=== PATIENT | female | born 1945 ===

== ENCOUNTER → 2019-12-30 15:04 | Outpatient (BNVA) | payer MEDICARE, SELFPAY | PROVIDERS: PCP Internal Medicine; Visit Provider Internal Medicine Pulmonary Disease | DX: J45.40 Moderate persistent asthma, uncomplicated (principal); R06.00 Dyspnea, unspecified; Z79.899 Other long term (current) drug therapy | CPT/HCPCS: 99214 ==

== ENCOUNTER 2020-03-31 15:28 | Outpatient (REF) | payer MEDICARE, SELFPAY ==
--- NOTE | 2020-03-31 15:32 | MM_ITS ---
EXAMINATION: MM SCREENING DIGITAL BREAST TOMOSYNTHESIS, BILATERAL CLINICAL INFORMATION: Screening. Asymptomatic. The lifetime risk of breast cancer based on the Tyrer-Cuzick Model is 2%. COMPARISON: Mammography: 08/06/2018, 08/02/2017, 02/06/2017, 07/22/2016, 06/28/2016 TECHNIQUE: Digital breast tomosynthesis is performed in both the craniocaudal and mediolateral oblique views along with computer-aided detection (CAD). Synthesized 2D images are generated from the tomosynthesis. FINDINGS: The breasts are heterogeneously dense, which may obscure small masses (ACR BI-RADS breast composition Category c). There is fine fibronodular parenchymal pattern similar to prior studies. The left breast shows no interval mass or developing density. Neither breast shows abnormal calcifications. The axilla and skin contours are unremarkable. There is subtle increased nodular asymmetry in the mid right breast 11:00 to 12:00 position. This may be related to summation artifact or incompletely compressed glandular tissue. Patient will be recalled for additional imaging. MM/MM tomosynthesis screening BI IMPRESSION: 1. Right: Question of nodular asymmetry mid right breast 11:00 to 12:00 position, possibly summation artifact or incompletely compressed glandular tissue. 2. Left: No significant changes from prior studies. ASSESSMENT: BI-RADS 0: Incomplete - Need Additional Imaging Evaluation RECOMMENDATION: 1. Additional views of the right breast (3-D spot CC, 3-D spot MLO, standard ML). 2. Targeted ultrasound if warranted after review of the additional views. 3. Radiology department staff will contact the patient for additional imaging. This patient's information was entered into a reminder system with a target due date for their next mammogram.
== END 2020-03-31 15:29 | disposition home or self-care (01) ==
LOC: HO.MAMMO 15:28
PROVIDERS: PCP Family Medicine; Visit Provider Family Medicine
DX: Z12.31 Encounter for screening mammogram for malignant neoplasm of breast (principal)
CPT/HCPCS: 77063; 77067

== ENCOUNTER → 2020-04-14 15:19 | Outpatient (BNVA) | payer MEDICARE, SELFPAY | PROVIDERS: PCP Internal Medicine; Visit Provider Internal Medicine Pulmonary Disease | DX: J45.40 Moderate persistent asthma, uncomplicated (principal); R06.00 Dyspnea, unspecified | CPT/HCPCS: 99212 ==

== ENCOUNTER 2020-06-16 14:54 | Outpatient (REF) | payer MEDICARE, SELFPAY ==
--- NOTE | ~2020-06-16 | MM_ITS ---
EXAMINATION: MM DIAGNOSTIC DIGITAL BREAST TOMOSYNTHESIS, RIGHT CLINICAL INFORMATION: Recall from screening for asymmetry mid right breast 11:00 to 12:00 position, possibly summation artifact or incompletely compressed glandular tissue. COMPARISON: Mammography: 03/31/2020, 08/06/2018, 08/02/2017 TECHNIQUE: Digital breast tomosynthesis is performed. 2D images are generated from the tomosynthesis. The following views are obtained: 3-D spot CC, 3-D spot MLO, 3-D ML FINDINGS: The breasts are heterogeneously dense, which may obscure small masses (ACR BI-RADS breast composition Category c). Additional views show no persistent asymmetric density. There is no developing density or interval mass or architectural abnormality. Parenchymal pattern appears similar to prior studies. Results are discussed with the patient at time of visit, using an cafeteria worker. MM/MM tomosynthesis added views R IMPRESSION: Parenchymal pattern similar to prior studies. ASSESSMENT: BI-RADS 2: Benign RECOMMENDATION: Routine annual mammography screening. This patient's information was entered into a reminder system with a target due date for their next mammogram.
== END 2020-06-16 14:55 | disposition home or self-care (01) ==
LOC: HO.MAMMO 14:54
PROVIDERS: PCP Internal Medicine; Visit Provider Internal Medicine
DX: N64.89 Other specified disorders of breast (principal)
CPT/HCPCS: 77061; 77065

== ENCOUNTER → 2020-08-11 15:17 | Outpatient (BNVA) | payer MEDICARE, SELFPAY | PROVIDERS: PCP Internal Medicine; Visit Provider Internal Medicine Pulmonary Disease | DX: J45.50 Severe persistent asthma, uncomplicated (principal); R06.00 Dyspnea, unspecified; Z91.09 Other allergy status, other than to drugs and biological substances | CPT/HCPCS: 99212 ==

== ENCOUNTER 2020-10-05 14:03 | Outpatient (REF) | payer MEDICARE, SELFPAY | END 2020-10-05 14:04 | disposition home or self-care (01) | LOC: HO.LAB 14:03 | PROVIDERS: PCP Internal Medicine; Visit Provider Internal Medicine Pulmonary Disease | DX: Z91.09 Other allergy status, other than to drugs and biological substances (principal) | CPT/HCPCS: 36415; 82785 ==

== ENCOUNTER 2020-11-10 10:51 | Outpatient (REF) | payer MEDICARE, SELFPAY | END 2020-11-10 10:52 | disposition home or self-care (01) | LOC: HO.LAB 10:51 | PROVIDERS: PCP Internal Medicine; Visit Provider Internal Medicine | DX: Z20.822 Contact with and (suspected) exposure to COVID-19 (principal) | CPT/HCPCS: C9803; U0003; U0005 ==

== ENCOUNTER → 2020-12-01 15:25 | Outpatient (BNVA) | payer MEDICARE, SELFPAY | PROVIDERS: PCP Internal Medicine; Visit Provider Internal Medicine Pulmonary Disease | DX: J45.50 Severe persistent asthma, uncomplicated (principal); Z91.09 Other allergy status, other than to drugs and biological substances | CPT/HCPCS: 99212 ==

== ENCOUNTER 2021-01-20 14:08 | Outpatient (REF) | payer MEDICARE, SELFPAY ==
[2021-01-20 15:36] LABS: Syphilis Screen Nonreactive (Nonreactive)
[2021-01-20 15:42] LABS: Vitamin B12 713 pg/mL (200-900)
[2021-01-21 08:26] LABS: Lyme Abs Screen <0.90 index
== END 2021-01-20 14:09 | disposition home or self-care (01) ==
LOC: HO.LAB 14:08
PROVIDERS: PCP Internal Medicine; Visit Provider Psychiatry & Neurology Neurology
DX: G30.9 Alzheimer's disease, unspecified (principal)
CPT/HCPCS: 36415; 82607; 85652; 86617; 86618; 86780

== ENCOUNTER → 2021-02-02 15:37 | Outpatient (BNVA) | payer MEDICARE, SELFPAY | PROVIDERS: PCP Internal Medicine; Referring Provider Internal Medicine; Visit Provider Nurse Practitioner | DX: D12.6 Benign neoplasm of colon, unspecified (principal); R63.4 Abnormal weight loss | CPT/HCPCS: Q3014 ==

== ENCOUNTER → 2021-02-23 14:56 | Outpatient (BNVA) | payer MEDICARE, SELFPAY | PROVIDERS: PCP Internal Medicine; Visit Provider Internal Medicine Pulmonary Disease | DX: J45.50 Severe persistent asthma, uncomplicated (principal); Z91.09 Other allergy status, other than to drugs and biological substances | CPT/HCPCS: 99212 ==

== ENCOUNTER 2021-02-27 01:07 | Emergency (ER) | payer MEDICARE, SELFPAY ==
[2021-02-27 01:20] VITALS: BP 174/83; PULSE 57; RESP 18; TEMP 36.4; O2SAT 97; BMI 27.9
--- NOTE | 2021-02-27 01:45 | ED_ITS ---
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 Mode of arrival: ambulatory Limitations: no limitations History of Present Illness complaint: HTN 170/100s Onset (ago): day(s) (1) Severity: moderate Relieving factors: none Exacerbating factors: none Associated symptoms: other (has nausea) Treatments prior to arrival: other (took her BP medications though she doesn't know the name) Related Data Home Medications Medication Instructions Recorded Confirmed acetaminophen 500 mg tablet 0 mg PO 12/30/19 albuterol sulfate 2.5 mg INHALATION TID PRN 12/30/19 albuterol sulfate 90 mcg/actuation 0 mcg INHALATION 12/30/19 aerosol inhaler amlodipine 10 mg tablet 10 mg PO QAM 12/30/19 atenolol 50 mg tablet 75 mg PO QAM 12/30/19 bisacodyl 5 mg tablet,delayed 10 mg PO BID 12/30/19 release buspirone 5 mg tablet 5 mg PO BID 12/30/19 calcium carbonate 600 mg (1,500 0 tab PO 12/30/19 mg)-vitamin D3 400 unit tablet cefuroxime axetil 500 mg tablet 500 mg PO Q12H 12/30/19 fluticasone 500 mcg-salmeterol 50 ea INHALATION 12/30/19 mcg/dose blistr powdr for inhalation fluticasone propionate 50 1 spray INTRANASAL DAILY 12/30/19 mcg/actuation nasal spray,suspension furosemide 20 mg tablet 20 mg PO DAILY 12/30/19 hydrochlorothiazide 50 mg tablet 50 mg PO QAM 12/30/19 hydrocortisone 1 % topical cream applic TOPICAL 12/30/19 ketotifen fumarate 0.025 % (0.035 1 drp OPHTHALMIC (EYE) BID 12/30/19 %) eye drops loratadine 10 mg tablet 10 mg PO DAILY 12/30/19 losartan 100 mg tablet 100 mg PO DAILY 12/30/19 miconazole nitrate 2 % topical applic TOPICAL BID PRN 12/30/19 cream multivitamin-ferrous 1 tab PO QAM 12/30/19 fumarate-folic acid 18 mg-400 mcg tablet omeprazole 20 mg capsule,delayed 20 mg PO QAM 12/30/19 release ondansetron 4 mg disintegrating 0 mg PO 12/30/19 tablet peg 3350-electrolytes 236 ml PO DIRECTED 12/30/19 gram-22.74 gram-6.74 gram-5.86 gram solution polyvinyl alcohol 1.4 % eye drops 2 drp OPHTHALMIC (EYE) ml 12/30/19 prochlorperazine maleate 5 mg 0 mg PO 12/30/19 tablet sertraline 25 mg tablet 25 mg PO DAILY 12/30/19 simvastatin 40 mg tablet 40 mg PO BEDTIME 12/30/19 trazodone 100 mg tablet 100 mg PO BEDTIME 12/30/19 Previous Rx's Medication Instructions Recorded dupilumab 300 mg/2 mL subcutaneous See Rx Instructions SUBCUT Q2W 28 12/04/20 pen injector (Dupixent) Days #4 ml furosemide 20 mg tablet 20 mg PO QAM 30 Days #30 tab 12/07/20 [id number] 100 gram-sod sulf 7.5 240 ml PO PER PKG DIR #1 ea 02/02/21 [id number] oral pwdr pack (MoviPrep) Allergies Allergy/AdvReac Type Severity Reaction Status Date / Time acetaminophen [Percocet] Allergy Unknown nausea Verified 02/23/21 15:00 ibuprofen AdvReac Intermediate NAUSEA Verified 02/23/21 15:00 oxycodone [From PERCOCET] AdvReac Intermediate NAUSEA Verified 02/23/21 15:00 Review of Systems Review of Systems: Constitutional : No Weight loss, No Fever, No Chills, No Fatigue, No Malaise ENT/Mouth : No sore throat, No Rhinorrhea Eyes: No Eye Pain, No Swelling, No Redness Cardiovascular : No Chest Pain, No SOB, No Dyspnea on Exertion, No Orthopnea, No Edema, No Palpitations Respiratory : No Cough, No Sputum, No Wheezing Gastrointestinal : pos Nausea, No Vomiting, No Diarrhea, No Constipation, No abdominal Pain, No Hematochezia, No Melena Genitourinary : No Dysuria, No Urinary Frequency, No Hematuria, Musculoskeletal : No joint pain, No Myalgias, No Joint Swelling Skin : No Skin Lesions, No rash Neuro : No Weakness, No Numbness, No Dizziness, No Headache Psych : No Anxiety/Panic, No Depression All other systems reviewed and are negative [facility] Past Medical History Attestation statement: The following information was validated with the patient. Medical History GERD (gastroesophageal reflux disease) High cholesterol HTN (hypertension), benign Moderate persistent asthma Surgical History H/O lithotripsy History of section History of tubal ligation Hx of cholecystectomy Social History Social History (Updated 02/27/21 @ 02:14 by Rosuara Bejarano DO) Patient Tobacco Use Status: Never used Tobacco Advance Directives: No Advance Directives Information Provided: Yes Physical Exam Vital Signs: Vital Signs: Last Vital Signs Temp 97.5 F 02/27/21 01:20 Pulse 61 02/27/21 03:20 Resp 20 02/27/21 03:20 BP 169/84 H 02/27/21 03:20 Pulse Ox 98 02/27/21 03:20 BMI result Body Mass Index 27.9 Appearance: Alert. Oriented X3. No acute distress. Eyes: Pupils equal, round and reactive to light. ENT: Pharynx normal. Neck: Normal inspection. Neck supple. CVS: Normal heart rate and rhythm. Pulses normal. Respiratory: No respiratory distress. Breath sounds normal. Abdomen: Soft and nontender. Skin: Skin warm and dry. Normal skin color. Normal skin turgor. Extremities: No lower extremity edema. No calf ttp Neuro: Oriented X 3. No motor deficit. No sensory deficit. Course Course Course Narrative: patient reports chronic nausea - zofran ordered BP coming down - one day of HTN will hold off adding medications labs negative anticipate DC home patient very anxious working herself up will try ativan here low dose to see if it helps Medical Decision Making MDM Narrative Medical decision making narrative: 75 yo female with hx of HTN, HLD here with c/o elevated BPs all day without sig associated symptoms (states she has chronic nausea) at this time she reports compliance with her medications though doesn't know the name, no increased salt/caffeine, no changes in medications, no CP/headaches, no other complaints will obtain EKG basic labs and monitor BP she is on 75mg atenolol daily and lasix 20mg daily may need to add on additional agent if it remains high. Lab Data Result diagrams: 02/27/21 02:34 02/27/21 02:34 Labs: Lab Results 02/27/21 02/27/21 02/27/21 Range/Units 02:34 02:34 02:34 WBC 7.1 (4.8-10.8) X10*3/uL RBC 4.15 L (4.20-5.50) X10*6/uL Hgb 13.3 (12.0-16.0) g/dl Hct 39.5 (37.0-47.0) % MCV 95.2 (80.0-98.0) fL MCH 32.0 (27.0-33.0) pg MCHC 33.7 (31.0-35.0) g/dl RDW 13.2 (11.0-16.0) % Plt Count 225 (160-400) X10*3/uL MPV 10.1 (9.4-12.3) fL Immature Gran % (Auto) 0.3 (0.0-0.4) % Neut % (Auto) 58.5 (45-73) % Lymph % (Auto) 28.2 (20-40) % [place] % (Auto) 10.2 (2-11) % Eos % (Auto) 2.4 (0-4) % Baso % (Auto) 0.4 (0-2) % Lymph # (Auto) 2.0 (1.2-4.9) X10*3/uL [place] # (Auto) 0.7 (0.1-1.2) X10*3/uL Eos # (Auto) 0.2 (0.0-0.4) X10*3/uL Baso # (Auto) 0.0 (0.0-0.2) X10*3/uL Abs Immat Gran (auto) 0.02 (0.00-0.03) X10*3/uL Absolute Neuts (auto) 4.1 (2.0-8.3) x10*3/uL Absolute Nucleated RBC 0.000 (0.0-0.012) X10*3/uL Nucleated RBC % (auto) 0.0 (0.0-0.2) /100WBC Sodium 144 (135-145) mmol/L Potassium 3.3 (3.3-5.1) mmol/L Chloride 105 (96-108) mmol/L Carbon Dioxide 27 (22-29) mmol/L Anion Gap 15 (12-20) BUN 13 (9-16) mg/dL Creatinine 1.07 (0.5-1.4) mg/dL Estim Creat Clear Calc 39.2 Estimated GFR 50 Random Glucose 100 (60-115) mg/dL Calcium 9.7 (8.4-10.2) mg/dL Troponin I High Sens 4.7 (<3.5-17.0) ng/L COVID-19 (YULY) (Negative) COVID-19 Clin Com 02/27/21 Range/Units 02:34 WBC (4.8-10.8) X10*3/uL RBC (4.20-5.50) X10*6/uL Hgb (12.0-16.0) g/dl Hct (37.0-47.0) % MCV (80.0-98.0) fL MCH (27.0-33.0) pg MCHC (31.0-35.0) g/dl RDW (11.0-16.0) % Plt Count (160-400) X10*3/uL MPV (9.4-12.3) fL Immature Gran % (Auto) (0.0-0.4) % Neut % (Auto) (45-73) % Lymph % (Auto) (20-40) % [place] % (Auto) (2-11) % Eos % (Auto) (0-4) % Baso % (Auto) (0-2) % Lymph # (Auto) (1.2-4.9) X10*3/uL [place] # (Auto) (0.1-1.2) X10*3/uL Eos # (Auto) (0.0-0.4) X10*3/uL Baso # (Auto) (0.0-0.2) X10*3/uL Abs Immat Gran (auto) (0.00-0.03) X10*3/uL Absolute Neuts (auto) (2.0-8.3) x10*3/uL Absolute Nucleated RBC (0.0-0.012) X10*3/uL Nucleated RBC % (auto) (0.0-0.2) /100WBC Sodium (135-145) mmol/L Potassium (3.3-5.1) mmol/L Chloride (96-108) mmol/L Carbon Dioxide (22-29) mmol/L Anion Gap (12-20) BUN (9-16) mg/dL Creatinine (0.5-1.4) mg/dL Estim Creat Clear Calc Estimated GFR Random Glucose (60-115) mg/dL Calcium (8.4-10.2) mg/dL Troponin I High Sens (<3.5-17.0) ng/L COVID-19 (YULY) Negative (Negative) COVID-19 Clin Com See Note ECG Data Attestation: I personally reviewed and interpreted this ECG as follows: Interpretation: Rate: 56 Rhythm: sinus bradycardia Lamar: left Normal P waves. Normal CLAU. Normal QRS complex. ST T wave : normal no MICHAEL qTC: normal prior studies: no acute ischemia The study has been interpreted contemporaneously by me. . Discharge Plan Discharge Clinical Impression: HTN (hypertension) Qualifiers: Hypertension type: unspecified Qualified Code(s): I10 - Essential (primary) hypertension Patient Disposition: Home, Self-Care Instructions: Hypertension (ED) Additional Instructions: return to ED for any worsening symptoms or concerns Prescriptions: No Action Dupixent Pen 300 mg/2 mL pen injector See Rx Instructions subcut Q2W 28 Days Qty: 4 RF: 12 furosemide 20 mg tablet 20 mg PO QAM 30 Days Qty: 30 RF: 6 albuterol sulfate 90 mcg/actuation HFA aerosol inhaler 0 mcg inhalation RF: 0 albuterol sulfate 2.5 mg /3 mL (0.083 %) solution for nebulization 2.5 mg inhalation TID PRNRF: 0 ondansetron 4 mg tablet,disintegrating 0 mg PO RF: 0 atenolol 50 mg tablet 75 mg PO QAM RF: 0 furosemide 20 mg tablet 20 mg PO DAILY RF: 0 simvastatin 40 mg tablet 40 mg PO BEDTIME RF: 0 fluticasone propion-salmeterol 500-50 mcg/dose blister with device inhalation RF: 0 cefuroxime axetil 500 mg tablet 500 mg PO Q12H RF: 0 prochlorperazine maleate 5 mg tablet 0 mg PO RF: 0 Cerovite Advanced Formula 18-400 mg-mcg tablet 1 tab PO QAM RF: 0 peg 3350-electrolytes 236-22.74-6.74 -5.86 gram recon soln PO DIRECTED RF: 0 calcium carbonate-vitamin D3 600 mg(1,500mg) -400 unit tablet 0 tab PO RF: 0 fluticasone propionate 50 mcg/actuation spray,suspension 1 spray intranasal DAILY RF: 0 losartan 100 mg tablet 100 mg PO DAILY RF: 0 bisacodyl 5 mg tablet,delayed release (DR/EC) 10 mg PO BID RF: 0 omeprazole 20 mg capsule,delayed release(DR/EC) 20 mg PO QAM RF: 0 sertraline 25 mg tablet 25 mg PO DAILY RF: 0 hydrochlorothiazide 50 mg tablet 50 mg PO QAM RF: 0 buspirone 5 mg tablet 5 mg PO BID RF: 0 trazodone 100 mg tablet 100 mg PO BEDTIME RF: 0 acetaminophen 500 mg tablet 0 mg PO RF: 0 ketotifen fumarate 0.025 % (0.035 %) drops 1 drp ophthalmic (eye) BID RF: 0 amlodipine 10 mg tablet 10 mg PO QAM RF: 0 loratadine 10 mg tablet 10 mg PO DAILY RF: 0 miconazole nitrate 2 % cream topical BID PRN (Reason: anxiety) RF: 0 hydrocortisone 1 % cream topical RF: 0 polyvinyl alcohol 1.4 % drops 2 drp ophthalmic (eye) RF: 0 [id number]-C [MoviPrep] 100-7.5-2.691 gram powder in packet 240 ml PO PER PKG DIR Qty: 1 RF: 0 Referrals: Physician,Unknown J [Primary Care Provider] - 3 days Print Language: Ukrainian
--- NOTE | 2021-02-27 01:46 | ECG_ITS ---
Test Reason : HYPERTENSION Blood Pressure : / mmHG Vent. Rate : 056 BPM Atrial Rate : 056 BPM P-R Int : 178 ms QRS Dur : 080 ms QT Int : 442 ms P-R-T Axes : 062 -21 030 degrees QTc Int : 426 ms Sinus bradycardia Otherwise normal ECG When compared to the previous EKG of 08 dec 2019, improved ST-T changes Referred By: Rosaura Bejarano Electronically Signed By:TOÑO TRACEY
[2021-02-27 02:44] LABS: MANUAL DIFF FLAG NO
[2021-02-27 02:46] LABS: Basophils Percent Auto 0.4 % (0-2); Eosinophils Absolute Auto 0.2 X10*3/uL (0.0-0.4); Eosinophils Percent Auto 2.4 % (0-4); Hematocrit 39.5 % (37.0-47.0); Hemoglobin 13.3 g/dl (12.0-16.0); Imm Gran Abs Auto 0.02 X10*3/uL (0.00-0.03); Imm Gran Pct Auto 0.3 % (0.0-0.4); Lymphocytes Percent Auto 28.2 % (20-40); Mean Corpuscular HGB Conc 33.7 g/dl (31.0-35.0); Mean Corpuscular Volume 95.2 fL (80.0-98.0); Mean Platelet Volume 10.1 fL (9.4-12.3); Monocytes Absolute Auto 0.7 X10*3/uL (0.1-1.2); Monocytes Percent Auto 10.2 % (2-11); Neutrophils Absolute Auto 4.1 x10*3/uL (2.0-8.3); Neutrophils Percent Auto 58.5 % (45-73); Platelet Count 225 X10*3/uL (160-400); Red Blood Count 4.15 X10*6/uL (4.20-5.50); Red Cell Distribution Width 13.2 % (11.0-16.0); White Blood Count 7.1 X10*3/uL (4.8-10.8)
[2021-02-27 03:00] LABS: COVID-19 Test Negative (Negative)
[2021-02-27 03:01] LABS: Anion Gap 15 (12-20); Blood Urea Nitrogen 13 mg/dL (9-16); Calcium 9.7 mg/dL (8.4-10.2); Carbon Dioxide 27 mmol/L (22-29); Chloride 105 mmol/L (96-108); Creatinine Clr Calc Pharmacy 39.2; Estimated Glomerular Filt Rate 50; Glucose Random 100 mg/dL (60-115); Potassium 3.3 mmol/L (3.3-5.1); Sodium 144 mmol/L (135-145)
[2021-02-27 03:05] LABS: Troponin-I High Sensitivity 4.7 ng/L (<3.5-17.0)
[2021-02-27] MEDS: ondansetron HCL 4 MG/2 ML VIAL IVPUSH (03:19)
[2021-02-27 03:20] VITALS: BP 169/84; PULSE 61; RESP 20; O2SAT 98
[2021-02-27] MEDS: LORazepam 0.5 MG TABLET PO (03:46)
== END 2021-02-27 05:29 | disposition home or self-care (01) ==
PROVIDERS: Emergency Provider Emergency Medicine
DX: I10 Essential (primary) hypertension (principal); Z20.822 Contact with and (suspected) exposure to COVID-19; R11.0 Nausea
CPT/HCPCS: 36415; 80048; 84484; 85025; 87635; 93005; 96374; 99284; J2405

== ENCOUNTER → 2021-03-09 14:56 | Outpatient (BNVA) | payer MEDICARE, SELFPAY | PROVIDERS: PCP Internal Medicine; Visit Provider Internal Medicine Pulmonary Disease | DX: J45.50 Severe persistent asthma, uncomplicated (principal) | CPT/HCPCS: 99211 ==

== ENCOUNTER → 2021-04-05 14:43 | Outpatient (BNVA) | payer MEDICARE, SELFPAY | PROVIDERS: PCP Internal Medicine; Visit Provider Internal Medicine Pulmonary Disease | DX: J45.50 Severe persistent asthma, uncomplicated (principal); Z91.09 Other allergy status, other than to drugs and biological substances | CPT/HCPCS: 99212 ==

== ENCOUNTER 2021-06-28 15:41 | Outpatient (REF) | payer OTHER, SELFPAY ==
--- NOTE | ~2021-06-28 | MM_ITS ---
EXAMINATION: MM SCREENING DIGITAL BREAST TOMOSYNTHESIS, BILATERAL CLINICAL INFORMATION: Screening. Asymptomatic. The lifetime risk of breast cancer based on the Tyrer-Cuzick Model is 2%. COMPARISON: Mammography: 06/16/2020, 03/31/2020, 08/06/2018, 08/02/2017 TECHNIQUE: Digital breast tomosynthesis is performed in both the craniocaudal and mediolateral oblique views along with computer-aided detection (CAD). Synthesized 2D images are generated from the tomosynthesis. FINDINGS: The breasts are heterogeneously dense, which may obscure small masses (ACR BI-RADS breast composition Category c). There is fine fibronodular parenchymal pattern similar to prior studies. There is no interval mass or architectural abnormality. No developing density. There are dermal calcifications versus deodorant artifact overlying both axilla. There are bilateral vascular calcifications and some scattered relatively coarse calcifications left breast. Right breast has new tightly grouped punctate calcifications posterior central breast on right CC view 7.7 cm from the nipple. The calcifications are likely inferior to the the posterior nipple line on MLO view and possibly vascular in etiology. Patient will be recalled for additional imaging. MM/MM tomosynthesis screening BI IMPRESSION: Right: -New tightly grouped calcifications posterior central 6:00 position close to posterior nipple line 7.7 cm from nipple, possibly vascular. Left: -No mammographic evidence of malignancy. ASSESSMENT: BI-RADS 0: Incomplete - Need Additional Imaging Evaluation RECOMMENDATION: 1. Additional views of the right breast (magnification CC, magnification ML). 2. Radiology department staff will contact the patient for additional imaging. This patient's information was entered into a reminder system with a target due date for their next mammogram.
== END 2021-06-28 15:42 | disposition home or self-care (01) ==
LOC: HO.MAMMO 15:41
PROVIDERS: PCP Internal Medicine; Visit Provider Internal Medicine
DX: Z12.31 Encounter for screening mammogram for malignant neoplasm of breast (principal)
CPT/HCPCS: 77063; 77067

== ENCOUNTER 2021-07-29 07:47 | Day surgery (SDC) | payer OTHER, SELFPAY ==
[2021-07-23 11:40] VITALS: BMI 27.8
--- NOTE | 2021-07-28 12:24 | HO.ANESPROP2 ---
Documented by User: Trinidad Aguirre NP 07/28/21 12:27 HPI - Anesthesia Eval Consult details Narrative: 76yo F for Upper Endoscopy and Colonoscopy [facility] Active Problems Active Problems: All Active Problems (Updated 02/28/21 @ 00:01 by Background Omid) Dyspnea on exertion (Acute) Severe persistent allergic asthma (Acute) Environmental allergies (Acute) Dementia (Acute) Serrated adenoma of colon (Acute) Nephrolithiasis (Acute) Abnormal weight loss (Acute) Past Medical History Medical History (Updated 02/28/21 @ 00:01 by Background Dashmuel) GERD (gastroesophageal reflux disease) High cholesterol HTN (hypertension), benign Moderate persistent asthma Surgical History Surgical History (Updated 07/23/21 @ 11:32 by Desiree Gonzalez RN) H/O colonoscopy H/O lithotripsy History of section History of esophagogastroduodenoscopy (EGD) History of tubal ligation Hx of cholecystectomy Social History Social History (Updated 02/27/21 @ 02:14 by Rosaura Bejarano DO) Patient Tobacco Use Status: Never used Tobacco Meds Allergies Allergy/AdvReac Type Severity Reaction Status Date / Time ibuprofen AdvReac Intermediate NAUSEA Verified 04/05/21 14:45 oxycodone [From PERCOCET] AdvReac Intermediate NAUSEA Verified 04/05/21 14:45 Home Medications Medication Instructions Recorded Confirmed Last Taken Type acetaminophen 500 mg tablet 0 mg PO 12/30/19 03/09/21 Unknown History albuterol sulfate 2.5 mg INHALATION TID PRN 12/30/19 03/09/21 Unknown History albuterol sulfate 90 mcg/actuation 0 mcg INHALATION 12/30/19 03/09/21 07/29/21 History aerosol inhaler amlodipine 10 mg tablet 10 mg PO QAM 12/30/19 03/09/21 Unknown History atenolol 50 mg tablet 75 mg PO QAM 12/30/19 03/09/21 Unknown History bisacodyl 5 mg tablet,delayed 10 mg PO BID 12/30/19 03/09/21 Unknown History release buspirone 5 mg tablet 5 mg PO BID 12/30/19 03/09/21 Unknown History calcium carbonate 600 mg-vitamin 0 tab PO 12/30/19 03/09/21 Unknown History D3 10 mcg (400 unit) tablet cefuroxime axetil 500 mg tablet 500 mg PO Q12H 12/30/19 03/09/21 Unknown History fluticasone 500 mcg-salmeterol 50 ea INHALATION 12/30/19 03/09/21 Unknown History mcg/dose blistr powdr for inhalation fluticasone propionate 50 1 spray INTRANASAL DAILY 12/30/19 03/09/21 Unknown History mcg/actuation nasal spray,suspension furosemide 20 mg tablet 20 mg PO DAILY 12/30/19 03/09/21 Unknown History hydrochlorothiazide 50 mg tablet 50 mg PO QAM 12/30/19 03/09/21 Unknown History hydrocortisone 1 % topical cream applic TOPICAL 12/30/19 03/09/21 Unknown History ketotifen fumarate 0.025 % (0.035 1 drp OPHTHALMIC (EYE) BID 12/30/19 03/09/21 Unknown History %) eye drops loratadine 10 mg tablet 10 mg PO DAILY 12/30/19 03/09/21 Unknown History losartan 100 mg tablet 100 mg PO DAILY 12/30/19 03/09/21 Unknown History miconazole nitrate 2 % topical applic TOPICAL BID PRN 12/30/19 03/09/21 Unknown History cream multivitamin-ferrous 1 tab PO QAM 12/30/19 03/09/21 Unknown History fumarate-folic acid 18 mg-400 mcg tablet omeprazole 20 mg capsule,delayed 20 mg PO QAM 12/30/19 03/09/21 Unknown History release ondansetron 4 mg disintegrating 0 mg PO 12/30/19 03/09/21 Unknown History tablet peg 3350-electrolytes 236 ml PO DIRECTED 12/30/19 03/09/21 Unknown History gram-22.74 gram-6.74 gram-5.86 gram solution polyvinyl alcohol 1.4 % eye drops 2 drp OPHTHALMIC (EYE) ml 12/30/19 03/09/21 Unknown History prochlorperazine maleate 5 mg 0 mg PO 12/30/19 03/09/21 Unknown History tablet sertraline 25 mg tablet 25 mg PO DAILY 12/30/19 03/09/21 Unknown History simvastatin 40 mg tablet 40 mg PO BEDTIME 12/30/19 03/09/21 Unknown History trazodone 100 mg tablet 100 mg PO BEDTIME 12/30/19 03/09/21 Unknown History Exam Exam Date and Time: July 28, 2021 1224 Height,Weight and Vital Signs: Height 5 ft 1 in Weight 67 kg Pertinent Lab Results Pertinent Lab Results: Laboratory Tests 02/27/21 02/27/21 02:34 02:34 WBC 7.1 Hgb 13.3 Hct 39.5 Plt Count 225 Sodium 144 Potassium 3.3 Chloride 105 Carbon Dioxide 27 BUN 13 Creatinine 1.07 Narrative Narrative: EKG 02/2021 Vent. Rate : 056 BPM ? ? Atrial Rate : 056 BPM ?? P-R Int : 178 ms? QRS Dur : 080 ms ? ? QT Int : 442 ms ? ? ? P-R-T Axes : 062 -21 030 degrees ?? QTc Int : 426 ms ? Sinus bradycardia Otherwise normal ECG When compared to the previous EKG of 08 dec 2019,? improved ST-T changes Assessment and Plan Assessment Anesthesia Assessment: Chart Reviewed Documented by User: Ismael Fields MD 07/29/21 13:45 [facility] Past Medical History Medical History (Updated 02/28/21 @ 00:01 by Jamilah Anne) GERD (gastroesophageal reflux disease) High cholesterol HTN (hypertension), benign Moderate persistent asthma Family History Family history of problems with anesthesia: No Surgical History Surgical History (Updated 07/23/21 @ 11:32 by Desiree Gonzalez RN) H/O colonoscopy H/O lithotripsy History of section History of esophagogastroduodenoscopy (EGD) History of tubal ligation Hx of cholecystectomy History of Problems with Anesthesia: No Social History Social History (Updated 02/27/21 @ 02:14 by Rosaura Bejarano DO) Patient Tobacco Use Status: Never used Tobacco Meds Allergies Allergy/AdvReac Type Severity Reaction Status Date / Time ibuprofen AdvReac Intermediate NAUSEA Verified 04/05/21 14:45 oxycodone [From PERCOCET] AdvReac Intermediate NAUSEA Verified 04/05/21 14:45 Home Medications Medication Instructions Recorded Confirmed Last Taken Type acetaminophen 500 mg tablet 0 mg PO 12/30/19 03/09/21 Unknown History albuterol sulfate 2.5 mg INHALATION TID PRN 12/30/19 03/09/21 Unknown History albuterol sulfate 90 mcg/actuation 0 mcg INHALATION 12/30/19 03/09/21 07/29/21 History aerosol inhaler amlodipine 10 mg tablet 10 mg PO QAM 12/30/19 03/09/21 Unknown History atenolol 50 mg tablet 75 mg PO QAM 12/30/19 03/09/21 Unknown History bisacodyl 5 mg tablet,delayed 10 mg PO BID 12/30/19 03/09/21 Unknown History release buspirone 5 mg tablet 5 mg PO BID 12/30/19 03/09/21 Unknown History calcium carbonate 600 mg-vitamin 0 tab PO 12/30/19 03/09/21 Unknown History D3 10 mcg (400 unit) tablet cefuroxime axetil 500 mg tablet 500 mg PO Q12H 12/30/19 03/09/21 Unknown History fluticasone 500 mcg-salmeterol 50 ea INHALATION 12/30/19 03/09/21 Unknown History mcg/dose blistr powdr for inhalation fluticasone propionate 50 1 spray INTRANASAL DAILY 12/30/19 03/09/21 Unknown History mcg/actuation nasal spray,suspension furosemide 20 mg tablet 20 mg PO DAILY 12/30/19 03/09/21 Unknown History hydrochlorothiazide 50 mg tablet 50 mg PO QAM 12/30/19 03/09/21 Unknown History hydrocortisone 1 % topical cream applic TOPICAL 12/30/19 03/09/21 Unknown History ketotifen fumarate 0.025 % (0.035 1 drp OPHTHALMIC (EYE) BID 12/30/19 03/09/21 Unknown History %) eye drops loratadine 10 mg tablet 10 mg PO DAILY 12/30/19 03/09/21 Unknown History losartan 100 mg tablet 100 mg PO DAILY 12/30/19 03/09/21 Unknown History miconazole nitrate 2 % topical applic TOPICAL BID PRN 12/30/19 03/09/21 Unknown History cream multivitamin-ferrous 1 tab PO QAM 12/30/19 03/09/21 Unknown History fumarate-folic acid 18 mg-400 mcg tablet omeprazole 20 mg capsule,delayed 20 mg PO QAM 12/30/19 03/09/21 Unknown History release ondansetron 4 mg disintegrating 0 mg PO 12/30/19 03/09/21 Unknown History tablet peg 3350-electrolytes 236 ml PO DIRECTED 12/30/19 03/09/21 Unknown History gram-22.74 gram-6.74 gram-5.86 gram solution polyvinyl alcohol 1.4 % eye drops 2 drp OPHTHALMIC (EYE) ml 12/30/19 03/09/21 Unknown History prochlorperazine maleate 5 mg 0 mg PO 12/30/19 03/09/21 Unknown History tablet sertraline 25 mg tablet 25 mg PO DAILY 12/30/19 03/09/21 Unknown History simvastatin 40 mg tablet 40 mg PO BEDTIME 12/30/19 03/09/21 Unknown History trazodone 100 mg tablet 100 mg PO BEDTIME 12/30/19 03/09/21 Unknown History Exam Airway Mallampati Class: III TM Dist: >3cm Neck ROM: Full Loose/Missing/Broken Teeth: Yes (Lower screws ) Heart: S1, S2 Lungs: b/l breath sounds Assessment and Plan Assessment Anesthesia Assessment: Anesthesia Plan Discussed Final Anesthetic Review Family History of Problems with Anesthesia: No History of Problems with Anesthesia: No NPO: Yes ASA Class: III Final Preanesthetic Review: Meds/Allgs Chart Reviewed, Consent Obtained/Reviewed and Anes Risks/Benef Reviewed Patient Risk: Intermediate Procedure Risk: Intermediate Anesthetic Plan Anesthetic Plan: MAC: Disposition: Standard PACU
[2021-07-29 08:11] VITALS: BMI 25.0
[2021-07-29 08:33] VITALS: BP 162/66; PULSE 57; RESP 16; TEMP 36.7; O2SAT 97
[2021-07-29] MEDS: Lactated Ringers 1,000 ML 100 ML IVCONT (08:41)
--- NOTE | 2021-07-29 08:58 | MHC.SHP ---
Pre-Procedural Eval Section A Date of Service: 07/29/21 Section B Chief Complaint: wt loss,benign neoplasm of colon Relevant Family History (Specify if Yes): No Relevant Social History: None Present Medications: see Short Stay Collaborative assessment Medical History: Significant History (GERD (gastroesophageal reflux disease) High cholesterol HTN (hypertension), benign Moderate persistent asthma) History of Previous Operations: Relevant previous surgery/procedure and date(s) (H/O colonoscopy H/O lithotripsy History of section History of esophagogastroduodenoscopy (EGD) History of tubal ligation Hx of cholecystectomy) Allergies: Allergies Allergy/AdvReac Type Severity Reaction Status Date / Time ibuprofen AdvReac Intermediate NAUSEA Verified 04/05/21 14:45 oxycodone [From PERCOCET] AdvReac Intermediate NAUSEA Verified 04/05/21 14:45 Review of Systems Sugical H&P ROS: Negative: Constitution, Cardiovascular, Respiratory, Neurological, Psychiatric, Hem-Onc, Allergic/Immunologic, Gastrointestinal, Genitourinary, Musculoskeletal, Integumentary, Endocrine and Eyes/Ears/Nose/Throat Exam Surgical H&P Exam: Normal: HEENT, Normal: Heart, Normal: Lungs, Normal: Extremities, Normal: Abdomen, Normal: Skin and Normal: Neurological Plan Diagnosis/Plan: Unchanged I have reviewed the history and physical and performed a pertinent physical examination on my patient. No changes have occurred unless specified.
--- NOTE | 2021-07-29 09:38 | P.BOP_ITS ---
Brief Operative Note Date of Service: 07/29/21 Pre-op diagnosis: weight loss, hx of colon polyp Post-op diagnosis: same Procedure: see op note Surgeon: Miriam Archibald MD Anesthesia: MAC Was an Administrative Library Assistant used for this Procedure?: No Estimated blood loss (mL): 0 Condition: stable Disposition: PACU
--- NOTE | 2021-07-29 09:38 | P.OP_ITS ---
Operative Note Operative Note Date of Service: 07/29/21 Narrative: Operative Information Procedure Description: EGD, Colonoscopy Indication: weight loss, hx of colon polyp Anesthesia: MAC FLEXIBLE TRANSORAL UPPER GASTROINTESTINAL ENDOSCOPY AND COLONOSCOPY PROCEDURE NOTE UPPER ENDOSCOPY Consent: Indications for the procedure and potential complications of bleeding, perforation, reaction to medications and missed diagnosis were discussed with the patient and informed consent was obtained. Instrument: Olympus GIF H 190 J mid size upper endoscope Monitoring: Vital signs and clinical assessment, continuous EKG monitoring, Pulse oximetry, Carbon Dioxide monitoring and blood pressure monitoring were done throughout the procedure. Procedure: The patient was placed in the left lateral decubitis position and pre-procedure medications were administered and a bite block was placed. The endoscope was inserted into the mouth and advanced under direct vision to the third part of duodenum. A careful inspection was made as the upper endoscope was withdrawn including a retroflexed examination of the proximal stomach; Findings and interventions are described below. Findings: Larynx:normal Esophagus: GE junction at 35 cm, diaphragm hiatus at 37 cm, consistent with 2 cm sliding hiatal hernia. There was some islands of salmon pink tissue at GEJ, bx taken to r/o short segment barretts. Random esophagus bx also taken. Stomach: Patchy areas of intense erythema. Biopsies were obtained. Grade 2 flap valve on retroflexed examination of the cardia. There were also many fundic glan d polyps. Good gastric movement and peristalsis. Duodenum: Normal bulb and descending duodenum, bx taken Intervention: Biopsies as noted above COLONOSCOPY Instrument: Olympus variable stiffness pediatric scope 190L Colonoscopy Monitoring: Vital signs and clinical assessment, continuous EKG monitoring, Pulse oximetry, Carbon Dioxide monitoring and blood pressure monitoring were done throughout the procedure. Colon withdrawal time was 11 minutes. Procedure: The patient was placed in the left lateral decubitis position and pre-procedure medications were administered. After a digital rectal examination of the ano-rectum, the video colonoscope was inserted into the rectum and advanced through the colon to the cecum/TI. The colonoscope was slowly withdrawn in a retrograde panoramic fashion and the colon mucosa was carefully examined including a retroflexed view of the rectum. Findings and interventions are described below. Procedure Difficulty:moderate due to severe diverticulosis, pressure applied Findings: Terminal Ileum-normal, bx taken Severe traylor diverticulosis, more so on the left side, random colon bx taken Cecum:normal Ascending Colon: diverticulosis noted Transverse Colon - 10 mm sessile polyp removed with cold snare Descending Colon: patchy erythema, severe diverticulosis Sigmoid Colon: patchy erythema, severe diverticulosis, with luminal narrowing and mucosal hypertrophy Rectum: Retroflexion with small internal hemorrhoids, grade I Anorectum - normal Colon preparation: [place] Bowel Preparation Scale Right colon; 2 Transverse colon: 2 Left colon; 2 (0 = Unprepared colon segment with mucosa not seen due to solid stool that cannot be cleared. 1 = Portion of mucosa of the colon segment seen, but other areas of the colon segment not well seen due to staining, residual stool and/or opaque liquid. 2 = Minor amount of residual staining, small fragments of stool and/or opaque liquid, but mucosa of colon segment seen well. 3 = Entire mucosa of colon segment seen well with no residual staining, small fragments of stool or opaque liquid) Impression and Post Procedure Diagnosis: Endoscopy Findings: hiatal hernia possible barretts gastritis fundic gland polyps Good gastric movement and peristalsis. Colonoscopy Findings: polyp internal hemorrhoids diverticular disease mild colitis, possibly diverticular related (SCAD) Plan: Await Pathology results Repeat Colonoscopy in 5 years if health allows or earlier if clinically indicated High fiber diet leaflet avoid straining at stool, epsom salts and sitz bath, anusol supps or cream if h pylori pos then treat Above findings were reviewed with the patient and relevant handouts were provided if indicated.
[2021-07-29 09:42] VITALS: BP 87/35; PULSE 57; RESP 16; TEMP 36.5; O2SAT 97
[2021-07-29 09:57] VITALS: BP 119/56; PULSE 53; RESP 16; TEMP 36.4; O2SAT 98
[2021-07-29 10:12] VITALS: BP 150/68; PULSE 55; RESP 16; TEMP 36.8; O2SAT 96
[2021-07-29 10:27] VITALS: BP 154/72; PULSE 55; RESP 16; TEMP 36.7; O2SAT 96
[2021-07-29 10:42] VITALS: BP 148/70; PULSE 58; RESP 16; TEMP 36.6; O2SAT 96
== END 2021-07-29 11:46 | disposition home or self-care (01) ==
PROVIDERS: PCP Internal Medicine; Visit Provider Internal Medicine Gastroenterology
PROC: (CPT 45385; principal; 2021-07-29 12:30)
DX: R63.4 Abnormal weight loss (principal); Z86.010 Personal history of colon polyps; R19.7 Diarrhea, unspecified; K63.5 Polyp of colon; K57.30 Diverticulosis of large intestine without perforation or abscess without bleeding; K52.89 Other specified noninfective gastroenteritis and colitis; K64.0 First degree hemorrhoids; K31.7 Polyp of stomach and duodenum; K29.50 Unspecified chronic gastritis without bleeding; K21.9 Gastro-esophageal reflux disease without esophagitis; K44.9 Diaphragmatic hernia without obstruction or gangrene; F03.90 Unspecified dementia, unspecified severity, without behavioral disturbance, psychotic disturbance, mood disturbance, and anxiety; I10 Essential (primary) hypertension; E78.5 Hyperlipidemia, unspecified; J45.30 Mild persistent asthma, uncomplicated; Z79.899 Other long term (current) drug therapy; Z88.8 Allergy status to other drugs, medicaments and biological substances; Z90.49 Acquired absence of other specified parts of digestive tract; Z87.442 Personal history of urinary calculi; Z87.891 Personal history of nicotine dependence
CPT/HCPCS: 45385; 45380; 43239; 88305; 88342; J3010

== ENCOUNTER → 2021-08-03 14:55 | Outpatient (BNVA) | payer OTHER, SELFPAY | PROVIDERS: PCP Internal Medicine; Visit Provider Internal Medicine Pulmonary Disease | DX: J45.50 Severe persistent asthma, uncomplicated (principal); Z91.09 Other allergy status, other than to drugs and biological substances | CPT/HCPCS: 99212 ==

== ENCOUNTER 2021-08-09 14:43 | Outpatient (REF) | payer OTHER, SELFPAY ==
--- NOTE | ~2021-08-09 | MM_ITS ---
EXAMINATION: MM DIAGNOSTIC DIGITAL MAMMOGRAPHY, RIGHT CLINICAL INFORMATION: Recall from screening for new grouped calcifications posterior central right breast. COMPARISON: Mammography: 06/28/2021, 06/16/2020, 03/31/2020 TECHNIQUE: Digital mammography is performed in the following views: Magnification CC x2, magnification ML x4. FINDINGS: The breasts are heterogeneously dense, which may obscure small masses (ACR BI-RADS breast composition Category c). The additional views confirm grouped calcifications 8-12 in number posterior inferior breast representing new finding from prior studies. Calcifications slightly vary in shape. Stereotactic sampling is recommended. Results are discussed with the patient and her son at time of visit, with assistance of an grant writer. MM/MM added views RT IMPRESSION: -New grouped heterogeneous calcifications posterior inferior right breast. ASSESSMENT: BI-RADS 4: Suspicious RECOMMENDATION: Stereotactic biopsy right breast calcifications. This patient's information was entered into a reminder system with a target due date for their next mammogram.
== END 2021-08-09 14:44 | disposition home or self-care (01) ==
LOC: HO.MAMMO 14:43
PROVIDERS: Visit Provider Internal Medicine
DX: R92.1 Mammographic calcification found on diagnostic imaging of breast (principal)
CPT/HCPCS: 77065

== ENCOUNTER → 2021-08-10 14:50 | Outpatient (BNVA) | payer OTHER, SELFPAY | PROVIDERS: PCP Internal Medicine; Referring Provider Internal Medicine; Visit Provider Nurse Practitioner | DX: K22.70 Barrett's esophagus without dysplasia (principal) | CPT/HCPCS: 99212 ==

== ENCOUNTER 2021-08-13 08:49 | Outpatient (REF) | payer OTHER, SELFPAY ==
--- NOTE | ~2021-08-13 | MM_ITS ---
EXAMINATION: STEREOTACTIC TOMOSYNTHESIS-GUIDED VACUUM-ASSISTED BREAST BIOPSY, RIGHT SPECIMEN RADIOGRAPH, RIGHT POST PROCEDURE DIGITAL MAMMOGRAM, RIGHT CLINICAL INFORMATION: New grouped heterogeneous calcifications posterior inferior right breast. COMPARISON: Mammography 08/09/2021, 06/28/2021, 06/16/2020. TECHNIQUE/PROCEDURE: Informed consent was obtained from the patient after discussion of the benefits, risks, and alternatives to biopsy today. Patient appeared to understand. Gave opportunity for questions. Patient signed consent form. Hospital provided interpreter translator assisted for the consent. BIOPSY TABLE: [employer] Aff[employer] Prone Biopsy System. LESION: Grouped heterogeneous calcifications posterior inferior right breast. LOCAL ANESTHESIA: 10 mL carbonated 1% lidocaine; 10 mL 1% lidocaine with epinephrine. DERMATOTOMY: Single skin charles dermatotomy performed. NEEDLE: [employer] 9-gauge vacuum assisted core biopsy device. APPROACH: Caudal Cranial. TARGETING: Combination of digital breast tomosynthesis and stereotactic digital mammography used for targeting. CORES: 6. CLIP: [employer] T-shaped marker. SPECIMEN RADIOGRAPH: Specimen radiograph is taken in separate room using digital mammography. The index calcifications are in the excised cores. There are at least 20 calcifications in the cores. POST PROCEDURE UNILATERAL DIGITAL MAMMOGRAM: The post biopsy mammogram is performed in separate room using separate digital mammography equipment from the biopsy procedure. CC and ML views are obtained. The breasts are heterogeneously dense, which may obscure small masses (breast composition category: c). The clip marker is in position. The calcifications are markedly decreased at the biopsy site, no longer clearly demonstrated. No gross hematoma. The patient tolerated the procedure well. No immediate complications. Home instructions reviewed with the patient and her son. Final pathology results are pending. MM/MM stereotactic biopsy RT IMPRESSION: 1. Digital tomosynthesis-guided core biopsy right breast with clip placement. 2. Specimen radiograph taken and post procedure mammogram. There is satisfactory positioning of the biopsy clip. 3. Final pathology results pending. An addendum report will be issued.
[2021-08-13] MEDS: Lidocaine HCl 1 % 20 ML VIAL 9 ML SUBCUT (12:10)
[2021-08-13] MEDS: Sodium Bicarbonate 8.4% 50 MEQ/50 ML VIAL SUBCUT (12:15)
== END 2021-08-13 08:50 | disposition home or self-care (01) ==
LOC: HO.MAMMO 08:49
PROVIDERS: PCP Internal Medicine; Visit Provider Surgery
DX: R92.8 Other abnormal and inconclusive findings on diagnostic imaging of breast (principal)
CPT/HCPCS: 19081; 88305; 88360; 99202; A4648

== ENCOUNTER → 2021-08-17 14:38 | Outpatient (BNVA) | payer OTHER, SELFPAY | PROVIDERS: PCP Internal Medicine; Referring Provider Internal Medicine; Visit Provider Surgery | DX: D05.11 Intraductal carcinoma in situ of right breast (principal) | CPT/HCPCS: 99212 ==

== ENCOUNTER 2021-08-30 07:51 | Day surgery (SDC) | payer OTHER, SELFPAY ==
[2021-08-25 16:05] VITALS: BMI 24.9
--- NOTE | 2021-08-27 09:06 | P.CONAN_ITS ---
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 (Acute) Ductal carcinoma in situ of right breast (Acute) Past Medical History Medical History Chronic post-concussion headache COPD (chronic obstructive pulmonary disease) Environmental allergies GERD (gastroesophageal reflux disease) Hiatal hernia High cholesterol HTN (hypertension), benign Hx of gastritis Memory impairment Moderate persistent asthma Mood disorder Osteoarthritis of both hips Post concussion syndrome Family History Family History Mother Colon cancer Family history of problems with anesthesia: No Surgical History Surgical History H/O colonoscopy H/O lithotripsy History of section History of esophagogastroduodenoscopy (EGD) History of tubal ligation Hx of cholecystectomy History of Problems with Anesthesia: No Social History Social History Are you a primary healthcare network consultant to a significant other at home: No Do you presently have visiting nurse or other home services: No (Son takes care of her) Patient Tobacco Use Status: Never used Tobacco Use of substances other than those prescribed or required for medical reasons: No Have you been hit, kicked, punched, or otherwise hurt by someone within the past year? If so, by whom?: No Are you DNR?: No Advance Directives: No Advance Directives Information Provided: Yes (Info mailed) Advance Directives on File: No Recently lost weight without trying: No Eating poorly because of decreased appetite: No Nutrition Risks: No Nutritional Risk Patient : No : No Meds Allergies Allergy/AdvReac Type Severity Reaction Status Date / Time ibuprofen AdvReac Intermediate NAUSEA Verified 08/25/21 11:59 oxycodone [From PERCET] AdvReac Intermediate NAUSEA Verified 08/25/21 11:59 Home Medications Medication Instructions Recorded Confirmed Last Taken Type acetaminophen 500 mg tablet 500 mg PO 12/30/19 08/17/21 Unknown History albuterol sulfate 2.5 mg INHALATION TID PRN 12/30/19 08/25/21 Unknown History albuterol sulfate 90 mcg/actuation 90 mcg INHALATION Q4-6H PRN 12/30/19 08/25/21 07/29/21 History aerosol inhaler amlodipine 10 mg tablet 10 mg PO QAM 12/30/19 08/25/21 08/30/21 History atenolol 50 mg tablet 75 mg PO QAM 12/30/19 08/25/21 08/30/21 History bisacodyl 5 mg tablet,delayed 10 mg PO BID 12/30/19 08/25/21 08/30/21 History release buspirone 5 mg tablet 5 mg PO BID 12/30/19 08/25/21 08/30/21 History calcium carbonate 600 mg-vitamin 0 tab PO 12/30/19 08/17/21 Unknown History D3 10 mcg (400 unit) tablet cefuroxime axetil 500 mg tablet 500 mg PO Q12H 12/30/19 08/25/21 Unknown History fluticasone 500 mcg-salmeterol 50 1 ea INHALATION 12/30/19 08/17/21 Unknown History mcg/dose blistr powdr for inhalation fluticasone propionate 50 1 spray INTRANASAL DAILY 12/30/19 08/25/21 Unknown History mcg/actuation nasal spray,suspension hydrochlorothiazide 50 mg tablet 50 mg PO QAM 12/30/19 08/25/21 08/30/21 History hydrocortisone 1 % topical cream applic TOPICAL 12/30/19 08/17/21 Unknown History ketotifen fumarate 0.025 % (0.035 1 drp OPHTHALMIC (EYE) BID 12/30/19 08/25/21 Unknown History %) eye drops loratadine 10 mg tablet 10 mg PO DAILY 12/30/19 08/25/21 08/30/21 History losartan 100 mg tablet 100 mg PO DAILY 12/30/19 08/25/21 08/30/21 History miconazole nitrate 2 % topical applic TOPICAL BID PRN 12/30/19 08/17/21 Unknown History cream multivitamin-ferrous 1 tab PO QAM 12/30/19 08/25/21 Unknown History fumarate-folic acid 18 mg-400 mcg tablet ondansetron 4 mg disintegrating 0 mg PO 12/30/19 08/17/21 Unknown History tablet polyvinyl alcohol 1.4 % eye drops 2 drp OPHTHALMIC (EYE) ml 12/30/19 08/17/21 Unknown History prochlorperazine maleate 5 mg 5 mg PO DAILY PRN 12/30/19 08/25/21 Unknown History tablet sertraline 25 mg tablet 25 mg PO DAILY 12/30/19 08/25/21 08/30/21 History simvastatin 40 mg tablet 40 mg PO BEDTIME 12/30/19 08/25/21 Unknown History trazodone 100 mg tablet 100 mg PO BEDTIME 12/30/19 08/25/21 Unknown History topiramate 25 mg tablet 25 mg PO BID 08/13/21 08/25/21 08/30/21 History docusate sodium 100 mg capsule 1 cap PO BID 08/25/21 08/25/21 Unknown History Exam Exam Date and Time: August 27, 2021 0907 Height,Weight and Vital Signs: Height 5 ft 1 in Weight 59.874 kg Pertinent Lab Results Pertinent Lab Results: Laboratory Tests ? 02/27/21 02/27/21 ? 02:34 02:34 WBC ? ?7.1 Hgb ? ?13.3 Hct ? ?39.5 Plt Count ? ?225 Sodium ?144 ? Potassium ?3.3 ? C Chloride ?105 ? Carbon Dioxide ?27 ? BUN ?13 ? Creatinine ?1.07 ? Narrative Narrative: EKG 02/2021 Vent. Rate : 056 BPM ? ? Atrial Rate : 056 BPM ?? P-R Int : 178 ms? QRS Dur : 080 ms ? ? QT Int : 442 ms ? ? ? P-R-T Axes : 062 -21 030 degrees ?? QTc Int : 426 ms ? Sinus bradycardia Otherwise normal ECG When compared to the previous EKG of 08 dec 2019,? improved ST-T changes Assessment and Plan Assessment Anesthesia Assessment: Chart Reviewed Final Anesthetic Review Family History of Problems with Anesthesia: No History of Problems with Anesthesia: No Documented by User: Yvonne Harmon MD 08/30/21 12:11 [facility] Past Medical History Medical History Chronic post-concussion headache COPD (chronic obstructive pulmonary disease) Environmental allergies GERD (gastroesophageal reflux disease) Hiatal hernia High cholesterol HTN (hypertension), benign Hx of gastritis Memory impairment Moderate persistent asthma Mood disorder Osteoarthritis of both hips Post concussion syndrome Family History Family History Mother Colon cancer Surgical History Surgical History H/O colonoscopy H/O lithotripsy History of section History of esophagogastroduodenoscopy (EGD) History of tubal ligation Hx of cholecystectomy Social History Social History Are you a primary healthcare network consultant to a significant other at home: No Do you presently have visiting nurse or other home services: No (Son takes care of her) Patient Tobacco Use Status: Never used Tobacco Use of substances other than those prescribed or required for medical reasons: No Have you been hit, kicked, punched, or otherwise hurt by someone within the past year? If so, by whom?: No Are you DNR?: No Advance Directives: No Advance Directives Information Provided: Yes (Info mailed) Advance Directives on File: No Recently lost weight without trying: No Eating poorly because of decreased appetite: No Nutrition Risks: No Nutritional Risk Patient : No : No Meds Allergies Allergy/AdvReac Type Severity Reaction Status Date / Time ibuprofen AdvReac Intermediate NAUSEA Verified 08/25/21 11:59 oxycodone [From PERCOCET] AdvReac Intermediate NAUSEA Verified 08/25/21 11:59 Home Medications Medication Instructions Recorded Confirmed Last Taken Type acetaminophen 500 mg tablet 500 mg PO 12/30/19 08/17/21 Unknown History albuterol sulfate 2.5 mg INHALATION TID PRN 12/30/19 08/25/21 Unknown History albuterol sulfate 90 mcg/actuation 90 mcg INHALATION Q4-6H PRN 12/30/19 08/25/21 07/29/21 History aerosol inhaler amlodipine 10 mg tablet 10 mg PO QAM 12/30/19 08/25/21 08/30/21 History atenolol 50 mg tablet 75 mg PO QAM 12/30/19 08/25/21 08/30/21 History bisacodyl 5 mg tablet,delayed 10 mg PO BID 12/30/19 08/25/21 08/30/21 History release buspirone 5 mg tablet 5 mg PO BID 12/30/19 08/25/21 08/30/21 History calcium carbonate 600 mg-vitamin 0 tab PO 12/30/19 08/17/21 Unknown History D3 10 mcg (400 unit) tablet cefuroxime axetil 500 mg tablet 500 mg PO Q12H 12/30/19 08/25/21 Unknown History fluticasone 500 mcg-salmeterol 50 1 ea INHALATION 12/30/19 08/17/21 Unknown History mcg/dose blistr powdr for inhalation fluticasone propionate 50 1 spray INTRANASAL DAILY 12/30/19 08/25/21 Unknown History mcg/actuation nasal spray,suspension hydrochlorothiazide 50 mg tablet 50 mg PO QAM 12/30/19 08/25/21 08/30/21 History hydrocortisone 1 % topical cream applic TOPICAL 12/30/19 08/17/21 Unknown History ketotifen fumarate 0.025 % (0.035 1 drp OPHTHALMIC (EYE) BID 12/30/19 08/25/21 Unknown History %) eye drops loratadine 10 mg tablet 10 mg PO DAILY 12/30/19 08/25/21 08/30/21 History losartan 100 mg tablet 100 mg PO DAILY 12/30/19 08/25/21 08/30/21 History miconazole nitrate 2 % topical applic TOPICAL BID PRN 12/30/19 08/17/21 Unknown History cream multivitamin-ferrous 1 tab PO QAM 12/30/19 08/25/21 Unknown History fumarate-folic acid 18 mg-400 mcg tablet ondansetron 4 mg disintegrating 0 mg PO 12/30/19 08/17/21 Unknown History tablet polyvinyl alcohol 1.4 % eye drops 2 drp OPHTHALMIC (EYE) ml 12/30/19 08/17/21 Unknown History prochlorperazine maleate 5 mg 5 mg PO DAILY PRN 12/30/19 08/25/21 Unknown History tablet sertraline 25 mg tablet 25 mg PO DAILY 12/30/19 08/25/21 08/30/21 History simvastatin 40 mg tablet 40 mg PO BEDTIME 12/30/19 08/25/21 Unknown History trazodone 100 mg tablet 100 mg PO BEDTIME 12/30/19 08/25/21 Unknown History topiramate 25 mg tablet 25 mg PO BID 08/13/21 08/25/21 08/30/21 History docusate sodium 100 mg capsule 1 cap PO BID 08/25/21 08/25/21 Unknown History Exam Airway Mallampati Class: II (Edentulous) TM Dist: >3cm Neck ROM: Full Loose/Missing/Broken Teeth: Yes, Upper and Lower Heart: RRR Lungs: CTA Assessment and Plan Assessment Anesthesia Assessment: Anesthesia Plan Discussed Final Anesthetic Review NPO: Yes ASA Class: III Final Preanesthetic Review: Meds/Allgs Chart Reviewed, Consent Obtained/Reviewed and Anes Risks/Benef Reviewed Patient Risk: Intermediate Procedure Risk: Low Anesthetic Plan Anesthetic Plan: GA Disposition: Standard PACU
[2021-08-30] VITALS (7 sets, daily range): BP systolic 138–157; BP diastolic 65–82; PULSE 53–64; RESP 16–18; TEMP 36.3–36.8; O2SAT 97–99
--- NOTE | ~2021-08-30 | MM_ITS ---
EXAMINATION: MM MAMMOGRAM GUIDED NEEDLE LOCALIZATION BREAST, RIGHT MM NEEDLE LOCALIZATION SPECIMEN FROM THE RIGHT BREAST CLINICAL INFORMATION: Intraductal carcinoma in situ right breast COMPARISON: August 13, 2021 and studies dating back to August 02, 2017 TECHNIQUE NEEDLE LOC: Proper informed consent is obtained from the patient after discussion of the procedure, potential risks and complications, and alternatives including declining the procedure today. Patient was given an opportunity for questions. The patient appeared to understand. The patient consented to the procedure and signed the consent form. GUIDANCE: Digital mammography. APPROACH: Lateral. TARGET: Clip with calcifications. ANESTHESIA: lidocaine 1%: 6 mL. LOCALIZATION MARKER: Top hat. The skin is prepped and local anesthesia administered. The needle is positioned and position assessed with mammography. The wire is hooked into position. [place] needle protector placed. The patient tolerated the procedure well and had no immediate complication. TECHNIQUE SPECIMEN RADIOGRAPH: Imaging of the excised specimen is performed using digital mammography in 1 view. FINDINGS SPECIMEN RADIOGRAPH: The specimen shows the needle and hookwire are delivered intact. The biopsy clip marker and index calcifications are identified in the specimen. Results were called to Dr. Александр Burciaga in the operating room at the time of imaging. MM/MM needle loc RT IMPRESSION: 1. Status post right breast needle localization with wire hooked into position. 2. Post operative specimen radiograph obtained.
[2021-08-30] MEDS: Lidocaine HCl 1 % 20 ML VIAL 10 ML SUBCUT (11:43)
[2021-08-30] MEDS: Sodium Bicarbonate 8.4% 50 MEQ/50 ML VIAL SUBCUT (11:44)
--- NOTE | 2021-08-30 12:42 | MHC.SHP ---
Pre-Procedural Eval Section A Date of Service: 08/30/21 The patient is an INPATIENT: No Changes since office visit: Yes Patient answered all questions; No Cold of Flu in the past 2 weeks, No New Medical Problems and No Changes in Medication The History & Physical has been completed within 30 days and I have reviewed it.: Yes Section B Chief Complaint: abnormal and inconclusive diagnostic rt br Allergies: Allergies Allergy/AdvReac Type Severity Reaction Status Date / Time ibuprofen AdvReac Intermediate NAUSEA Verified 08/25/21 11:59 oxycodone [From PERCOCET] AdvReac Intermediate NAUSEA Verified 08/25/21 11:59 Plan Diagnosis/Plan: Unchanged I have reviewed the history and physical and performed a pertinent physical examination on my patient. No changes have occurred unless specified.
--- NOTE | 2021-08-30 12:43 | P.OP_ITS ---
Operative Note Operative Note Date of Service: 08/30/21 Narrative: Preoperative diagnosis:DCIS right breast Postoperative diagnosis: same Procedure: Right breast lumpectomy with needle localization Surgeon: Александр Burcaiga MD Pharmacy Services Representative: Corrina Cabrera PA-C Anesthesia:General LMA Indications for procedure: 76 year old female patient presenting with a ascreening mammogram which revealed a cluster of calcifications in the right breast felt to be suspicious for maligancy. A stereotactic guided core biopsy was obtained and revealed DCIS. She presents today for a right breastr lumpectomy with needle localization. Operative findings:Marking clip and needle within specimen specimen x-ray. Gross pathology revealed biopsy cavity within the specimen. Margins appeared close to the anterior lateral margin. Specimen: Right breast lumpectomy, anterior lateral margin Estimated blood loss:2o mls Complications: none Procedure details: patient was brought to the OR placed in a supine position. After administering general anesthesia patient has a right breast was prepped with ChloraPrep and draped in a sterile fashion. A surgical time-out was called the consent confirmed. Patient received preoperative antibiotics and Venodyne were in place. Local anesthesia consisting of 0.25 % Sensorcaine was infiltrated around the areola and localizing needle in the 6 o'clock location. A curvilinear incision was made with a #15 blade and the incision carried down to the subcutaeous tissue. Superior and inferior skin flaps were created. Dissection was then continued to the tip of the needle located below the nipple. Dissection was the continued around the posterior margin with the cautery, followed by medial and lateral margins and finally inferior margin. The needle was cut with the with the wire wrapping machine operator which included a small piece of the inferior skin below the needle entrance site. The specimen was removed and sent to x-ray for a specimen x-ray and to pathology for gross margins. Pathology revealed the biopsy cavity within the specimen but the margins were close to the anterior/lateral margin. As a result, additional tissue was obtained from the anterior lateral margin and sent as a separate specimen. The wounds were irrigated with saline solution and hemostasis assured with electrocautery. Deep and superficial breast tissue was then reapproximated with 3-0 Polysorb sutures. Dermis was also approximated with 3-0 Polysorb. Skin was closed with a running 4-0 Polysorb suture. Steristrips, 2x2 gauze and tegaderm were then applied. The patient tolerated the procedure well. Instrument, sharp and needle counts were reported as correct. The patient was transferred to the PACU in stable condition.
[2021-08-30] MEDS: Acetaminophen 325 MG TABLET 650 MG PO (15:15)
== END 2021-08-30 16:58 | disposition home or self-care (01) ==
PROVIDERS: PCP Internal Medicine; Visit Provider Surgery
PROC: (CPT 19301; principal; 2021-08-30 11:00)
DX: D05.11 Intraductal carcinoma in situ of right breast (principal); Z17.0 Estrogen receptor positive status [ER+]; I10 Essential (primary) hypertension; K21.9 Gastro-esophageal reflux disease without esophagitis; E78.00 Pure hypercholesterolemia, unspecified; J45.40 Moderate persistent asthma, uncomplicated; Z79.51 Long term (current) use of inhaled steroids; Z79.899 Other long term (current) drug therapy; Z88.8 Allergy status to other drugs, medicaments and biological substances; Z98.51 Tubal ligation status; Z90.49 Acquired absence of other specified parts of digestive tract; Z80.0 Family history of malignant neoplasm of digestive organs; Z87.442 Personal history of urinary calculi
CPT/HCPCS: 19301; 19281; 88307; 88329; 88341; 88342; A4648; J0690; J2405; J3010

== ENCOUNTER 2021-09-24 10:07 | Outpatient (REF) | payer OTHER, SELFPAY ==
--- NOTE | ~2021-09-24 | MM_ITS ---
EXAMINATION: BONE DENSITOMETRY CLINICAL INDICATION: Osteopenia. COMPARISON: Previous BD dated 07/10/2015 and baseline BD dated 04/28/2009. TECHNIQUE: Using a ZeroDesktop DXA System (software version: 13.1) manufactured by [employer], dual-energy x-ray absorptiometry was performed of the lumbar spine and left hip. The images are of good technical quality. Summary results are attached. FINDINGS: AP SPINE L1-L4: Current: BMD 1.152 g/cm2, Z-score 1.7, T-score -0.2, normal, 5.8% decrease from previous, 0.3% decrease from baseline (<5% change is not significant). Prior: BMD 1.223 g/cm2. Baseline: BMD 1.155 g/cm2. LEFT FEMUR, NECK: Current: BMD 0.945 g/cm2, Z-score 1.5, T-score -0.7, normal. Prior: BMD 0.947 g/cm2. Baseline: BMD 0.983 g/cm2. LEFT FEMUR, TOTAL: Current: BMD 1.013 g/cm2, Z-score 2.0, T-score 0.0, normal, 0.8% increase from previous, 0.7% decrease from baseline (<5% change is not significant). Prior: BMD 1.005 g/cm2. Baseline: BMD 1.020 g/cm2. IDENTIFIED RISK FACTORS: Dementia, height loss, history of fracture (adult), thiazide, menopause. HISTORY OF FRACTURE: Lower leg. MEDICATIONS: Calcium supplements or multivitamin, vitamin D. MM/XR DEXA axial skeleton IMPRESSION: 1. DIAGNOSIS: Normal bone density based on the lowest T-score value of -0.7 in the femoral neck applying World Health Organization criteria. 2. 10-YEAR FRACTURE RISK PREDICTION, FRAX: According to the guidelines, FRAX calculation should only be performed on patients in the osteopenia bone density category. Therefore, FRAX was not performed on this patient. 3. Treatment Recommendations: NOF guidelines recommend consideration for treatment in postmenopausal women and men age 50 and older presenting with the following: -A hip or vertebral (clinical or morphometric) fracture. -T-score less than or equal to -2.5 at the femoral neck or spine after appropriate evaluation to exclude secondary causes. -Low bone mass at the hip or spine and a 10-year fracture probability by FRAX of greater than or equal to 3% for hip fracture or greater than or equal to 20% for major osteoporotic fracture based on the [place] adapted WHO algorithm. 4. Other Recommendations: All treatment decisions require clinical judgment and consideration of individual patient factors, including patient preferences, comorbidities, previous drug use, risk factors not captured in the FRAX model (e.g. frailty, falls, vitamin D deficiency, increased bone turnover, interval significant decline in bone density) and possible under or overestimation of fracture risk by FRAX. FUTURE SCAN RECOMMENDATION: People with diagnosed cases of osteoporosis or at high risk for fracture should have regular bone mineral density tests. For patients eligible for Medicare, routine testing is allowed once every 2 years. The testing frequency can be increased to one year for patients who have rapidly progressing disease, those who are receiving or discontinuing medical therapy to restore bone mass, or have additional risk factors.
== END 2021-09-24 10:08 | disposition home or self-care (01) ==
LOC: HO.MAMMO 10:07
PROVIDERS: Visit Provider Internal Medicine Medical Oncology
DX: Z13.820 Encounter for screening for osteoporosis (principal); M85.80 Other specified disorders of bone density and structure, unspecified site; Z78.0 Asymptomatic menopausal state
CPT/HCPCS: 77080

== ENCOUNTER → 2021-11-09 12:49 | Outpatient (BNVA) | payer OTHER, SELFPAY | PROVIDERS: PCP Internal Medicine; Visit Provider Nurse Practitioner | DX: K22.70 Barrett's esophagus without dysplasia (principal); K21.9 Gastro-esophageal reflux disease without esophagitis; R63.4 Abnormal weight loss; Z68.24 Body mass index [BMI] 24.0-24.9, adult; K58.0 Irritable bowel syndrome with diarrhea; Z79.899 Other long term (current) drug therapy | CPT/HCPCS: 99212 ==

== ENCOUNTER → 2021-12-07 14:52 | Outpatient (BNVA) | payer OTHER, SELFPAY | PROVIDERS: PCP Internal Medicine; Visit Provider Nurse Practitioner | DX: K58.0 Irritable bowel syndrome with diarrhea (principal); R63.4 Abnormal weight loss; K21.9 Gastro-esophageal reflux disease without esophagitis; K22.70 Barrett's esophagus without dysplasia; F03.90 Unspecified dementia, unspecified severity, without behavioral disturbance, psychotic disturbance, mood disturbance, and anxiety; Z79.899 Other long term (current) drug therapy | CPT/HCPCS: 99212 ==

== ENCOUNTER → 2022-01-04 15:08 | Outpatient (BNVA) | payer OTHER, SELFPAY | PROVIDERS: PCP Internal Medicine; Referring Provider Internal Medicine; Visit Provider Surgery | DX: D05.11 Intraductal carcinoma in situ of right breast (principal); Z98.890 Other specified postprocedural states | CPT/HCPCS: 99212 ==

== ENCOUNTER → 2022-03-07 14:48 | Outpatient (BNVA) | payer OTHER, SELFPAY | PROVIDERS: PCP Internal Medicine; Visit Provider Internal Medicine Pulmonary Disease | DX: J45.50 Severe persistent asthma, uncomplicated (principal); Z91.09 Other allergy status, other than to drugs and biological substances; Z79.899 Other long term (current) drug therapy | CPT/HCPCS: 99212 ==

== ENCOUNTER → 2022-03-08 14:44 | Outpatient (BNVA) | payer OTHER, SELFPAY | PROVIDERS: PCP Internal Medicine; Visit Provider Nurse Practitioner | DX: K58.0 Irritable bowel syndrome with diarrhea (principal); K21.9 Gastro-esophageal reflux disease without esophagitis; K22.70 Barrett's esophagus without dysplasia; R63.4 Abnormal weight loss; F03.90 Unspecified dementia, unspecified severity, without behavioral disturbance, psychotic disturbance, mood disturbance, and anxiety; Z79.899 Other long term (current) drug therapy | CPT/HCPCS: 99212 ==

== ENCOUNTER 2022-04-06 11:29 | Outpatient (REF) | payer OTHER, SELFPAY ==
--- NOTE | ~2022-04-06 | XR_ITS ---
EXAMINATION: XR SHOULDER, RIGHT CLINICAL INFORMATION: Acute pain of the right shoulder. COMPARISON: Chest x-ray August 2018. TECHNIQUE: AP external rotation, Grashey, scapular Y, and axillary views of the right shoulder. FINDINGS: There is an oval 5 x 3 mm focus of calcific density just cephalad to the greater tuberosity in the region of the superior rotator cuff. There is some minimal enthesopathic cystic change at the head tuberosity junction. Glenohumeral Joint: Small marginal osteophytes without joint space narrowing indicative of mild osteoarthritis. Calcific or ossific density noted adjacent to the anterior lateral aspect of the proximal humerus measuring 0.8 cm transverse 2.2 cm craniocaudal and 1.1 cm AP. There may be an additional similar-appearing density measuring approximately 3 mm adjacent to the anterior cortex of the metaphysis. The remaining bones, joints and soft tissues are unremarkable. XR/XR shoulder RT min 2V IMPRESSION: 1. Mild osteoarthritis of the glenohumeral joint. 2. Calcific or ossific densities in the region of the superior rotator cuff likely reflecting calcific tendinitis. Two additional smaller foci of calcification/ossification adjacent to the proximal humerus. These are of uncertain etiology and significance. This could reflect dystrophic calcification related to prior trauma versus calcific tendinitis or loose bodies displaced distally along the biceps tendon sheath. If further imaging with MRI if felt clinically necessary to evaluate for shoulder pathology, I recommend that the request should include an additional request for increased [id number] to ensure coverage of the proximal humerus.
== END 2022-04-06 11:30 | disposition home or self-care (01) ==
LOC: HO.XRAY 11:29
PROVIDERS: PCP Internal Medicine; Visit Provider Internal Medicine
DX: M25.511 Pain in right shoulder (principal)
CPT/HCPCS: 73030

== ENCOUNTER → 2022-04-19 14:59 | Outpatient (BNVA) | payer OTHER, SELFPAY | PROVIDERS: PCP Internal Medicine; Referring Provider Internal Medicine; Visit Provider Nurse Practitioner | DX: K58.0 Irritable bowel syndrome with diarrhea (principal); K21.9 Gastro-esophageal reflux disease without esophagitis; K22.70 Barrett's esophagus without dysplasia | CPT/HCPCS: 99212 ==

== ENCOUNTER → 2022-06-20 15:05 | Outpatient (BNVA) | payer OTHER, SELFPAY | PROVIDERS: PCP Internal Medicine; Visit Provider Physician Assistant | DX: M75.31 Calcific tendinitis of right shoulder (principal) | CPT/HCPCS: 99202 ==

== ENCOUNTER → 2022-07-19 14:56 | Outpatient (BNVA) | payer OTHER, SELFPAY | PROVIDERS: PCP Internal Medicine; Visit Provider Surgery | DX: D05.11 Intraductal carcinoma in situ of right breast (principal); Z98.890 Other specified postprocedural states | CPT/HCPCS: 99212 ==

== ENCOUNTER → 2022-08-16 14:56 | Outpatient (BNVA) | payer OTHER, SELFPAY | PROVIDERS: PCP Internal Medicine; Referring Provider Internal Medicine; Visit Provider Nurse Practitioner | DX: K58.0 Irritable bowel syndrome with diarrhea (principal); K21.9 Gastro-esophageal reflux disease without esophagitis; K22.70 Barrett's esophagus without dysplasia | CPT/HCPCS: 99212 ==

== ENCOUNTER 2022-09-15 10:22 | Outpatient (REF) | payer OTHER, SELFPAY ==
--- NOTE | ~2022-09-15 | MM_ITS ---
EXAMINATION: MM DIAGNOSTIC DIGITAL BREAST TOMOSYNTHESIS, BILATERAL CLINICAL INFORMATION: Right breast DCIS status post lumpectomy 08/30/2021. Due for yearly. COMPARISON: Multiple prior breast imaging exams including most recent bilateral mammography 06/28/2021. TECHNIQUE: Digital breast tomosynthesis is performed in both the craniocaudal and mediolateral oblique views along with computer-aided detection (CAD). Synthesized 2D images are generated from the tomosynthesis. Additional views of the right breast are obtained: Magnification CC x2, magnification ML, Guston mL with BB marker at scar. FINDINGS: The breasts are heterogeneously dense, which may obscure small masses (ACR BI-RADS breast composition Category c). There is fine fibronodular parenchymal pattern. Left breast shows no significant changes from prior studies. No developing density or architectural abnormality or abnormal calcifications. The axilla and skin contours are unremarkable. Right breast has expected post therapy changes with reduced breast size and scarring. There are multiple new superficial calcifications just beneath the skin at the lumpectomy scar posterior 6:00, likely early dystrophic. Calcifications will be reassessed again in 6 months to include magnification views. Results are provided to the patient at time of visit by the technologist. MM/MM tomosynthesis diagnostic BI IMPRESSION: Right: -Post therapy changes. Multiple new superficial calcifications just beneath the skin at lumpectomy scar, likely early dystrophic. Left: -No mammographic evidence of malignancy. ASSESSMENT: BI-RADS 2: Benign RECOMMENDATION: Diagnostic right mammography in 6 months. This patient's information was entered into a reminder system with a target due date for their next mammogram.
== END 2022-09-15 10:23 | disposition home or self-care (01) ==
LOC: HO.MAMMO 10:22
PROVIDERS: PCP Internal Medicine; Visit Provider Surgery
DX: Z85.3 Personal history of malignant neoplasm of breast (principal)
CPT/HCPCS: 77062; 77066

== ENCOUNTER 2022-12-27 14:29 | Outpatient (AMB) | payer OTHER, SELFPAY ==
[2022-12-27 14:34] VITALS: BP 134/72; PULSE 53; O2SAT 99
--- NOTE | 2022-12-27 14:34 | MHC.OFFVIS ---
Intake Vital Signs 12/27/22 14:34 Weight 115 lb 11.883 oz BP 134/72 Blood Pressure Location Lt brachial Position Sitting Pulse 53 Pulse Source Doppler Pulse Oximetry (%) 99 Oxygen Delivery Method Room Air Intake Visit Reasons: Asthma Allergies ibuprofen Adverse Reaction (Intermediate, Verified 12/27/22 14:39) NAUSEA oxycodone [From PERCOCET] Adverse Reaction (Intermediate, Verified 12/27/22 14:39) NAUSEA HPI Asthma HPI Details 77-year-old lady, nonsmoker, followed for underlying moderate to severe allergic asthma and dyspnea on exertion.? She continues to use Dupixent, Advair 500, albuterol MDI and nebs with good control of her underlying symptoms.? She denies any recent exacerbations. ? [facility] Medical History Chronic post-concussion headache COPD (chronic obstructive pulmonary disease) Environmental allergies GERD (gastroesophageal reflux disease) Hiatal hernia High cholesterol HTN (hypertension), benign Hx of gastritis Memory impairment Moderate persistent asthma Mood disorder Osteoarthritis of both hips Post concussion syndrome Surgical History H/O colonoscopy H/O lithotripsy History of section History of esophagogastroduodenoscopy (EGD) History of lumpectomy of right breast (08/30/21) History of tubal ligation Hx of cholecystectomy Family History Mother Colon cancer Social History (Reviewed 12/27/22 @ 14:39 by Yuli Lin [facility], [facility]) Household Members: None Housing: Apartment Are you a primary healthcare market consultant to a significant other at home: No Do you presently have visiting nurse or other home services: No (Son takes care of her) Patient Tobacco Use Status: Never used Tobacco service: No Current occupational status: disabled Review of Systems Const Denies daytime sleepiness, Denies excessive sweating, Denies fatigue, Denies fever(s), Denies lethargy, Denies malaise, Denies night sweats, Denies snoring and Denies weight loss Eyes Denies blurry vision and Denies itchy eyes ENT Denies nasal congestion, Denies post nasal drip, Denies sinus pain, Denies sinus pressure and Denies other ( Thrush) Card Denies chest pain, Denies pedal edema, Denies dyspnea, Denies orthopnea and Denies paroxysmal nocturnal dyspnea Resp Denies cough, Denies hemoptysis, Denies excessive phlegm production, Denies dyspnea, Denies snoring and Denies wheezing GI Denies abdominal pain and Denies heartburn Musc Denies myalgias, Denies arthralgias and Denies joint swelling Skin/Breast Denies rash Neuro Denies memory loss and Denies seizure-like activity Psych Denies abnormal sleep pattern, Denies anxiety and Denies memory loss Endo Denies excessive sweating, Denies fatigue and Denies heat intolerance Andrea/Lymph Denies easy bruising Aller/Immun Denies itchy eyes, Denies seasonal rhinorrhea and Denies wheezing Physical Exam Vital Signs: Last Vital Signs Pulse 53 12/27/22 14:34 BP 134/72 12/27/22 14:34 Pulse Ox 99 12/27/22 14:34 Oxygen Delivery Method Room Air 12/27/22 14:34 Const General: no acute distress and alert Nutritional Appearance: not obese Orientation/consciousness: Other orientation findings ( oriented) HEENT Head: Yes atraumatic Eyes General: appearance normal, both eyes and all related structures Sclerae: sclerae normal EOM: EOMs intact bilaterally Neck Neck: Yes supple Lymphatic: no lymphadenopathy noted Resp Effort & Inspection: normal respiratory effort and no use of accessory muscles Auscultation: clear to auscultation bilaterally Cardio Rate: regular rate Rhythm: regular rhythm Heart sounds: no gallops, no murmurs and no rubs Skin General skin exam: other ( warm) Extrem General: No clubbing, No cyanosis and No edema Assessment & Plan Assessment & Plan (1) Severe persistent allergic asthma: Code(s): J45.50 - Severe persistent asthma, uncomplicated Plan: Well controlled on the current regimen of Dupixent, Advair duo nebs, and albuterol MDI. Continue current regimen. (2) Environmental allergies: Code(s): Z91.09 - Other allergy status, other than to drugs and biological substances Plan: Will controlled on Dupixent. Continue current regimen. Coding Level of Care Code Est Pt Level 4 (02729) Diagnoses Severe persistent allergic asthma J45.50 Environmental allergies Z91.09
== END 2022-12-27 14:56 | disposition home or self-care (01) ==
PROVIDERS: PCP Internal Medicine; Visit Provider Internal Medicine Pulmonary Disease
DX: J45.50 Severe persistent asthma, uncomplicated (principal); Z91.09 Other allergy status, other than to drugs and biological substances
CPT/HCPCS: 99214

== ENCOUNTER → 2022-12-27 14:29 | Outpatient (BNVA) | payer OTHER, SELFPAY | PROVIDERS: PCP Internal Medicine; Visit Provider Internal Medicine Pulmonary Disease | DX: J45.50 Severe persistent asthma, uncomplicated (principal); Z91.09 Other allergy status, other than to drugs and biological substances; Z79.899 Other long term (current) drug therapy | CPT/HCPCS: 99212 ==

== ENCOUNTER 2023-01-24 14:45 | Outpatient (AMB) | payer OTHER, SELFPAY ==
--- NOTE | 2023-01-24 14:53 | A.OFFVIS_ITS ---
Intake Vital Signs 3 01/24/23 15:03 Height 5 ft Weight 118 lb BMI 23.0 BP 169/73 H Blood Pressure Location Lt brachial Position Sitting Pulse 53 Intake Visit Reasons: 6 mth breast exam Intake Note: Patient is seen in office for 6 month follow up visit, breast exam. 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 She underwent a right breast lumpectomy with needle localization on 08/30/2021. Pathology revealed ductal carcinoma in situ, nuclear grade 2 with necrosis. Margins were negative, closest margin 4 mm to the medial margin. AJCC stage: P TIS NX (8th edition). She was evaluated by Dr. Baum and started on Aromasin 25 mg q.day. She [place] [facility] [place] There was felt to be a low benefit of radiation therapy as long she remained on antiestrogen therapy therefore she received no radiation therapy. She generally feels well and denies any ongoing breast symptoms. She does check frequently but denies any palpable lumps or tenderness. Bilateral diagnostic mammogram of 09/15/2022 revealed post therapy changes in the right breast, probably benign (BI-RADS 2). Six-month follow-up right breast diagnostic mammogram was recommended and is scheduled for 03/21/2023. [facility] Medical History Mood disorder Memory impairment COPD (chronic obstructive pulmonary disease) Hx of gastritis Hiatal hernia Osteoarthritis of both hips Chronic post-concussion headache Post concussion syndrome Environmental allergies High cholesterol HTN (hypertension), benign GERD (gastroesophageal reflux disease) Moderate persistent asthma Surgical History History of lumpectomy of right breast (08/30/21) History of esophagogastroduodenoscopy (EGD) H/O colonoscopy H/O lithotripsy History of tubal ligation History of section Hx of cholecystectomy Family History Mother Colon cancer Social History Household Members: None Housing: Apartment Are you a primary pet care associate to a significant other at home: No Do you presently have visiting nurse or other home services: No (Son takes care of her) Patient Tobacco Use Status: Never used Tobacco service: No Current occupational status: disabled Review of Systems Const Denies chills, Denies fever(s), Denies headache(s) and Denies poor appetite ENT Denies dizziness and Denies headache(s) Card Denies chest pain, Denies rapid heart rate, Denies palpitations and Denies slow heart rate Resp Denies chest congestion, Denies cough, Denies pain on inspiration and Denies wheezing GI Denies abdominal pain, Denies bloating, Denies change in stool character, Denies constipation, Denies diarrhea, Denies nausea, Denies vomiting and Denies hematemesis Denies nipple discharge Musc Denies back pain, Denies arthralgias, Denies joint swelling and Denies numbness Skin/Breast Denies breast swelling, Denies breast skin changes, Denies breast pain, Denies breast mass, Denies change in breast shape, Denies change in pigmentation, Denies nipple discharge, Denies erythema and Denies rash Neuro Denies dizziness, Denies headache(s) and Denies numbness Psych Denies anxiety and Denies depression Endo Denies palpitations Andrea/Lymph Denies easy bleeding, Denies easy bruising and Denies lymphadenopathy Aller/Immun Denies wheezing Physical Exam Vital Signs: Last Vital Signs Pulse 53 01/24/23 15:03 BP 169/73 H 01/24/23 15:03 BMI result Body Mass Index 23.0 Const General: no acute distress and well developed Nutritional Appearance: well nourished Chest Other: Well-healed incision around the right nipple-areolar complex with some swelling of the surrounding tissue and ecchymosis resulting and mild retraction of right nipple. No underlying masses appreciated. Skin retraction is noted at the needle insertion site in the lower quadrant. Left breast is normal with no suspicious findings. Chest/axillae images: 2 1. Incision lower inner quadrant right breast Resp Effort & Inspection: normal respiratory effort GI Inspection: Yes normal to inspection Skin Other: Warm, dry, no rash Extrem General: Yes normal to inspection Assessment & Plan Assessment & Plan (1) Ductal carcinoma in situ of right breast: Code(s): D05.11 - Intraductal carcinoma in situ of right breast (2) History of lumpectomy of right breast: Onset Date: 08/30/21 Comment: Александр Burciaga MD Code(s): Z98.890 - Other specified postprocedural states Plan 76-year-old female patient presenting with an abnormal mammogram of the right breast, s/p right breast lumpectomy with needle localization. Pathology revealed a 1.8 cm ductal carcinoma in situ with negative margins, ER/OK positive, nuclear grade 2 with necrosis. She was evaluated by radiation oncology in the position made to hold off on radiation therapy. She was started on Aromasin by Dr. Baum and seems to be tolerating this. She denies any ongoing breast symptoms at this time. Examination today revealed a well-healed incision in the right breast with no new suspicious changes and no evidence of recurrence disease. I recommended follow-up examination approximately 6 months. She is welcome to call sooner for any new concerns. Follow-up right mammogram is scheduled for 03/21/2023. Orders: Orders 2 MM diagnostic mammo unilat RT 03/21/23 D05.11 - Intraductal carcinoma in situ of right breast Coding Level of Care Code Est Pt Level 3 (14129) Diagnoses Ductal carcinoma in situ of right breast D05.11 History of lumpectomy of right breast Z98.890
[2023-01-24 15:03] VITALS: BP 169/73; PULSE 53; BMI 23.0
== END 2023-01-24 15:13 | disposition home or self-care (01) ==
PROVIDERS: PCP Internal Medicine; Visit Provider Surgery
DX: D05.11 Intraductal carcinoma in situ of right breast (principal); Z98.890 Other specified postprocedural states
CPT/HCPCS: 99213

== ENCOUNTER → 2023-01-24 14:45 | Outpatient (BNVA) | payer OTHER, SELFPAY | PROVIDERS: PCP Internal Medicine; Visit Provider Surgery | DX: D05.11 Intraductal carcinoma in situ of right breast (principal); Z98.890 Other specified postprocedural states | CPT/HCPCS: 99212 ==

== ENCOUNTER 2023-02-21 15:25 | Outpatient (AMB) | payer OTHER, SELFPAY ==
--- NOTE | 2023-02-21 15:38 | A.OFFVIS_ITS ---
Intake Vital Signs 02/21/23 15:43 Height 5 ft Weight 119 lb 14.903 oz BMI 23.4 BP 151/73 H Blood Pressure Location Lt brachial Position Sitting Pulse 53 Intake Visit Reasons: Follow up 6 months Intake Note: Laurie presents in the office today in 6 months follow up of IBS. CC: Patient reports she feels she has been losing weight and hasn't been eating well. She also reports swelling from legs. 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 She has been having trouble with hypotension and dizziness - she will be meeting with her PCP soon for consideration of adjustment of her BP medications. She is eating well and moving her bowels in and acceptable fashion w/o diarrhea. There was a mix up, it seems that her PCP rx'ed a medicine for CIC because she called the doctor and told her this, but the patient has advanced dementia and this is questionable at best. Her son then intervened and made her stop the CIC med and restart the Viberzi - and now she is doing great! She is much more active and cooking and cleaning more. ROV 6 mos. 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 She says she would like to gain weight. She will eat a few spoons and then she feels full. She really has no appetite, and a review of her medication list shows she is on topamax and this is known to cause appetite problems so this could be a contributing factor. I will give a trial of reglan 5mg tid to see if this helps. She has not abd pain, no outright nausea and she is moving her bowels, but not much but then again I am not eating. My records shows her wt to be fairly stable and her BMI 23 - so not a candidate for megace etc at this time. Apparently, the topamax was stared fairly recently, but they feel the appetite problems preceded the topamax. Her dementia is another possibel c/f. She continues on her Viberzi with good diarrhea control. She also continues on omeprazole for GERD and creon for bloating. ROV 5 weeks. [facility] Medical History Mood disorder Memory impairment COPD (chronic obstructive pulmonary disease) Hx of gastritis Hiatal hernia Osteoarthritis of both hips Chronic post-concussion headache Post concussion syndrome Environmental allergies High cholesterol HTN (hypertension), benign GERD (gastroesophageal reflux disease) Moderate persistent asthma Surgical History History of lumpectomy of right breast (08/30/21) History of esophagogastroduodenoscopy (EGD) H/O colonoscopy H/O lithotripsy History of tubal ligation History of section Hx of cholecystectomy Family History Mother Colon cancer Social History Household Members: None Housing: Apartment Are you a primary spiritual care coordinator to a significant other at home: No Do you presently have visiting nurse or other home services: No (Son takes care of her) Comment: balance Issues Patient Tobacco Use Status: Never used Tobacco service: No Current occupational status: disabled Review of Systems Const Denies fatigue, Denies fever(s), Denies night sweats, Reports poor appetite and Reports weight loss ENT Reports Normal hearing present, Denies dental pain, Denies dysphagia, Denies hearing loss, Denies mouth pain, Denies odynophagia, Denies throat swelling, Denies tongue swelling and Reports other (Dentition adequate) Card Reports no additional complaints Resp Reports no additional complaints GI Denies abdominal pain, Denies melena, Denies bloating, Denies hematochezia, Denies constipation, Denies GI cramping, Denies dysphagia, Denies excessive flatus, Denies early satiety, Reports heartburn, Reports diarrhea, Denies nausea, Denies odynophagia, Denies vomiting and Denies hematemesis Skin/Breast Denies pruritus, Denies lesions, Denies rash and Denies jaundice Neuro Reports Normal hearing present, Denies Abnormal speech present and Reports memory loss Psych Reports memory loss Endo Denies fatigue Aller/Immun Denies throat swelling and Denies tongue swelling Physical Exam Vital Signs: Last Vital Signs Pulse 53 02/21/23 15:43 BP 151/73 H 02/21/23 15:43 BMI result Body Mass Index 23.4 Const General: cooperative, no acute distress, well developed and well groomed Nutritional Appearance: average body habitus and well nourished Orientation/consciousness: oriented to person, oriented to place and oriented to time Limitations: language barrier and other limitations (Dementia) HEENT Head: Yes normocephalic and Yes atraumatic Eyes General: appearance normal, both eyes and all related structures Pupils: Equal, round and reactive pupils present Neck Neck: Yes normal visual inspection and Yes no lymphadenopathy Thyroid: Thyroid normal Resp Effort & Inspection: normal respiratory effort and able to speak in complete sentences Auscultation: clear to auscultation bilaterally Cardio Rate: regular rate Rhythm: regular rhythm Heart sounds: Normal, physiologic split S2 sound present Peripheral pulses: radial pulses present and posterior tibial pulses present GI Inspection: No distended and No Abdominal panniculus present Palpation (GI): Soft to palpation, nontender, no guarding, not rigid and No hepatosplenomegaly present Percussion: Yes normal to percussion Auscultation: normal bowel sounds Rectal Exam - Female: deferred Skin General skin exam: no rashes or lesions noted, turgor normal, skin not dry, no jaundice, No spider nevi and no striae Rashes: no rashes Nails: normal Neuro General: oriented to person, oriented to place and oriented to time Cranial nerves: Yes Equal, round and reactive pupils present and Yes Normal hearing present Speech: No Abnormal speech present Extrem General: Yes normal to inspection, No clubbing, No cyanosis and No edema Psych Appearance: grossly normal and well kempt Mental Status: mental status grossly normal Speech and movement: Normal speech and movement present Affect: normal affect Attitude: cooperative Thought process: Normal thought process present and not confabulating Thought content: Normal thought content present Insight: Limited insight present (Psych) and Poor insight present (Psych) Judgement: Limited judgement present (Psych) and Poor judgement present (Psych) Assessment & Plan Assessment & Plan (1) Irritable bowel syndrome with diarrhea: Code(s): K58.0 - Irritable bowel syndrome with diarrhea (2) GERD (gastroesophageal reflux disease): Code(s): K21.9 - Gastro-esophageal reflux disease without esophagitis (3) Delayed gastric emptying: Code(s): K30 - Functional dyspepsia Plan English #rod Live Her son says she is losing a lot of weight and he thinks it is bothering her in her mind. She says she would like to gain weight. She will eat a few spoons and then she feels full. She really has no appetite, and a review of her medication list shows she is on topamax and this is known to cause appetite problems so this could be a contributing factor. I will give a trial of reglan 5mg tid to see if this helps. She has not abd pain, no outright nausea and she is moving her bowels, but not much but then again I am not eating. My records shows her wt to be fairly stable and her BMI 23 - so not a candidate for megace etc at this time. Apparently, the topamax was stared fairly recently, but they feel the appetite problems preceded the topamax. Her dementia is another possible c/f. She continues on her Viberzi with good diarrhea control. She also continues on omeprazole for GERD and creon for bloating. ROV 5 weeks. Medications: New 2 metoclopramide HCl (Reglan) 5 mg PO TID 90 tabs 3RF K30 - Functional dyspepsia Coding Level of Care Code Est Pt Level 3 (64277) Diagnoses Irritable bowel syndrome with diarrhea K58.0 GERD (gastroesophageal reflux disease) K21.9 Delayed gastric emptying K30
[2023-02-21 15:43] VITALS: BP 151/73; PULSE 53; BMI 23.4
== END 2023-02-21 16:45 | disposition home or self-care (01) ==
PROVIDERS: Visit Provider Nurse Practitioner
DX: K58.0 Irritable bowel syndrome with diarrhea (principal); K21.9 Gastro-esophageal reflux disease without esophagitis; K30 Functional dyspepsia
CPT/HCPCS: 99213

== ENCOUNTER → 2023-02-21 15:25 | Outpatient (BNVA) | payer OTHER, SELFPAY | PROVIDERS: Visit Provider Nurse Practitioner | DX: K21.9 Gastro-esophageal reflux disease without esophagitis (principal); K58.0 Irritable bowel syndrome with diarrhea; K30 Functional dyspepsia | CPT/HCPCS: 99212 ==

== ENCOUNTER 2023-04-10 14:12 | Outpatient (REF) | payer OTHER, SELFPAY ==
--- NOTE | ~2023-04-10 | MM_ITS ---
EXAMINATION: MM DIAGNOSTIC DIGITAL MAMMOGRAPHY, RIGHT CLINICAL INFORMATION: Diagnostic right mammogram for new superficial calcifications just abutting the lumpectomy scar seen on prior dated 09/15/2022. Patient has history of right breast DCIS status post lumpectomy 08/30/2021. COMPARISON: Mammography: 09/15/2022, 08/30/2021, 06/28/2021, 06/16/2020, 03/31/2020. TECHNIQUE: Digital right mammography is performed in craniocaudal and mediolateral oblique views along with computer-aided detection (CAD). FINDINGS: The breasts are heterogeneously dense, which may obscure small masses (ACR BI-RADS breast composition Category c). Lumpectomy scar noted in the posterior 6:00 axis right breast, marked by scar marker. There are numerous abutting tiny punctate rounded calcifications which localizes to the skin, not beneath the skin. These localize to the scar itself, and are dystrophic calcifications, benign. There are expected post therapy changes with reduced breast size, scarring from lumpectomy, trabecular thickening and mild skin thickening. There are vascular calcifications. No suspicious masses. There is no definitive evidence of recurrence of disease. MM/MM diagnostic mammo unilat RT IMPRESSION: There are no findings in the right breast suspicious for recurrence of malignancy. Punctate rounded calcifications at the scar site are superficial, within the skin at the scar, and are dystrophic. Otherwise, stable post therapy changes right breast. Recommend continuing post operative protocol in 6 months, when the patient is due for bilateral mammography. ASSESSMENT: BI-RADS BI-RADS 2 - Benign Findings RECOMMENDATION: 1 year F/U This patient's information was entered into a reminder system with a target due date for their next mammogram.
== END 2023-04-10 14:13 | disposition home or self-care (01) ==
LOC: HO.MAMMO 14:12
PROVIDERS: PCP Internal Medicine; Visit Provider Surgery
DX: D05.11 Intraductal carcinoma in situ of right breast (principal); R92.1 Mammographic calcification found on diagnostic imaging of breast
CPT/HCPCS: 77062; 77065

== ENCOUNTER → 2023-04-10 15:00 | Outpatient (BNV) | payer OTHER, SELFPAY | PROVIDERS: PCP Internal Medicine; Visit Provider Radiology Diagnostic Radiology | DX: D05.11 Intraductal carcinoma in situ of right breast (principal) | CPT/HCPCS: 77065 ==

== ENCOUNTER 2023-06-27 12:54 | Outpatient (AMB) | payer OTHER, SELFPAY ==
[2023-06-27 13:07] VITALS: BP 128/68; PULSE 56; BMI 24.8
--- NOTE | 2023-06-27 13:07 | MHC.OFFVIS ---
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 Contreras/Hypertension Animal Nutritionist Required: Yes Animal Nutritionist [place] [facility] [place]: Son Allergies ibuprofen Adverse Reaction (Intermediate, Verified 02/21/23 15:51) NAUSEA oxycodone [From PERCOCET] Adverse Reaction (Intermediate, Verified 02/21/23 15:51) NAUSEA Medication List - Last Reconciled 06/27/23 by Baron Daily MD albuterol sulfate 90 mcg/actuation 90 mcg inhalation Q4-6H PRN albuterol sulfate 2.5 mg inhalation TID PRN amlodipine 10 mg PO QAM atenolol 75 mg PO QAM buspirone 5 mg PO BID calcium carbonate-vitamin D3 600 mg-10 mcg (400 unit) 1 tab PO DAILY docusate sodium 100 mg PO BID dupilumab (Dupixent) 300 mg (2 mL) subcut Q2W eluxadoline (Viberzi) 100 mg PO BID exemestane 25 mg PO DAILY famotidine 40 mg PO BEDTIME fluticasone propion-salmeterol 500-50 mcg/dose 1 ea inhalation DAILY fluticasone propionate 50 mcg/actuation 1 spray intranasal DAILY furosemide 20 mg PO QAM hydrochlorothiazide 50 mg PO QAM hydrocodone-acetaminophen 5-325 mg 1 tab PO Q6H PRN hydrocortisone 2.5% appl topical ipratropium-albuterol 0.5 mg-3 mg(2.5 mg base)/3 mL 3 mL inhalation Q4-6H PRN 30 days ketotifen fumarate 0.025%(0.035%) 1 drp ophthalmic (eye) BID pxlnmk-qcfjsroq-cnihlot 3,000-9,500- 15,000 unit (Creon) 1 cap PO QID loratadine 10 mg PO DAILY losartan 100 mg PO DAILY metoclopramide HCl (Reglan) 5 mg PO TID miconazole nitrate 2% 1 appl topical BID PRN jddlwjopmvrz-lodz-ngcur acid 18-400 mg-mcg 1 tab PO QAM omeprazole 40 mg PO DAILY 30 days polyvinyl alcohol 1.4% 2 drps ophthalmic (eye) DAILY sertraline 25 mg PO DAILY simvastatin 40 mg PO BEDTIME topiramate 25 mg PO BID trazodone 100 mg PO BEDTIME HPI HPI Comments History of Present Illness Details Laurie is here for consultation regarding shortness of breath. It seems that she has had asthma going back a long time and she frequently gets short of breath related to that. This time, her shortness of breath is more than her usual. She gets short of breath even at rest and not doing anything at all. She also gets some pleuritic type chest pain along her ribs that happens with breathing. No clear-cut angina. No known coronary disease myocardial infarction. Discussed with patient using certified court interpreter. [facility] Medical History Mood disorder Memory impairment COPD (chronic obstructive pulmonary disease) Hx of gastritis Hiatal hernia Osteoarthritis of both hips Chronic post-concussion headache Post concussion syndrome Environmental allergies High cholesterol HTN (hypertension), benign GERD (gastroesophageal reflux disease) Moderate persistent asthma Surgical History History of lumpectomy of right breast (08/30/21) History of esophagogastroduodenoscopy (EGD) H/O colonoscopy H/O lithotripsy History of tubal ligation History of section Hx of cholecystectomy Family History Mother Colon cancer Social History Household Members: None Housing: Apartment Are you a primary nonfarm animal caretaker to a significant other at home: No Do you presently have visiting nurse or other home services: No (Son takes care of her) Comment: balance Issues Patient Tobacco Use Status: Never used Tobacco service: No Current occupational status: disabled Review of Systems Const Denies weakness ENT Denies dizziness Card Denies chest pain, Denies chest pain with activity, Denies syncope, Denies rapid heart rate, Denies pedal edema, Denies edema, Denies leg edema, Denies lightheadedness, Denies palpitations, Denies dyspnea, Denies dyspnea on exertion and Denies orthopnea Resp Denies cough, Denies dyspnea and Denies dyspnea on exertion GI Denies hematochezia and Denies change in stool character Musc Denies abnormal gait, Denies muscle cramps, Denies muscle weakness, Denies numbness, Denies radiating pain into limb and Denies tingling Neuro Denies abnormal gait, Denies dizziness, Denies syncope, Denies numbness, Denies tingling and Denies weakness Endo Denies palpitations Physical Exam Vital Signs: Last Vital Signs Pulse 56 06/27/23 13:07 BP 128/68 06/27/23 13:07 BMI result Body Mass Index 24.8 Const General: comfortable and no acute distress Orientation/consciousness: patient oriented x3 HEENT Other: Unremarkable Head: Yes normal to inspection Neck Neck: Yes normal visual inspection Chest Chest palpation & inspection: normal inspection of the chest Resp Auscultation: clear to auscultation bilaterally Cardio Palpation: normal PMI Heart sounds: S1 normal heart sound present, S2 normal heart sound present, no gallops, no murmurs and no rubs GI Palpation (GI): Soft to palpation Back/Spine/Pelvis Other: unremarkable Skin General skin exam: no rashes or lesions noted Neuro General: patient oriented x3 Extrem General: Yes normal to inspection Psych Mental Status: mental status grossly normal Office Procedures EKG Details: EKG with sinus bradycardia at 56/Min; no significant ST-T changes and otherwise unremarkable[place] [id number], Complete Assessment & Plan Assessment & Plan (1) Short of breath on exertion: Code(s): R06.02 - Shortness of breath Plan Chronic shortness of breath on exertion with a long history of asthma. Symptoms more consistent with shortness of breath from asthma then cardiac. Can get an echocardiogram for further evaluation. If any significant findings, then we can reassess. Discussed with family who came for appointment. certified court interpreter used. Orders: Orders CA echo transthoracic complete Today R06.02 - Shortness of breath Coding Level of Care Code New Pt Level 3 (33774) Diagnoses Short of breath on exertion R06.02 CPT Codes EKG - CPT: 52924-[id number], Complete ([id number])
== END 2023-06-27 13:34 | disposition home or self-care (01) ==
PROVIDERS: PCP Internal Medicine; Visit Provider Internal Medicine
DX: R06.02 Shortness of breath (principal); R00.1 Bradycardia, unspecified
CPT/HCPCS: 93010; 99213

== ENCOUNTER → 2023-06-27 12:54 | Outpatient (BNVA) | payer OTHER, SELFPAY | PROVIDERS: PCP Internal Medicine; Visit Provider Internal Medicine | DX: R06.02 Shortness of breath (principal) | CPT/HCPCS: 93005; 99212 ==

== ENCOUNTER 2023-07-04 15:25 | Outpatient (AMB) | payer OTHER, SELFPAY ==
[2023-07-04 15:29] VITALS: BP 132/82; PULSE 53; O2SAT 98; BMI 23.9
--- NOTE | 2023-07-04 15:29 | A.OFFVIS_ITS ---
Intake Vital Signs 07/04/23 15:29 Height 5 ft Weight 122 lb 5.705 oz BMI 23.9 BP 132/82 Blood Pressure Location Rt brachial Position Sitting Pulse 53 Pulse Source Doppler Pulse Oximetry (%) 98 Oxygen Delivery Method Room Air Intake Visit Reasons: Asthma Allergies ibuprofen Adverse Reaction (Intermediate, Verified 07/04/23 15:31) NAUSEA oxycodone [From PERCOCET] Adverse Reaction (Intermediate, Verified 07/04/23 15:31) NAUSEA HPI Asthma HPI Details 78-year-old lady, nonsmoker, followed fo r underlying moderate to severe allergic asthma and dyspnea on exertion.? She continues to use Dupixent, Advair 500, albuterol MDI and nebs with good control of her underlying symptoms.? She denies any recent exacerbations. She does complain of chronic back pain that limits her ability take deep breaths. ? [facility] Medical History Mood disorder Memory impairment COPD (chronic obstructive pulmonary disease) Hx of gastritis Hiatal hernia Osteoarthritis of both hips Chronic post-concussion headache Post concussion syndrome Environmental allergies High cholesterol HTN (hypertension), benign GERD (gastroesophageal reflux disease) Moderate persistent asthma Surgical History History of lumpectomy of right breast (08/30/21) History of esophagogastroduodenoscopy (EGD) H/O colonoscopy H/O lithotripsy History of tubal ligation History of section Hx of cholecystectomy Family History Mother Colon cancer Social History Household Members: None Housing: Apartment Are you a primary child care nurse to a significant other at home: No Do you presently have visiting nurse or other home services: No (Son takes care of her) Comment: balance Issues Patient Tobacco Use Status: Never used Tobacco service: No Current occupational status: disabled Review of Systems Const Denies daytime sleepiness, Denies excessive sweating, Denies fatigue, Denies fever(s), Denies lethargy, Denies malaise, Denies night sweats, Denies snoring and Denies weight loss Eyes Denies blurry vision and Denies itchy eyes ENT Denies nasal congestion, Denies post nasal drip, Denies sinus pain, Denies sinus pressure and Denies other ( Thrush) Card Denies chest pain, Denies pedal edema, Denies dyspnea, Denies orthopnea and Denies paroxysmal nocturnal dyspnea Resp Denies cough, Denies hemoptysis, Denies excessive phlegm production, Denies dyspnea, Denies snoring and Denies wheezing GI Denies abdominal pain and Denies heartburn Musc Denies myalgias, Denies arthralgias and Denies joint swelling Skin/Breast Denies rash Neuro Denies memory loss and Denies seizure-like activity Psych Denies abnormal sleep pattern, Denies anxiety and Denies memory loss Endo Denies excessive sweating, Denies fatigue and Denies heat intolerance Andrea/Lymph Denies easy bruising Aller/Immun Denies itchy eyes, Denies seasonal rhinorrhea and Denies wheezing Physical Exam Vital Signs: Last Vital Signs Pulse 53 07/04/23 15:29 BP 132/82 07/04/23 15:29 Pulse Ox 98 07/04/23 15:29 Oxygen Delivery Method Room Air 07/04/23 15:29 BMI result Body Mass Index 23.9 Const General: no acute distress and alert Nutritional Appearance: not obese Orientation/consciousness: Other orientation findings ( oriented) HEENT Head: Yes atraumatic Eyes General: appearance normal, both eyes and all related structures Sclerae: sclerae normal EOM: EOMs intact bilaterally Neck Neck: Yes supple Lymphatic: no lymphadenopathy noted Resp Effort & Inspection: normal respiratory effort and no use of accessory muscles Auscultation: clear to auscultation bilaterally Cardio Rate: regular rate Rhythm: regular rhythm Heart sounds: no gallops, no murmurs and no rubs Skin General skin exam: other ( warm) Extrem General: No clubbing, No cyanosis and No edema Assessment & Plan Assessment & Plan (1) Severe persistent allergic asthma: Code(s): J45.50 - Severe persistent asthma, uncomplicated Plan: Well controlled on Advair, nebs, Dupixent, and albuterol MDI. Continue current regimen. (2) Environmental allergies: Code(s): Z91.09 - Other allergy status, other than to drugs and biological substances Plan: Well controlled on Dupixent. Continue current regimen. (3) Back pain: Code(s): M54.9 - Dorsalgia, unspecified Plan: Underlying chronic back pain. Will refer to pain management for further evaluation. Orders: Referrals Pain Management Referral M54.9 - Dorsalgia, unspecified Coding Level of Care Code Est Pt Level 4 (76039) Diagnoses Severe persistent allergic asthma J45.50 Environmental allergies Z91.09 Back pain M54.9
== END 2023-07-04 15:49 | disposition home or self-care (01) ==
PROVIDERS: PCP Internal Medicine; Visit Provider Internal Medicine Pulmonary Disease
DX: J45.50 Severe persistent asthma, uncomplicated (principal); Z91.09 Other allergy status, other than to drugs and biological substances; M54.9 Dorsalgia, unspecified
CPT/HCPCS: 99214

== ENCOUNTER → 2023-07-04 15:25 | Outpatient (BNVA) | payer OTHER, SELFPAY | PROVIDERS: PCP Internal Medicine; Visit Provider Internal Medicine Pulmonary Disease | DX: J45.50 Severe persistent asthma, uncomplicated (principal); Z91.09 Other allergy status, other than to drugs and biological substances; M54.9 Dorsalgia, unspecified | CPT/HCPCS: 99212 ==

== ENCOUNTER 2023-07-11 15:17 | Outpatient (AMB) | payer OTHER, SELFPAY ==
--- NOTE | 2023-07-11 15:19 | A.OFFVIS_ITS ---
Intake Vital Signs 07/11/23 15:21 Height 5 ft Weight 122 lb BMI 23.8 BP 149/65 H Blood Pressure Location Lt brachial Position Sitting Pulse 54 Intake Visit Reasons: 5 week follow up r/s from 06/20/23 Intake Note: Patient follow up for IBS. Patient cc: diarrhea on and off, denies any other GI issues. Sound Art Instructor Required: No Accompanied by: Son Allergies ibuprofen Adverse Reaction (Intermediate, Verified 07/11/23 15:19) NAUSEA oxycodone [From PERCOCET] Adverse Reaction (Intermediate, Verified 07/11/23 15:19) NAUSEA HPI 5 week follow up r/s from 06/20/23 HPI Details Serena #rod Live Her son says she is losing a lot of weight and he thinks it is bothering her in her mind. She says she would like to gain weight. She will eat a few spoons and then she feels full. She really has no appetite, and a review of her medication list shows she is on topamax and this is known to cause appetite problems so this could be a contributing factor. I will give a trial of reglan 5mg tid to see if this helps. She has not abd pain, no outright nausea and she is moving her bowels, but not much but then again I am not eating. My records shows her wt to be fairly stable and her BMI 23 - so not a candidate for megace etc at this time. Apparently, the topamax was stared fairly recently, but they feel the appetite problems preceded the topamax. Her dementia is another possibel c/f. She continues on her Viberzi with good diarrhea control. She also continues on omeprazole for GERD and creon for bloating. ROV 5 weeks. a TODAY'S VISIT Montenegrin #son translates per pt request She is doing much better since we started the Reglan 5 mg 3 times a day. She is now eating well, gaining weight and her son in she are both happy with her GI regimen. She remained stable also on her Viberzi was control of her diarrhea her Creon, and her omeprazole. They asked when she is due for another colonoscopy and it has not until 2026. Return office visit in 6 months. [facility] Medical History Mood disorder Memory impairment COPD (chronic obstructive pulmonary disease) Hx of gastritis Hiatal hernia Osteoarthritis of both hips Chronic post-concussion headache Post concussion syndrome Environmental allergies High cholesterol HTN (hypertension), benign GERD (gastroesophageal reflux disease) Moderate persistent asthma Surgical History History of lumpectomy of right breast (08/30/21) History of esophagogastroduodenoscopy (EGD) H/O colonoscopy H/O lithotripsy History of tubal ligation History of section Hx of cholecystectomy Family History Mother Colon cancer Social History Household Members: None Housing: Apartment Are you a primary acute care physical therapist to a significant other at home: No Do you presently have visiting nurse or other home services: No (Son takes care of her) Comment: balance Issues Patient Tobacco Use Status: Never used Tobacco service: No Current occupational status: disabled Review of Systems Const Denies fatigue, Denies fever(s), Denies night sweats, Denies poor appetite, Reports weight gain and Denies weight loss ENT Reports Normal hearing present, Denies dental pain, Denies dysphagia, Denies hearing loss, Denies mouth pain, Denies odynophagia, Denies throat swelling, Denies tongue swelling and Reports other (Dentition adequate) Card Reports no additional complaints Resp Reports no additional complaints GI Details: Denies abdominal pain, Denies melena, Denies bloating, Denies hematochezia, Denies constipation, Denies GI cramping, Denies dysphagia, Denies excessive flatus, Reports early satiety, Reports heartburn, Reports diarrhea, Denies nausea, Denies odynophagia, Denies vomiting and Denies hematemesis Skin/Breast Denies pruritus, Denies lesions, Denies rash and Denies jaundice Neuro Reports Normal hearing present and Denies Abnormal speech present Endo Denies fatigue Aller/Immun Denies throat swelling and Denies tongue swelling Physical Exam Vital Signs: Last Vital Signs Pulse 54 07/11/23 15:21 BP 149/65 H 07/11/23 15:21 BMI result Body Mass Index 23.8 Const General: cooperative, no acute distress, well developed and well groomed Nutritional Appearance: average body habitus and well nourished Orientation/consciousness: oriented to person, oriented to place and oriented to time Limitations: language barrier and wheelchair HEENT Head: Yes normocephalic and Yes atraumatic Eyes General: appearance normal, both eyes and all related structures Pupils: Equal, round and reactive pupils present Neck Neck: Yes normal visual inspection and Yes no lymphadenopathy Thyroid: Thyroid normal Resp Effort & Inspection: normal respiratory effort and able to speak in complete sentences Auscultation: clear to auscultation bilaterally Cardio Rate: regular rate Rhythm: regular rhythm Heart sounds: Normal, physiologic split S2 sound present Peripheral pulses: radial pulses present and posterior tibial pulses present GI Inspection: No distended and No Abdominal panniculus present Palpation (GI): Soft to palpation, nontender, no guarding, not rigid and No hepatosplenomegaly present Percussion: Yes normal to percussion Auscultation: normal bowel sounds Rectal Exam - Female: deferred Skin General skin exam: no rashes or lesions noted, turgor normal, skin not dry, no jaundice, No spider nevi and no striae Rashes: no rashes Nails: normal Neuro General: oriented to person, oriented to place and oriented to time Cranial nerves: Yes Equal, round and reactive pupils present and Yes Normal hearing present Speech: No Abnormal speech present Extrem General: Yes normal to inspection, No clubbing, No cyanosis and No edema Psych Appearance: grossly normal and well kempt Mental Status: mental status grossly normal Speech and movement: Normal speech and movement present Affect: normal affect Attitude: cooperative Thought process: Normal thought process present and not confabulating Thought content: Normal thought content present Insight: Limited insight present (Psych) Judgement: Limited judgement present (Psych) Assessment & Plan Assessment & Plan (1) Irritable bowel syndrome with diarrhea: Code(s): K58.0 - Irritable bowel syndrome with diarrhea (2) GERD (gastroesophageal reflux disease): Code(s): K21.9 - Gastro-esophageal reflux disease without esophagitis (3) Delayed gastric emptying: Code(s): K30 - Functional dyspepsia Plan Montenegrin #son translates per pt request She is doing much better since we started the Reglan 5 mg 3 times a day. She is now eating well, gaining weight and her son in she are both happy with her GI regimen. She remained stable also on her Viberzi was control of her diarrhea her Creon, and her omeprazole. They asked when she is due for another colonoscopy and it has not until 2026. Return office visit in 6 months. 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
[2023-07-11 15:21] VITALS: BP 149/65; PULSE 54; BMI 23.8
== END 2023-07-11 15:52 | disposition home or self-care (01) ==
PROVIDERS: PCP Internal Medicine; Visit Provider Nurse Practitioner
DX: K58.0 Irritable bowel syndrome with diarrhea (principal); K21.9 Gastro-esophageal reflux disease without esophagitis; K30 Functional dyspepsia
CPT/HCPCS: 99213

== ENCOUNTER → 2023-07-11 15:17 | Outpatient (BNVA) | payer OTHER, SELFPAY | PROVIDERS: PCP Internal Medicine; Visit Provider Nurse Practitioner | DX: K58.0 Irritable bowel syndrome with diarrhea (principal); K21.9 Gastro-esophageal reflux disease without esophagitis; K30 Functional dyspepsia | CPT/HCPCS: 99212 ==

== ENCOUNTER → 2023-07-24 14:57 | Outpatient (REF) | payer OTHER, SELFPAY ==
--- NOTE | 2023-07-24 14:59 | CA_ITS ---
Transthoracic Echocardiogram Patient (Last, First, Middle): Laruie Mtz, Gender: Female Date of : 1945 Age: 78 Procedure Date: 07/24/2023 Procedure Type: Transthoracic Echocardiogram Location: OP Height: 152.4 cm Weight: 55.34 kg BSA: 1.51 m2 Heart Rate: bpm BP: 164 / 80 mmHg Final Rail Cutter: CHRIS Referring MD: Baron Daily MD Symptoms: R06.02 - Shortness of breath Study Quality: Adequate ECG Rhythm: Sinus Conclusions: - The left ventricular systolic function is normal. The calculated ejection fraction is 65% by biplane method. - Evidence suggests grade II (moderate) diastolic dysfunction. - There is mild calcification of the aortic valve. - There is mild mitral annular calcification. There is mild mitral valve regurgitation. - Large plaque is seen in the sino tubular ridge. Findings Left Ventricle Normal left ventricular cavity size. There is normal left ventricular wall thickness. The left ventricular systolic function is normal. The calculated ejection fraction is 65% by biplane method. There is no evidence of regional wall motion abnormalities. Evidence suggests grade II (moderate) diastolic dysfunction. LV peak GLS -20%. Right Ventricle Normal right ventricular cavity size and systolic function. Atria The left atrium is mildly dilated. The right atrium is normal in size. Aortic Valve There is a normal trileaflet aortic valve. There is mild calcification of the aortic valve. There is no aortic valve stenosis. There is no aortic valve regurgitation. Mitral Valve There is mild anterior mitral leaflet thickening. There is mild mitral annular calcification. There is mild mitral valve regurgitation. There is no mitral valve stenosis. Pulmonic Valve There is trace pulmonic valve regurgitation. Tricuspid Valve There is mild tricuspid valve regurgitation. There is no evidence of pulmonary hypertension. Great Vessels The asc aorta is normal in size. Large plaque is seen in the sino tubular ridge. Venous The inferior vena cava is normal in size and collapses less than 50% with inspiration. Pericardium/Pleural There is no evidence of pericardial effusion. Prior Study Comparison Changes noted compared to prior study dated: 11/26/2019. Aortic plaque more prominent. Measurements 2D Linear Measurements IVSd: 0.98 0.6-0.9/0.6-1.0 cm LVIDd: 4.02 3.9-5.3/4.2-5.9 cm LVIDd Index: 2.66 2.4-3.2/2.2-3.1 cm/m2 LVIDs: 2.73 2.0-3.6 cm LVPWd: 0.98 0.7-1.1 cm LA Diam: 3.50 2.7-3.8/3.0-4.0 cm LAIDs Index: 2.32 1.5-2.3 cm/m2 LV Mass: 154.17 67-162/88-224 g LV Mass Index: 102.10 43-95/49-115 g/m2 LVOT Diam: 2.00 3.0+(-)1.3 cm 2D Systolic Function EF 4C: 63.10 >55% EF 2C: 67.80 >55% EF BiP: 64.90 >55% Mitral Valve MV Pk E: 1.16 MV PK A: 0.76 MV Decel Time: 170.00 E/A: 1.50 E'Lateral: 6.42 E'Medial: 5.87 E/E' Med: 19.80 E/E' Lat: 18.10 PHT: 50.00 MVA PHT: 4.40 Decel [place]: 6.84 Aortic Valve AoV Pk Jeovanny: 1.21 AoV Mn Jeovanny: 0.88 AoV VTI: 0.35 AoV Pk Grad: 6.00 Aov Mn Grad: 3.00 KATHI Cont.VTI: 2.76 LVOT LVOT Pk Jeovanny: 1.17 LVOT Mn Jeovanny: 0.69 LVOT VTI: 0.31 LVOT Pk Grad: 5.00 LVOT Mn Grad: 2.00 LVOT Diam: 2.00 LVOT Area: 3.14 Diastolic Function MV Pk E: 1.16 MV Pk A: 0.76 E/A: 1.50 E'Medial: 5.87 E/E' Med: 19.80 E' Laterial: 6.42 E/E' Lat: 18.10 Right Ventricle TAPSE (mm): 21.90 TVS' Jeovanny: 10.90 Tricuspid Valve TR Pk Jeovanny: 2.59 TR Pk Grad: 27.00 RA Press: 8.00 RVSP: 35.00 Great Vessels Aorta Sinus of Valsalva: 2.98 2.0-3.[address] Ridge: 2.27 1.7-3.4 cm Ao Asc: 3.50 2.1-3.4 cm Updated in Other Vendor System with Status of Final Baron Daily MD electronically signed on 07/25/2023 11:15:08 AM with status of Final
== END ==
LOC: HO.CARD 14:57
PROVIDERS: PCP Internal Medicine; Visit Provider Internal Medicine
DX: R06.02 Shortness of breath (principal)
CPT/HCPCS: 93306; 93356

== ENCOUNTER → 2023-07-24 14:59 | Outpatient (BNV) | payer OTHER, SELFPAY | PROVIDERS: PCP Internal Medicine; Visit Provider Internal Medicine | DX: I34.0 Nonrheumatic mitral (valve) insufficiency (principal); I34.81 Nonrheumatic mitral (valve) annulus calcification; I35.8 Other nonrheumatic aortic valve disorders | CPT/HCPCS: 93306; 93356 ==

== ENCOUNTER 2023-07-25 14:49 | Outpatient (AMB) | payer OTHER, SELFPAY ==
--- NOTE | 2023-07-25 15:03 | MHC.OFFVIS ---
Vital Signs 07/25/23 15:09 Height 5 ft Weight 118 lb 2 oz BMI 23.1 BP 160/72 H Blood Pressure Location Lt brachial Position Sitting Pulse 56 Intake Visit Reasons: 6 month breast exam Intake Note: Patient is seen in office for 6 month follow up visit, breast exam. Pt c/o: no concerns at the time of visit mm: 04/10/23 Type Bar And Segment Assembler Required: Yes Type Bar And Segment Assembler Language: Planer Setter Name: Arleth STONE Information Interpreted: non-clinical & clinical Safety Counselor: Safety Counselor Present Accompanied by: Family/Other Allergies ibuprofen Adverse Reaction (Intermediate, Verified 07/25/23 15:09) NAUSEA oxycodone [From PERCOCET] Adverse Reaction (Intermediate, Verified 07/25/23 15:09) NAUSEA Medication List - Last Reconciled 07/25/23 by Александр Burciaga MD albuterol sulfate 90 mcg/actuation 90 mcg inhalation Q4-6H PRN albuterol sulfate 2.5 mg inhalation TID PRN amlodipine 10 mg PO QAM atenolol 75 mg PO QAM buspirone 5 mg PO BID calcium carbonate-vitamin D3 600 mg-10 mcg (400 unit) 1 tab PO DAILY docusate sodium 100 mg PO BID dupilumab (Dupixent) 300 mg (2 mL) subcut Q2W eluxadoline (Viberzi) 100 mg PO BID exemestane 25 mg PO DAILY famotidine 40 mg PO BEDTIME fluticasone propion-salmeterol 500-50 mcg/dose 1 ea inhalation DAILY fluticasone propionate 50 mcg/actuation 1 spray intranasal DAILY furosemide 20 mg PO QAM hydrochlorothiazide 50 mg PO QAM hydrocodone-acetaminophen 5-325 mg 1 tab PO Q6H PRN hydrocortisone 2.5% appl topical ipratropium-albuterol 0.5 mg-3 mg(2.5 mg base)/3 mL 3 mL inhalation Q4-6H PRN 30 days ketotifen fumarate 0.025%(0.035%) 1 drp ophthalmic (eye) BID [id number]-qbhcqhje-ffdxmwn 3,000-9,500- 15,000 unit (Creon) 1 cap PO QID loratadine 10 mg PO DAILY losartan 100 mg PO DAILY metoclopramide HCl (Reglan) 5 mg PO TID miconazole nitrate 2% 1 appl topical BID PRN uusshttneluc-dock-fkyxi acid 18-400 mg-mcg 1 tab PO QAM omeprazole 40 mg PO QAM polyvinyl alcohol 1.4% 2 drps ophthalmic (eye) DAILY sertraline 25 mg PO DAILY simvastatin 40 mg PO BEDTIME topiramate 25 mg PO BID trazodone 100 mg PO BEDTIME HPI Comments Details: 78-year-old female patient returning for follow-up breast examination, diagnosed with ductal carcinoma in situ in 08/13/2021. She underwent a right breast lumpectomy with needle localization on 08/30/2021. Pathology revealed ductal carcinoma in situ, nuclear grade 2 with necrosis. Margins were negative, closest margin 4 mm to the medial margin. AJCC stage: P TIS NX (8th edition). She was evaluated by Dr. Baum and started on Aromasin 25 mg q.day. She was evaluated by radiation therapy at [facility]. There was felt to be a low benefit of radiation therapy as long she remained on antiestrogen therapy therefore she received no radiation therapy. She generally feels well and denies any ongoing breast symptoms. She does check frequently but denies any palpable lumps or tenderness. Bilateral diagnostic mammogram of 09/15/2022 revealed post therapy changes in the right breast, probably benign (BI-RADS 2). Six-month follow-up mammogram performed on 04/10/2023 revealed no suspicious findings in the right breast (BI-RADS 2). Bilateral diagnostic mammogram in 6 months was recommended. [facility] Medical History Mood disorder Memory impairment COPD (chronic obstructive pulmonary disease) Hx of gastritis Hiatal hernia Osteoarthritis of both hips Chronic post-concussion headache Post concussion syndrome Environmental allergies High cholesterol HTN (hypertension), benign GERD (gastroesophageal reflux disease) Moderate persistent asthma Surgical History History of lumpectomy of right breast (08/30/21) History of esophagogastroduodenoscopy (EGD) H/O colonoscopy H/O lithotripsy History of tubal ligation History of section Hx of cholecystectomy Family History Mother Colon cancer Social History Household Members: None Housing: Apartment Are you a primary lawn care worker to a significant other at home: No Do you presently have visiting nurse or other home services: No (Son takes care of her) Comment: balance Issues Patient Tobacco Use Status: Never used Tobacco service: No Current occupational status: disabled Review of Systems Const Denies chills, Denies fever(s), Denies headache(s) and Denies poor appetite ENT Denies dizziness and Denies headache(s) Card Denies chest pain, Denies rapid heart rate, Denies palpitations and Denies slow heart rate Resp Denies chest congestion, Denies cough, Denies pain on inspiration and Denies wheezing GI Denies abdominal pain, Denies bloating, Denies change in stool character, Denies constipation, Denies diarrhea, Denies nausea, Denies vomiting and Denies hematemesis Denies nipple discharge Musc Denies back pain, Denies arthralgias, Denies joint swelling and Denies numbness Skin/Breast Denies breast swelling, Denies breast skin changes, Denies breast pain, Denies breast mass, Denies change in breast shape, Denies change in pigmentation, Denies nipple discharge, Denies erythema and Denies rash Neuro Denies dizziness, Denies headache(s) and Denies numbness Psych Denies anxiety and Denies depression Endo Denies palpitations Andrea/Lymph Denies easy bleeding, Denies easy bruising and Denies lymphadenopathy Aller/Immun Denies wheezing Physical Exam Const General: no acute distress and well developed Nutritional Appearance: well nourished Chest Other: Well-healed incision around the right nipple-areolar complex with some swelling of the surrounding tissue and ecchymosis resulting and mild retraction of right nipple. No underlying masses appreciated. Skin retraction is noted at the needle insertion site in the lower quadrant. Left breast is normal with no suspicious findings. Chest/axillae images: 1. Needle site right breast Resp Effort & Inspection: normal respiratory effort GI Inspection: Yes normal to inspection Skin Other: Warm, dry, no rash Extrem General: Yes normal to inspection Assessment & Plan Assessment & Plan (1) Ductal carcinoma in situ of right breast: Code(s): D05.11 - Intraductal carcinoma in situ of right breast Category: Medical (2) History of lumpectomy of right breast: Onset Date: 08/30/21 Comment: Александр Burciaga MD Code(s): Z98.890 - Other specified postprocedural states Category: Surgical Plan 77-year-old female patient presenting with an abnormal mammogram of the right breast, s/p right breast lumpectomy with needle localization. Pathology revealed a 1.8 cm ductal carcinoma in situ with negative margins, ER/IA positive, nuclear grade 2 with necrosis. She was evaluated by radiation oncology in the position made to hold off on radiation therapy. She was started on Aromasin by Dr. Baum and seems to be tolerating this. She denies any ongoing breast symptoms at this time. Examination today revealed a well-healed incision in the right breast with no new suspicious changes and no evidence of recurrence disease. She is scheduled for follow-up mammogram on 10/10/2023. I recommended follow-up examination in 6 months. Coding Level of Care Code Est Pt Level 3 (09226) Diagnoses Ductal carcinoma in situ of right breast D05.11 History of lumpectomy of right breast Z98.890
[2023-07-25 15:09] VITALS: BP 160/72; PULSE 56; BMI 23.1
== END 2023-07-25 15:21 | disposition home or self-care (01) ==
PROVIDERS: PCP Internal Medicine; Visit Provider Surgery
DX: D05.11 Intraductal carcinoma in situ of right breast (principal); Z98.890 Other specified postprocedural states
CPT/HCPCS: 99213

== ENCOUNTER → 2023-07-25 14:49 | Outpatient (BNVA) | payer OTHER, SELFPAY | PROVIDERS: PCP Internal Medicine; Visit Provider Surgery | DX: D05.11 Intraductal carcinoma in situ of right breast (principal); Z98.890 Other specified postprocedural states | CPT/HCPCS: 99212 ==

== ENCOUNTER → 2023-09-01 08:19 | Outpatient (REF) | payer OTHER, SELFPAY ==
--- NOTE | ~2023-09-01 | NM_ITS ---
Myocardial perfusion study Indication: Precordial pain to evaluate for myocardial ischemia Technique: The patient was brought in for a Lexiscan perfusion study on 09/01/2023. Patient performed low-level exercise and was injected 0.4 mg of Lexiscan intravenously. Within a minute of injection, 25 mCi of sestamibi was given intravenously. Images were obtained using the SPECT gamma camera interlaced with the gating device. Images were obtained in supine position. Resting perfusion study was performed on 09/15/2023. Patient was administered 25 mCi of sestamibi intravenously at rest. Images were then obtained in supine position. Images obtained with and without CT attenuation. Total DLP 81 mGy-cm. Images were processed with the software and compared side to side in short axis, horizontal long axis and vertical long axis views. Findings: The stress perfusion study showed non attenuated images show mildly reduced uptake in the apex as well as basal inferior and basal lateral wall of the LV myocardium. Attenuation corrected images show mildly reduced uptake in the septum, moderately reduced uptake in the apical septum and apex of the LV myocardium. Is also mildly reduced uptake in the distal anterior wall of the LV myocardium.. The gated study shows normal LV systolic function with calculated LVEF of 52%. LV cavity is normal in size. The gated study shows normal systolic wall thickening and contraction of segments. Resting study shows intense subdiaphragmatic uptake obscuring the inferior wall. Non attenuated images show normal uptake of radiotracer in all segments of LV myocardium. Attenuation corrected images show normal uptake in all segments of LV myocardium. Gating at rest reveals normal systolic wall motion with ejection fraction at 66%. The findings are consistent with on attenuated corrected images there is reversibility noted on the septum, distal anterior wall of mild intensity as well as reversibility noted on the distal septum and apex overall suggestive of ischemia.. NM/NM cardiolite stress test Impression: 1. Myocardial perfusion imaging study shows mild to moderate intensity, septal and apical as well as distal anterior ischemia in mid to distal LAD territory. 2. Gated LVEF is 52% with stress and 62% with rest 3. Transient ischemic dilatation not present EKG is nondiagnostic for ischemia
--- NOTE | 2023-09-01 08:22 | CA_ITS ---
Acquisition Time: 2023-09-01 09:18:13 Total Exercise Time: 00:02:00 Test Indications: CP Medications: SEE H Protocol: LEXISCAN Max HR: 106 BPM 75% of Pred: 141 BPM Max BP: 116/066 mmHG Max Work Load: 1.0 METS Pharmacological stress test with Lexiscan injection, without anginal symptoms, without arrythmia, with normotensive response to injection, with nondiagnostic EKG for ischemia. In recovery she did report some shortness of breath which was treated with aminophylline 75mg IVP to reverse Lexiscan with resolution of symptom. Nuclear images pending. Test reviewed with Dr Feliz. Referred By: Baron Daily Overread By: ANNALISA WATSON
== END ==
LOC: HO.CARD 08:19
PROVIDERS: PCP Internal Medicine; Visit Provider Internal Medicine
DX: R07.2 Precordial pain (principal); I20.9 Angina pectoris, unspecified
CPT/HCPCS: 78452; 93017; A9500; J0280; J2785

== ENCOUNTER → 2023-09-01 08:22 | Outpatient (BNV) | payer OTHER, SELFPAY | PROVIDERS: PCP Internal Medicine; Visit Provider Nurse Practitioner Family | DX: R07.2 Precordial pain (principal) | CPT/HCPCS: 78452; 93016; 93018 ==

== ENCOUNTER 2023-09-21 14:11 | Outpatient (AMB) | payer OTHER, SELFPAY ==
--- NOTE | 2023-09-21 14:23 | A.OFFVIS_ITS ---
Vital Signs 09/21/23 14:24 Height 5 ft Weight 121 lb 4.068 oz BMI 23.7 BP 132/68 Blood Pressure Location Lt brachial Position Sitting Pulse 50 Pulse Source Pulse Oximeter Intake Visit Reasons: r/s 09/05/23 f/u after stress test Garnett Machine Operator Required: Yes Garnett Machine Operator Name: [id number] Allergies ibuprofen Adverse Reaction (Intermediate, Verified 07/25/23 15:09) NAUSEA oxycodone [From PERCOCET] Adverse Reaction (Intermediate, Verified 07/25/23 15:09) NAUSEA Medication List - Last Reconciled 09/21/23 by Elizabeth Burks NP albuterol sulfate 90 mcg/actuation 90 mcg inhalation Q4-6H PRN albuterol sulfate 2.5 mg inhalation TID PRN amlodipine 10 mg PO QAM atenolol 75 mg PO QAM buspirone 5 mg PO BID calcium carbonate-vitamin D3 600 mg-10 mcg (400 unit) 1 tab PO DAILY docusate sodium 100 mg PO BID dupilumab (Dupixent) 300 mg (2 mL) subcut Q2W eluxadoline (Viberzi) 100 mg PO BID exemestane 25 mg PO DAILY famotidine 40 mg PO BEDTIME fluticasone propion-salmeterol 500-50 mcg/dose 1 ea inhalation DAILY fluticasone propionate 50 mcg/actuation 1 spray intranasal DAILY furosemide 20 mg PO QAM hydrochlorothiazide 50 mg PO QAM hydrocodone-acetaminophen 5-325 mg 1 tab PO Q6H PRN hydrocortisone 2.5% appl topical ipratropium-albuterol 0.5 mg-3 mg(2.5 mg base)/3 mL 3 mL inhalation Q4-6H PRN ketotifen fumarate 0.025%(0.035%) 1 drp ophthalmic (eye) BID gotnqz-ntxgrxvb-yeedfjb 3,000-9,500- 15,000 unit (Creon) 1 cap PO QID loratadine 10 mg PO DAILY losartan 100 mg PO DAILY metoclopramide HCl (Reglan) 5 mg PO TID miconazole nitrate 2% 1 appl topical BID PRN aahhhuzytick-ktfr-kebcy acid 18-400 mg-mcg 1 tab PO QAM omeprazole 40 mg PO QAM polyvinyl alcohol 1.4% 2 drps ophthalmic (eye) DAILY sertraline 25 mg PO DAILY simvastatin 40 mg PO BEDTIME topiramate 25 mg PO BID trazodone 100 mg PO BEDTIME HPI Comments Details: 78-year-old female presents today for follow-up. 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 She reports breathing has been the same. She feels short of breath often and states she feels like I am going to She reports her inhaler does help. She denies chest pains. [facility] Medical History Mood disorder Memory impairment COPD (chronic obstructive pulmonary disease) Hx of gastritis Hiatal hernia Osteoarthritis of both hips Chronic post-concussion headache Post concussion syndrome Environmental allergies High cholesterol HTN (hypertension), benign GERD (gastroesophageal reflux disease) Moderate persistent asthma Surgical History History of lumpectomy of right breast (08/30/21) History of esophagogastroduodenoscopy (EGD) H/O colonoscopy H/O lithotripsy History of tubal ligation History of section Hx of cholecystectomy Family History Mother Colon cancer Son Myocardial infarct Social History Household Members: None Housing: Apartment Are you a primary ambulatory care coordinator to a significant other at home: No Do you presently have visiting nurse or other home services: No (Son takes care of her) Comment: balance Issues Patient Tobacco Use Status: Never used Tobacco service: No Current occupational status: disabled Review of Systems Const Denies weakness ENT Denies dizziness Card Denies chest pain, Denies chest pain with activity, Denies syncope, Denies rapid heart rate, Denies pedal edema, Denies edema, Denies leg edema, Denies lightheadedness, Denies palpitations, Denies dyspnea, Denies dyspnea on exertion and Denies orthopnea Resp Denies cough, Denies dyspnea and Denies dyspnea on exertion GI Denies hematochezia and Denies change in stool character Musc Denies abnormal gait, Denies muscle cramps, Denies muscle weakness, Denies numbness, Denies radiating pain into limb and Denies tingling Neuro Denies abnormal gait, Denies dizziness, Denies syncope, Denies numbness, Denies tingling and Denies weakness Endo Denies palpitations Physical Exam Vital Signs: Last Vital Signs Pulse 50 09/21/23 14:24 BP 132/68 09/21/23 14:24 BMI result Body Mass Index 23.7 Results Reviewed Results Reviewed: NM/NM cardiolite stress test Impression: 1. Myocardial perfusion imaging study shows mild to moderate intensity, septal and apical as well as distal anterior ischemia in mid to distal LAD territory. 2. Gated LVEF is 52% with stress and 62% with rest 3. Transient ischemic dilatation not present Assessment & Plan Assessment & Plan (1) Short of breath on exertion: Code(s): R06.02 - Shortness of breath Category: Medical Plan Shortness of breath still persisting. Myocardial perfusion imaging study shows mild to moderate intensity, septal and apical as well as distal anterior ischemia in mid to distal LAD territory. Will get CTA to further assess. Son would like to not do a cardiac cath at this time. Orders: Orders Basic Metabolic Panel 09/21/23 R06.02 - Shortness of breath CT Cardiac Coronary Angio 09/21/23 R06.02 - Shortness of breath Lipid Panel 09/21/23 R06.02 - Shortness of breath Coding Level of Care Code Est Pt Level 3 (88139) Diagnoses Short of breath on exertion R06.02
[2023-09-21 14:24] VITALS: BP 132/68; PULSE 50; BMI 23.7
== END 2023-09-21 15:03 | disposition home or self-care (01) ==
PROVIDERS: PCP Internal Medicine; Visit Provider Nurse Practitioner
DX: R06.02 Shortness of breath (principal)
CPT/HCPCS: 99213

== ENCOUNTER → 2023-09-21 14:11 | Outpatient (BNVA) | payer OTHER, SELFPAY | PROVIDERS: PCP Internal Medicine; Visit Provider Nurse Practitioner | DX: R06.02 Shortness of breath (principal) | CPT/HCPCS: 99212 ==

== ENCOUNTER 2023-10-03 14:38 | Outpatient (AMB) | payer OTHER, SELFPAY ==
[2023-10-03 14:39] VITALS: BP 142/64; PULSE 63; O2SAT 96; BMI 23.7
--- NOTE | 2023-10-03 14:39 | A.OFFVIS_ITS ---
Vital Signs 10/03/23 14:39 Height 5 ft Weight 121 lb 4.068 oz BMI 23.7 BP 142/64 H Blood Pressure Location Rt brachial Position Sitting Pulse 63 Pulse Source Doppler Pulse Oximetry (%) 96 Oxygen Delivery Method Room Air Intake Visit Reasons: Asthma Allergies ibuprofen Adverse Reaction (Intermediate, Verified 07/25/23 15:09) NAUSEA oxycodone [From PERCOCET] Adverse Reaction (Intermediate, Verified 07/25/23 15:09) NAUSEA HPI HPI Asthma: Details: 78-year-old lady, nonsmoker, followed for underlying moderate to severe allergic asthma and dyspnea on exertion.? She continues to use Dupixent, Advair 500, albuterol MDI and nebs with good control of the pulmonary component of her underlying symptoms.? She denies any recent exacerbations. She does complain of chronic back pain that limits her ability take deep breaths, patient was referred for pain management, however she did not want to follow-up. She is undergoing cardiac workup. [facility] Medical History Mood disorder Memory impairment COPD (chronic obstructive pulmonary disease) Hx of gastritis Hiatal hernia Osteoarthritis of both hips Chronic post-concussion headache Post concussion syndrome Environmental allergies High cholesterol HTN (hypertension), benign GERD (gastroesophageal reflux disease) Moderate persistent asthma Surgical History History of lumpectomy of right breast (08/30/21) History of esophagogastroduodenoscopy (EGD) H/O colonoscopy H/O lithotripsy History of tubal ligation History of section Hx of cholecystectomy Family History Mother Colon cancer Son Myocardial infarct Social History Household Members: None Housing: Apartment Are you a primary memory care director to a significant other at home: No Do you presently have visiting nurse or other home services: No (Son takes care of her) Comment: balance Issues Patient Tobacco Use Status: Never used Tobacco service: No Current occupational status: disabled Review of Systems Const Denies daytime sleepiness, Denies excessive sweating, Denies fatigue, Denies fever(s), Denies lethargy, Denies malaise, Denies night sweats, Denies snoring and Denies weight loss Eyes Denies blurry vision and Denies itchy eyes ENT Denies nasal congestion, Denies post nasal drip, Denies sinus pain, Denies sinus pressure and Denies other ( Thrush) Card Denies chest pain, Denies pedal edema, Denies dyspnea, Denies orthopnea and Denies paroxysmal nocturnal dyspnea Resp Denies cough, Denies hemoptysis, Denies excessive phlegm production, Denies dyspnea, Denies snoring and Denies wheezing GI Denies abdominal pain and Denies heartburn Musc Denies myalgias, Denies arthralgias and Denies joint swelling Skin/Breast Denies rash Neuro Denies memory loss and Denies seizure-like activity Psych Denies abnormal sleep pattern, Denies anxiety and Denies memory loss Endo Denies excessive sweating, Denies fatigue and Denies heat intolerance Andrea/Lymph Denies easy bruising Aller/Immun Denies itchy eyes, Denies seasonal rhinorrhea and Denies wheezing Physical Exam Vital Signs: Last Vital Signs Pulse 63 10/03/23 14:39 BP 142/64 H 10/03/23 14:39 Pulse Ox 96 10/03/23 14:39 Oxygen Delivery Method Room Air 10/03/23 14:39 BMI result Body Mass Index 23.7 Const General: no acute distress and alert Nutritional Appearance: not obese Orientation/consciousness: Other orientation findings ( oriented) HEENT Head: Yes atraumatic Eyes General: appearance normal, both eyes and all related structures Sclerae: sclerae normal EOM: EOMs intact bilaterally Neck Neck: Yes supple Lymphatic: no lymphadenopathy noted Resp Effort & Inspection: normal respiratory effort and no use of accessory muscles Auscultation: clear to auscultation bilaterally Cardio Rate: regular rate Rhythm: regular rhythm Heart sounds: no gallops, no murmurs and no rubs Skin General skin exam: other ( warm) Extrem General: No clubbing, No cyanosis and No edema Assessment & Plan Assessment & Plan (1) Severe persistent allergic asthma: Code(s): J45.50 - Severe persistent asthma, uncomplicated Category: Medical Plan: Well controlled on current regimen of Advair, albuterol MDI/nebs, and Dupixent. Continue current regimen. (2) Environmental allergies: Code(s): Z91.09 - Other allergy status, other than to drugs and biological substances Category: Medical Plan: Well controlled on Dupixent. Continue current regimen. (3) Dyspnea on exertion: Code(s): R06.00 - Dyspnea, unspecified Category: Medical Plan: Appears multifactorial with contribution from underlying pulmonary and cardiac etiologies. Pulmonary component well controlled at this time. Patient is undergoing cardiac workup. Coding Level of Care Code Est Pt Level 4 (85691) Diagnoses Severe persistent allergic asthma J45.50 Environmental allergies Z91.09 Dyspnea on exertion R06.00
== END 2023-10-03 15:12 | disposition home or self-care (01) ==
PROVIDERS: PCP Internal Medicine; Visit Provider Internal Medicine Pulmonary Disease
DX: J45.50 Severe persistent asthma, uncomplicated (principal); Z91.09 Other allergy status, other than to drugs and biological substances; R06.00 Dyspnea, unspecified
CPT/HCPCS: 99214

== ENCOUNTER → 2023-10-03 14:38 | Outpatient (BNVA) | payer OTHER, SELFPAY | PROVIDERS: PCP Internal Medicine; Visit Provider Internal Medicine Pulmonary Disease | DX: J45.50 Severe persistent asthma, uncomplicated (principal); R06.00 Dyspnea, unspecified; Z91.09 Other allergy status, other than to drugs and biological substances | CPT/HCPCS: 99212 ==

== ENCOUNTER 2023-10-10 14:21 | Outpatient (REF) | payer OTHER, SELFPAY ==
--- NOTE | ~2023-10-10 | MM_ITS ---
EXAMINATION: MM DIAGNOSTIC DIGITAL BREAST TOMOSYNTHESIS, BILATERAL CLINICAL INFORMATION: 6 month follow-up for probable dermal calcifications along the scar margin far inferior right breast. 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 COMPARISON: Mammography: 04/10/2023, 09/15/2022, 08/30/2021, 06/28/2021, 06/16/2020, 03/31/2020. TECHNIQUE: Digital breast tomosynthesis is performed in both the craniocaudal and mediolateral oblique views along with computer-aided detection (CAD). Synthesized 2D images are generated from the tomosynthesis. In addition, added full-field 3-D right CC, left MLO, and left CC views were also obtained, a 3-D spot compression right cc view, as well as 2-D spot magnification right CC and ML views. FINDINGS: The breasts are extremely dense, which lowers the sensitivity of mammography (ACR BI-RADS breast composition Category d). Lumpectomy scar again noted in the posterior 6:00 axis right breast, marked by scar marker. There are numerous abutting tiny punctate rounded calcifications which localize to the skin, not beneath the skin. These localize to the scar itself, and are dystrophic calcifications, unchanged, and benign. Mildly improving post therapy trabecular prominence and distortion right breast. A 1 view asymmetry in the central slightly lateral right breast CC view dissipates on spot compression, consistent with summation artifact. There are bilateral vascular calcifications. There are stable benign type calcifications in the left breast. No new suspicious masses, new suspicious grouped calcifications, or new region of architectural distortion in either breast. No axillary abnormalities. MM/MM tomosynthesis diagnostic BI IMPRESSION: -There are no findings suspicious for malignancy in either breast. -Evolving post therapy changes right breast with associated benign findings as described above, stable. -Recommend this patient resume annual bilateral mammography, and for year 3 postoperative diagnostic protocol for right breast. ASSESSMENT: BI-RADS BI-RADS 2 - Benign Findings RECOMMENDATION: 1 year F/U Results were provided to the patient at time of visit by the technologist. This patient's information was entered into a reminder system with a target due date for their next mammogram.
== END 2023-10-10 14:22 | disposition home or self-care (01) ==
LOC: HO.MAMMO 14:21
PROVIDERS: PCP Internal Medicine; Visit Provider Surgery
DX: R92.8 Other abnormal and inconclusive findings on diagnostic imaging of breast (principal)
CPT/HCPCS: 77062; 77066

== ENCOUNTER → 2023-10-10 15:00 | Outpatient (BNV) | payer OTHER, SELFPAY | PROVIDERS: PCP Internal Medicine; Visit Provider Radiology Diagnostic Radiology | DX: R92.1 Mammographic calcification found on diagnostic imaging of breast (principal) | CPT/HCPCS: 77066; G0279 ==

== ENCOUNTER 2023-10-30 13:38 | Outpatient (REF) | payer OTHER, SELFPAY ==
--- NOTE | ~2023-10-30 | XR_ITS ---
EXAMINATION: XR KNEE, LEFT CLINICAL INFORMATION: Acute pain of the left knee with swelling x2 weeks COMPARISON: Bilateral knees 12/14/2018 TECHNIQUE: Four views of the left knee. FINDINGS: Tricompartmental degenerative changes are again seen with narrowing in all compartments with osteophyte formation. No chondrocalcinosis is seen. No fractures or joint effusions. Comparison is made to the 2019 study, appearances are quite similar. XR/XR knee LT 4V IMPRESSION: Tricompartmental degenerative changes. No acute finding.
== END 2023-10-30 13:39 | disposition home or self-care (01) ==
LOC: HO.HHCX 13:38
PROVIDERS: Visit Provider Nurse Practitioner Family
DX: M25.562 Pain in left knee (principal); R60.0 Localized edema
CPT/HCPCS: 73564

== ENCOUNTER 2023-11-14 15:04 | Outpatient (REF) | payer OTHER, SELFPAY ==
[2023-11-14 16:45] LABS: Anion Gap 12 (12-20); Blood Urea Nitrogen 11 mg/dL (9-16); Calcium 9.4 mg/dL (8.4-10.2); Carbon Dioxide 28 mmol/L (22-29); Chloride 107 mmol/L (96-108); Cholesterol 140 mg/dL (<200); Estimated Glomerular Filt Rate > 60; Glucose Random 100 mg/dL (60-115); HDL Cholesterol 52 mg/dL (>40); LDL Cholesterol Calculated 75 mg/dL (<100); Potassium 3.6 mmol/L (3.3-5.1); Sodium 143 mmol/L (135-145); Triglycerides 67 mg/dL (<150)
== END 2023-11-14 15:05 | disposition home or self-care (01) ==
LOC: HO.HHCL 15:04
PROVIDERS: Visit Provider Nurse Practitioner
DX: Z13.6 Encounter for screening for cardiovascular disorders (principal); R06.02 Shortness of breath
CPT/HCPCS: 36415; 80048; 80061

== ENCOUNTER 2023-12-11 13:16 | Outpatient (REF) | payer OTHER, SELFPAY ==
--- NOTE | ~2023-12-11 | XR_ITS ---
EXAMINATION: XR KNEE AP STANDING CLINICAL INFORMATION: Right knee pain. COMPARISON: 10/30/2023, 12/14/2018. TECHNIQUE: AP bilateral standing view of the knees was obtained. FINDINGS: Degenerative changes un the medial and lateral compartments in bilateral knees with loss of joint space height and marginal osteophytes, left greater than right. Serpiginous structures in soft tissues compatible with varicose veins. XR/XR knee standing BI IMPRESSION: Moderate degenerative changes bilateral knees, left greater than right. Electronically signed by: Renetta Simmons MD 02/11/2024 08:31 PM EST
== END 2023-12-11 13:17 | disposition home or self-care (01) ==
LOC: HO.XRAY 13:16
PROVIDERS: PCP Internal Medicine; Visit Provider Physician Assistant
DX: M25.561 Pain in right knee (principal); M25.562 Pain in left knee
CPT/HCPCS: 20610; 73565; 99212; J1010

== ENCOUNTER 2023-12-11 13:51 | Outpatient (AMB) | payer OTHER, SELFPAY ==
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
[2023-12-11 13:58] VITALS: BMI 23.7
== END 2023-12-11 14:50 | disposition home or self-care (01) ==
PROVIDERS: PCP Internal Medicine; Visit Provider Physician Assistant
DX: M17.12 Unilateral primary osteoarthritis, left knee (principal)
CPT/HCPCS: 20610; 99213

== ENCOUNTER 2024-01-05 09:36 | Outpatient (REF) | payer OTHER, SELFPAY ==
[2024-01-05 11:17] LABS: Anion Gap 13 (12-20); Blood Urea Nitrogen 12 mg/dL (9-16); Calcium 9.3 mg/dL (8.4-10.2); Carbon Dioxide 31 mmol/L (22-29); Chloride 105 mmol/L (96-108); Estimated Glomerular Filt Rate > 60; Glucose Random 97 mg/dL (60-115); Potassium 3.5 mmol/L (3.3-5.1); Sodium 145 mmol/L (135-145)
== END 2024-01-05 09:37 | disposition home or self-care (01) ==
LOC: HO.LAB 09:36
PROVIDERS: PCP Internal Medicine; Visit Provider Nurse Practitioner Family
DX: R06.02 Shortness of breath (principal)
CPT/HCPCS: 36415; 80048

== ENCOUNTER 2024-01-09 14:51 | Outpatient (AMB) | payer OTHER, SELFPAY ==
--- NOTE | 2024-01-09 14:51 | MHC.OFFVIS ---
Vital Signs 01/09/24 14:52 Height 5 ft Weight 113 lb 8.609 oz BMI 22.2 BP 112/62 Blood Pressure Location Lt brachial Position Sitting Pulse 50 Pulse Source Doppler Pulse Oximetry (%) 98 Oxygen Delivery Method Room Air Intake Visit Reasons: Asthma Allergies ibuprofen Adverse Reaction (Intermediate, Verified 01/09/24 14:57) NAUSEA oxycodone [From PERCOCET] Adverse Reaction (Intermediate, Verified 01/09/24 14:57) NAUSEA HPI HPI Asthma: Details: 78-year-old lady, nonsmoker, followed for underlying moderate to severe allergic asthma and dyspnea on exertion. Her symptoms were previously well controlled on Dupixent, Advair 500, albuterol MDI, until recently when patient stopped being able to get her Dupixent ejection secondary to logistical issues. She denies acute exacerbation. [facility] Medical History Mood disorder Memory impairment COPD (chronic obstructive pulmonary disease) Hx of gastritis Hiatal hernia Osteoarthritis of both hips Chronic post-concussion headache Post concussion syndrome Environmental allergies High cholesterol HTN (hypertension), benign GERD (gastroesophageal reflux disease) Moderate persistent asthma Surgical History History of lumpectomy of right breast (08/30/21) History of esophagogastroduodenoscopy (EGD) H/O colonoscopy H/O lithotripsy History of tubal ligation History of section Hx of cholecystectomy Family History Mother Colon cancer Son Myocardial infarct Social History Household Members: None Housing: Apartment Are you a primary care professional to a significant other at home: No Do you presently have visiting nurse or other home services: No (Son takes care of her) Comment: balance Issues Patient Tobacco Use Status: Never used Tobacco service: No Current occupational status: disabled Review of Systems Const Denies daytime sleepiness, Denies excessive sweating, Denies fatigue, Denies fever(s), Denies lethargy, Denies malaise, Denies night sweats, Denies snoring and Denies weight loss Eyes Denies blurry vision and Denies itchy eyes ENT Denies nasal congestion, Denies post nasal drip, Denies sinus pain, Denies sinus pressure and Denies other ( Thrush) Card Denies chest pain, Denies pedal edema, Denies dyspnea, Reports dyspnea on exertion, Denies orthopnea and Denies paroxysmal nocturnal dyspnea Resp Denies cough, Denies hemoptysis, Denies excessive phlegm production, Denies dyspnea, Reports dyspnea on exertion, Denies snoring and Reports wheezing GI Denies abdominal pain and Denies heartburn Musc Denies myalgias, Denies arthralgias and Denies joint swelling Skin/Breast Denies rash Neuro Denies memory loss and Denies seizure-like activity Psych Denies abnormal sleep pattern, Denies anxiety and Denies memory loss Endo Denies excessive sweating, Denies fatigue and Denies heat intolerance Andrea/Lymph Denies easy bruising Aller/Immun Denies itchy eyes, Denies seasonal rhinorrhea and Reports wheezing Physical Exam Vital Signs: Last Vital Signs Pulse 50 01/09/24 14:52 BP 112/62 01/09/24 14:52 Pulse Ox 98 01/09/24 14:52 Oxygen Delivery Method Room Air 01/09/24 14:52 BMI result Body Mass Index 22.2 Const General: no acute distress and alert Nutritional Appearance: not obese Orientation/consciousness: Other orientation findings ( oriented) HEENT Head: Yes atraumatic Eyes General: appearance normal, both eyes and all related structures Sclerae: sclerae normal EOM: EOMs intact bilaterally Neck Neck: Yes supple Lymphatic: no lymphadenopathy noted Resp Effort & Inspection: normal respiratory effort and no use of accessory muscles Auscultation: clear to auscultation bilaterally Cardio Rate: regular rate Rhythm: regular rhythm Heart sounds: no gallops, no murmurs and no rubs Skin General skin exam: other ( warm) Extrem General: No clubbing, No cyanosis and No edema Assessment & Plan Assessment & Plan (1) Severe persistent allergic asthma: Code(s): J45.50 - Severe persistent asthma, uncomplicated Category: Medical Plan: Suboptimally controlled as patient was not able to receive her Dupixent secondary to logistical issues. Restart Dupixent. Continue Advair, duo nebs, and albuterol MDI. (2) Environmental allergies: Code(s): Z91.09 - Other allergy status, other than to drugs and biological substances Category: Medical Plan: Suboptimal control of Dupixent. Restart Dupixent, continue Flonase. Coding Level of Care Code Est Pt Level 4 (09765) Diagnoses Severe persistent allergic asthma J45.50 Environmental allergies Z91.09
[2024-01-09 14:52] VITALS: BP 112/62; PULSE 50; O2SAT 98; BMI 22.2
== END 2024-01-09 15:12 | disposition home or self-care (01) ==
PROVIDERS: PCP Internal Medicine; Visit Provider Internal Medicine Pulmonary Disease
DX: J45.50 Severe persistent asthma, uncomplicated (principal); Z91.09 Other allergy status, other than to drugs and biological substances
CPT/HCPCS: 99214

== ENCOUNTER → 2024-01-09 14:51 | Outpatient (BNVA) | payer OTHER, SELFPAY | PROVIDERS: PCP Internal Medicine; Visit Provider Internal Medicine Pulmonary Disease | DX: J45.50 Severe persistent asthma, uncomplicated (principal); Z91.09 Other allergy status, other than to drugs and biological substances | CPT/HCPCS: 99212 ==

== ENCOUNTER 2024-01-22 14:43 | Outpatient (AMB) | payer OTHER, SELFPAY ==
--- NOTE | 2024-01-22 14:50 | MHC.OFFVIS ---
Vital Signs 01/22/24 14:51 Height 5 ft Weight 118 lb 9.739 oz BMI 23.2 BP 124/62 Blood Pressure Location Rt brachial Position Sitting Pulse 56 Pulse Source Pulse Oximeter Intake Visit Reasons: follow up after cta Analytics Consultant Required: Yes Analytics Consultant Language: [place] Line Service Person: Line Service Person Present Allergies ibuprofen Adverse Reaction (Intermediate, Verified 01/22/24 14:53) NAUSEA oxycodone [From PERCOCET] Adverse Reaction (Intermediate, Verified 01/22/24 14:53) NAUSEA Medication List - Last Reconciled 01/22/24 by SAHARA Tovar acetaminophen mg PO albuterol sulfate 90 mcg/actuation 90 mcg inhalation Q4-6H PRN albuterol sulfate 2.5 mg inhalation TID PRN amlodipine 10 mg PO QAM atenolol 75 mg PO QAM buspirone 5 mg PO BID calcium carbonate-vitamin D3 600 mg-10 mcg (400 unit) 1 tab PO DAILY celecoxib (Celebrex) 200 mg PO BID 30 days cyclobenzaprine 5 mg PO BEDTIME PRN diclofenac sodium 1% topical docusate sodium (Stool Softener) 100 mg PO BID dupilumab (Dupixent) 300 mg (2 mL) subcut Q2W eluxadoline (Viberzi) 100 mg PO BID exemestane 25 mg PO DAILY famotidine 40 mg PO BEDTIME fluticasone propion-salmeterol 500-50 mcg/dose 1 ea inhalation DAILY fluticasone propionate 50 mcg/actuation 1 spray intranasal DAILY furosemide 20 mg PO QAM hydrochlorothiazide 50 mg PO QAM hydrocortisone 2.5% appl topical ipratropium-albuterol 0.5 mg-3 mg(2.5 mg base)/3 mL 3 mL inhalation Q4-6H PRN ketotifen fumarate 0.025%(0.035%) 1 drp ophthalmic (eye) BID xybouk-gnyazrve-eljqnvx 3,000-9,500- 15,000 unit (Creon) 1 cap PO QID loratadine 10 mg PO DAILY losartan 100 mg PO DAILY metoclopramide HCl (Reglan) 5 mg PO TID miconazole nitrate 2% 1 appl topical BID PRN obwoaehxrczp-hiys-pzsne acid 18-400 mg-mcg 1 tab PO QAM omeprazole 40 mg PO QAM polyvinyl alcohol 1.4% 2 drps ophthalmic (eye) DAILY sertraline 25 mg PO DAILY simvastatin 40 mg PO BEDTIME topiramate 25 mg PO BID trazodone 100 mg PO BEDTIME HPI HPI follow up after cta: Details: Laurie is a 78-year-old female past medical history of hypertension, hyperlipidemia, asthma, GERD who was recently undergone cardiac evaluation for symptom of shortness of breath with exertion. She had a CTA of the coronaries and now presents for follow-up. Today she reports that she continues to have shortness of breath that can happen at rest and during activity. She is fearful that she is going to at times. No clear orthopnea, edema. No chest discomfort at rest or with activity. No lightheadedness, presyncope, syncope, palpitations. Uses a pill pack for her medications and takes them as directed. Her son is present. She says she follows with pulmonology. Certified medical interpreter used. [facility] Medical History (Updated 01/22/24 @ 16:05 by Omaira Green NP-C) High cholesterol HTN (hypertension), benign Mood disorder Memory impairment COPD (chronic obstructive pulmonary disease) Hx of gastritis Hiatal hernia Osteoarthritis of both hips Chronic post-concussion headache Post concussion syndrome Environmental allergies GERD (gastroesophageal reflux disease) Moderate persistent asthma Surgical History History of lumpectomy of right breast (08/30/21) History of esophagogastroduodenoscopy (EGD) H/O colonoscopy H/O lithotripsy History of tubal ligation History of section Hx of cholecystectomy Family History Mother Colon cancer Son Myocardial infarct Social History Household Members: None Housing: Apartment Are you a primary health care liaison to a significant other at home: No Do you presently have visiting nurse or other home services: No (Son takes care of her) Comment: balance Issues Patient Tobacco Use Status: Never used Tobacco service: No Current occupational status: disabled Review of Systems ENT Denies dizziness Card Denies chest pain, Denies chest pain at rest, Denies chest pain with activity, Denies rapid heart rate, Denies pedal edema, Denies edema, Denies leg edema, Denies lightheadedness, Denies palpitations, Reports dyspnea, Denies dyspnea on exertion and Denies orthopnea Resp Denies cough, Reports dyspnea and Denies dyspnea on exertion GI Denies hematochezia and Denies change in stool character Musc Denies abnormal gait, Denies limited range of motion, Denies muscle cramps, Denies muscle weakness, Denies numbness, Denies radiating pain into limb, Denies stiffness and Denies tingling Neuro Denies abnormal gait, Denies dizziness, Denies numbness and Denies tingling Endo Denies palpitations Physical Exam Vital Signs: Last Vital Signs Pulse 56 01/22/24 14:51 BP 124/62 01/22/24 14:51 BMI result Body Mass Index 23.2 Const General: cooperative, healthy appearing, comfortable and no acute distress Orientation/consciousness: patient oriented x3 Neck Neck: Yes normal visual inspection and Yes no JVD Resp Effort & Inspection: normal respiratory effort Auscultation: clear to auscultation bilaterally, no rales, no rhonchi and no wheezes Cardio Jugular venous distension: no JVD Rate: regular rate Rhythm: regular rhythm Heart sounds: S1 normal heart sound present, S2 normal heart sound present, no murmurs and no rubs Neuro General: patient oriented x3 Extrem General: Yes normal to inspection and No no pedal edema Psych Appearance: grossly normal Mental Status: mental status grossly normal Speech and movement: Normal speech and movement present Assessment & Plan Assessment & Plan (1) Dyspnea on exertion: Code(s): R06.00 - Dyspnea, unspecified Category: Medical Plan: Report of shortness of breath with activity. Today she also describes that it can occur at rest. An echocardiogram was done on 07/24/2023 showing EF 65%, grade 2 diastolic dysfunction, mild calcification of the aortic valve, mild mitral annular calcification, mild MR, large plaque in the sinotubular ridge. A nuclear stress test was done on 09/01/2023 showing cnub-av-whnfsazk septal and apical, distal anterior ischemia in the mid to distal LAD territory. A CTA of the coronary arteries was completed on 01/16/2002 for showing left main focal calcification less than 25% stenosis, lad proximal to mid less than 25% stenosis. Test results reviewed with her in detail. She denies having chest discomfort at rest or with activity. She does have ongoing reports of shortness of breath and tells me that she follows with pulmonology. She carries a diagnosis of asthma which most likely contributes to her shortness of breath symptom.. She does not appear fluid overloaded on examination. She is at risk for fluid retention with her grade 2 diastolic dysfunction. Discuss this with her and son. Signs and symptoms of heart failure reviewed. Emergency care if ever needed for symptoms. Cardiology follow-up 6 months, sooner if needed. (2) CAD (coronary artery disease): Code(s): I25.10 - Atherosclerotic heart disease of ruby coronary artery without angina pectoris Category: Medical Plan: Cardiac testing as above. Finding of mild nonobstructive coronary artery disease. She has no chest discomfort. Her shortness of breath is likely pulmonary related. Will treat with risk factor modification with good cholesterol and blood pressure control. [place] LDL goal less than 70. Labs done 11/14/2023 showed LDL 75. Will change her simvastatin over to atorvastatin 40 mg daily. Recommend daily aspirin if there is no contraindication. She does mention allergy to ibuprofen. Continue atenolol. Continue physical activity as tolerated. (3) Diastolic dysfunction: Code(s): I51.89 - Other ill-defined heart diseases Category: Medical Plan: As above. No clinical signs of heart failure on exam. (4) High cholesterol: Code(s): E78.00 - Pure hypercholesterolemia, unspecified Category: Medical Plan: As above. Changing simvastatin to atorvastatin. Fasting lipids and CMP ordered for 2 months from now, patient informed. (5) HTN (hypertension), benign: Code(s): I10 - Essential (primary) hypertension Category: Medical Plan: Well controlled at this time. No medication changes made. Plan Time spent on chart review, documentation, interview and assessment Orders: Orders Lipid Panel 2 Months E78.00 - Pure hypercholesterolemia, unspecified Comprehensive Met. Panel 2 Months E78.00 - Pure hypercholesterolemia, unspecified Medications: New atorvastatin Stop Simvstatin - start Atorvastatin. Adjust her pill pack. 40 mg PO BEDTIME 30 tabs 6RF Coding Level of Care Code Est Pt Level 4 (98230) Complex EM visit Add On G2211 Diagnoses Dyspnea on exertion R06.00 CAD (coronary artery disease) I25.10 Diastolic dysfunction I51.89 High cholesterol E78.00 HTN (hypertension), benign I10 Time Spent (min) 30
[2024-01-22 14:51] VITALS: BP 124/62; PULSE 56; BMI 23.2
== END 2024-01-22 15:21 | disposition home or self-care (01) ==
LOC: HO.HCS 14:44
PROVIDERS: PCP Internal Medicine; Visit Provider Nurse Practitioner Family
DX: R06.00 Dyspnea, unspecified (principal); I25.10 Atherosclerotic heart disease of native coronary artery without angina pectoris; I51.89 Other ill-defined heart diseases; E78.00 Pure hypercholesterolemia, unspecified; I10 Essential (primary) hypertension
CPT/HCPCS: 99214; G2211

== ENCOUNTER → 2024-01-22 14:43 | Outpatient (BNVA) | payer OTHER, SELFPAY | PROVIDERS: PCP Internal Medicine; Visit Provider Nurse Practitioner Family | DX: I10 Essential (primary) hypertension (principal); I25.10 Atherosclerotic heart disease of native coronary artery without angina pectoris; I51.89 Other ill-defined heart diseases; R06.00 Dyspnea, unspecified; E78.00 Pure hypercholesterolemia, unspecified | CPT/HCPCS: 99212 ==

== ENCOUNTER 2024-01-23 14:47 | Outpatient (AMB) | payer OTHER, SELFPAY ==
--- NOTE | 2024-01-23 15:05 | MHC.OFFVIS ---
Vital Signs 01/23/24 15:10 Height 5 ft Weight 119 lb 4 oz BMI 23.3 BP 145/63 H Blood Pressure Location Lt brachial Position Sitting Pulse 47 L Intake Visit Reasons: 6 month breast exam Intake Note: Patient is seen in office for 6 month follow up visit, breast exam. Pt c/o: denies any concerns in the breast, continued rib pain mm:10/10/23 Oral And Maxillofacial Pathologist Required: Yes Oral And Maxillofacial Pathologist Language: Supplier Quality Specialist Services: Oral And Maxillofacial Pathologist Present Oral And Maxillofacial Pathologist Name: Arleth STONE Information Interpreted: non-clinical & clinical Actuary Clerk: Actuary Clerk Present Accompanied by: Family/Other Allergies ibuprofen Adverse Reaction (Intermediate, Verified 01/23/24 15:12) NAUSEA oxycodone [From PERCOCET] Adverse Reaction (Intermediate, Verified 01/23/24 15:12) NAUSEA Medication List - Last Reconciled 01/23/24 by Александр Burciaga MD acetaminophen mg PO albuterol sulfate 90 mcg/actuation 90 mcg inhalation Q4-6H PRN albuterol sulfate 2.5 mg inhalation TID PRN amlodipine 10 mg PO QAM atenolol 75 mg PO QAM atorvastatin 40 mg PO BEDTIME buspirone 5 mg PO BID calcium carbonate-vitamin D3 600 mg-10 mcg (400 unit) 1 tab PO DAILY celecoxib (Celebrex) 200 mg PO BID 30 days cyclobenzaprine 5 mg PO BEDTIME PRN diclofenac sodium 1% topical docusate sodium (Stool Softener) 100 mg PO BID dupilumab (Dupixent) 300 mg (2 mL) subcut Q2W eluxadoline (Viberzi) 100 mg PO BID exemestane 25 mg PO DAILY famotidine 40 mg PO BEDTIME fluticasone propion-salmeterol 500-50 mcg/dose 1 ea inhalation DAILY fluticasone propionate 50 mcg/actuation 1 spray intranasal DAILY furosemide 20 mg PO QAM hydrochlorothiazide 50 mg PO QAM hydrocortisone 2.5% appl topical ipratropium-albuterol 0.5 mg-3 mg(2.5 mg base)/3 mL 3 mL inhalation Q4-6H PRN ketotifen fumarate 0.025%(0.035%) 1 drp ophthalmic (eye) BID oaspaa-oapybqwo-ppakisi 3,000-9,500- 15,000 unit (Creon) 1 cap PO QID loratadine 10 mg PO DAILY losartan 100 mg PO DAILY metoclopramide HCl (Reglan) 5 mg PO TID miconazole nitrate 2% 1 appl topical BID PRN ahwgsoaqsrda-elpc-nmqhz acid 18-400 mg-mcg 1 tab PO QAM omeprazole 40 mg PO QAM polyvinyl alcohol 1.4% 2 drps ophthalmic (eye) DAILY sertraline 25 mg PO DAILY topiramate 25 mg PO BID trazodone 100 mg PO BEDTIME HPI Comments Details: 78-year-old female patient returning for follow-up breast examination, diagnosed with ductal carcinoma in situ in 08/13/2021. She underwent a right breast lumpectomy with needle localization on 08/30/2021. Pathology revealed ductal carcinoma in situ, nuclear grade 2 with necrosis. Margins were negative, closest margin 4 mm to the medial margin. AJCC stage: P TIS NX (8th edition). She was evaluated by Dr. Baum and started on Aromasin 25 mg q.day. She was [place] [facility] [place] There was felt to be a low benefit of radiation therapy as long she remained on antiestrogen therapy therefore she received no radiation therapy. She generally feels well and denies any ongoing breast symptoms. She does check frequently but denies any palpable lumps or tenderness. Bilateral diagnostic mammogram of 09/15/2022 revealed post therapy changes in the right breast, probably benign (BI-RADS 2). Six-month follow-up mammogram performed on 04/10/2023 revealed no suspicious findings in the right breast (BI-RADS 2). Her most recent mammogram of 10/10/2023 revealed post treatment changes with no mammographic evidence of malignancy (BI-RADS 2). Diagnostic mammogram is recommended in 1 year (10/14/2024). [facility] Medical History (Updated 01/22/24 @ 16:05 by Omaira Green, ADDY-C) High cholesterol HTN (hypertension), benign Mood disorder Memory impairment COPD (chronic obstructive pulmonary disease) Hx of gastritis Hiatal hernia Osteoarthritis of both hips Chronic post-concussion headache Post concussion syndrome Environmental allergies GERD (gastroesophageal reflux disease) Moderate persistent asthma Surgical History History of lumpectomy of right breast (08/30/21) History of esophagogastroduodenoscopy (EGD) H/O colonoscopy H/O lithotripsy History of tubal ligation History of section Hx of cholecystectomy Family History Mother Colon cancer Son Myocardial infarct Social History Household Members: None Housing: Apartment Are you a primary director of home care hospice to a significant other at home: No Do you presently have visiting nurse or other home services: No (Son takes care of her) Comment: balance Issues Patient Tobacco Use Status: Never used Tobacco service: No Current occupational status: disabled Review of Systems Const Denies chills, Denies fever(s), Denies headache(s) and Denies poor appetite ENT Denies dizziness and Denies headache(s) Card Denies chest pain, Denies rapid heart rate, Denies palpitations and Denies slow heart rate Resp Denies chest congestion, Denies cough, Denies pain on inspiration and Denies wheezing GI Denies abdominal pain, Denies bloating, Denies change in stool character, Denies constipation, Denies diarrhea, Denies nausea, Denies vomiting and Denies hematemesis Denies nipple discharge Musc Denies back pain, Denies arthralgias, Denies joint swelling and Denies numbness Skin/Breast Denies breast swelling, Denies breast skin changes, Denies breast pain, Denies breast mass, Denies change in breast shape, Denies change in pigmentation, Denies nipple discharge, Denies erythema and Denies rash Neuro Denies dizziness, Denies headache(s) and Denies numbness Psych Denies anxiety and Denies depression Endo Denies palpitations Andrea/Lymph Denies easy bleeding, Denies easy bruising and Denies lymphadenopathy Aller/Immun Denies wheezing Physical Exam Vital Signs: Last Vital Signs Pulse 47 L 01/23/24 15:10 BP 145/63 H 01/23/24 15:10 BMI result Body Mass Index 23.3 Const General: no acute distress and well developed Nutritional Appearance: well nourished Chest Other: Right breast: Well-healed incision lower outer quadrant with no new skin change, nipple retraction, nipple discharge, palpable mass, or enlarged lymph nodes. Left breast: No skin change, nipple retraction, nipple discharge, palpable mass, enlarged lymph nodes. Chest/axillae images: 1. Incision lower outer quadrant right breast. Resp Effort & Inspection: normal respiratory effort GI Inspection: Yes normal to inspection Skin Other: Warm, dry, no rash Extrem General: Yes normal to inspection Assessment & Plan Assessment & Plan (1) Ductal carcinoma in situ of right breast: Code(s): D05.11 - Intraductal carcinoma in situ of right breast Category: Medical (2) History of lumpectomy of right breast: Onset Date: 08/30/21 Comment: Александр Burciaga MD Code(s): Z98.890 - Other specified postprocedural states Category: Surgical Plan 77-year-old female patient presenting with an abnormal mammogram of the right breast, s/p right breast lumpectomy with needle localization. Pathology revealed a 1.8 cm ductal carcinoma in situ with negative margins, ER/VA positive, nuclear grade 2 with necrosis. She was evaluated by radiation oncology in the position made to hold off on radiation therapy. She was started on Aromasin by Dr. Baum and seems to be tolerating this. She denies any ongoing breast symptoms at this time. Examination today revealed a well-healed incision in the right breast with no new suspicious changes and no evidence of recurrence disease. Her most recent mammogram of 10/10/2023 revealed postoperative changes in the right breast but otherwise no mammographic evidence of malignancy (BI-RADS 2). She is scheduled for a diagnostic mammogram on 10/14/2024. I recommended follow-up examination in 6 months, sooner p.r.n.. Coding Level of Care Code Est Pt Level 3 (17817) Complex EM visit Add On G2211 Diagnoses Ductal carcinoma in situ of right breast D05.11 History of lumpectomy of right breast Z98.890
[2024-01-23 15:10] VITALS: BP 145/63; PULSE 47; BMI 23.3
== END 2024-01-23 15:25 | disposition home or self-care (01) ==
LOC: HO.HGS 14:48
PROVIDERS: PCP Internal Medicine; Visit Provider Surgery
DX: D05.11 Intraductal carcinoma in situ of right breast (principal); Z98.890 Other specified postprocedural states
CPT/HCPCS: 99213; G2211

== ENCOUNTER → 2024-01-23 14:47 | Outpatient (BNVA) | payer OTHER, SELFPAY | PROVIDERS: PCP Internal Medicine; Visit Provider Surgery | DX: D05.11 Intraductal carcinoma in situ of right breast (principal); Z98.890 Other specified postprocedural states | CPT/HCPCS: 99212 ==

== ENCOUNTER 2024-06-03 14:34 | Outpatient (AMB) | payer OTHER, SELFPAY ==
[2024-06-03 15:10] VITALS: BP 124/58; PULSE 51; O2SAT 98; BMI 22.3
--- NOTE | 2024-06-03 15:10 | A.OFFVIS_ITS ---
Vital Signs 06/03/24 15:10 Height 5 ft Weight 114 lb BMI 22.3 BP 124/58 L Blood Pressure Location Rt brachial Position Sitting Pulse 51 Pulse Source Doppler Pulse Oximetry (%) 98 Oxygen Delivery Method Room Air Intake Visit Reasons: Asthma Technical Aid Required: Yes Technical Aid Name: Yuli Sanchez Marcia Allergies ibuprofen Adverse Reaction (Intermediate, Verified 06/03/24 15:15) NAUSEA oxycodone [From PERCOCET] Adverse Reaction (Intermediate, Verified 06/03/24 15:15) NAUSEA HPI HPI Asthma: Details: 78-year-old lady, nonsmoker, followed for underlying moderate to severe allergic asthma and dyspnea on exertion. Her symptoms were previously well controlled on Dupixent, Advair 500, albuterol MDI, recently patient stopped using Dupixent as her symptoms has been reasonably well controlled without it. [facility] Medical History High cholesterol HTN (hypertension), benign Mood disorder Memory impairment COPD (chronic obstructive pulmonary disease) Hx of gastritis Hiatal hernia Osteoarthritis of both hips Chronic post-concussion headache Post concussion syndrome Environmental allergies GERD (gastroesophageal reflux disease) Moderate persistent asthma Surgical History History of lumpectomy of right breast (08/30/21) History of esophagogastroduodenoscopy (EGD) H/O colonoscopy H/O lithotripsy History of tubal ligation History of section Hx of cholecystectomy Family History Mother Colon cancer Son Myocardial infarct Social History Household Members: None Housing: Apartment Are you a primary manager home healthcare to a significant other at home: No Do you presently have visiting nurse or other home services: No (Son takes care of her) Comment: balance Issues Patient Tobacco Use Status: Never used Tobacco service: No Current occupational status: disabled Review of Systems Const Denies daytime sleepiness, Denies excessive sweating, Denies fatigue, Denies fever(s), Denies lethargy, Denies malaise, Denies night sweats, Denies snoring and Denies weight loss Eyes Denies blurry vision and Denies itchy eyes ENT Denies nasal congestion, Denies post nasal drip, Denies sinus pain, Denies sinus pressure and Denies other ( Thrush) Card Denies chest pain, Denies pedal edema, Denies dyspnea, Denies orthopnea and Denies paroxysmal nocturnal dyspnea Resp Denies cough, Denies hemoptysis, Denies excessive phlegm production, Denies dyspnea, Denies snoring and Denies wheezing GI Denies abdominal pain and Denies heartburn Musc Denies myalgias, Denies arthralgias and Denies joint swelling Skin/Breast Denies rash Neuro Denies memory loss and Denies seizure-like activity Psych Denies abnormal sleep pattern, Denies anxiety and Denies memory loss Endo Denies excessive sweating, Denies fatigue and Denies heat intolerance Andrea/Lymph Denies easy bruising Aller/Immun Denies itchy eyes, Denies seasonal rhinorrhea and Denies wheezing Physical Exam Vital Signs: Last Vital Signs Pulse 51 06/03/24 15:10 BP 124/58 L 06/03/24 15:10 Pulse Ox 98 06/03/24 15:10 Oxygen Delivery Method Room Air 06/03/24 15:10 BMI result Body Mass Index 22.3 Const General: no acute distress and alert Nutritional Appearance: not obese Orientation/consciousness: Other orientation findings ( oriented) HEENT Head: Yes atraumatic Eyes General: appearance normal, both eyes and all related structures Sclerae: sclerae normal EOM: EOMs intact bilaterally Neck Neck: Yes supple Lymphatic: no lymphadenopathy noted Resp Effort & Inspection: normal respiratory effort and no use of accessory muscles Auscultation: clear to auscultation bilaterally Cardio Rate: regular rate Rhythm: regular rhythm Heart sounds: no gallops, no murmurs and no rubs Skin General skin exam: other ( warm) Extrem General: No clubbing, No cyanosis and No edema Assessment & Plan Assessment & Plan (1) Severe persistent allergic asthma: Code(s): J45.50 - Severe persistent asthma, uncomplicated Category: Medical Plan: Well controlled on Advair, duo nebs, and albuterol MDI. Continue current regimen. (2) Environmental allergies: Code(s): Z91.09 - Other allergy status, other than to drugs and biological substances Category: Medical Plan: Now off Dupixent and on as needed Flonase with reasonable control. Continue current regimen. Medications: New albuterol sulfate 90 mcg/actuation 90 mcg inhalation Q4-6H PRN 1 ea 6RF Wheezing fluticasone propion-salmeterol 500-50 mcg/dose 1 ea inhalation DAILY 60 ea 6RF Refilled ipratropium-albuterol 0.5 mg-3 mg(2.5 mg base)/3 mL 3 mL inhalation Q4-6H PRN 360 mL 6RF for wheezing Coding Level of Care Code Est Pt Level 4 (63476) Diagnoses Severe persistent allergic asthma J45.50 Environmental allergies Z91.09
--- OUTSIDE RECORDS SUMMARY | 2024-06-03 16:41 | XMS_ITS | Encounter Summary ---
Author Organization [employer] Address [address] [place] [address] Care Team Providers Care Multi Share Program Coordinator Name Role Phone Sana Clements MD Primary Care Provide r Encounter Details Date Type Department Care Team (Late Contact Info) Description 04/12/2022 Orders Only [facility] MEDICINE [address] [place] [address] Jessie Herrera MD [address] [place] [address] Acute pain of right shoulder (Primary Dx) Social History Tobacco Use Types Packs/Day Years Used Date Smoking Tobacco: Never Passive Smoke Exposure: Never Smokeless Tobacco: Never Alcohol Use Standard Drinks/Week Comments Never 0 (1 standard drink = 0.6 oz pur e alcohol) Comments Unknown Sex and Gender Information Value Date Recorded Sex Assigned at Female 01/24/2022 10:14 AM EDT Legal Sex Female 10:14 AM EDT Gender Identity Choose not to disclose 10:14 AM EDT Sexual Orientation Choose not to disclose 2021 10:14 AM EDT COVID-19 Exposure Response Date Recorded In the last 10 days, have yo u been in contact with someone who was confirmed or suspected to have Coronavirus/COVID-19? No / Unsure 04/06/2022 10:29 AM EST documented as of this encounter Plan of Treatment Upcoming Encounters Date Type Department Care Team (Late Contact Info) Description 06/10/2024 3:00 PM EDT Office Visit [facility] OPTOMETRY [address] [place], [place] [phone] Vibha Vick, OD [address] [place] [address] 07/24/2024 2:45 PM EDT Office Visit [facility] MEDICINE [address] [place], [place] [phone] Sana Clmeents MD [address] [place], [place] [phone] documented as of this encounter Visit Diagnoses Diagnosis Acute pain of right shoulder- Primary documented in this encounter Care Teams Multi Share Program Coordinator Relationship Specialty Start Date End Date Sana Clements MD [address] [place] [address] PCP - General Family Medicine 12/01/17 documented as of this encounter
--- OUTSIDE RECORDS SUMMARY | 2024-06-03 16:41 | XMS_ITS | Encounter Summary ---
Author Organization [employer] Address [address] [place] [address] Care Team Providers Care Family Resource Specialist Name Role Phone Sana Clements MD Primary Care Provide r Reason for Visit * Reason Comments Med Refill Encounter Details Date Type Department Care Team ([facility] st Contact Info) Description 12/11/2023 Refill [facility] MEDICINE [address] [place], [place] [phone] Brittany Gates MD [address] [place], [place] [phone] Primary osteoarthritis of both hips Social History Tobacco Use Types Packs/Day Years Used Date Smoking Tobacco: Never Passive Smoke Exposure: Never Smokeless Tobacco: Never Alcohol Use Standard Drinks/Week Comments Never 0 (1 standard drink = 0.6 oz pur e alcohol) Depression Answer Date Recorded Patient Health Questionnaire-9 Score 0 04/04/2023 Patient Health Questionnaire-9 Score 0 04/04/2023 Last PHQ-9: Questionnaire Data Not on file 0 04/04/2023 Housing Stability Answer Date Recorded What is your housing situation today? I have monica austin 04/04/[address] you li ve. Do you have problems with any of the following? None of the above 04/04/2023 Food Insecurity Answer Date Recorded Within the past 12 months, y ou worried that your food would run out before you got money to buy more: Never True 04/04/2023 Within the past 12 months,th e food you bought just didn't last and you didn't have enough money to get more: Never True 11/2023 Transportation Answer Date Recorded In the past 12 months, has l ack of transportation kept you from medical appts, meetings, work or from getting things needed for daily living? No 04/04/2023 Utilities Answer Date Recorded In the past 12 months, has t he electric, gas, oil or water company threatened to shut off services in your home? No 04/04/2023 Depression Answer Date Recorded Patient Health Questionnaire-2 Score 0 04/04/2023 Comments Unknown Sex and Gender Information Value Date Recorded Sex Assigned at Female 01/24/2022 10:14 AM EDT Legal Sex Female 10:14 AM EDT Gender Identity Choose not to disclose 10:14 AM EDT Sexual Orientation Choose not to disclose 2021 10:14 AM EDT documented as of this encounter Plan of Treatment Upcoming Encounters Date Type Department Care Team (Late st Contact Info) Description 06/10/2024 3:00 PM EDT Office Visit [facility] OPTOMETRY [address] [place] [address] Nicanor, Vibha, OD [address] [place] [address] 07/24/2024 2:45 PM EDT Office Visit [facility] MEDICINE [address] [place] [address] Sana Clements MD [address] [place] [address] documented as of this encounter Visit Diagnoses Diagnosis Primary osteoarthritis of both hips documented in this encounter Additional Health Concerns Assessment Noted Time PHQ-9 Depression Total Score: 0 04/04/19 24 3:37 PM EST documented as of this encounter Care Teams Family Resource Specialist Relationship Specialty Start Date End Date Sana Clements MD [address] [place] [address] PCP - General Family Medicine 12/01/17 documented as of this encounter
--- OUTSIDE RECORDS SUMMARY | 2024-06-03 16:41 | XMS_ITS | Clinical Summary ---
Author Organization [employer] Address [address] [facility] 7[address] [place] [address] Care Team Providers Care Core Driller Name Role Phone Sana Clements MD Primary Care Provide r Allergies Active Allergy Reactions Criticality Noted Date Comments Acetaminophen 07/07/2014 Ibuprofen 10/10/2011 Other reaction(s): DIZZY Oxycodone 07/07/2014 Medications hydroCHLOROthiazid e (HYDRODiuril) 50 MG tablet Take 1 tablet by mouth at bed time. 05/27/19 21 Active hydrocortisone 1 % cream Apply topically every 12 (twelve) hours. 05/29/19 21 Active omeprazole (PriLOSEC) [address] capsule Take 1 capsule by mouth at bed time. 07/16/19 22 Active ondansetron ODT (Zofran ODT) 4 MG disintegrating tablet take 2 tablet by oral route every [address] on top of the tongue where they will dissolve, then swallow 06/12/19 19 Active prochlorperazine (Compazine) 5 MG tablet take 1 tablet by mouth daily as needed for nausea as needed 04/21/19 21 Active sucralfate (Carafate) 1 GM/10ML suspension Take 10 mL by mouth every 6 (six) hours. 07/02/19 22 Active lidocaine-prilocai ne (Emla) 2.5-2.5 % creamIndications:A cute pain of right shoulder Apply topically 2 times daily. 30 g 1 04/06/19 23 Active ondansetron (Zofran) 4 MG tabletIndications: Nausea Take 2 tablets (8 mg) by mouth every 12 (twelve) hours. 20 tablet 04/20/19 23 Active docusate sodium (Colace) 100 MG capsuleIndications :Constipation, unspecified constipation type TAKE 1 CAPSULE BY MOUTH TWICE DAILY 180 capsule 1 07/19/19 23 Active loratadine (Claritin) 10 MG tablet TAKE 1 TABLET BY MOUTH EVERY DAY NEEDED 90 tablet 1 10/15/19 23 Active hydrocortisone 2.5 % creamIndications:A llergy, sequela APPLY TOPICALLY TWICE DAILY IN THE MORNING AND IN THE EVENING 30 g 1 11/01/19 23 Active fluticasone (Flonase) 50 MCG/ACT nasal sprayIndications:N on-seasonal allergic rhinitis due to other allergic trigger USE 1 SPRAY IN EACH NOSTRIL EVERY MORNING 48 g 03/09/20 23 Active Multiple Vitamins-Minerals (CertaVite/Antioxi dants) tabletIndications: Healthcare maintenance TAKE 1 TABLET BY MOUTH EVERY MORNING 90 tablet 1 05/31/19 24 Active Respiratory Therapy Supplies (Nebulizer Mask Adult) miscIndications:Un complicated asthma, unspecified asthma severity, unspecified whether persistent 1 each every 8 (eight) hours if needed (use as needed Q 8hrs). Use with nebulizer 1 each 08/10/19 24 Active simvastatin (Zocor) 40 MG tablet TAKE 1 TABLET BY MOUTH EVERY EVENING 90 tablet 1 08/29/19 24 Active polyvinyl alcohol (Liquifilm Tears) 1.4 % ophthalmic solutionIndication s:Allergy, sequela INSTILL 1 DROP IN EACH EYE THREE TIMES DAILY DIRECTED 15 mL 11 09/12/19 24 Active Ketotifen Fumarate 0.035 % solutionIndication s:Allergy, sequela INSTILL 1 DROP AFFECTED EYE(S) TWICE DAILY IN THE MORNING AND AT BEDTIME 5 mL 1 11/01/19 24 Active atenolol (Tenormin) 50 MG tablet TAKE 1 AND 1/2 TABLETS BY MOUTH IN THE MORNING 135 tablet 1 11/23/19 24 Active Multiple Vitamins-Iron (Tab-A-Osei/Iron/B eta Carotene) tabletIndications: Encounter for general adult medical examination without abnormal findings TAKE 1 TABLET BY MOUTH EVERY MORNING 90 tablet 1 11/23/19 24 Active traZODone (Desyrel) 100 MG tabletIndications: Insomnia, unspecified type TAKE 1 TABLET BY MOUTH AT BEDTIME 90 tablet 1 11/23/19 24 Active busPIRone (Buspar) 5 MG tablet TAKE 1 TABLET BY MOUTH TWICE DAILY IN THE MORNING AND IN THE EVENING 180 tablet 3 08/29/20 24 Active albuterol (2.5 MG/3ML) 0.083% nebulizer solutionIndication s:Uncomplicated asthma, unspecified asthma severity, unspecified whether persistent USE 1 AMPULE USING A NEBULIZER EVERY 8 HOURS NEEDED FOR WHEEZING OR SHORTNESS OF BREATH 90 mL 2 12/28/19 24 Active albuterol (Ventolin HFA) 108 (90 Base) MCG/ACT inhalerIndications :Uncomplicated asthma, unspecified asthma severity, unspecified whether persistent INHALE 2 PUFFS BY MOUTH EVERY 4 HOURS NEEDED FOR WHEEZING OR SHORTNESS OF BREATH 18 g 2 01/29/20 24 Active losartan (Cozaar) 100 MG tablet TAKE 1 TABLET BY MOUTH EVERY MORNING 90 tablet 1 02/14/20 24 Active sertraline (Zoloft) 25 MG tabletIndications: Mood disorder (CMS/HCC) TAKE 1 TABLET BY MOUTH EVERY MORNING 90 tablet 1 02/14/20 24 Active Calcium Carb-Cholecalcifer ol 600-10 MG-MCG tablet TAKE 1 TABLET BY MOUTH THREE TIMES DAILY IN THE MORNING, EVENING, AND BEDTIME 270 tablet 1 02/19/20 24 Active Fluticasone-Salmet jesse 500-50 MCG/ACT aerosol powderIndications: Chronic obstructive pulmonary disease, unspecified COPD type (CMS/HCC) INHALE 1 PUFF BY MOUTH TWICE DAILY RINSE MOUTH AFTER USING. 60 each 2 03/25/20 24 Active Diclofenac Sodium 1 % gelIndications:Art hritis Apply 1 Application topically if needed in the morning and at bedtime (Applyto affected area as needed). 150 g 1 04/08/19 25 Active Active Problems Problem Noted Date Diagnosed Date Chronic obstructive pulmonar y disease, unspecified COPD type 04/08/2024 Dyspnea on exertion 06/26/2023 Assessment & Plan (09/27/2023 5:33 PM EDT): Currently being follow by cardiology tests are pending Assessment & Plan (06/26/2023 4:52 PM EDT): Follow up with cardiology and pulmonology Bradycardia 04/04/2023 Assessment & Plan (04/11/2023 4:25 PM EST): Likely due to b-anai but in light of also dyspnea on exertion I will refer patient to cardiology Callus of foot 11/16/2022 Alzheimer's disease 04/06/2022 Assessment & Plan (09/27/2023 5:32 PM EDT): Stable being follow by neurology, recent cognition test done, medication was increase Assessment & Plan (04/11/2023 4:23 PM EST): Continue to follow up with neurology Assessment & Plan (11/18/2022 3:41 PM EDT): Continue to follow with neurology Patient's son who is her [employer]ICKLE [employer]ER brought FMLA documents, I instructed to leave the at medical records, son also wants to increase her mother PICKLE [employer] hours, I advise to navigate options at medical records Gastritis 04/06/2022 Ingrowing left great toenail 04/06/2022 Migraine without aura, not refractory 04/06/2022 Chronic post-traumatic headache 02/28/2017 Dyspnea 02/28/2017 Assessment & Plan (04/11/2023 4:23 PM EST): Cardiology referral Edentulous 02/28/2017 Essential hypertension 02/28/2017 Assessment & Plan (09/27/2023 5:33 PM EDT): - Aerobic exercise to reduce BP. Initial goal of 30 min walk 3-5x/week. Increase as tolerated. - low-sodium diet (goal: <2g/day) and heart healthy diet such as DASH to reduce BP and prevent ASCVD. - Home BP monitoring 1-2 x day with goal of <140/90. - Seek immediate medical attention for chest pain, palpitations, SOB, syncope, or sudden changes in mental status. - Do not change or discontinue current prescriptions without first consulting health care provider Assessment & Plan (06/26/2023 4:52 PM EDT): - Aerobic exercise to reduce BP. Initial goal of 30 min walk 3-5x/week. Increase as tolerated. - low-sodium diet (goal: <2g/day) and heart healthy diet such as DASH to reduce BP and prevent ASCVD. - Home BP monitoring 1-2 x day with goal of <140/90. - Seek immediate medical attention for chest pain, palpitations, SOB, syncope, or sudden changes in mental status. - Do not change or discontinue current prescriptions without first consulting health care provider Assessment & Plan (04/11/2023 4:24 PM EST): Maintenance: BMP: up to date Lipid Panel: up to datee ASCVD Risk: on simvastatin 40mg daily - Aerobic exercise to reduce BP. Initial goal of 30 min walk 3-5x/week. Increase as tolerated. - low-sodium diet (goal: <2g/day) and heart healthy diet such as DASH to reduce BP and prevent ASCVD. - Home BP monitoring 1-2 x day with goal of <140/90. - Seek immediate medical attention for chest pain, palpitations, SOB, syncope, or sudden changes in mental status. - Do not change or discontinue current prescriptions without first consulting health care provider Assessment & Plan (11/18/2022 3:41 PM EDT): - Aerobic exercise to reduce BP. Initial goal of 30 min walk 3-5x/week. Increase as tolerated. - low-sodium diet (goal: <2g/day) and heart healthy diet such as DASH to reduce BP and prevent ASCVD. - Home BP monitoring 1-2 x day with goal of <140/90. - Seek immediate medical attention for chest pain, palpitations, SOB, syncope, or sudden changes in mental status. - Do not change or discontinue current prescriptions without first consulting health care provider Hyperlipidemia 02/28/2017 Mood disorder 02/28/2017 Nausea 02/28/2017 Osteoarthritis of hip 02/28/2017 Memory impairment 02/28/2017 Recurrent falls 02/28/2017 Tinea pedis 02/28/2017 Hypertensive disorder 02/28/2017 Postconcussion syndrome 02/28/2017 Hiatal hernia 10/17/2016 Encounters Date Type Department Care Team Description 04/10/2024 Telephone [facility] [address] [place] [address] J Carlos Crenshaw MA Durable Medical Equipment 04/08/2024 3:30 PM EST Office Visit [facility] [address] [place] [address] Sana Clements MD Arthritis (Primary Dx); Alzheimer's disease ([facility]); Essential hypertension; Chronic obstructive pulmonary disease, unspecified COPD type ([facility]); Mood disorder ([facility]) 04/08/2024 Travel 03/22/2024 Refill [facility] [address] [place] [address] Sana Clements MD Chronic obstructive pulmonary disease, unspecified COPD type ([facility]) from Last 3 Months Immunizations Name Administration Dates Next Due INFLUENZA INJECTABLE QUADRIV ALANT CCIIV4 MDCK Multi-dose vial 12/19/2018 INFLUENZA VACCINE QUADRIVALE NT RECOMBINANT PRESERVATIVE FREE RIV4 12/23/2019 Influenza High-dose Quadriva lent Preservative Free 12/27/2022,12/27/2021,01/11/2021 Influenza injectable quadriv alent IIV4 with preservative 12/11/2014 Influenza injectable quadriv alent preservative free 12/11/2015 Influenza, High Dose Seasona l, Preservative Free 12/25/2023,12/19/2017,12/13/2016 Influenza, IIV3, injectable 01/08/2014, 1 Influenza, Split (incl. chanel fied surface antigen) 12/03/2012,11/30/2011 Pneumococcal Conjugate PCV 13 12/05/2014 Pneumococcal Polysaccharide PPSV23 08/07/2013, TD (adult), 2 Lf tetanus tox oid, preservative free, adsorbed 04/23/2007 Tdap 07/20/2010 Zoster, live 08/07/2013 Social History Tobacco Use Types Packs/Day Years Used Date Smoking Tobacco: Never Passive Smoke Exposure: Never Smokeless Tobacco: Never Tobacco Cessation:Counseling Given: Not Answered Alcohol Use Standard Drinks/Week Comments Never 0 [...] Date Recorded Patient Health Questionnaire-2 Score 0 04/08/2024 Comments Unknown Sex and Gender Information Value Date Recorded Sex Assigned at Female 01/24/2022 10:14 AM EDT Legal Sex Female 10:14 AM EDT Gender Identity Choose not to disclose 10:14 AM EDT Sexual Orientation Choose not to disclose 2021 10:14 AM EDT Last Filed Vital Signs Vital Sign Reading Time Taken Comments Blood Pressure 150/90 04/08/2024 3:51 PM EST Pulse 54 04/08/2024 3:51 PM EST Temperature 37.3 ??C (99.1 ??F) 04/08/2024 3:51 PM ES T Respiratory Rate 14 04/08/2024 3:51 PM EST Oxygen Saturation 98% 10/30/2023 1:02 PM EDT Inhaled Oxygen Concentration - - Weight 51.9 kg (114 lb 6 oz) 04/08/2024 3:51 PM EST Height 152.4 cm (5') 04/08/2024 3:51 PM EST Body Mass Index 22.34 04/08/2024 3:51 PM EST Plan of Treatment Upcoming Encounters Date Type Department Care Team (Late st Contact Info) Description 06/10/2024 3:00 PM EDT Office Visit [facility] [address] [place] [address] Vibha Vick, OD [address] [place] [address] 07/24/2024 2:45 PM EDT Office Visit [facility] [address] [facility] [place] [phone] Sana Clements MD [address] [facility] [place] [phone] Health Maintenance Due Date Last Done Comments Zoster Vaccines (2 of 3) 10/02/2013 08/07/2013 RSV Patients and Patients Aged 60 years or older (1 - 1-dose 75+ series) 2019 DTaP/Tdap/Td Vaccines (2 - Td or Tdap) 07/20/2020 07/20/2010, 04/23/2007 COVID-19 Vaccine ( season) 2023 11/05/2021, 12/28/2020, 06/01/2020, Additional history exists SDOH Screening 06/14/2024 06/15/2023 Mammogram 10/09/2024 10/10/2023, 03/27, 09/15/2022, Additional history exists Alcohol/Substance Use Screening 04/08/2025 04/08/2024 Depression Screening 04/08/2025 04/08/2024, 04/04/19 24 Tobacco Screening 04/08/2025 04/08/2024 Lipid Panel 06/01/2025 06/01/2020 Pneumococcal Vaccine: 50+ Years Completed 12/05/2014, 08/07/2013, 10/24/2005 Influenza Vaccine Completed 12/25/2023, , 12/27/2021, Additional history exists HIB Vaccines Aged Out No longer eligi ble based on patient's age to complete this topic HPV Vaccines Aged Out No longer eligi ble based on patient's age to complete this topic Hepatitis A Vaccines Aged Out No long er eligible based on patient's age to complete this topic Hepatitis B Vaccines Aged Out No long er eligible based on patient's age to complete this topic IPV Vaccines Aged Out No longer eligi ble based on patient's age to complete this topic Meningococcal Vaccine Aged Out No americo mehnaz eligible based on patient's age to complete this topic RSV under 20 months Aged Out No longe r eligible based on patient's age to complete this topic Rotavirus Vaccines Aged Out No longer eligible based on patient's age to complete this topic Procedures Procedure Name Priority Date/Time Associated Diagnosis Comments BI MAMMOGRAM DIAGNOSTIC TOMOSYNTHESIS BILATERAL Routine 10/10/2023 3:00 PM EDT LIPID PANEL, STANDARD Routine 06/01/2020 10:13 AM EST from Last 3 Months or Most Recently Relevant to Health Maintenance Results * BI Mammogram Diagnostic Tomosynthesis Bilateral (10/10/2023 3:00 PM EDT) Anatomical Region Laterality Modality Breast Bilateral Mammography 10/10/2023 3:00 PM EDT Narrative 10/10/2023 3:52 PM EDT ? [facility] ? [address] ?[place] [address] ? Mammography Report ? Signed ? Patient: Laurie Mtz ?MR#: [id number] ?? [id number] ? : 1945 ?Acct:[id number] ? Age/Sex: 78 / F ?ADM Date: /16/24 ? Loc: HO.MAMMO ? Attending Dr: Александр Burciaga MD ? Ordering Physician: Gualberto,Александр Peace MD ?Results: 2Beni ?? gn Findings ? Date of Service: /16/24 ?Follow Up: 1 Year From Orig ?? inal Mammogram ? Procedure(s): MM tomosynthesis diagnostic BI ?? Accession Number(s): [id number] ? cc: Sana Clements MD; Александр Burciaga MD ? EXAMINATION: ?? MM DIAGNOSTIC DIGITAL BREAST TOMOSYNTHESIS, BILATERAL ? CLINICAL INFORMATION: ? 6 month follow-up for probable dermal calcifications along the scar ?? margin far inferior right breast. Patient also due for year 2 postop ?? 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 08/30/2021. ? COMPARISON: ?? Mammography: 04/10/2023, 09/15/2022, 08/30/2021, 06/28/2021, ?? 06/16/2020, 03/31/2020. ? TECHNIQUE: ?? Digital breast tomosynthesis is performed in both the craniocaudal and ?? mediolateral oblique views along with computer-aided detection (CAD). ?? Synthesized 2D images are generated from the tomosynthesis. In ?? addition, added full-field 3-D right CC, left MLO, and left CC views ?? were also obtained, a 3-D spot compression right cc view, as well as ?? 2-D spot magnification right CC and ML views. ? FINDINGS: ?? The breasts are extremely dense, which lowers the sensitivity of ?? mammography (ACR BI-RADS breast composition Category d). ? Lumpectomy scar again noted in the posterior 6:00 axis right breast, ?? marked by scar marker. There are numerous abutting tiny punctate ?? rounded calcifications which localize to the skin, not beneath the ?? skin. These localize to the scar itself, and are dystrophic ?? calcifications, unchanged, and benign. ? Mildly improving post therapy trabecular prominence and distortion ?? right breast. A 1 view asymmetry in the central slightly lateral right ?? breast CC view dissipates on spot compression, consistent with ?? summation artifact. There are bilateral vascular calcifications. There ?? are stable benign type calcifications in the left breast. No new ?? suspicious masses, new suspicious grouped calcifications, or new region ?? of architectural distortion in either breast. No axillary ?? abnormalities. ? MM/MM tomosynthesis diagnostic BI ?? IMPRESSION: ?? -There are no findings suspicious for malignancy in either breast. ? -Evolving post therapy changes right breast with associated benign ?? findings as described above, stable. ? -Recommend this patient resume annual bilateral mammography, and for ?? year 3 postoperative diagnostic protocol for right breast. ? ASSESSMENT: ? BI-RADS BI-RADS 2 - Benign Findings ? RECOMMENDATION: ?? 1 year F/U ? Results were provided to the patient at time of visit by the ?? technologist. ? This patient's information was entered into a reminder system with a ?? target due date for their next mammogram. ? Dictated By: ?Rodolfo Burks MD ? Signed By: ?<Electronically signed by Rodolfo Burks MD in OV> ?10/10/23 1548 ? DD/ 1500 ? TD/TT: ? Supervisory Investigative Specialist: ? Procedure Note Lorenzo, Image - 10/10/2023 [facility] [address] [place] [address] Mammography Report Signed Patient: Kay Mtz#: [id number] : 4Acct:[id number] Age/Sex: 78 / FADM Date: 10/10/23 Loc: HO.MAMMO Attending Dr: Александр Burciaga MD Ordering Physician: Александр Burciaga MDResults: 2Beni gn Findings Date of Service: 10/10/23Follow Up: 1 Year From Orig inal Mammogram Procedure(s): MM tomosynthesis diagnostic BI Accession Number(s): [id number] cc: Sana Clements MD; Александр Burciaga MD EXAMINATION: MM DIAGNOSTIC DIGITAL BREAST TOMOSYNTHESIS, BILATERAL CLINICAL INFORMATION: 6 month follow-up for probable dermal calcifications along the scar margin far inferior right breast. 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 COMPARISON: Mammography: 04/10/2023, 09/15/2022, 08/30/2021, 06/28/2021, 06/16/2020, 03/31/2020. TECHNIQUE: Digital breast tomosynthesis is performed in both the craniocaudal and mediolateral oblique views along with computer-aided detection (CAD). Synthesized 2D images are generated from the tomosynthesis. In addition, added full-field 3-D right CC, left MLO, and left CC views were also obtained, a 3-D spot compression right cc view, as well as 2-D spot magnification right CC and ML views. FINDINGS: The breasts are extremely dense, which lowers the sensitivity of mammography (ACR BI-RADS breast composition Category d). Lumpectomy scar again noted in the posterior 6:00 axis right breast, marked by scar marker. There are numerous abutting tiny punctate rounded calcifications which localize to the skin, not beneath the skin. These localize to the scar itself, and are dystrophic calcifications, unchanged, and benign. Mildly improving post therapy trabecular prominence and distortion right breast. A 1 view asymmetry in the central slightly lateral right breast CC view dissipates on spot compression, consistent with summation artifact. There are bilateral vascular calcifications. There are stable benign type calcifications in the left breast. No new suspicious masses, new suspicious grouped calcifications, or new region of architectural distortion in either breast. No axillary abnormalities. MM/MM tomosynthesis diagnostic BI IMPRESSION: -There are no findings suspicious for malignancy in either breast. -Evolving post therapy changes right breast with associated benign findings as described above, stable. -Recommend this patient resume annual bilateral mammography, and for year 3 postoperative diagnostic protocol for right breast. ASSESSMENT: BI-RADS BI-RADS 2 - Benign Findings RECOMMENDATION: 1 year F/U Results were provided to the patient at time of visit by the technologist. This patient's information was entered into a reminder system with a target due date for their next mammogram. Dictated By: Rodolfo Burks MD Signed By: <Electronically signed by Rodolfo Burks MD in OV> 10/10/23 1548 DD/ 1500 TD/TT: Supervisory Investigative Specialist: [facility] External Provider IMG BI PROCEDURES Final Result * LIPID PANEL, STANDARD (06/01/2020 10:13 AM EST) Chol/HDLC Ratio 3.2 <5.0 (calc) [facility] Cholesterol, Total 162 <200 mg/dL [facility] HDL Cholesterol 51 > OR = 50 mg/dL [facility] LDL Cholesterol 90 mg/dL (calc) [facility] Comment: Reference range: <100 ?? Desirable range <100 mg/dL for primary prevention; ?? <70 mg/dL for patients with CHD or diabetic patients ?? with > or = 2 CHD risk factors. ?? LDL-C is now calculated using the Kelly ?? calculation, which is a validated novel method providing ?? better accuracy than the Friedewald equation in the ?? estimation of LDL-C. ?? Juan MEDINA et al. CHANCE. 2013;310(19): 9844-3183 ?? (http://Videobot.WSI Onlinebiz.Brayola/faq/SBH576) Non-HDL Cholesterol 111 <130 mg/dL (calc) [facility] Comment: For patients with diabetes plus 1 major ASCVD risk ?? factor, treating to a non-HDL-C goal of <100 mg/dL ?? (LDL-C of <70 mg/dL) is considered a therapeutic ?? option. Triglycerides 118 <150 mg/dL [facility] 06/01/2020 10:1 3 AM EST Sana Rao MD LAB BLOOD ORDERABLES Final Result [facility] [address] from Last 3 Months or Most Recently Relevant to Health Maintenance Insurance [facility] Care Teams Core Driller Relationship Specialty Start Date End Date Sana Clements MD [address] [place] [id number] PCP - General Family Medicine 12/01/17
--- OUTSIDE RECORDS SUMMARY | 2024-06-03 16:41 | XMS_ITS | Encounter Summary ---
Author Organization [employer] Address [address] [facility] [address] [place] [address] Care Team Providers Care Roll Bucker Name Role Phone Sana Clements MD Primary Care Provide r Reason for Visit * Reason Comments Med Refill Encounter Details Date Type Department Care Team ([facility] st Contact Info) Description 01/04/2024 Refill [facility] [address] [place], [place] [phone] Sana Clements MD [address] [place], [place] [phone] Uncomplicated asthma, unspecified asthma severity, unspecified whether persistent Social History Tobacco Use Types Packs/Day Years [...] Description 06/10/2024 3:00 PM EDT Office Visit [facility] [address] [place] [address] NicanorVibha toth, OD [address] [place] [address] 07/24/2024 2:45 PM EDT Office Visit [facility] [address] [place] [address] Sana Clements MD [address] [place] [address] documented as of this encounter Visit Diagnoses Diagnosis Uncomplicated asthma, unspecified asthma severity, unspecified whether persistent documented in this encounter Additional Health Concerns Assessment Noted Time PHQ-9 Depression Total Score: 0 04/04/19 24 3:37 PM EST documented as of this encounter Care Teams Roll Bucker Relationship Specialty Start Date End Date Sana Clements MD [address] [place] [address] PCP - General Family Medicine 12/01/17 documented as of this encounter
--- OUTSIDE RECORDS SUMMARY | 2024-06-03 16:41 | XMS_ITS | Encounter Summary ---
Author Organization [employer] Address [address] [facility] 7t [place] [address] Care Team Providers Care Health Safety Engineer Name Role Phone Sana Clements MD Primary Care Provide r Reason for Visit * Reason Onset Date Comments Appointment Request 09/20/2022 Encounter Details Date Type Department Care Team ([facility] st Contact Info) Description 09/20/2022 Telephone [facility] MEDICINE [address] [place] [address] Sana Clements MD [address] [place] [address] Appointment Request Social History Tobacco Use Types Packs/Day Years [...] AM EDT documented as of this encounter Miscellaneous Notes * Telephone Encounter - Tate Yadav - 09/20/2022 11:20 AM EDT Tc from son calling in behalf of patient requesting a call from a nurse to schedule an appt with provider. [facility] Please contact pt at [phone] Nigerian Speaker documented in this encounter Plan of Treatment Upcoming Encounters Date Type Department Care Team (Late st Contact Info) Description 06/10/2024 3:00 PM EDT Office Visit [facility] OPTOMETRY [address] [place] [address] Vibha Vick, OD [address] [place] [address] 07/24/2024 2:45 PM EDT Office Visit [facility] MEDICINE [address] [place] [address] Sana Clements MD [address] [place] [address] documented as of this encounter Visit Diagnoses Not on filedocumented in this encounter Care Teams Health Safety Engineer Relationship Specialty Start Date End Date Sana Clements MD [address] [place] [address] PCP - General Family Medicine 12/01/17 documented as of this encounter
--- OUTSIDE RECORDS SUMMARY | 2024-06-03 16:41 | XMS_ITS | Encounter Summary ---
Author Organization [employer] Address [address] [facility] 7t [place] [address] Care Team Providers Care R Programmer Name Role Phone Sana Clements MD Primary Care Provide r Reason for Visit * Reason Onset Date Comments F/U ext 06/20/23 05/29/2023 Encounter Details Date Type Department Care Team ([facility] st Contact Info) Description 05/29/2023 Telephone [facility] MEDICINE [address] [place], [place] [phone] Sana Clements MD [address] [place], [place] [phone] F/U ext 06/20/23 Social History Tobacco Use Types Packs/Day Years [...] encounter Miscellaneous Notes * Telephone Encounter - Derek Warner - 05/29/2023 3:09 PM EST Tc from son requesting to reschedule follow up ext 06/19. Son stated it would have to be a Monday orMonday after 2:30. Please contact son at [phone]. documented in this encounter Plan of Treatment Upcoming Encounters Date Type Department Care Team (Late st Contact Info) Description 06/10/2024 3:00 PM EDT Office Visit [facility] OPTOMETRY [address] [place] [address] Nicanor, Vibha, OD [address] [place] [address] 07/24/2024 2:45 PM EDT Office Visit [facility] MEDICINE [address] [place] [address] Sana Clements MD [address] [place] [address] documented as of this encounter Visit Diagnoses Not on filedocumented in this encounter Additional Health Concerns Assessment Noted Time PHQ-9 Depression Total Score: 0 04/04/19 24 3:37 PM EST documented as of this encounter Care Teams R Programmer Relationship Specialty Start Date End Date Sana Clements MD [address] [place] [address] PCP - General Family Medicine 12/01/17 documented as of this encounter
--- OUTSIDE RECORDS SUMMARY | 2024-06-03 16:41 | XMS_ITS | Encounter Summary ---
Author Organization [employer] Address [address] [facility] 7[address] [place] [address] Care Team Providers Care Water System Operator Name Role Phone Sana Clements MD Primary Care Provide r Reason for Visit * Reason Comments Med Refill Encounter Details Date Type Department Care Team ([facility] st Contact Info) Description 04/15/2023 Refill [facility] MEDICINE [address] [place], [place] [phone] Sana Clements MD [address] [place], [place] [phone] Uncomplicated asthma, unspecified asthma severity, unspecified whether [...] Description 06/10/2024 3:00 PM EDT Office Visit [facility] OPTOMETRY [address] [place] [address] NicanorVibha toth, OD [address] [place] [address] 07/24/2024 2:45 PM EDT Office Visit [facility] MEDICINE [address] [place] [address] Sana Clements MD [address] [place] [address] documented as of this encounter Visit Diagnoses Diagnosis Uncomplicated asthma, unspecified asthma severity, unspecified whether persistent documented in this encounter Additional Health Concerns Assessment Noted Time PHQ-9 Depression Total Score: 0 04/04/19 24 3:37 PM EST documented as of this encounter Care Teams Water System Operator Relationship Specialty Start Date End Date Sana Clements MD [address] [place] [address] PCP - General Family Medicine 12/01/17 documented as of this encounter
--- OUTSIDE RECORDS SUMMARY | 2024-06-03 16:41 | XMS_ITS | Encounter Summary ---
Author Organization [employer] Address [address] [facility] 7[address] [place] [address] Care Team Providers Care All Source Analyst Name Role Phone Sana Clements MD Primary Care Provide r Encounter Details Date Type Department Care Team (Late Contact Info) Description 03/15/2022 Refill [facility] MEDICINE [address] [place] [address] Sana Clements MD [address] [place] [address] Primary osteoarthritis of both hips; Chronic obstructive pulmonary disease, unspecified COPD type (CMS/HCC) Social History Tobacco Use Types Packs/Day Years Used Date Smoking Tobacco: Never Assessed Comments Unknown Sex and Gender Information Value [...] Description 06/10/2024 3:00 PM EDT Office Visit [facility] OPTOMETRY [address] [place] [address] Nicanor, Vibha, OD [address] [place] [address] 07/24/2024 2:45 PM EDT Office Visit [facility] MEDICINE [address] [place] [address] Sana Clements MD [address] [place] [address] documented as of this encounter Visit Diagnoses Diagnosis Primary osteoarthritis of both hips Chronic obstructive pulmonary disease, unspecified COPD type (CMS/[facility]) documented in this encounter Care Teams All Source Analyst Relationship Specialty Start Date End Date Sana Clements MD [address] [place] [address] PCP - General Family Medicine 12/01/17 documented as of this encounter
== END 2024-06-03 15:58 | disposition home or self-care (01) ==
PROVIDERS: PCP Internal Medicine; Visit Provider Internal Medicine Pulmonary Disease
DX: J45.50 Severe persistent asthma, uncomplicated (principal); Z91.09 Other allergy status, other than to drugs and biological substances
CPT/HCPCS: 99214

== ENCOUNTER → 2024-06-03 14:34 | Outpatient (BNVA) | payer OTHER, SELFPAY | PROVIDERS: PCP Internal Medicine; Visit Provider Internal Medicine Pulmonary Disease | DX: J45.50 Severe persistent asthma, uncomplicated (principal); Z91.09 Other allergy status, other than to drugs and biological substances | CPT/HCPCS: 99212 ==

== ENCOUNTER 2024-07-09 14:56 | Outpatient (AMB) | payer OTHER, SELFPAY ==
--- NOTE | 2024-07-09 14:57 | A.OFFVIS_ITS ---
Vital Signs 07/09/24 15:07 Height 5 ft 10 in Weight 115 lb BMI 16.5 BP 174/81 H Blood Pressure Location Lt brachial Position Sitting Pulse 49 L Intake Visit Reasons: 6 month breast exam Intake Note: Patient is seen in office for 6 month follow up visit, breast exam. Pt c/o: denies any concerns regarding the breast mm sched:10/14/24 Retirement Assistant Required: Yes Retirement Assistant Language: Automation [employer] Controls Instructor Services: Retirement Assistant Present Retirement Assistant Name: Arleth STONE Information Interpreted: non-clinical & clinical Accompanied by: Self / Same As Patient Allergies ibuprofen Adverse Reaction (Intermediate, Verified 07/09/24 14:58) NAUSEA oxycodone [From PERCOCET] Adverse Reaction (Intermediate, Verified 07/09/24 14:58) NAUSEA Medication List - Last Reconciled 07/09/24 by Александр Burciaga MD acetaminophen mg PO albuterol sulfate 2.5 mg inhalation TID PRN albuterol sulfate 90 mcg/actuation 90 mcg inhalation Q4-6H PRN amlodipine 10 mg PO QAM atenolol 75 mg PO QAM atorvastatin 40 mg PO BEDTIME buspirone 5 mg PO BID calcium carbonate-vitamin D3 600 mg-10 mcg (400 unit) 1 tab PO DAILY celecoxib (Celebrex) 200 mg PO BID 30 days cyclobenzaprine 5 mg PO BEDTIME PRN diclofenac sodium 1% topical docusate sodium (Stool Softener) 100 mg PO BID dupilumab (Dupixent) 300 mg (2 mL) subcut Q2W eluxadoline (Viberzi) 100 mg PO BID exemestane 25 mg PO DAILY famotidine 40 mg PO BEDTIME fluticasone propion-salmeterol 500-50 mcg/dose 1 ea inhalation DAILY fluticasone propionate 50 mcg/actuation 1 spray intranasal DAILY furosemide 20 mg PO QAM hydrochlorothiazide 50 mg PO QAM hydrocortisone 2.5% appl topical ipratropium-albuterol 0.5 mg-3 mg(2.5 mg base)/3 mL 3 mL inhalation Q4-6H PRN ketotifen fumarate 0.025%(0.035%) 1 drp ophthalmic (eye) BID vytkta-qkdypwmf-ehvngry 3,000-9,500- 15,000 unit (Creon) 1 cap PO QID loratadine 10 mg PO DAILY losartan 100 mg PO DAILY metoclopramide HCl (Reglan) 5 mg PO TID miconazole nitrate 2% 1 appl topical BID PRN xvaymvjibigi-wbmj-yckxq acid 18-400 mg-mcg 1 tab PO QAM omeprazole 40 mg PO QAM polyvinyl alcohol 1.4% 2 drps ophthalmic (eye) DAILY sertraline 25 mg PO DAILY topiramate 25 mg PO BID trazodone 100 mg PO BEDTIME HPI Comments Details: 79-year-old female patient returning for follow-up breast examination, diagnosed with ductal carcinoma in situ in 08/13/2021. She underwent a right breast lumpectomy with needle localization on 08/30/2021. Pathology revealed ductal carcinoma in situ, nuclear grade 2 with necrosis. Margins were negative, closest margin 4 mm to the medial margin. AJCC stage: P TIS NX (8th edition). She was evaluated by Dr. Baum and started on Aromasin 25 mg q.day. She was evaluated by radiation therapy at [facility]. There was felt to be a low benefit of radiation therapy as long she remained on antiestrogen therapy therefore she received no radiation therapy. She generally feels well and denies any ongoing breast symptoms. She does check frequently but denies any palpable lumps or tenderness. Bilateral diagnostic mammogram of 09/15/2022 revealed post therapy changes in the right breast, probably benign (BI-RADS 2). Six-month follow-up mammogram performed on 04/10/2023 revealed no suspicious findings in the right breast (BI-RADS 2). Her most recent mammogram of 10/10/2023 revealed post treatment changes with no mammographic evidence of malignancy (BI-RADS 2). Lynette gnostic mammogram is recommended in 1 year (10/14/2024). [facility] Medical History High cholesterol HTN (hypertension), benign Mood disorder Memory impairment COPD (chronic obstructive pulmonary disease) Hx of gastritis Hiatal hernia Osteoarthritis of both hips Chronic post-concussion headache Post concussion syndrome Environmental allergies GERD (gastroesophageal reflux disease) Moderate persistent asthma Surgical History History of lumpectomy of right breast (08/30/21) History of esophagogastroduodenoscopy (EGD) H/O colonoscopy H/O lithotripsy History of tubal ligation History of section Hx of cholecystectomy Family History Mother Colon cancer Son Myocardial infarct Social History Household Members: None Housing: Apartment Are you a primary wound care coordinator to a significant other at home: No Do you presently have visiting nurse or other home services: No (Son takes care of her) Comment: balance Issues Patient Tobacco Use Status: Never used Tobacco service: No Current occupational status: disabled Review of Systems Const Denies chills, Denies fever(s), Denies headache(s) and Denies poor appetite ENT Denies dizziness and Denies headache(s) Card Denies chest pain, Denies rapid heart rate, Denies palpitations and Denies slow heart rate Resp Denies chest congestion, Denies cough, Denies pain on inspiration and Denies wheezing GI Denies abdominal pain, Denies bloating, Denies change in stool character, Denies constipation, Denies diarrhea, Denies nausea, Denies vomiting and Denies hem atemesis Denies nipple discharge Musc Denies back pain, Denies arthralgias, Denies joint swelling and Denies numbness Skin/Breast Denies breast swelling, Denies breast skin changes, Denies breast pain, Denies breast mass, Denies change in breast shape, Denies change in pigmentation, Denies nipple discharge, Denies erythema and Denies rash Neuro Denies dizziness, Denies headache(s) and Denies numbness Psych Denies anxiety and Denies depression Endo Denies palpitations Andrea/Lymph Denies easy bleeding, Denies easy bruising and Denies lymphadenopathy Aller/Immun Denies wheezing Physical Exam Vital Signs: Last Vital Signs Pulse 49 L 07/09/24 15:07 BP 174/81 H 07/09/24 15:07 BMI result Body Mass Index 16.5 Const General: no acute distress and well developed Nutritional Appearance: well nourished Chest Other: Right breast: Well-healed incision lower outer quadrant with no new skin change, nipple retraction, nipple discharge, palpable mass, or enlarged lymph nodes. Left breast: No skin change, nipple retraction, nipple discharge, palpable mass, enlarged lymph nodes. Resp Effort & Inspection: normal respiratory effort GI Inspection: Yes normal to inspection Skin Other: Warm, dry, no rash Neuro Other: Mobility Assessment: 1. 3 meter assessment time (seconds) 7 2. Gait observations: slow tentative pace Extrem General: Yes normal to inspection Assessment & Plan Assessment & Plan (1) Ductal carcinoma in situ of right breast: Code(s): D05.11 - Intraductal carcinoma in situ of right breast Category: Medical (2) History of lumpectomy of right breast: Onset Date: 08/30/21 Comment: Александр Burciaga MD Code(s): Z98.890 - Other specified postprocedural states Category: Surgical Plan 79-year-old female patient returning for follow-up examination following right breast lumpectomy for a 1.8 cm ductal carcinoma in-situ, ER/RI positive, grade 2 (TIS). She was started on Aromasin by Dr. Baum and seems to be tolerating this well. She denies any ongoing breast symptoms at this time. Examination today revealed a well-healed incision in the right breast with no new suspicious changes and no evidence of recurrence disease. Her most recent mammogram of 10/10/2023 revealed postoperative changes in the right breast but otherwise no mammographic evidence of malignancy (BI-RADS 2). She is scheduled for a diagnostic mammogram on 10/14/2024. I recommended follow-up examination in 6 months, sooner p.r.n.. Coding Level of Care Code Est Pt Level 3 (77282) Complex EM visit Add On G2211 Diagnoses Ductal carcinoma in situ of right breast D05.11 History of lumpectomy of right breast Z98.890
[2024-07-09 15:07] VITALS: BP 174/81; PULSE 49; BMI 16.5
--- OUTSIDE RECORDS SUMMARY | 2024-07-09 18:12 | XMS_ITS | Encounter Summary ---
Author Organization [employer] Address [address] [facility] 7t [place] [address] Care Team Providers Care Head Of Commission Department Name Role Phone Sana Clements MD Primary Care Provide r Encounter Details Date Type Department Care Team (Late Contact Info) Description 03/15/2022 Refill [facility] MEDICINE [address] [place] [address] Sana Clements MD [address] [place] [phone] Primary osteoarthritis of both hips; Chronic obstructive [...] Care Team (Late st Contact Info) Description 07/24/2024 2:45 PM EDT Office Visit [facility] MEDICINE [address] [place] [phone] Sana Clements MD [address] [place], [place] [phone] documented as of this encounter Visit Diagnoses Diagnosis Primary osteoarthritis of both hips Chronic obstructive pulmonary disease, unspecified COPD type (CMS/HCC) documented in this encounter Care Teams Head Of Commission Department Relationship Specialty Start Date End Date Sana Clements MD [address] [place] [address] PCP - General Family Medicine 12/01/17 documented as of this encounter
--- OUTSIDE RECORDS SUMMARY | 2024-07-09 18:12 | XMS_ITS | Encounter Summary ---
Author Organization [employer] Address [address] [facility] 7t [place] [address] Care Team Providers Care Hat Binder Name Role Phone Sana Clements MD Primary Care Provide r Reason for Visit * Reason Onset Date Comments Appointment Request 09/20/2022 Encounter Details Date Type Department Care Team ([facility] st Contact Info) Description 09/20/2022 Telephone [facility] MEDICINE [address] [place] [address] Sana Clements MD [address] [place] [address] Appointment Request Social History Tobacco Use Types [...] appt with provider. [facility] Please contact pt at [phone] Macanese Speaker documented in this encounter Plan of Treatment Upcoming Encounters Date Type Department Care Team (Late st Contact Info) Description 07/24/2024 2:45 PM EDT Office Visit [facility] MEDICINE [address] [place] [address] Sana Clements MD [address] [place], [place] [phone] documented as of this encounter Visit Diagnoses Not on filedocumented in this encounter Care Teams Hat Binder Relationship Specialty Start Date End Date Sana Clements MD [address] [place] [address] PCP - General Family Medicine 12/01/17 documented as of this encounter
--- OUTSIDE RECORDS SUMMARY | 2024-07-09 18:12 | XMS_ITS | Clinical Summary ---
Author Organization [employer] Address [address] [place] [address] Care Team Providers Care Harp Regulator Name Role Phone Sana Clements MD Primary Care Provide r Allergies Active Allergy Reactions Criticality Noted Date Comments Acetaminophen 07/07/2014 Ibuprofen 10/10/2011 Other reaction(s): DIZZY Oxycodone 07/07/2014 Medications hydroCHLOROthiazi de (HYDRODiuril) 50 MG tablet Take 1 tablet by mouth at bed time. 021 Active hydrocortisone 1 % cream Apply topically every 12 (twelve) hours. 021 Active omeprazole (PriLOSEC) [address] capsule Take 1 capsule by mouth at bed time. 022 Active ondansetron ODT (Zofran ODT) 4 MG disintegrating tablet take 2 tablet by oral route every [address] on top of the tongue where they will dissolve, then swallow 019 Active prochlorperazine (Compazine) 5 MG tablet take 1 tablet by mouth daily as needed for nausea as needed 021 Active sucralfate (Carafate) 1 GM/10ML suspension Take 10 mL by mouth every 6 (six) hours. 022 Active lidocaine-priloca ine (Emla) 2.5-2.5 % creamIndications: Acute pain of right shoulder Apply topically 2 times daily. 30 g 1 023 Active ondansetron (Zofran) 4 MG tabletIndications :Nausea Take 2 tablets (8 mg) by mouth every 12 (twelve) hours. 20 tablet 023 Active docusate sodium (Colace) 100 MG capsuleIndication s:Constipation, unspecified constipation type TAKE 1 CAPSULE BY MOUTH TWICE DAILY 180 capsule 1 023 Active loratadine (Claritin) 10 MG tablet TAKE 1 TABLET BY MOUTH EVERY DAY NEEDED 90 tablet 1 023 Active hydrocortisone 2.5 % creamIndications: Allergy, sequela APPLY TOPICALLY TWICE DAILY IN THE MORNING AND IN THE EVENING 30 g 1 023 Active fluticasone (Flonase) 50 MCG/ACT nasal sprayIndications: Non-seasonal allergic rhinitis due to other allergic trigger USE 1 SPRAY IN EACH NOSTRIL EVERY MORNING 48 g 023 Active Respiratory Therapy Supplies (Nebulizer Mask Adult) miscIndications:U ncomplicated asthma, unspecified asthma severity, unspecified whether persistent 1 each every 8 (eight) hours if needed (use as needed Q 8hrs). Use with nebulizer 1 each 024 Active simvastatin (Zocor) 40 MG tablet TAKE 1 TABLET BY MOUTH EVERY EVENING 90 tablet 1 024 Active polyvinyl alcohol (Liquifilm Tears) 1.4 % ophthalmic solutionIndicatio ns:Allergy, sequela INSTILL 1 DROP IN EACH EYE THREE TIMES DAILY DIRECTED 15 mL 11 024 Active Ketotifen Fumarate 0.035 % solutionIndicatio ns:Allergy, sequela INSTILL 1 DROP AFFECTED EYE(S) TWICE DAILY IN THE MORNING AND AT BEDTIME 5 mL 1 024 Active Multiple Vitamins-Iron (Tab-A-Osei/Iron/ Beta Carotene) tabletIndications :Encounter for general adult medical examination without abnormal findings TAKE 1 TABLET BY MOUTH EVERY MORNING 90 tablet 1 024 Active busPIRone (Buspar) 5 MG tablet TAKE 1 TABLET BY MOUTH TWICE DAILY IN THE MORNING AND IN THE EVENING 180 tablet 3 024 Active albuterol (2.5 MG/3ML) 0.083% nebulizer solutionIndicatio ns:Uncomplicated asthma, unspecified asthma severity, unspecified whether persistent USE 1 AMPULE USING A NEBULIZER EVERY 8 HOURS NEEDED FOR WHEEZING OR SHORTNESS OF BREATH 90 mL 2 024 Active albuterol (Ventolin HFA) 108 (90 Base) MCG/ACT inhalerIndication s:Uncomplicated asthma, unspecified asthma severity, unspecified whether persistent INHALE 2 PUFFS BY MOUTH EVERY 4 HOURS NEEDED FOR WHEEZING OR SHORTNESS OF BREATH 18 g 2 024 Active losartan (Cozaar) 100 MG tablet TAKE 1 TABLET BY MOUTH EVERY MORNING 90 tablet 1 024 Active sertraline (Zoloft) 25 MG tabletIndications :Mood disorder ([facility]) TAKE 1 TABLET BY MOUTH EVERY MORNING 90 tablet 1 024 Active Calcium Carb-Cholecalcife rol 600-10 MG-MCG tablet TAKE 1 TABLET BY MOUTH THREE TIMES DAILY IN THE MORNING, EVENING, AND BEDTIME 270 tablet 1 024 Active Fluticasone-Salme terol 500-50 MCG/ACT aerosol powderIndications :Chronic obstructive pulmonary disease, unspecified COPD type ([facility]) INHALE 1 PUFF BY MOUTH TWICE DAILY RINSE MOUTH AFTER USING. 60 each 2 024 Active Diclofenac Sodium 1 % gelIndications:Ar thritis Apply 1 Application topically if needed in the morning and at bedtime (Applyto affected area as needed). 150 g 1 025 Active atorvastatin (Lipitor) 40 MG tablet 025 Active Dupixent 300 MG/2ML solution prefilled syringe injection 024 Active Viberzi 100 MG tablet Take 1 tablet by mouth with breakfast and with evening meal. 025 Active exemestane (Aromasin) 25 MG chemo tablet TAKE 1 TABLET BY MOUTH EVERY DAY AFTER A MEAL 025 Active famotidine (Pepcid) 40 MG tablet 025 Active furosemide (Lasix) 20 MG tablet Take 1 tablet by mouth at bed time. Active ipratropium-albut jesse (Duo-Neb) 0.5-2.5 mg/3 mL nebulizer solution 025 Active Creon 6136-1962 units capsule 025 Active atenolol (Tenormin) 50 MG tablet TAKE 1 AND 1/2 TABLETS BY MOUTH IN THE MORNING 135 tablet 1 025 Active Multiple Vitamins-Minerals (CertaVite/Antiox idants) tabletIndications :Healthcare maintenance TAKE 1 TABLET BY MOUTH EVERY MORNING 90 tablet 1 025 Active traZODone (Desyrel) 100 MG tabletIndications :Insomnia, unspecified type TAKE 1 TABLET BY MOUTH AT BEDTIME 90 tablet 1 025 Active Multiple Vitamins-Minerals (CertaVite/Antiox idants) tabletIndications :Healthcare maintenance TAKE 1 TABLET BY MOUTH EVERY MORNING 90 tablet 1 024 2024 Discontinued atenolol (Tenormin) 50 MG tablet TAKE 1 AND 1/2 TABLETS BY MOUTH IN THE MORNING 135 tablet 1 024 2024 Discontinued traZODone (Desyrel) 100 MG tabletIndications :Insomnia, unspecified type TAKE 1 TABLET BY MOUTH AT BEDTIME 90 tablet 1 024 2024 Discontinued Active Problems Problem Noted Date Diagnosed Date [...] with neurology Patient's son who is her LIGHT INDUSTRIAL SUPERVISOR brought FMLA documents, I instructed to leave the at medical records, son also wants to increase her mother LIGHT INDUSTRIAL SUPERVISOR hours, I advise to navigate options at [...] Encounters Date Type Department Care Team Description 07/03/2024 Telephone [facility] MEDICINE [address] [place] [address] Sana Clements MD pre op 06/24/2024 Refill [facility] & PEDS [address] [place] [address] Sana Clements MD Healthcare maintenance; Insomnia, unspecified type 06/10/2024 3:00 PM EDT Office Visit [facility] OPTOMETRY [address] [place] [address] Nicanor, Vibha, OD 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); Optic disc hemorrhage, right; Dry eyes; Presbyopia 06/10/2024 Travel 04/10/2024 Telephone [facility] MEDICINE [address] [place] [address] J Carlos Crenshaw [place] Durable Medical Equipment from Last 3 Months Immunizations Name Administration [...] Description 07/24/2024 2:45 PM EDT Office Visit [facility] MEDICINE [address] [place] [address] Sana Clements MD [address] [place] [address] Health Maintenance Due Date Last Done Comments [...] 04/08/2024 Depression Screening 04/08/2025 04/08/2024, 04/04/19 24 Lipid Panel 06/01/2025 06/01/2020 Tobacco Screening 06/12/2025 06/12/2024 Pneumococcal Vaccine: 50+ Years Completed 12/05/2014, 08/07/2013, [...] EDT Narrative 10/10/2023 3:52 PM EDT ? [facility] ? [address] ?[place] [address] ? Mammography Report ? Signed ? Patient: George Mai,Laurie ?MR#: [id number] ?? [id number] ? : 1945 ?Acct:[id number] ? Age/Sex: 78 / F ?ADM Date: 10/10/23 ? Loc: HO.MAMMO ? Attending Dr: Александр Burciaga MD ? Ordering Physician: Александр Burciaga MD ?Results: 2Beni ?? gn Findings ? Date of Service: 10/10/23 ?Follow Up: 1 Year From Orig ?? inal Mammogram ? Procedure(s): MM tomosynthesis diagnostic BI ?? Accession Number(s): [id number] ? cc: Sana Clements MD; Александр Burciaga [...] 1548 ? DD/ 1500 ? TD/TT: ? Wardrobe Assistant: ? Procedure Note Lorenzo, Image - 10/10/2023 [facility] [address] [place], [place] [address] Mammography Report Signed Patient: Laurie MtzMR#: [id number] : 4Acct:[id number] Age/Sex: 78 / FADM Date: 10/10/23 Loc: HO.MAMMO Attending Dr: Александр Burciaga MD Ordering Physician: Александр Burciaga MDResults: 2Beni gn Findings Date of Service: 10/10/23Follow Up: 1 Year From Orig ina Mammogram Procedure(s): MM tomosynthesis diagnostic BI Accession Number(s): [id number] cc: Sana Clements MD; Александр Burciaga MD [...] in OV> 10/10/23 1548 DD/ 1500 TD/TT: Wardrobe Assistant: [facility] External Provider IMG BI PROCEDURES Final [...] ?? Juan MEDINA et al. CHANCE. 2013;310(19): 3580-2575 ?? (http://education.[employer] Interactive/faq/OEZ762) Non-HDL Cholesterol 111 <130 mg/dL (calc) [facility] Comment: For patients with diabetes plus 1 major ASCVD risk ?? factor, treating to a non-HDL-C goal of <100 mg/dL ?? (LDL-C of <70 mg/dL) is considered a therapeutic ?? option. Triglycerides 118 <150 mg/dL [facility] 06/01/2020 10:1 3 AM EST Sana Rao MD LAB BLOOD ORDERABLES Final Result [facility] [address] from Last 3 Months or Most Recently Relevant to Health Maintenance Insurance [facility] Care Teams Harp Regulator Relationship Specialty Start Date End Date Sana Clements MD [address] [place] [id number] PCP - General Family Medicine 12/01/17
--- OUTSIDE RECORDS SUMMARY | 2024-07-09 18:12 | XMS_ITS | Encounter Summary ---
Author Organization [employer] Address [address] [facility] 7t [place] [address] Care Team Providers Care Rubber Grinder Name Role Phone Sana Clements MD Primary Care Provide r Reason for Visit * Reason Comments Med Refill Encounter Details Date Type Department Care Team ([facility] st Contact Info) Description 04/15/2023 Refill [facility] MEDICINE [address] [place], [place] [phone] Sana Clements MD [address] [place], [place] [phone] Uncomplicated asthma, unspecified asthma severity, unspecified whether [...] Description 07/24/2024 2:45 PM EDT Office Visit [facility] MEDICINE [address] [place] [address] Sana Clements MD [address] [place] [address] documented as of this encounter Visit Diagnoses Diagnosis Uncomplicated asthma, unspecified asthma severity, unspecified whether persistent documented in this encounter Additional Health Concerns Assessment Noted Time PHQ-9 Depression Total Score: 0 04/04/19 24 3:37 PM EST documented as of this encounter Care Teams Rubber Grinder Relationship Specialty Start Date End Date Sana Clements MD [address] [place] [phone] PCP - General Family Medicine 12/01/17 documented as of this encounter
--- OUTSIDE RECORDS SUMMARY | 2024-07-09 18:12 | XMS_ITS | Encounter Summary ---
Author Organization [employer] Address [address] [facility] 7t [place] [address] Care Team Providers Care Transfusion Aide Name Role Phone Sana Clements MD Primary Care Provide r Reason for Visit * Reason Comments Med Refill Encounter Details Date Type Department Care Team ([facility] st Contact Info) Description 01/04/2024 Refill [facility] MEDICINE [address] [place], [place] [phone] Sana Clements MD [address] [place], [place] [phone] Uncomplicated asthma, unspecified asthma severity, unspecified whether [...] 07/24/2024 2:45 PM EDT Office Visit [facility] MEDICINE [address] [place] [address] Sana Clements MD [address] [place] [address] documented as of this encounter Visit Diagnoses Diagnosis Uncomplicated asthma, unspecified asthma severity, unspecified whether persistent documented in this encounter Additional Health Concerns Assessment Noted Time PHQ-9 Depression Total Score: 0 04/04/19 24 3:37 PM EST documented as of this encounter Care Teams Transfusion Aide Relationship Specialty Start Date End Date Sana Clements MD [address] [place] [phone] PCP - General Family Medicine 12/01/17 documented as of this encounter
--- OUTSIDE RECORDS SUMMARY | 2024-07-09 18:12 | XMS_ITS | Encounter Summary ---
Author Organization [employer] Address [address] [facility] 7[address] [place] [address] Care Team Providers Care Food Mobile Driver Name Role Phone Sana Clements MD Primary Care Provide r Reason for Visit * Reason Onset Date Comments F/U ext 06/20/23 05/29/2023 Encounter Details Date Type Department Care Team ([facility] st Contact Info) Description 05/29/[address] [facility] MEDICINE [address] [place], [place] [phone] Sana Clements MD [address] [place], [place] [phone] F/U ext 06/20/23 Social History Tobacco Use [...] orMonday after 2:30. Please contact son at [phone]. documented in this encounter Plan of Treatment Upcoming Encounters Date Type Department Care Team (Late st Contact Info) Description 07/24/2024 2:45 PM EDT Office Visit [facility] MEDICINE [address] [place] [address] Sana Clements MD [address] [place] [address] documented as of this encounter Visit Diagnoses Not on filedocumented in this encounter Additional Health Concerns Assessment Noted Time PHQ-9 Depression Total Score: 0 04/04/19 24 3:37 PM EST documented as of this encounter Care Teams Food Mobile Driver Relationship Specialty Start Date End Date Sana Clements MD [address] [place] [address] PCP - General Family Medicine 12/01/17 documented as of this encounter
--- OUTSIDE RECORDS SUMMARY | 2024-07-09 18:12 | XMS_ITS | Encounter Summary ---
Author Organization [employer] Address [address] [facility] [address] [place] [address] Care Team Providers Care Regional Construction Manager Name Role Phone Sana Clements MD Primary Care Provide r Encounter Details Date Type Department Care Team (Late Contact Info) Description 04/12/2022 Orders Only [facility] MEDICINE [address] [place] [address] Jessie Herrera MD [address] [place] [phone] Acute pain of right shoulder (Primary Dx) [...] Department Care Team (Late Contact Info) Description 07/24/2024 2:45 PM EDT Office Visit [facility] MEDICINE [address] [place] [address] Sana Clements MD [address] [place] [address] documented as of this encounter Visit Diagnoses Diagnosis Acute pain of right shoulder- Primary documented in this encounter Care Teams Regional Construction Manager Relationship Specialty Start Date End Date Sana Clements MD [address] [place] [address] PCP - General Family Medicine 12/01/17 documented as of this encounter
--- OUTSIDE RECORDS SUMMARY | 2024-07-09 18:12 | XMS_ITS | Encounter Summary ---
Author Organization [employer] Address [address] [facility] 7t [place] [address] Care Team Providers Care Chemical Processing Equipment Repairer Name Role Phone Sana Clements MD Primary Care Provide r Reason for Visit * Reason Onset Date Comments pre op 07/03/2024 Encounter Details Date Type Department Care Team (Late st Contact Info) Description 07/03/2024 Telephone [facility] MEDICINE [address] [place] [address] Sana Clements MD [address] [place] [address] pre op Social History Tobacco Use Types Packs/Day Years [...] encounter Miscellaneous Notes * Telephone Encounter - Rashad Almanzar - 07/03/2024 3:21 PM EDT Date of Surgery: 08/09/24 Surgical procedure being done: Cataract Surgery left eye Type of anesthesia: Topical Lab needed: No EKG: No Surgeon's name: Dr. Collins Leonard Facility name[facility] Surgeon's office number: [phone] Surgeon's office fax number: [phone] Contact name (person you spoke with): Chelsy Dougherty Last office note from surgeon requested: No Send Message to Beverly Marcelino and Andrey Malin Contact pt at [phone] documented in this encounter Plan of Treatment Upcoming Encounters Date Type Department Care Team (Late st Contact Info) Description 07/24/2024 2:45 PM EDT Office Visit [facility] MEDICINE [address] [place] [address] Sana Clements MD [address] [place] [address] documented as of this encounter Visit Diagnoses Not on filedocumented in this encounter Additional Health Concerns Assessment Noted Time PHQ-9 Depression Total Score: 0 04/04/19 24 3:37 PM EST documented as of this encounter Care Teams Chemical Processing Equipment Repairer Relationship Specialty Start Date End Date Sana Clements MD [address] [place] [address] PCP - General Family Medicine 12/01/17 documented as of this encounter
--- OUTSIDE RECORDS SUMMARY | 2024-07-09 18:12 | XMS_ITS | Encounter Summary ---
Author Organization [employer] Address [address] [facility] 7t [place] [address] Care Team Providers Care Hosiery Knitter Name Role Phone Sana Clements MD Primary Care Provide r Reason for Visit * Reason Comments Med Refill Encounter Details Date Type Department Care Team ([facility] st Contact Info) Description 12/11/2023 Refill [facility] MEDICINE [address] [place], [place] [phone] Brittany Gates MD [address] [place], [place] [phone] Primary osteoarthritis of both hips Social History [...] Visit [facility] MEDICINE [address] [place] [address] Sana Clements MD [address] [place] [address] documented as of this encounter Visit Diagnoses Diagnosis Primary osteoarthritis of both hips documented in this encounter Additional Health Concerns Assessment Noted Time PHQ-9 Depression Total Score: 0 04/04/19 24 3:37 PM EST documented as of this encounter Care Teams Hosiery Knitter Relationship Specialty Start Date End Date Sana Clements MD [address] [place] [address] PCP - General Family Medicine 12/01/17 documented as of this encounter
== END 2024-07-09 15:20 | disposition home or self-care (01) ==
LOC: HO.HGS 14:56
PROVIDERS: PCP Internal Medicine; Visit Provider Surgery
DX: D05.11 Intraductal carcinoma in situ of right breast (principal); Z98.890 Other specified postprocedural states
CPT/HCPCS: 99213; G2211

== ENCOUNTER → 2024-07-09 14:56 | Outpatient (BNVA) | payer OTHER, SELFPAY | PROVIDERS: PCP Internal Medicine; Visit Provider Surgery | DX: D05.11 Intraductal carcinoma in situ of right breast (principal); Z98.890 Other specified postprocedural states | CPT/HCPCS: 99212 ==

== ENCOUNTER 2024-07-30 14:56 | Outpatient (AMB) | payer OTHER, SELFPAY ==
[2024-07-30 15:06] VITALS: BP 154/64; PULSE 55; BMI 21.1
--- NOTE | 2024-07-30 15:06 | A.OFFVIS_ITS ---
Vital Signs 07/30/24 15:06 Height 5 ft Weight 108 lb 0.424 oz BMI 21.1 BP 154/64 H Blood Pressure Location Lt brachial Position Sitting Pulse 55 Intake Visit Reasons: Follow up medication Intake Note: Laurie presents in the office as a follow up to continue medications. CC: She states that she is feeling good. She takes all her medications. She states that they do not have a list but nothing has changed. Maintenance Scheduler Required: Yes Allergies ibuprofen Adverse Reaction (Intermediate, Verified 07/30/24 15:11) NAUSEA oxycodone [From PERCOCET] Adverse Reaction (Intermediate, Verified 07/30/24 15 :11) NAUSEA HPI HPI Follow up medication: Details: Assessment & Plan (1) Irritable bowel syndrome with diarrhea: Code(s): K58.0 - Irritable bowel syndrome with diarrhea (2) GERD (gastroesophageal reflux disease): Code(s): K21.9 - Gastro-esophageal reflux disease without esophagitis (3) Delayed gastric emptying: Code(s): K30 - Functional dyspepsia Plan Citizen Of [place] #son translates per pt request She is doing much better since we started the Reglan 5 mg 3 times a day. She is now eating well, gaining weight and her son in she are both happy with her GI regimen. She remained stable also on her Viberzi was control of her diarrhea her Creon, and her omeprazole. They asked when she is due for another colonoscopy and it has not until 2026. Return office visit in 6 months. 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 eluxadoline (Viberzi) must administer with a meal/food 100 mg PO BID 60 tabs 5RF K58.0 - Irritable bowel syndrome with diarrhea famotidine 40 mg PO BEDTIME 90 tabs 6RF K22.70 - Curtis's esophagus without dysplasia fgkupw-hzeshtfv-rsdreql 3,000-9,500- 15,000 unit (Creon) 1 cap PO QID 360 caps 1RF K58.0 - Irritable bowel syndrome with diarrhea metoclopramide HCl (Reglan) 5 mg PO TID 180 tabs 1RF K30 - Functional dyspepsia TODAY'S VISIT Citizen [place] #son translates per pt request. She continues to be stable on her GI medication with only occasional diarrhea. Her weight fluctuates. She is on Reglan 5 mg 3 times a day, Creon, omeprazole and Viberzi. For some strange reason her primary care provider put her on Colace. I find this completely inappropriate for a patient we are treating for chronic diarrhea. Perhaps it was a misunderstanding. I am discontinuing that medication and advised the patient as such. Return office visit in 6 months [facility] Medical History High cholesterol HTN (hypertension), benign Mood disorder Memory impairment COPD (chronic obstructive pulmonary disease) Hx of gastritis Hiatal hernia Osteoarthritis of both hips Chronic post-concussion headache Post concussion syndrome Environmental allergies GERD (gastroesophageal reflux disease) Moderate persistent asthma Surgical History History of lumpectomy of right breast (08/30/21) History of esophagogastroduodenoscopy (EGD) H/O colonoscopy H/O lithotripsy History of tubal ligation History of section Hx of cholecystectomy Family History Mother Colon cancer Son Myocardial infarct Social History Household Members: None Housing: Apartment Are you a primary transitions rn care coordinator to a significant other at home: No Do you presently have visiting nurse or other home services: No (Son takes care of her) Comment: balance Issues Patient Tobacco Use Status: Never used Tobacco service: No Current occupational status: disabled Review of Systems Const Denies fatigue, Denies fever(s), Denies night sweats, Denies poor appetite and Denies weight loss ENT Reports Normal hearing present, Denies dental pain, Denies dysphagia, Denies hearing loss, Denies mouth pain, Denies odynophagia, Denies throat swelling, Denies tongue swelling and Reports other (Dentition adequate) Card Reports no additional complaints Resp Reports no additional complaints GI Details: Denies abdominal pain, Denies melena, Denies bloating, Denies hematochezia, Denies constipation, Denies GI cramping, Denies dysphagia, Denies excessive flatus, Denies early satiety, Reports heartburn, Reports diarrhea, Denies nausea, Denies odynophagia, Denies vomiting and Denies hematemesis Skin/Breast Denies pruritus, Denies lesions, Denies rash and Denies jaundice Neuro Reports Normal hearing present and Denies Abnormal speech present Endo Denies fatigue Aller/Immun Denies throat swelling and Denies tongue swelling Physical Exam Vital Signs: Last Vital Signs Pulse 55 07/30/24 15:06 BP 154/64 H 07/30/24 15:06 BMI result Body Mass Index 21.1 Const General: cooperative, no acute distress, well developed and well groomed Nutritional Appearance: average body habitus and well nourished Orientation/consciousness: oriented to person, oriented to place and oriented to time Limitations: language barrier and other limitations HEENT Head: Yes normocephalic and Yes atraumatic Eyes General: appearance normal, both eyes and all related structures Pupils: Equal, round and reactive pupils present Neck Neck: Yes normal visual inspection and Yes no lymphadenopathy Thyroid: Thyroid normal Resp Effort & Inspection: normal respiratory effort and able to speak in complete sentences Auscultation: clear to auscultation bilaterally Cardio Rate: regular rate Rhythm: regular rhythm Heart sounds: Normal, physiologic split S2 sound present Peripheral pulses: radial pulses present and posterior tibial pulses present GI Inspection: No distended and No Abdominal panniculus present Palpation (GI): Soft to palpation, nontender, no guarding, not rigid and No hepatosplenomegaly present Percussion: Yes normal to percussion Auscultation: normal bowel sounds Rectal Exam - Female: deferred Skin General skin exam: no rashes or lesions noted, turgor normal, skin not dry, no jaundice, No spider nevi and no striae Rashes: no rashes Nails: normal Neuro General: oriented to person, oriented to place and oriented to time Cranial nerves: Yes Equal, round and reactive pupils present and Yes Normal hearing present Speech: No Abnormal speech present Extrem General: Yes normal to inspection, No clubbing, No cyanosis and No edema Psych Appearance: grossly normal and well kempt Mental Status: mental status grossly normal Speech and movement: Normal speech and movement present Affect: normal affect Attitude: cooperative Thought process: Normal thought process present and not confabulating Thought content: Normal thought content present Insight: Limited insight present (Psych) Judgement: Limited judgement present (Psych) Assessment & Plan Assessment & Plan (1) Irritable bowel syndrome with diarrhea: Code(s): K58.0 - Irritable bowel syndrome with diarrhea Category: Medical (2) 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 She continues to be stable on her GI medication with only occasional diarrhea. Her weight fluctuates. She is on Reglan 5 mg 3 times a day, Creon, omeprazole and Viberzi. For some strange reason her primary care provider put her on Colace. I find this completely inappropriate for a patient we are treating for chronic diarrhea. Perhaps it was a misunderstanding. I am discontinuing that medica tion and advised the patient as such. Return office visit in 6 months Medications: Refilled eluxadoline (Viberzi) must administer with a meal/food 100 mg PO BID 60 tabs 5RF K58.0 - Irritable bowel syndrome with diarrhea metoclopramide HCl (Reglan) 5 mg PO TID 180 tabs 1RF K30 - Functional dyspepsia iwqofn-btxzmtqv-bdqmwya 3,000-9,500- 15,000 unit (Creon) 1 cap PO QID 360 caps 1RF K58.0 - Irritable bowel syndrome with diarrhea omeprazole 40 mg PO QAM 90 caps 1RF K22.70 - Curtis's esophagus without dysplasia famotidine 40 mg PO BEDTIME 90 tabs 6RF K22.70 - Curtis's esophagus without dysplasia Discontinued docusate sodium (Stool Softener) Discontinued Reason: Doctor's Order 100 mg PO BID 60 caps 4RF Coding Level of Care Code Est Pt Level 3 (39690) Diagnoses Irritable bowel syndrome with diarrhea K58.0 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
--- OUTSIDE RECORDS SUMMARY | 2024-07-30 16:09 | XMS_ITS | Encounter Summary ---
Author Organization [employer] Address [address] [facility] [address] [place] [address] Care Team Providers Care Community Placement Worker Name Role Phone Sana Clements MD Primary Care Provide r Reason for Visit * Reason Onset Date Comments Appointment Request 09/20/2022 Encounter Details Date Type Department Care Team ([facility] st Contact Info) Description 09/20/[address] [facility] [address] [place] [address] Sana Clements MD [address] [place] [address] Appointment Request Social History Tobacco Use Types [...] appt with provider. Patient would like an Imperson appt with provider. Please contact pt at [phone] Filipino Speaker documented in this encounter Plan of Treatment Upcoming Encounters Date Type Department Care Team (Late st Contact Info) Description 08/05/2024 3:30 PM EDT Telemedicine [facility] [address] [place] [address] documented as of this encounter Visit Diagnoses Not on filedocumented in this encounter Care Teams Community Placement Worker Relationship Specialty Start Date End Date Sana Clements MD [address] [place] [address] PCP - General Family Medicine 12/01/17 documented as of this encounter
--- OUTSIDE RECORDS SUMMARY | 2024-07-30 16:09 | XMS_ITS | Encounter Summary ---
Author Organization [employer] Address [address] [facility] [address] [place] [address] Care Team Providers Care Public Health Specialist Name Role Phone Sana Clements MD Primary Care Provide r Reason for Visit * Reason Onset Date Comments F/U ext 06/20/23 05/29/2023 Encounter Details Date Type Department Care Team ([facility] st Contact Info) Description 05/29/2023 Telephone [facility] [address] [place] [address] Sana Clements MD [address] [place] [address] F/U ext 06/20/23 Social History Tobacco Use [...] orMonday after 2:30. Please contact son at [phone]. documented in this encounter Plan of Treatment Upcoming Encounters Date Type Department Care Team (Late st Contact Info) Description 08/05/2024 3:30 PM EDT Telemedicine [facility] [address] [place] [address] documented as of this encounter Visit Diagnoses Not on filedocumented in this encounter Additional Health Concerns Assessment Noted Time PHQ-9 Depression Total Score: 0 04/04/19 24 3:37 PM EST documented as of this encounter Care Teams Public Health Specialist Relationship Specialty Start Date End Date Sana Clements MD [address] [place] [address] PCP - General Family Medicine 12/01/17 documented as of this encounter
--- OUTSIDE RECORDS SUMMARY | 2024-07-30 16:09 | XMS_ITS | Encounter Summary ---
Author Organization [employer] Address [address] [facility] [address] [place] [address] Care Team Providers Care Automatic Drilling Machine Operator Name Role Phone Sana Clements MD Primary Care Provide r Reason for Visit * Reason Comments Med Refill Encounter Details Date Type Department Care Team ([facility] st Contact Info) Description 01/04/2024 Refill [facility] [address] [place] [address] Sana Clements MD [address] [place] [address] Uncomplicated asthma, unspecified asthma severity, unspecified whether [...] Info) Description 08/05/2024 3:30 PM EDT Telemedicine [facility] [address] [place] [address] documented as of this encounter Visit Diagnoses Diagnosis Uncomplicated asthma, unspecified asthma severity, unspecified whether persistent documented in this encounter Additional Health Concerns Assessment Noted Time PHQ-9 Depression Total Score: 0 04/04/19 24 3:37 PM EST documented as of this encounter Care Teams Automatic Drilling Machine Operator Relationship Specialty Start Date End Date Sana Clements MD [address] [place] [address] PCP - General Family Medicine 12/01/17 documented as of this encounter
--- OUTSIDE RECORDS SUMMARY | 2024-07-30 16:09 | XMS_ITS | Encounter Summary ---
Author Organization [employer] Address [address] [facility] [address] [place] [address] Care Team Providers Care Pile Fabric Knitter Name Role Phone Sana Clements MD Primary Care Provide r Reason for Visit * Reason Comments Med Refill Encounter Details Date Type Department Care Team ([facility] st Contact Info) Description 12/11/2023 Refill [facility] [address] [place], [place] [phone] Brittany Gates MD [address] [place], [place] [phone] Primary osteoarthritis of both hips Social History [...] Info) Description 08/05/2024 3:30 PM EDT Telemedicine [facility] [address] [place] [address] documented as of this encounter Visit Diagnoses Diagnosis Primary osteoarthritis of both hips documented in this encounter Additional Health Concerns Assessment Noted Time PHQ-9 Depression Total Score: 0 04/04/19 24 3:37 PM EST documented as of this encounter Care Teams Pile Fabric Knitter Relationship Specialty Start Date End Date Sana Clements MD [address] [place] [address] PCP - General Family Medicine 12/01/17 documented as of this encounter
--- OUTSIDE RECORDS SUMMARY | 2024-07-30 16:09 | XMS_ITS | Clinical Summary ---
Author Organization [employer] Address [address] [facility] [address] [place] [address] Care Team Providers Care Zipper Measurer Name Role Phone Sana Clements MD Primary [...] EVERY MORNING 48 g 03/09/20 23 Active Respiratory Therapy Supplies (Nebulizer Mask Adult) [...] BEDTIME 5 mL 1 11/01/19 24 Active Multiple Vitamins-Iron (Tab-A-Osei/Iron/B eta Carotene) tabletIndications: Encounter for general adult medical examination without abnormal findings TAKE 1 TABLET BY MOUTH EVERY MORNING 90 tablet 1 11/23/19 24 Active busPIRone (Buspar) 5 MG tablet TAKE 1 TABLET BY MOUTH TWICE DAILY IN THE MORNING AND IN THE EVENING 180 tablet 3 11/23/19 24 Active albuterol (2.5 MG/3ML) 0.083% nebulizer [...] needed). 150 g 1 04/08/19 25 Active atorvastatin (Lipitor) 40 MG tablet 06/08/19 25 Active Dupixent 300 MG/2ML solution prefilled syringe injection 01/31/20 24 Active Viberzi 100 MG tablet Take 1 tablet by mouth with breakfast and with evening meal. 05/06/19 25 Active exemestane (Aromasin) 25 MG chemo tablet TAKE 1 TABLET BY MOUTH EVERY DAY AFTER A MEAL 05/14/19 25 Active famotidine (Pepcid) 40 MG tablet 06/08/19 25 Active furosemide (Lasix) 20 MG tablet Take 1 tablet by mouth at bed time. Active ipratropium-albute rol (Duo-Neb) 0.5-2.5 mg/3 mL nebulizer solution 06/04/19 25 Active Creon 2571-7115 units capsule 06/08/19 25 Active atenolol (Tenormin) 50 MG tablet TAKE 1 AND 1/2 TABLETS BY MOUTH IN THE MORNING 135 tablet 1 06/25/19 25 Active Multiple Vitamins-Minerals (CertaVite/Antioxi dants) tabletIndications: Healthcare maintenance TAKE 1 TABLET BY MOUTH EVERY MORNING 90 tablet 1 06/25/19 25 Active traZODone (Desyrel) 100 MG tabletIndications: Insomnia, unspecified type TAKE 1 TABLET BY MOUTH AT BEDTIME 90 tablet 1 06/25/19 25 Active Active Problems Problem Noted Date Diagnosed Date Preop examination 07/24/2024 Assessment & Plan (07/24/2024 3:17 PM EDT): RCRI score is 1 which is 6 % risk Surgery should proceed as schedule I advised NPO after midnight before the procedure I advised to take her blood pressure medications with small sip of water the morning of the procedure Chronic obstructive pulmonar y disease, unspecified COPD [...] with neurology Patient's son who is her TERRAZZO SUPERVISOR brought FMLA documents, I instructed to leave the at medical records, son also wants to increase her mother TERRAZZO SUPERVISOR hours, I advise to navigate options at medical records Gastritis 04/06/2022 Ingrowing left great toenail 04/06/2022 Migraine without aura, not refractory 04/06/2022 Chronic post-traumatic headache 02/28/2017 Dyspnea 02/28/2017 Assessment & Plan (04/11/2023 4:23 PM EST): Cardiology referral Edentulous 02/28/2017 Essential hypertension 02/28/2017 Assessment & Plan (07/24/2024 3:20 PM EDT): Today blood pressure is not at goal Follow up with the Nurse for blood pressure check in 1 week. Continue with a low sodium diet and regular exercise as tolerated. For BP < or = to 139/89 (or 129/79 for diabetic patients) continue current medication regimen and follow up with PCP in as scheduled . For BP > or = to 140/90 (or 130/80 for diabetic patients) increase Losartan to 50 mg once a day Assessment & Plan (09/27/2023 5:33 PM EDT): [...] Encounters Date Type Department Care Team Description 07/24/2024 2:45 PM EDT Office Visit [facility] [address] [place] [phone] Sana Clements MD Essential hypertension (Primary Dx); Preop examination 07/24/2024 Travel 07/22/2024 Telephone [facility] [address] [place], [place] [phone] Sana Clements MD Chart prep 07/03/2024 Telephone [facility] [address] [place], [place] [phone] Sana Clements MD pre op 06/24/2024 Refill [facility] [address] [place], [place] [phone] Sana Clements MD Healthcare maintenance; Insomnia, unspecified type 06/10/2024 3:00 PM EDT Office Visit [facility] [address] [place] [address] Nicanor, Vibha, OD 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); Optic disc hemorrhage, right; Dry eyes; Presbyopia 06/10/2024 Travel from Last 3 Months Immunizations Name Administration [...] housing situation today? I have monica austin 07/24/[address] you li ve. Do you have problems with any of the following? None of the above 07/24/2024 Food Insecurity Answer Date Recorded Within the past 12 months, y ou worried that your food would run out before you got money to buy more: Never True 07/24/2024 Within the past 12 months,th e food you bought just didn't last and you didn't have enough money to get more: Never True Transportation Answer Date Recorded In the past 12 months, has l ack of transportation kept you from medical appts, meetings, work or from getting things needed for daily living? No 04/04/2023 Utilities Answer Date Recorded In the past 12 months, has t he electric, gas, oil or water company threatened to shut off services in your home? No 07/24/2024 Depression Answer Date Recorded Patient Health Questionnaire-2 Score 0 04/08/2024 Internet Access Answer Date Recorded Internet Access Q1 No 07/24/2024 Internet Access Q2 I do not want or need it 06/27 Comments Unknown Sex and Gender Information Value Date Recorded Sex Assigned at Female 01/24/2022 10:14 AM EDT Legal Sex Female 10:14 AM EDT Gender Identity Choose not to disclose 10:14 AM EDT Sexual Orientation Choose not to disclose 2021 10:14 AM EDT Last Filed Vital Signs Vital Sign Reading Time Taken Comments Blood Pressure 150/68 07/24/2024 3:13 PM EDT Pulse 54 07/24/2024 2:38 PM EDT Temperature 36.4 ??C (97.6 ??F) 07/24/2024 2:38 PM ED T Respiratory Rate 14 07/24/2024 2:38 PM EDT Oxygen Saturation 98% 10/30/2023 1:02 PM EDT Inhaled Oxygen Concentration - - Weight 50.1 kg (110 lb 6.4 oz) 07/24/2024 2:38 P M EDT Height 152.4 cm (5') 07/24/2024 2:38 PM EDT Body Mass Index 21.56 07/24/2024 2:38 PM EDT Plan of Treatment Upcoming Encounters Date Type Department Care Team (Late st Contact Info) Description 08/05/2024 3:30 PM EDT Telemedicine [facility] [address] [place], [place] [phone] Health Maintenance Due Date Last Done Comments [...] 24 Lipid Panel 06/01/2025 06/01/2020 Tobacco Screening 07/24/2025 07/24/2024 Pneumococcal Vaccine: 50+ Years Completed 12/05/2014, 08/07/2013, [...] EDT Narrative 10/10/2023 3:52 PM EDT ? [facility] ? [address] ?[place] [address] ? Mammography Report ? Signed ? Patient: Laurie Mtz ?MR#: [id number] ?? [id number] ? : 1945 ?Acct:[id number] ? Age/Sex: 78 / F ?ADM Date: 10/10/23 ? Loc: HO.MAMMO ? Attending Dr: Александр Burciaga MD ? Ordering Physician: Александр Burciaga MD ?Results: 2Beni ?? gn Findings ? Date of Service: 10/10/23 ?Follow Up: 1 Year From Orig ?? inal Mammogram ? Procedure(s): MM tomosynthesis diagnostic BI ?? Accession Number(s): [id number] ? cc: Sana Clements MD; Александр Burciaga [...] 1548 ? DD/ 1500 ? TD/TT: ? Cabinet And Trim Installer: ? Procedure Note Donotluchointerpreter, Image - 10/10/2023 [facility] [address] [place], [place] [address] Mammography Report Signed Patient: Kay Mtz#: [id number] : 4Acct:[id number] Age/Sex: 78 / FADM Date: 10/10/23 Loc: [facility] Attending Dr: Александр Burciaga MD Ordering Physician: Александр Burciaga MDResults: 2Beni gn Findings Date of Service: 10/10/23Follow Up: 1 Year From Orig inal Mammogram Procedure(s): MM tomosynthesis diagnostic BI Accession Number(s): [id number] cc: Sana Clements MD; Александр Burciaga MD [...] in OV> 10/10/23 1548 DD/ 1500 TD/TT: Cabinet And Trim Installer: [facility] External Provider IMG BI PROCEDURES Final [...] ?? Juan MEDINA et al. CHANCE. 2013;310(19): 4338-8006 ?? ([email or web address]) Non-HDL Cholesterol 111 <130 mg/dL (calc) [facility] Comment: For patients with diabetes plus 1 major ASCVD risk ?? factor, treating to a non-HDL-C goal of <100 mg/dL ?? (LDL-C of <70 mg/dL) is considered a therapeutic ?? option. Triglycerides 118 <150 mg/dL [facility] 06/01/2020 10:1 3 AM EST Sana Rao MD LAB BLOOD ORDERABLES Final Result [facility] [address] [place] [address], from Last 3 Months or Most Recently Relevant to Health Maintenance Insurance [facility] ASSISTED OPTIONS (O D-SNP) [place] [id number] Care Teams Zipper Measurer Relationship Specialty Start Date End Date Sana Clements MD [address] [place] [phone] PCP - General Family Medicine 12/01/17
--- OUTSIDE RECORDS SUMMARY | 2024-07-30 16:09 | XMS_ITS | Encounter Summary ---
Author Organization [employer] Address [address] [facility] [address] [place] [address] Care Team Providers Care Authorization Rep Name Role Phone Sana Clements MD Primary Care Provide r Encounter Details Date Type Department Care Team ([facility] Contact Info) Description 04/12/2022 Orders Only [facility] [address] [place] [phone] Jessie Herrera MD [address] [place], [place] [phone] Acute pain of right shoulder (Primary Dx) [...] Info) Description 08/05/2024 3:30 PM EDT Telemedicine [facility] [address] [place] [phone] documented as of this encounter Visit Diagnoses Diagnosis Acute pain of right shoulder- Primary documented in this encounter Care Teams Authorization Rep Relationship Specialty Start Date End Date Sana Clements MD [address] [place] [address] PCP - General Family Medicine 12/01/17 documented as of this encounter
--- OUTSIDE RECORDS SUMMARY | 2024-07-30 16:09 | XMS_ITS | Encounter Summary ---
Author Organization [employer] Address 75 [facility] 7t [place] [address] Care Team Providers Care Gymnastics Coach Or Instructor Name Role Phone Sana Clements MD Primary Care Provide r Reason for Visit * Reason Comments Med Refill Encounter Details Date Type Department Care Team ([facility] st Contact Info) Description 04/15/2023 Refill [facility] [address] [place] [address] Sana Clements MD [address] [place] [address] Uncomplicated asthma, unspecified asthma severity, unspecified whether [...] 08/05/2024 3:30 PM EDT Telemedicine [facility] [address] [place] [address] documented as of this encounter Visit Diagnoses Diagnosis Uncomplicated asthma, unspecified asthma severity, unspecified whether persistent documented in this encounter Additional Health Concerns Assessment Noted Time PHQ-9 Depression Total Score: 0 04/04/19 24 3:37 PM EST documented as of this encounter Care Teams Gymnastics Coach Or Instructor Relationship Specialty Start Date End Date Sana Clements MD [address] [place] [address] PCP - General Family Medicine 12/01/17 documented as of this encounter
--- OUTSIDE RECORDS SUMMARY | 2024-07-30 16:09 | XMS_ITS | Encounter Summary ---
Author Organization [employer] Address [address] [facility] 7t [place] [address] Care Team Providers Care Professor Of Surgery Name Role Phone Sana Clements MD Primary Care Provide r Encounter Details Date Type Department Care Team (Late Contact Info) Description 03/15/2022 Refill [facility] MED[facility]INE [address] [place] [phone] Sana Clements MD [address] [place] [phone] Primary osteoarthritis of both hips; Chronic obstructive [...] Info) Description 08/05/2024 3:30 PM EDT Telemedicine [facility] [address] [place] [phone] documented as of this encounter Visit Diagnoses Diagnosis Primary osteoarthritis of both hips Chronic obstructive pulmonary disease, unspecified COPD type (CMS/HCC) documented in this encounter Care Teams Professor Of Surgery Relationship Specialty Start Date End Date Sana Clements MD [address] [place] [address] [phone] PCP - General Family Medicine 12/01/17 documented as of this encounter
== END 2024-07-30 15:52 | disposition home or self-care (01) ==
LOC: HO.HGI 14:58
PROVIDERS: PCP Internal Medicine; Visit Provider Nurse Practitioner
DX: K58.0 Irritable bowel syndrome with diarrhea (principal); K22.70 Barrett's esophagus without dysplasia; K21.9 Gastro-esophageal reflux disease without esophagitis
CPT/HCPCS: 99213

== ENCOUNTER → 2024-07-30 14:56 | Outpatient (BNVA) | payer OTHER, SELFPAY | PROVIDERS: PCP Internal Medicine; Visit Provider Nurse Practitioner | DX: K58.0 Irritable bowel syndrome with diarrhea (principal); K22.70 Barrett's esophagus without dysplasia; K21.9 Gastro-esophageal reflux disease without esophagitis | CPT/HCPCS: 99212 ==

== ENCOUNTER 2024-08-12 14:44 | Outpatient (AMB) | payer OTHER, SELFPAY ==
--- OUTSIDE RECORDS SUMMARY | 2024-08-12 14:51 | XMS_ITS | Encounter Summary ---
Author Organization [employer] Address 75 [facility] 7t [place] [address] Care Team Providers Care Tarring Machine Operator Name Role Phone Sana Clements MD Primary Care Provide r Reason for Visit * Reason Comments Med Refill Encounter Details Date Type Department Care Team ([facility] st Contact Info) Description 04/15/2023 Refill [facility]INE [address] [place] [address] Sana Clements MD [address] [place] [address] Uncomplicated asthma, unspecified asthma severity, unspecified whether [...] Care Team (Late st Contact Info) Description 08/12/2024 3:30 PM EDT Clinical Support [facility] MEDICINE [address] [place] [phone] documented as of this encounter Visit Diagnoses Diagnosis Uncomplicated asthma, unspecified asthma severity, unspecified whether persistent documented in this encounter Additional Health Concerns Assessment Noted Time PHQ-9 Depression Total Score: 0 04/04/19 24 3:37 PM EST documented as of this encounter Care Teams Tarring Machine Operator Relationship Specialty Start Date End Date Sana Clements MD [address] [place] [address] PCP - General Family Medicine 12/01/17 documented as of this encounter
--- OUTSIDE RECORDS SUMMARY | 2024-08-12 14:51 | XMS_ITS | Encounter Summary ---
Author Organization [email or web address] Address 75 [facility] 7t [place] [address] Care Team Providers Care Exerciser Name Role Phone Sana Clements MD Primary Care Provide r Reason for Visit * Reason Onset Date Comments Appointment Request 09/20/2022 Encounter Details Date Type Department Care Team ([facility] st Contact Info) Description 09/20/2022 Telephone [facility] MEDICINE [address] [place] [address] Sana Clements MD [address] [place] [address] Appointment Request Social History Tobacco Use Types [...] appt with provider. Please contact pt at [phone] Nepali Speaker documented in this encounter Plan of Treatment Upcoming Encounters Date Type Department Care Team (Late st Contact Info) Description 08/12/2024 3:30 PM EDT Clinical Support [facility] MEDICINE [address] [place] [address] documented as of this encounter Visit Diagnoses Not on filedocumented in this encounter Care Teams Exerciser Relationship Specialty Start Date End Date Sana Clements MD [address] [place] [address] PCP - General Family Medicine 12/01/17 documented as of this encounter
--- OUTSIDE RECORDS SUMMARY | 2024-08-12 14:51 | XMS_ITS | Encounter Summary ---
Author Organization [employer] Address 75 [facility] 7t [place] [address] Care Team Providers Care Motel Front Desk Attendant Name Role Phone Sana Clements MD Primary Care Provide r Reason for Visit * Reason Comments Med Refill Encounter Details Date Type Department Care Team ([facility] st Contact Info) Description 12/11/2023 Refill [facility] [address] [place] [address] Brittany Gates MD [address] [place] [address] Primary osteoarthritis of both hips Social History [...] Description 08/12/2024 3:30 PM EDT Clinical Support [facility] [address] [place] [address] documented as of this encounter Visit Diagnoses Diagnosis Primary osteoarthritis of both hips documented in this encounter Additional Health Concerns Assessment Noted Time PHQ-9 Depression Total Score: 0 04/04/19 24 3:37 PM EST documented as of this encounter Care Teams Motel Front Desk Attendant Relationship Specialty Start Date End Date Sana Clements MD [address] [place] [address] PCP - General Family Medicine 12/01/17 documented as of this encounter
--- OUTSIDE RECORDS SUMMARY | 2024-08-12 14:51 | XMS_ITS | Clinical Summary ---
Author Organization [employer] Address 75 [facility] 7t [place] [address] Care Team Providers Care Couples Therapist Name Role Phone Sana Clements MD Primary [...] mL nebulizer solution 06/04/19 25 Active Creon 0445-9983 units capsule 06/08/19 25 Active atenolol (Tenormin) [...] with neurology Patient's son who is her EDUCATION PROGRAM SPECIALIST brought FMLA documents, I instructed to leave the at medical records, son also wants to increase her mother EDUCATION PROGRAM SPECIALIST hours, I advise to navigate options at [...] Description 07/24/2024 2:45 PM EDT Office Visit [facility] MEDICINE [address] [place] [phone] Sana Clements MD Essential hypertension (Primary Dx); Preop examination 07/24/2024 Travel 07/22/2024 Telephone [facility] MEDICINE [address] [place], [place] [phone] Sana Clements MD Chart prep 07/03/2024 Telephone [facility] MEDICINE [address] [place], [place] [phone] Sana Clements MD pre op 06/24/2024 Refill [facility]C MED & PEDS [address] [place], [place] [phone] Sana Clements MD Healthcare maintenance; Insomnia, unspecified type 06/10/2024 3:00 PM EDT Office Visit [facility] OPTOMETRY [address] [place] [address] Nicanor, Vibha, OD 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); Optic disc hemorrhage, right; Dry eyes; Presbyopia 06/10/2024 Travel from Last 3 Months Immunizations Immunization Administration Dates Next Due INFLUENZA INJECTABLE QUADRIV [...] the past 12 months, has t he [employer], gas, oil or water company threatened to [...] Description 08/12/2024 3:30 PM EDT Clinical Support [facility] MEDICINE [address] [place] [address] [phone] Health Maintenance Due Date Last Done Comments [...] patient's age to complete this topic Meningococcal B Vaccine Aged Out No l onger eligible based on patient's age to complete [...] EDT Narrative 10/10/2023 3:52 PM EDT ? [facility] ? [address] ?[place] [address] ? Mammography Report ? Signed ? Patient: Laurie Mtz ?MR#: [id number] ?? [id number] ? : 1945 ?Acct:[id number] ? Age/Sex: 78 / F ?ADM Date: 10/10/23 ? Loc: HO.MAMMO ? Attending Dr: Александр Burciaga MD ? Ordering Physician: Александр Burciaga MD ?Results: 2Beni ?? gn Findings ? Date of Service: 10/10/23 ?Follow Up: 1 Year From Orig ?? inal Mammogram ? Procedure(s): MM tomosynthesis diagnostic BI ?? Accession Number(s): [id number] ? cc: Sana Clements MD; Александр Burciaga [...] 1548 ? DD/ 1500 ? TD/TT: ? Semiconductor Dies Loader: ? Procedure Note Donmariiater, Image - 10/10/2023 [facility] [address] [place] [address] Mammography Report Signed Patient: Kay Mtz#: [id number] : 4Acct:[id number] Age/Sex: 78 / FADM Date: 10/10/23 Loc: HO.MAMMO Attending Dr: Александр Burciaga MD Ordering Physician: Александр Burciagaesults: 2Beni gn Findings Date of Service: 10/10/23Follow Up: 1 Year From Orig ina Mammogram Procedure(s): MM tomosynthesis diagnostic BI Accession Number(s): [id number] cc: Sana Clements MD; Александр Burciaga MD [...] in OV> 10/10/23 1548 DD/ 1500 TD/TT: Semiconductor Dies Loader: [facility] External Provider IMG BI PROCEDURES Final [...] ?? Juan MEDINA et al. CHANCE. 2013;310(19): 5406-4738 ?? ([email or web address]) Non-HDL Cholesterol 111 <130 mg/dL (calc) [facility] Comment: For patients with diabetes plus 1 major ASCVD risk ?? factor, treating to a non-HDL-C goal of <100 mg/dL ?? (LDL-C of <70 mg/dL) is considered a therapeutic ?? option. Triglycerides 118 <150 mg/dL [facility] 06/01/2020 10:1 3 AM EST Sana Rao MD LAB BLOOD ORDERABLES Final Result [facility] [address] from Last 3 Months or Most Recently Relevant to Health Maintenance Insurance [facility] USP OPTIONS (O D-SNP) [place] [id number] Care Teams Couples Therapist Relationship Specialty Start Date End Date Sana Clements MD [address] [place] [phone] PCP - General Family Medicine 12/01/17
--- OUTSIDE RECORDS SUMMARY | 2024-08-12 14:51 | XMS_ITS | Encounter Summary ---
Author Organization [employer] Address 75 [facility] 7t [place] [address] Care Team Providers Care Geospatial Intelligence Analyst Name Role Phone Sana Clements MD Primary Care Provide r Encounter Details Date Type Department Care Team (Late Contact Info) Description 04/12/2022 Orders Only [facility] MEDICINE [address] [place] [address] [phone] Jessie Herrera MD [address] [place], [place] [phone] Acute pain of right shoulder (Primary Dx) [...] Department Care Team (Late Contact Info) Description 08/12/2024 3:30 PM EDT Clinical Support [facility] MEDICINE [address] [place] [address] [phone] documented as of this encounter Visit Diagnoses Diagnosis Acute pain of right shoulder- Primary documented in this encounter Care Teams Geospatial Intelligence Analyst Relationship Specialty Start Date End Date Sana Clements MD [address] [place] [address] PCP - General Family Medicine 12/01/17 documented as of this encounter
--- OUTSIDE RECORDS SUMMARY | 2024-08-12 14:51 | XMS_ITS | Encounter Summary ---
Author Organization [employer] Address 75 [facility] 7t [place] [address] Care Team Providers Care Boilers And Pressure Vessels Inspector Name Role Phone Sana Clements MD Primary Care Provide r Encounter Details Date Type Department Care Team (Late Contact Info) Description 03/15/2022 Refill [facility] [address] [place] [address] Sana Clements MD [address] [place] [address] Primary osteoarthritis of both hips; Chronic obstructive [...] Description 08/12/2024 3:30 PM EDT Clinical Support [facility]INE [address] [place] [phone] documented as of this encounter Visit Diagnoses Diagnosis Primary osteoarthritis of both hips Chronic obstructive pulmonary disease, unspecified COPD type (CMS/HCC) documented in this encounter Care Teams Boilers And Pressure Vessels Inspector Relationship Specialty Start Date End Date Sana Clements MD [address] [place], [place] [phone] PCP - General Family Medicine 12/01/17 documented as of this encounter
--- OUTSIDE RECORDS SUMMARY | 2024-08-12 14:51 | XMS_ITS | Encounter Summary ---
Author Organization [employer] Address 75 [facility] 7t [place] [address] Care Team Providers Care Land Use Planner Name Role Phone Sana Clements MD Primary Care Provide r Reason for Visit * Reason Comments Med Refill Encounter Details Date Type Department Care Team ([facility] st Contact Info) Description 01/04/2024 Refill [facility] MED[facility]INE [address] [place] [address] Sana Clements MD [address] [place] [address] Uncomplicated asthma, unspecified asthma severity, unspecified whether [...] Description 08/12/2024 3:30 PM EDT Clinical Support [facility] MEDICINE [address] [place] [phone] documented as of this encounter Visit Diagnoses Diagnosis Uncomplicated asthma, unspecified asthma severity, unspecified whether persistent documented in this encounter Additional Health Concerns Assessment Noted Time PHQ-9 Depression Total Score: 0 04/04/19 24 3:37 PM EST documented as of this encounter Care Teams Land Use Planner Relationship Specialty Start Date End Date Sana Clements MD [address] [place] [address] PCP - General Family Medicine 12/01/17 documented as of this encounter
--- OUTSIDE RECORDS SUMMARY | 2024-08-12 14:51 | XMS_ITS | Encounter Summary ---
Author Organization [employer] Address 75 [facility] 7t [place] [address] Care Team Providers Care Crutch Maker Name Role Phone Sana Clements MD Primary Care Provide r Reason for Visit * Reason Onset Date Comments F/U ext 06/20/23 05/29/2023 Encounter Details Date Type Department Care Team ([facility] st Contact Info) Description 05/29/2023 Telephone [facility] MEDICINE [address] [place] [address] Sana Clements MD [address] [place] [address] F/U ext 06/20/23 Social History Tobacco Use [...] orMonday after 2:30. Please contact son at [phone]. documented in this encounter Plan of Treatment Upcoming Encounters Date Type Department Care Team (Late st Contact Info) Description 08/12/2024 3:30 PM EDT Clinical Support [facility] MEDICINE [address] [place] [address] documented as of this encounter Visit Diagnoses Not on filedocumented in this encounter Additional Health Concerns Assessment Noted Time PHQ-9 Depression Total Score: 0 04/04/19 24 3:37 PM EST documented as of this encounter Care Teams Crutch Maker Relationship Specialty Start Date End Date Sana Clements MD [address] [place] [address] PCP - General Family Medicine 12/01/17 documented as of this encounter
[2024-08-12 15:09] VITALS: BP 170/80; PULSE 50; BMI 22.0
--- NOTE | 2024-08-12 15:09 | MHC.OFFVIS ---
Vital Signs 08/12/24 15:09 Height 5 ft Weight 112 lb 6.972 oz BMI 22.0 BP 170/80 H Blood Pressure Location Lt brachial Position Sitting Pulse 50 Pulse Source Monitor Intake Visit Reasons: 6m follow up Electronic Train Control Technician Required: Yes Electronic Train Control Technician Language: Pci Security Consultant Name: voice turcios [id number] Textbook Associate: Textbook Associate Present Allergies ibuprofen Adverse Reaction (Intermediate, Verified 08/12/24 15:13) NAUSEA oxycodone [From PERCOCET] Adverse Reaction (Intermediate, Verified 08/12/24 15:13) NAUSEA Medication List - Last Reconciled 08/12/24 by SAHARA Tovar acetaminophen mg PO albuterol sulfate 2.5 mg inhalation TID PRN albuterol sulfate 90 mcg/actuation 90 mcg inhalation Q4-6H PRN amlodipine 10 mg PO QAM atenolol 75 mg PO QAM atorvastatin 40 mg PO BEDTIME buspirone 5 mg PO BID calcium carbonate-vitamin D3 600 mg-10 mcg (400 unit) 1 tab PO DAILY celecoxib (Celebrex) 200 mg PO BID 30 days cyclobenzaprine 5 mg PO BEDTIME PRN diclofenac sodium 1% topical dupilumab (Dupixent) 300 mg (2 mL) subcut Q2W eluxadoline (Viberzi) 100 mg PO BID exemestane 25 mg PO DAILY famotidine 40 mg PO BEDTIME fluticasone propion-salmeterol 500-50 mcg/dose 1 ea inhalation DAILY fluticasone propionate 50 mcg/actuation 1 spray intranasal DAILY furosemide 20 mg PO QAM hydrochlorothiazide 50 mg PO QAM hydrocortisone 2.5% appl topical ipratropium-albuterol 0.5 mg-3 mg(2.5 mg base)/3 mL 3 mL inhalation Q4-6H PRN ketotifen fumarate 0.025%(0.035%) 1 drp ophthalmic (eye) BID cixyhj-orgygxzq-cesfnlj 3,000-9,500- 15,000 unit (Creon) 1 cap PO QID loratadine 10 mg PO DAILY losartan 100 mg PO DAILY metoclopramide HCl (Reglan) 5 mg PO TID miconazole nitrate 2% 1 appl topical BID PRN xbwmkjftxzaf-nrxs-ecarl acid 18-400 mg-mcg 1 tab PO QAM omeprazole 40 mg PO QAM polyvinyl alcohol 1.4% 2 drps ophthalmic (eye) DAILY sertraline 25 mg PO DAILY topiramate 25 mg PO BID trazodone 100 mg PO BEDTIME HPI HPI 6m follow up: Details: Laurie is a 79-year-old female past medical history of hypertension, hyperlipidemia, asthma, GERD, mild nonobstructive coronary artery disease who presents for follow-up. Today she reports that she has been doing well since her last visit in December. She does have some shortness of breath with activity that she relates to asthma. No PND, orthopnea or edema. No chest discomfort at rest or with activity. No lightheadedness, presyncope, syncope, palpitations. Uses a pill pack for her medications and takes them as directed. Her son is present. Certified american sign language interpreter used. [facility] Medical History High cholesterol HTN (hypertension), benign Mood disorder Memory impairment COPD (chronic obstructive pulmonary disease) Hx of gastritis Hiatal hernia Osteoarthritis of both hips Chronic post-concussion headache Post concussion syndrome Environmental allergies GERD (gastroesophageal reflux disease) Moderate persistent asthma Surgical History History of lumpectomy of right breast (08/30/21) History of esophagogastroduodenoscopy (EGD) H/O colonoscopy H/O lithotripsy History of tubal ligation History of section Hx of cholecystectomy Family History Mother Colon cancer Son Myocardial infarct Social History Household Members: None Housing: Apartment Are you a primary patient care to a significant other at home: No Do you presently have visiting nurse or other home services: No (Son takes care of her) Comment: balance Issues Patient Tobacco Use Status: Never used Tobacco service: No Current occupational status: disabled Review of Systems Const All systems reviewed & are unremarkable except as noted in HPI and below ENT Denies dizziness Card Denies chest pain, Denies chest pain at rest, Denies chest pain with activity, Denies rapid heart rate, Denies pedal edema, Denies edema, Denies leg edema, Denies lightheadedness, Denies palpitations, Denies dyspnea, Denies dyspnea on exertion and Denies orthopnea Resp Denies cough, Denies dyspnea and Denies dyspnea on exertion GI Denies hematochezia and Denies change in stool character Musc Denies abnormal gait, Denies limited range of motion, Denies muscle cramps, Denies muscle weakness, Denies numbness, Denies radiating pain into limb, Denies stiffness and Denies tingling Neuro Denies abnormal gait, Denies dizziness, Denies numbness and Denies tingling Endo Denies palpitations Physical Exam Vital Signs: Last Vital Signs Pulse 50 08/12/24 15:09 BP 170/80 H 08/12/24 15:09 BMI result Body Mass Index 22.0 Const General: cooperative, healthy appearing, comfortable and no acute distress Orientation/consciousness: patient oriented x3 Resp Effort & Inspection: normal respiratory effort Auscultation: clear to auscultation bilaterally, no crackles, no rales, no rhonchi and no wheezes Cardio Rate: regular rate Rhythm: regular rhythm Heart sounds: S1 normal heart sound present, S2 normal heart sound present, no gallops, no murmurs and no rubs Neuro General: patient oriented x3 Extrem General: Yes normal to inspection, No no pedal edema and No calf tenderness Psych Appearance: grossly normal Mental Status: mental status grossly normal Speech and movement: Normal speech and movement present Office Procedures EKG Details: today, read by me, sinus bradycardia, rate 50, Qtc 419ms [id number], Complete Assessment & Plan Assessment & Plan (1) HTN (hypertension), benign: Code(s): I10 - Essential (primary) hypertension Category: Medical Plan: Blood pressure goal less than 130/80. Blood pressure initially elevated at 170/80, recheck done by me 200/90. She reports compliance with her amlodipine, atenolol, Lasix, losartan. She uses pill pack from the pharmacy. Will add hydralazine 25 mg t.i.d.. Reviewed low-salt diet. Cardiology follow-up in 1 month for re-evaluation (2) Dyspnea on exertion: Code(s): R06.00 - Dyspnea, unspecified Category: Medical Plan: Report of shortness of breath with activity with prior cardiac evaluation showing grade 2 diastolic dysfunction and nonobstructive coronary disease. An echocardiogram was done on 07/24/2023 showing EF 65%, grade 2 diastolic dysfunction, mild calcification of the aortic valve, mild mitral annular calcification, mild MR, large plaque in the sinotubular ridge. A nuclear stress test was done on 09/01/2023 showing ncxw-uu-rpoxxcvr septal and apical, distal anterior ischemia in the mid to distal LAD territory. A CTA of the coronary arteries was completed on 01/16/2002 for showing left main focal calcification less than 25% stenosis, lad proximal to mid less than 25% stenosis. Her shortness of breath is likely related to her asthma. She continues on Lasix 20 mg daily and does not appear fluid overloaded. Continue management for asthma as directed by pulmonology. Signs and symptoms of heart failure reviewed. (3) CAD (coronary artery disease): Code(s): I25.10 - Atherosclerotic heart disease of resighini coronary artery without angina pectoris Category: Medical Plan: Cardiac testing as above. Finding of mild nonobstructive coronary artery disease. Will continue to treat with risk factor modification with good cholesterol and blood pressure control. Sherrard LDL goal less than 70. Labs done 11/14/2023 showed LDL 75. At that time her simvastatin was changed to atorvastatin 40 mg daily. Repeat lipids due. Recommend daily aspirin if there is no contraindication. She does mention allergy to ibuprofen. Continue atenolol. Continue physical activity as tolerated. (4) Diastolic dysfunction: Code(s): I51.89 - Other ill-defined heart diseases Category: Medical Plan: As above. No clinical signs of heart failure on exam. (5) Sinus bradycardia: Code(s): R00.1 - Bradycardia, unspecified Category: Medical Plan: EKG today showing sinus bradycardia, rate 50, asymptomatic. She continues on atenolol 75 mg daily. Will check Holter to ensure there is no significant Frank or pauses. Plan Time spent on chart review, documentation, interview and assessment Orders: Orders ECG 3 day holter monitor 08/12/24 R00.1 - Bradycardia, unspecified Medications: New hydralazine new 25 mg PO TID 90 tabs 5RF Coding Level of Care Code Est Pt Level 4 (19568) Complex EM visit Add On G2211 Diagnoses HTN (hypertension), benign I10 Dyspnea on exertion R06.00 CAD (coronary artery disease) I25.10 Diastolic dysfunction I51.89 Sinus bradycardia R00.1 CPT Codes EKG - CPT: 40713-[id number], Complete ([id number]) Time Spent (min) 28
== END 2024-08-12 16:02 | disposition home or self-care (01) ==
LOC: HO.HCS 14:45
PROVIDERS: PCP Internal Medicine; Visit Provider Nurse Practitioner Family
DX: I10 Essential (primary) hypertension (principal); R06.00 Dyspnea, unspecified; I25.10 Atherosclerotic heart disease of native coronary artery without angina pectoris; I51.89 Other ill-defined heart diseases; R00.1 Bradycardia, unspecified
CPT/HCPCS: 99214; G2211

== ENCOUNTER → 2024-08-12 14:44 | Outpatient (BNVA) | payer OTHER, SELFPAY | PROVIDERS: PCP Internal Medicine; Visit Provider Nurse Practitioner Family | DX: I25.10 Atherosclerotic heart disease of native coronary artery without angina pectoris (principal); I51.89 Other ill-defined heart diseases; R06.00 Dyspnea, unspecified; R00.1 Bradycardia, unspecified; I10 Essential (primary) hypertension | CPT/HCPCS: 93005; 99212 ==

== ENCOUNTER → 2024-09-10 10:12 | Outpatient (REF) | payer OTHER, SELFPAY ==
--- OUTSIDE RECORDS SUMMARY | 2024-09-10 11:40 | XMS_ITS | Encounter Summary ---
Author Organization [employer] Address [address] [facility] 7t [place] [address] Care Team Providers Care Procurement Engineer Name Role Phone Sana Clements MD Primary Care Provide r Reason for Visit * Reason Comments Med Refill Encounter Details Date Type Department Care Team ([facility] st Contact Info) Description 12/11/2023 Refill [facility] MEDICINE [address] [place] [address] Brittany Gates MD [address] [place] [address] Primary osteoarthritis of both hips Social History [...] as of this encounter Plan of Treatment Not on file documented as of this encounter Visit Diagnoses Diagnosis Primary osteoarthritis of both hips documented in this encounter Additional Health Concerns Assessment Noted Time PHQ-9 Depression Total Score: 0 04/04/19 24 3:37 PM EST documented as of this encounter Care Teams Procurement Engineer Relationship Specialty Start Date End Date Sana Clements MD [address] [place] [phone] PCP - General Family Medicine 12/01/17 documented as of this encounter
== END ==
LOC: HO.CARD 10:12
PROVIDERS: PCP Internal Medicine; Visit Provider Nurse Practitioner Family
DX: R00.1 Bradycardia, unspecified (principal)
CPT/HCPCS: 93242

== ENCOUNTER → 2024-09-10 10:15 | Outpatient (BNV) | payer OTHER, SELFPAY | PROVIDERS: PCP Internal Medicine; Visit Provider Internal Medicine | DX: I47.10 Supraventricular tachycardia, unspecified (principal); I49.3 Ventricular premature depolarization | CPT/HCPCS: 93244 ==

== ENCOUNTER 2024-09-23 14:37 | Outpatient (AMB) | payer OTHER, SELFPAY ==
--- OUTSIDE RECORDS SUMMARY | 2024-09-23 15:08 | XMS_ITS | Encounter Summary ---
Author Organization [employer] Address [address] [facility] 7t [place] [address] Care Team Providers Care Camera Storage Clerk Name Role Phone Sana Clements MD Primary Care Provide r Reason for Visit * Reason Comments Med Refill Encounter Details Date Type Department Care Team ([facility] st Contact Info) Description 12/11/2023 Refill [facility] MEDICINE [address] [place] [address] Brittany Gates MD [address] [place] [address] Primary osteoarthritis of both hips Social History [...] documented as of this encounter Care Teams Camera Storage Clerk Relationship Specialty Start Date End Date Sana Clements MD [address] [place] [id number] PCP - General Family Medicine 12/01/17 documented as of this encounter
[2024-09-23 15:13] VITALS: BP 190/80; PULSE 53; BMI 21.7
--- NOTE | 2024-09-23 15:13 | MHC.OFFVIS ---
Vital Signs 09/23/24 15:13 Height 5 ft Weight 111 lb 1.808 oz BMI 21.7 BP 190/80 H Blood Pressure Location Lt brachial Position Sitting Pulse 53 Pulse Source Monitor Intake Visit Reasons: 6 wk f/up Dumpster Operator Required: Yes Dumpster Operator Language: Faroese Steel Unloader: Steel Unloader Present Allergies ibuprofen Adverse Reaction (Intermediate, Verified 09/23/24 15:20) NAUSEA oxycodone (From PERCOCET) Adverse Reaction (Intermediate, Verified 09/23/24 15:20) NAUSEA Medication List - Last Reconciled 09/23/24 by SAHARA Tovar acetaminophen mg PO albuterol sulfate 2.5 mg inhalation TID PRN albuterol sulfate 90 mcg/actuation 90 mcg inhalation Q4-6H PRN amlodipine 10 mg PO QAM atenolol 75 mg PO QAM atorvastatin 40 mg PO BEDTIME buspirone 5 mg PO BID calcium carbonate-vitamin D3 600 mg-10 mcg (400 unit) 1 tab PO DAILY celecoxib (Celebrex) 200 mg PO BID 30 days cyclobenzaprine 5 mg PO BEDTIME PRN diclofenac sodium 1% topical eluxadoline (Viberzi) 100 mg PO BID exemestane 25 mg PO DAILY famotidine 40 mg PO BEDTIME fluticasone propion-salmeterol 500-50 mcg/dose 1 ea inhalation DAILY fluticasone propionate 50 mcg/actuation 1 spray intranasal DAILY furosemide 20 mg PO QAM hydralazine 50 mg PO BID 30 days hydrochlorothiazide 50 mg PO QAM hydrocortisone 2.5% appl topical ipratropium-albuterol 0.5 mg-3 mg(2.5 mg base)/3 mL 3 mL inhalation Q4-6H PRN ketotifen fumarate 0.025%(0.035%) 1 drp ophthalmic (eye) BID kplesp-neibnyka-cdmkxjv 3,000-9,500- 15,000 unit (Creon) 1 cap PO QID loratadine 10 mg PO DAILY losartan 100 mg PO DAILY metoclopramide HCl (Reglan) 5 mg PO TID miconazole nitrate 2% 1 appl topical BID PRN dcevwijlvqly-ahkb-oathn acid 18-400 mg-mcg 1 tab PO QAM omeprazole 40 mg PO QAM polyvinyl alcohol 1.4% 2 drps ophthalmic (eye) DAILY sertraline 25 mg PO DAILY topiramate 25 mg PO BID trazodone 100 mg PO BEDTIME HPI HPI 6 wk f/up: Details: Laurie is a 79-year-old female past medical history of hypertension, hyperlipidemia, asthma, GERD, mild nonobstructive coronary artery disease who had elevated blood pressure on last visit and hydralazine was added. She now presents for follow-up. Today she reports that she feels well with no concerning symptoms. She is upset today that her blood pressure is so high. She reports compliance with her medications, but is not taking the mid day hydralazine. She uses a pill pack made by the pharmacy. She does have some shortness of breath with activity that she relates to asthma. No PND, orthopnea or edema. No chest discomfort at rest or with activity. No lightheadedness, presyncope, syncope, palpitations. She avoids salt in her diet. Her son is present. Certified motor vehicle parts interpreter used. [facility] Medical History High cholesterol HTN (hypertension), benign Mood disorder Memory impairment COPD (chronic obstructive pulmonary disease) Hx of gastritis Hiatal hernia Osteoarthritis of both hips Chronic post-concussion headache Post concussion syndrome Environmental allergies GERD (gastroesophageal reflux disease) Moderate persistent asthma Surgical History History of lumpectomy of right breast (08/30/21) History of esophagogastroduodenoscopy (EGD) H/O colonoscopy H/O lithotripsy History of tubal ligation History of section Hx of cholecystectomy Family History Mother Colon cancer Son Myocardial infarct Social History Household Members: None Housing: Apartment Are you a primary ocular care technician to a significant other at home: No Do you presently have visiting nurse or other home services: No (Son takes care of her) Comment: balance Issues Patient Tobacco Use Status: Never used Tobacco service: No Current occupational status: disabled Review of Systems Const All systems reviewed & are unremarkable except as noted in HPI and below ENT Denies dizziness Card Denies chest pain, Denies chest pain at rest, Denies chest pain with activity, Denies rapid heart rate, Denies pedal edema, Denies edema, Denies leg edema, Denies lightheadedness, Denies palpitations, Denies dyspnea, Denies dyspnea on exertion and Denies orthopnea Resp Denies cough, Denies dyspnea and Denies dyspnea on exertion GI Denies hematochezia and Denies change in stool character Musc Denies abnormal gait, Denies limited range of motion, Denies muscle cramps, Denies muscle weakness, Denies numbness, Denies radiating pain into limb, Denies stiffness and Denies tingling Neuro Denies abnormal gait, Denies dizziness, Denies numbness and Denies tingling Endo Denies palpitations Physical Exam Vital Signs: Last Vital Signs Pulse 53 09/23/24 15:13 BP 190/80 H 09/23/24 15:13 BMI result Body Mass Index 21.7 Const General: cooperative, healthy appearing, comfortable and no acute distress Orientation/consciousness: patient oriented x3 Neck Neck: Yes normal visual inspection Resp Effort & Inspection: normal respiratory effort Auscultation: clear to auscultation bilaterally, no rales, no rhonchi and no wheezes Cardio Rate: regular rate Rhythm: regular rhythm Heart sounds: S1 normal heart sound present, S2 normal heart sound present, no gallops, no murmurs and no rubs Neuro General: patient oriented x3 Extrem Other: soft pitting edema in lower legs Psych Appearance: grossly normal Mental Status: mental status grossly normal Speech and movement: Normal speech and movement present Office Procedures EKG Details: Today, read by me, sinus bradycardia, rate 53, Qtc 412ms [id number], Complete Assessment & Plan Assessment & Plan (1) Uncontrolled hypertension: Code(s): I10 - Essential (primary) hypertension Category: Medical Plan: Blood pressure goal less than 130/80. Blood pressure elevated at 190/80. She is not taking her med day hydralazine and prefers b.i.d. medications. Will change hydralazine to 50 mg b.i.d.. Continue amlodipine, atenolol, Lasix, losartan. - will need to clarify with the pharmacy to ensure that each of these are in her pill pack. Due to difficult control hypertension Will check renal artery ultrasound to evaluate for renal artery stenosis. Will check labs including plasma metanephrines and serum aldosterone. Plan to call her with results. Reviewed low-salt diet. Cardiology follow-up in 2 month for re-evaluation- sooner if needed. (2) HTN (hypertension), benign: Code(s): I10 - Essential (primary) hypertension Category: Medical Plan: As above (3) Dyspnea on exertion: Code(s): R06.00 - Dyspnea, unspecified Category: Medical Plan: Report of shortness of breath with activity with prior cardiac evaluation showing grade 2 diastolic dysfunction and nonobstructive coronary disease. An echocardiogram was done on 07/24/2023 showing EF 65%, grade 2 diastolic dysfunction, mild calcification of the aortic valve, mild mitral annular calcification, mild MR, large plaque in the sinotubular ridge. A nuclear stress test was done on 09/01/2023 showing pkrp-up-uwwmlyve septal and apical, distal anterior ischemia in the mid to distal LAD territory. A CTA of the coronary arteries was completed on 01/16/2002 for showing left main focal calcification less than 25% stenosis, lad proximal to mid less than 25% stenosis. Her shortness of breath is likely related to her asthma. Continue Lasix 20 mg daily. Continue management for asthma as directed by pulmonology. Signs and symptoms of heart failure reviewed. (4) CAD (coronary artery disease): Code(s): I25.10 - Atherosclerotic heart disease of [place] coronary artery without angina pectoris Category: Medical Plan: Cardiac testing as above. Finding of mild nonobstructive coronary artery disease. Will continue to treat with risk factor modification with good cholesterol and blood pressure control. [place] LDL goal less than 70. Labs done 11/14/2023 showed LDL 75. At that time her simvastatin was changed to atorvastatin 40 mg daily. Repeat lipids due. Recommend daily aspirin if there is no contraindication. She does mention allergy to ibuprofen. Continue atenolol. Continue physical activity as tolerated. (5) Diastolic dysfunction: Code(s): I51.89 - Other ill-defined heart diseases Category: Medical Plan: As above. No clinical signs of heart failure on exam. (6) Sinus bradycardia: Code(s): R00.1 - Bradycardia, unspecified Category: Medical Plan: EKG last visit showing sinus bradycardia, rate 50, asymptomatic. Pulse today 53. She continues on atenolol 75 mg daily. Holter monitor done on 09/10/2024 for 3 days shows sinus rhythm with average heart rate 56, 73% of the time heart rate less than 60, SVE burden 2.6%, rare ventricular ectopy. Plan I discussed with the patient the need to adjust her hydralazine dosage to 50 mg twice daily to improve blood pressure control. We talked about the possibility of kidney artery blockages and the importance of an ultrasound to investigate this. I explained the potential need for a nephrology referral to manage her hypertension more effectively. We also discussed the use of compression stockings to help with her leg swelling. Orders: Orders Metanephrines, Plasma 09/23/24 I10 - Essential (primary) hypertension US renal doppler 09/23/24 I70.1 - Atherosclerosis of renal artery US renal BI 09/23/24 I70.1 - Atherosclerosis of renal artery Aldosterone 09/23/24 I10 - Essential (primary) hypertension Basic Metabolic Panel 09/23/24 I10 - Essential (primary) hypertension Medications: New hydralazine adjust pill pack 50 mg PO BID 60 tabs 5RF 30 days Discontinued hydralazine new Discontinued Reason: Doctor's Order 25 mg PO TID 90 tabs 5RF Patient Instructions: - Take hydralazine 50 mg twice daily. - Wear compression stockings in the morning to reduce leg swelling. - Attend scheduled ultrasound and blood tests to investigate blood pressure issues. Patient was informed and verbally consented to the use of an ambient scribe for clinic note documentation during this visit. Visit time spent on chart review, interview, assessment, orders, documentation. Coding Level of Care Code Est Pt Level 4 (62635) Complex EM visit Add On G2211 Diagnoses Uncontrolled hypertension I10 HTN (hypertension), benign I10 Dyspnea on exertion R06.00 CAD (coronary artery disease) I25.10 Diastolic dysfunction I51.89 Sinus bradycardia R00.1 CPT Codes EKG - CPT: [id number]-[id number], Complete ([id number])
== END 2024-09-24 08:27 | disposition home or self-care (01) ==
LOC: HO.HCS 14:38
PROVIDERS: PCP Internal Medicine; Visit Provider Nurse Practitioner Family
DX: I10 Essential (primary) hypertension (principal); R06.00 Dyspnea, unspecified; I25.10 Atherosclerotic heart disease of native coronary artery without angina pectoris; I51.89 Other ill-defined heart diseases; R00.1 Bradycardia, unspecified
CPT/HCPCS: 99214; G2211

== ENCOUNTER → 2024-09-23 14:37 | Outpatient (BNVA) | payer OTHER, SELFPAY | PROVIDERS: PCP Internal Medicine; Visit Provider Nurse Practitioner Family | DX: I10 Essential (primary) hypertension (principal); E78.5 Hyperlipidemia, unspecified; E78.00 Pure hypercholesterolemia, unspecified; J45.909 Unspecified asthma, uncomplicated; K21.9 Gastro-esophageal reflux disease without esophagitis; R06.00 Dyspnea, unspecified; I25.10 Atherosclerotic heart disease of native coronary artery without angina pectoris; R00.1 Bradycardia, unspecified; I51.89 Other ill-defined heart diseases | CPT/HCPCS: 93005; 99212 ==

== ENCOUNTER 2024-10-01 14:40 | Outpatient (REF) | payer OTHER, SELFPAY ==
--- NOTE | ~2024-10-01 | US_ITS ---
EXAMINATION: US LOWER EXTREMITY VEINS LIMITED FOLLOW UP LEFT HISTORY: left leg swelling COMPARISON: There are no prior studies available for comparison. TECHNIQUE: Duplex and color Doppler sonographic examination of the deep venous system of the left lower extremity was performed. FINDINGS: The common femoral, superficial femoral, and popliteal veins are patent demonstrating normal compressibility, spontaneous flow, and augmentation. There is a normal color and spectral Doppler waveform appearance of the visualized deep venous system above the knee. The posterior tibial and peroneal veins are patent. US/US venous duplex LE LT IMPRESSION: No evidence of acute DVT in the left lower extremity. Electronically signed by: Vinayak Roa MD 10/01/2024 03:20 PM EDT
--- OUTSIDE RECORDS SUMMARY | 2024-10-01 15:28 | XMS_ITS | Encounter Summary ---
Author Organization [email or web address] Address [address] [facility] [address] [place] [address] Care Team Providers Care Baker Pie Name Role Phone Sana Clements MD Primary Care Provide r Reason for Visit * Reason Comments Med Refill Encounter Details Date Type Department Care Team ([facility] st Contact Info) Description 12/11/2023 Refill [facility] MEDICINE [address] [place] [address] Brittany Gates MD [address] [place] [address] Primary osteoarthritis of both hips Social History [...] documented as of this encounter Care Teams Baker Pie Relationship Specialty Start Date End Date Sana Clements MD [address] [place] [phone] PCP - General Family Medicine 12/01/17 documented as of this encounter
[2024-10-01 15:59] LABS: Alanine Aminotransferase 30 U/L (0-31); Albumin Level 4.3 g/dL (3.5-5.0); Alkaline Phosphatase 63 U/L (39-117); Anion Gap 14 (12-20); Aspartate Amino Transferase 30 U/L (5-31); Blood Urea Nitrogen 16 mg/dL (9-16); Calcium 9.2 mg/dL (8.4-10.2); Carbon Dioxide 28 mmol/L (22-29); Chloride 105 mmol/L (96-108); Cholesterol 112 mg/dL (<200); Estimated Glomerular Filt Rate 59; HDL Cholesterol 47 mg/dL (>40); Potassium 3.9 mmol/L (3.3-5.1); Sodium 143 mmol/L (135-145); Total Protein 6.7 g/dL (6.5-8.0); Triglycerides 68 mg/dL (<150)
[2024-10-01 17:40] LABS: Appearance Urine Clear; Glucose Urine UA Negative (Negative); PH 7.5 (5.0-9.0); Specific Gravity - Urine 1.010 (1.005-1.025); UMIC TRIGGER UA YES
[2024-10-06 09:53] LABS: Metanephrine, Free 51 pg/mL (<=57); Normetanephrines, Free 100 pg/mL (<=148); Total Metanephrine, Free 151 pg/mL (<=205)
== END 2024-10-01 14:41 | disposition home or self-care (01) ==
LOC: HO.US 14:40
PROVIDERS: Absent Provider Nurse Practitioner Family; PCP Internal Medicine; Visit Provider Internal Medicine
DX: I10 Essential (primary) hypertension (principal); E78.00 Pure hypercholesterolemia, unspecified; M79.89 Other specified soft tissue disorders; R60.0 Localized edema; R06.00 Dyspnea, unspecified
CPT/HCPCS: 36415; 80053; 80061; 81001; 82088; 83835; 93971

== ENCOUNTER → 2024-10-01 15:03 | Outpatient (BNV) | payer OTHER, SELFPAY | PROVIDERS: Absent Provider Nurse Practitioner Family; PCP Internal Medicine; Visit Provider Radiology Diagnostic Radiology | DX: R22.42 Localized swelling, mass and lump, left lower limb (principal) | CPT/HCPCS: 93971 ==

== ENCOUNTER 2024-10-14 14:00 | Outpatient (REF) | payer OTHER, SELFPAY ==
--- NOTE | ~2024-10-14 | MM_ITS ---
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 COMPARISON: Mammography: Comparison is made with relevant prior exams. TECHNIQUE: Digital breast mammography with tomosynthesis is performed in both the craniocaudal and mediolateral oblique views along with computer-aided detection (CAD). FINDINGS: The breasts are extremely dense, which lowers the sensitivity of mammography (ACR BI-RADS breast composition Category d). Right post lumpectomy changes are stable. There are no significant masses, abnormal calcifications, or other abnormalities. Results are provided to the patient at time of visit by the technologist. MM/MM tomosynthesis diagnostic BI IMPRESSION: There are no significant changes from prior study. ASSESSMENT: BI-RADS BI-RADS 2 - Benign Findings RECOMMENDATION: 1 year F/U This patient's information was entered into a reminder system with a target due date for their next mammogram. Electronically signed by: Yane Woodson DO 10/14/2024 07:56 PM EDT
== END 2024-10-14 14:01 | disposition home or self-care (01) ==
LOC: HO.MAMMO 14:00
PROVIDERS: PCP Internal Medicine; Visit Provider Surgery
DX: Z85.3 Personal history of malignant neoplasm of breast (principal)
CPT/HCPCS: 77062; 77066

== ENCOUNTER → 2024-10-14 14:30 | Outpatient (BNV) | payer OTHER, SELFPAY | PROVIDERS: PCP Internal Medicine; Visit Provider Internal Medicine | DX: Z85.3 Personal history of malignant neoplasm of breast (principal) | CPT/HCPCS: 77066; G0279 ==

== ENCOUNTER 2024-12-16 10:26 | Outpatient (REF) | payer OTHER, SELFPAY ==
--- NOTE | ~2024-12-16 | US_ITS ---
CLINICAL HISTORY: I70.1 - Atherosclerosis of renal artery Renal duplex ultrasound Comparison: None provided Technique: Real time duplex ultrasound imaging was performed by the water use inspector. Multiple customer field representative static images were saved for review. Findings:
--- OUTSIDE RECORDS SUMMARY | 2024-12-16 12:44 | XMS_ITS | Encounter Summary ---
Author Organization [employer] Address [address] [facility] [address] [place] [address] Care Team Providers Care Nurses' Registry Director Name Role Phone Sana Clements MD Primary Care Provide r Reason for Visit * Reason Comments Med Refill Encounter Details Date Type Department Care Team ([facility] st Contact Info) Description 04/15/2023 Refill [facility] MEDICINE [address] [place] [address] Sana Clements MD [address] [place] [address] Uncomplicated asthma, unspecified asthma severity, unspecified whether [...] documented as of this encounter Care Teams Nurses' Registry Director Relationship Specialty Start Date End Date Sana Clements MD [address] [place] [address] PCP - General Family Medicine 12/01/17 documented as of this encounter
--- OUTSIDE RECORDS SUMMARY | 2024-12-16 12:44 | XMS_ITS | Encounter Summary ---
Author Organization [employer] Address [address] [facility] 7t [place] [address] Care Team Providers Care Senior Net Application Developer Name Role Phone Sana Clements MD Primary Care Provide r Reason for Visit * Reason Comments Med Refill Encounter Details Date Type Department Care Team ([facility] st Contact Info) Description 12/11/2023 Refill [facility] MEDICINE [address] [place] [address] Brittany Gates MD [address] [place] [address] Primary osteoarthritis of both hips Social History [...] documented as of this encounter Care Teams Senior Net Application Developer Relationship Specialty Start Date End Date Sana Clements MD [address] [place] [phone] PCP - General Family Medicine 12/01/17 documented as of this encounter
--- OUTSIDE RECORDS SUMMARY | 2024-12-16 12:44 | XMS_ITS | Clinical Summary ---
Author Organization [employer] Address [address] [facility] 7[address] [place] [address] Care Team Providers Care Living Supervisor Name Role Phone Sana Clements MD Primary [...] BREATH 18 g 2 01/29/20 24 Active Fluticasone-Salmet jesse 500-50 MCG/ACT aerosol [...] mL nebulizer solution 06/04/19 25 Active Creon 0149-8100 units capsule 06/08/19 25 Active atenolol (Tenormin) [...] BEDTIME 90 tablet 1 06/25/19 25 Active Calcium Carb-Cholecalcifer ol 600-10 MG-MCG tablet TAKE 1 TABLET BY MOUTH THREE TIMES DAILY IN THE MORNING, EVENING, AND BEDTIME 270 tablet 1 08/30/19 25 Active losartan (Cozaar) 100 MG tablet TAKE 1 TABLET BY MOUTH EVERY MORNING 90 tablet 1 10/04/19 25 Active sertraline (Zoloft) 25 MG tabletIndications: Mood disorder (CMS/HCC) TAKE 1 TABLET BY MOUTH EVERY MORNING 90 tablet 1 10/04/19 25 Active Active Problems Problem Noted Date [...] with neurology Patient's son who is her BILLING AND INSURANCE COORDINATOR brought FMLA documents, I instructed to leave the at medical records, son also wants to increase her mother BILLING AND INSURANCE COORDINATOR hours, I advise to navigate options at [...] Encounters Date Type Department Care Team Description 10/16/2024 Telephone [facility] [address] [place] [phone] Sana Clements MD Call Back Request 10/11/2024 Telephone [facility] [address] [place] [phone] Sana Clements MD Chart Prep 10/03/2024 Refill [facility] [address] [place] [address] [phone] Sana Clements MD Mood disorder ([facility]) 10/02/2024 Travel 10/01/2024 1:20 PM EDT Office Visit [facility] [address] [place], [place] [phone] Manuela Yeh MD Left leg swelling (Primary Dx); Dyspnea on exertion; Hypertension, essential 10/01/2024 Results Follow-Up [facility] [address] [place] [address] Maunela Yeh MD US VENOUS DUPLEX LE LT 10/01/2024 Orders Only [facility] [address] [place] [address] Manuela Yeh MD 10/01/2024 Travel 09/30/2024 Telephone [facility] [address] [place], [place] [phone] Sana Clements MD Nurse Triage from Last 3 Months Immunizations Immunization Administration [...] your housing situation today? I have monica sing 07/24/[address] you li [...] Sign Reading Time Taken Comments Blood Pressure 163/65 10/01/2024 1:05 PM EDT Pulse 58 10/01/2024 1:05 PM EDT Temperature 36.8 C (98.2 F) 10/01/2024 1:05 PM EDT Respiratory Rate 18 10/01/2024 1:05 PM EDT Oxygen Saturation 98% 10/01/2024 1:05 PM EDT Inhaled Oxygen Concentration - - Weight 50.1 kg (110 lb 6.4 oz) 10/01/2024 1:05 P M EDT Height 152.4 cm (5') 07/24/2024 2:38 PM EDT Body Mass Index 21.56 07/24/2024 2:38 PM EDT Plan of Treatment Health Maintenance Due Date Last Done Comments Zoster Vaccines (2 of 3) 10/02/2013 08/07/2013 RSV Patients and Patients Aged 60 years or older (1 - 1-dose 75+ series) 2019 DTaP/Tdap/Td Vaccines (2 - Td or Tdap) 07/20/2020 07/20/2010, 04/23/2007 SDOH Screening 06/14/2024 06/15/2023 COVID-19 Vaccine ( season) 2024 11/05/2021, 12/28/2020, 06/01/2020, Additional history exists Influenza Vaccine (#1) 2024 , 12/27/2022, 12/27/2021, Additional history exists Alcohol/Substance Use Screening 04/08/2025 04/08/2024 Depression Screening 04/08/2025 04/08/2024, 04/04/19 24 Tobacco Screening 10/01/2025 10/01/2024 Mammogram 10/14/2025 10/14/2024, 09/24, 04/10/2023, Additional history exists Lipid Panel 10/01/2029 10/01/2024, 06/01/2020 Pneumococcal Vaccine: 50+ Years Completed 12/05/2014, 08/07/2013, 10/24/2005 HIB Vaccines Aged Out No longer eligi [...] Comments BI MAMMOGRAM DIAGNOSTIC TOMOSYNTHESIS BILATERAL Routine 10/14/2024 2:10 PM EDT US VENOUS DUPLEX LE LT Routine 3:03 PM EDT METANEPHRINES, FRACT, FREE, LC/MS/MS, PLASMA Routine 10/01/2024 2:53 PM EDT ALDOSTERONE, LC/MS/MS Routine 10/01/2024 2:53 PM EDT LIPID PANEL, STANDARD Routine 10/01/2024 2:53 PM EDT COMPREHENSIVE METABOLIC PANEL Routine 10/01/2024 2:53 PM EDT URINALYSIS, COMPLETE Routine 10/01/2024 12:00 AM EDT Left leg swelling from Last 3 Months Results * BI Mammogram Diagnostic Tomosynthesis Bilateral (10/14/2024 2:10 PM EDT) Anatomical Region Laterality Modality Breast Bilateral Mammography 10/14/2024 2:10 PM EDT Narrative 10/14/2024 8:00 PM EDT [facility] [address] 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 COMPARISON: Mammography: Comparison is made with relevant prior exams. TECHNIQUE: Digital breast mammography with tomosynthesis is performed in both the craniocaudal and mediolateral oblique views along with computer-aided detection (CAD). FINDINGS: The breasts are extremely dense, which lowers the sensitivity of mammography (ACR BI-RADS breast composition Category d). Right post lumpectomy changes are stable. There are no significant masses, abnormal calcifications, or other abnormalities. Results are provided to the patient at time of visit by the technologist. MM/MM tomosynthesis diagnostic BI IMPRESSION: There are no significant changes from prior study. ASSESSMENT: BI-RADS BI-RADS 2 - Benign Findings RECOMMENDATION: 1 year F/U This patient's information was entered into a reminder system with a target due date for their next mammogram. Electronically signed by: Yane Woodson DO 10/14/2024 07:56 PM EDT RP Dictated By: Yane Woodson DO Signed By: <Electronically signed by Yane Woodson DO in OV> 10/14/241955 DD/ 1410 TD/TT: 10/14/24 1440 Relations Director: Procedure Note Donotuseinterpreter, Image - 10/14/2024 Aisha [facility] [address] 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 COMPARISON: Mammography: Comparison is made with relevant prior exams. TECHNIQUE: Digital breast mammography with tomosynthesis is performed in both the craniocaudal and mediolateral oblique views along with computer-aided detection (CAD). FINDINGS: The breasts are extremely dense, which lowers the sensitivity of mammography (ACR BI-RADS breast composition Category d). Right post lumpectomy changes are stable. There are no significant masses, abnormal calcifications, or other abnormalities. Results are provided to the patient at time of visit by the technologist. MM/MM tomosynthesis diagnostic BI IMPRESSION: There are no significant changes from prior study. ASSESSMENT: BI-RADS BI-RADS 2 - Benign Findings RECOMMENDATION: 1 year F/U This patient's information was entered into a reminder system with a target due date for their next mammogram. Electronically signed by: Yane Woodson DO 10/14/2024 07:56 PM EDT Dictated By: Yane Woodson DO Signed By: <Electronically signed by Yane Woodson DO in OV> 10/14/241955 DD/ 1410 TD/TT: 10/14/24 1440 Relations Director: [facility] External Provider IMG BI PROCEDURES Final Result * US VENOUS DUPLEX LE LT (10/01/2024 3:03 PM EDT) Anatomical Region Laterality Modality Abdomen Ultrasound 10/01/2024 3:03 PM EDT Narrative 10/01/2024 3:23 PM EDT [place] [address] Ultrasound Report Signed Patient: Laurie Mtz MR#: [id number] : 1945 Acct:[id number] Age/Sex: 79 / F ADM Date: 10/01/24 Loc: HO.US Attending Dr: [place]a Yeh MD Ordering Physician: [place]a Yeh MD Date of Service: 10/01/24 Procedure(s): US venous duplex LE LT Accession Number(s): [id number] cc: Sana lCements MD; [place] Yeh MD EXAMINATION: US LOWER EXTREMITY VEINS LIMITED FOLLOW UP LEFT HISTORY: left leg swelling COMPARISON: There are no prior studies available for comparison. TECHNIQUE: Duplex and color Doppler sonographic examination of the deep venous system of the left lower extremity was performed. FINDINGS: The common femoral, superficial femoral, and popliteal veins are patent demonstrating normal compressibility, spontaneous flow, and augmentation. There is a normal color and spectral Doppler waveform appearance of the visualized deep venous system above the knee. The posterior tibial and peroneal veins are patent. US/US venous duplex LE LT IMPRESSION: No evidence of acute DVT in the left lower extremity. Electronically signed by: Vinayak Roa MD 10/01/2024 03:20 PM EDT RP Dictated By: Vinayak Roa MD Signed By: <Electronically signed by Vinayak Roa MD in OV> 10/01/24 1520 DD/ 1503 TD/TT: 10/01/24 1513 Relations Director: Procedure Note Donotuseinterpreter, Image - 10/01/2024 [place] [address] Ultrasound Report Signed Patient: Kay Mtz#: [id number] : 4Acct:[id number] Age/Sex: 79 / FADM Date: 10/01/24 Loc: . Attending Dr: [place] Yeh MD Ordering Physician: [place] Yeh MD Date of Service: 10/01/24 Procedure(s): US venous duplex LE LT Accession Number(s): [id number] cc: Sana Clements MD; [place] Yeh MD EXAMINATION: US LOWER EXTREMITY VEINS LIMITED FOLLOW UP LEFT HISTORY: left leg swelling COMPARISON: There are no prior studies available for comparison. TECHNIQUE: Duplex and color Doppler sonographic examination of the deep venous system of the left lower extremity was performed. FINDINGS: The common femoral, superficial femoral, and popliteal veins are patent demonstrating normal compressibility, spontaneous flow, and augmentation. There is a normal color and spectral Doppler waveform appearance of the visualized deep venous system above the knee. The posterior tibial and peroneal veins are patent. US/US venous duplex LE LT IMPRESSION: No evidence of acute DVT in the left lower extremity. Electronically signed by: Vinayak Roa MD 10/01/2024 03:20 PM EDT Dictated By: Vinayak Roa MD Signed By: <Electronically signed by Vinayak Roa MD in OV> 10/01/24 1520 DD/ 1503 TD/TT: 10/01/24 1513 Relations Director: [place] Yeh MD [facility] US PROCEDURES Final Resul t * Metanephrines, Fractionated, Free, LC/MS/MS, Plasma (10/01/2024 2:53 PM EDT) Metanephrine, Free 51 <=57 pg/mL [facility] Comment:This test was develo ped and its analytical performancecharacteristics have been determined by [employer] [place], [place]. It hasnot been cleared or approved by the U.S. Food and DrugAdministration. This assay has been validated pursuantto the CLIA regulations and is used for clinicalpurposes. Normetanephrine, Free 100 <=148 pg/mL [facility] Comment:This test was develo ped and its analytical performancecharacteristics have been determined by [employer] [place], [place]. It hasnot been cleared or approved by the U.S. Food and DrugAdministration. This assay has been validated pursuantto the CLIA regulations and is used for clinicalpurposes. Total, Free (MN+NMN) 151 <=205 pg/mL [facility] Comment: For additional information, please refer tohttp://education.Jana Mobile.TheRouteBox/faq/MetFractFree(This link is being provided for informational/educatioinformational/educational purposes only.)Elevations >4-fold upper reference range: stronglysuggestive of a pheochromocytoma(1).Elevations >1- 4-fold upper reference range:significant but not diagnostic, may be due tomedications or stress. Suggest running 24 hr urinefractionated metanephrines and/or serum Chromagranin Afor confirmation.Reference:(1)Miguel A Chaudhary et al, Plasma Chromogranin Aor Urine Fractionated Metanephrines Follow-Up TestingImproves the Diagnostic Accuracy of Plasma FractionatedMetanephrines for Pheochromocytoma. The Journal ofClinical Endocrinology # Metabolism 93(1), 91-95, 2008.This test was developed and its analytical performancecharacteristics have been determined by [employer] [place], [place]. It hasnot been cleared or approved by the U.S. Food and DrugAdministration. This assay has been validated pursuantto the CLIA regulations and is used for clinicalpurposes.THIS TEST WAS PERFORMED AT:[facility] [place] [address]EJKRARVDOREEN RAMÍREZ MD,PHD 10/01/2024 2:53 PM EDT 10/01/2024 2:53 PM EDT us Generic External Data Provider LAB BLOOD ORDERAB LES Final Result [facility] [address] [place] [phone] * Aldosterone, LC/MS/MS (10/01/2024 2:53 PM EDT) Aldosterone, LC/MS/MS 2 see note ng/dL [facility] Comment:Unable to flag abnor mal result(s), please refer to reference range(s) below:Adult Reference Ranges for Aldosterone, LC/MS/MS: Upright 8:00 - 10:00 am < or = 28 ng/dL Upright 4:00 - 6:00 pm < or = 21 ng/dL Supine 8:00 - 10:00 am 3 - 16 ng/dLThis test was developed and its analytical performancecharacteristics have been determined by [employer] [place], [place]. It hasnot been cleared or approved by the U.S. Food and DrugAdministration. This assay has been validated pursuantto the CLIA regulations and is used for clinicalpurposes.THIS TEST WAS PERFORMED AT:[facility] [place] [address]DJATSVBDOREEN RAMÍREZ MD,PHD 10/01/2024 2:53 PM EDT 10/01/2024 2:53 PM EDT us Generic External Data Provider LAB BLOOD ORDERAB LES Final Result [facility] [address] [place] [phone] * Lipid Panel, Standard (10/01/2024 2:53 PM EDT) Triglycerides 68 <150 mg/dL [facility] Comment:Desirable Triglyceri de: less than 150 mg/dLBorderline High Triglyceride 150-199 mg/dLHigh Triglyceride: 200-499 mg/dLVery High Triglyceride: greater than or equal to 5OO mg/dL Cholesterol 112 <200 mg/dL [facility] Comment:Desirable Cholestero l: less than 200 mg/dLBorderline High Cholesterol: 200-239 mg/dLHigh Cholesterol: greater than 239 mg/dL LDL Cholesterol Calculated 52 <100 mg/dL [facility] Comment:Desirable LDL: less than 100 mg/dLNear Optimal/Above Optimal LDL: 110- 129 mg/dLBorderline High LDL: 130-159 mg/dLHigh LDL: 160-189 mg/dLVery High LDL: greater than or equal to 190 mg/dL HDL Cholesterol 47 >40 mg/dL [facility] Comment:Desirable HDL: great er than 40 mg/dL Note: This HDL assay may give artificially low results in patients with liver disease. 10/01/2024 2:53 PM EDT 10/01/2024 2:53 PM EDT us Generic External Data Provider LAB BLOOD ORDERAB LES Final Result Performing Organization Address City/[facility]/ZIP Co de Phone Number [facility] [address] [place] [phone] * (ABNORMAL) Comprehensive Metabolic Panel (10/01/2024 2:53 PM EDT) Sodium 143 135 - 145 mmol/L [facility] Potassium 3.9 3.3 - 5.1 mmol/L [facility] Chloride 105 96 - 108 mmol/L [facility] Carbon Dioxide 28 22 - 29 mmol/L [facility] Anion Gap 14 12 - 20 [facility] Urea Nitrogen (BUN) 16 9 - 16 mg/dL [facility] Creatinine, Serum 0.91 0.5 - 1.4 mg/dL [facility] Estimated Glomerular Filt Rate 59 [facility] Comment:Chronic Kidney Disea se: Estimated GFR < 60 mL/min/1.26o9Eptdxp Kidney Disease: Estimated GFR < 15 mL/min/1.73m2 Glucose 95 60 - 115 mg/dL [facility] Calcium 9.2 8.4 - 10.2 mg/dL [facility] Bilirubin, Total 1.2(H) 0.0 - 1.0 mg/dL [facility] Aspartate Amino Transferase 30 5 - 31 U/L [facility] Alanine Aminotransferase 30 0 - 31 U/L [facility] Total Protein 6.7 6.5 - 8.0 g/dL [facility] Albumin Level 4.3 3.5 - 5.0 g/dL [facility] Alkaline Phosphatase 63 39 - 117 U/L [facility] 10/01/2024 2:53 PM EDT 10/01/2024 2:53 PM EDT us Generic External Data Provider LAB BLOOD ORDERAB LES Final Result Performing Organization Address City/[facility]/ZIP Co de Phone Number [facility] [address] [place] [phone] * (ABNORMAL) Urinalysis Complete (10/01/2024 12:00 AM EDT) Color Urine Yellow [facility] Appearance Urine Clear [facility] PH 7.5 5.0 - 9.0 [facility] Glucose Urine UA Negative Negative mg/dL [facility] Urine Blood Negative Negative [facility] Specific [place] - Urine 1.010 1.005 - 1.025 [facility] Urine Protein Negative Neg-Trace mg/dL [facility] Urine Ketones Negative Negative mg/dL [facility] Nitrite Urine Negative Negative [facility] Leukocyte Esterase Urine Trace(A) Negative [facility] RBC Urine 0-2 0 - 2 /HPF [facility] Urine WBC 0-5 0 - 5 /HPF [facility] Urine Squamous Epithelial Cell 0-2 0 - 2 /HPF [facility] Urine Bacteria None Seen None Seen [facility] Hyaline Casts, Urine 0-2 0 - 2 /LPF [facility] Urine (Urine, Random) 10/01/2024 10/01/2024 us [place] Yeh MD LAB URINE ORDERABLES Final Re sult [facility] [address] [place] [phone] from Last 3 Months Insurance [employer] (HMO D-SNP) Care Teams Living Supervisor Relationship Specialty Start Date End Date Sana Clements MD [address] [place] [phone] PCP - General Family Medicine 12/01/17
--- OUTSIDE RECORDS SUMMARY | 2024-12-16 12:44 | XMS_ITS | Encounter Summary ---
Author Organization [employer] Address [address] [facility] [address] [place] [address] Care Team Providers Care Mixed Crop And Livestock Farm Worker Name Role Phone Sana Clements MD Primary Care Provide r Encounter Details Date Type Department Care Team (Late st Contact Info) Description 03/15/2022 Refill [facility] [address] [place] [address] Sana Clements MD [address] [place] [address] Primary osteoarthritis of both hips; Chronic obstructive [...] (CMS/HCC) documented in this encounter Care Teams Mixed Crop And Livestock Farm Worker Relationship Specialty Start Date End Date Sana Clements MD [address] [place], [place] [phone] PCP - General Family Medicine 12/01/17 documented as of this encounter
--- OUTSIDE RECORDS SUMMARY | 2024-12-16 12:44 | XMS_ITS | Encounter Summary ---
Author Organization [employer] Address [address] [facility] [address] [place] [address] Care Team Providers Care Mangle Tender Cloth Name Role Phone Sana Clements MD Primary Care Provide r Reason for Visit * Reason Onset Date Comments F/U ext 06/20/23 05/29/2023 Encounter Details Date Type Department Care Team ([facility] st Contact Info) Description 05/29/2023 Telephone [facility] [address] [place] [address] Sana Clements MD [address] [place] [address] F/U ext 06/20/23 Social History Tobacco Use [...] orMonday after 2:30. Please contact son at [phone]. documented in this encounter Plan of Treatment Not on file documented as of this encounter Visit Diagnoses Not on filedocumented in this encounter Additional Health Concerns Assessment Noted Time PHQ-9 Depression Total Score: 0 04/04/19 24 3:37 PM EST documented as of this encounter Care Teams Mangle Tender Cloth Relationship Specialty Start Date End Date Sana Clements MD [address] [place] [phone] PCP - General Family Medicine 12/01/17 documented as of this encounter
--- OUTSIDE RECORDS SUMMARY | 2024-12-16 12:44 | XMS_ITS | Encounter Summary ---
Author Organization [employer] Address [address] [facility] [address] [place] [address] Care Team Providers Care Car Parker Name Role Phone Sana Clements MD Primary Care Provide r Reason for Visit * Reason Comments Med Refill Encounter Details Date Type Department Care Team ([facility] st Contact Info) Description 01/04/2024 Refill [facility] [address] [place] [address] Sana Clements MD [address] [place] [address] Uncomplicated asthma, unspecified asthma severity, unspecified whether [...] documented as of this encounter Care Teams Car Parker Relationship Specialty Start Date End Date Sana Clements MD [address] [place] [address] PCP - General Family Medicine 12/01/17 documented as of this encounter
--- OUTSIDE RECORDS SUMMARY | 2024-12-16 12:44 | XMS_ITS | Encounter Summary ---
Author Organization [employer] Address [address] [facility] [address] [place] [address] Care Team Providers Care Hide Dyer Name Role Phone Sana Clements MD Primary Care Provide r Reason for Visit * Reason Onset Date Comments Appointment Request 09/20/2022 Encounter Details Date Type Department Care Team ([facility] st Contact Info) Description 09/20/2022 Telephone [facility] [address] [place] [address] Sana Clements MD [address] [place] [address] Appointment Request Social History Tobacco Use Types [...] appt with provider. Please contact pt at [phone] Vietnamese Speaker documented in this encounter Plan of Treatment Not on file documented as of this encounter Visit Diagnoses Not on filedocumented in this encounter Care Teams Hide Dyer Relationship Specialty Start Date End Date Sana Clements MD [address] [place] [address] PCP - General Family Medicine 12/01/17 documented as of this encounter
--- OUTSIDE RECORDS SUMMARY | 2024-12-16 12:44 | XMS_ITS | Encounter Summary ---
Author Organization [employer] Address [address] [facility] [address] [place] [address] Care Team Providers Care Dental Chairside Assistant Name Role Phone Sana Clements MD Primary Care Provide r Encounter Details Date Type Department Care Team ([facility] st Contact Info) Description 04/12/2022 Orders Only [facility] [address] [place] [address] Jessie Herrera MD [address] [place], [place] [phone] Acute pain of right shoulder (Primary Dx) [...] Primary documented in this encounter Care Teams Dental Chairside Assistant Relationship Specialty Start Date End Date Sana Clements MD [address] [place] [address] PCP - General Family Medicine 12/01/17 documented as of this encounter
== END 2024-12-16 10:27 | disposition home or self-care (01) ==
LOC: HO.US 10:26
PROVIDERS: PCP Internal Medicine; Visit Provider Nurse Practitioner Family
DX: I70.1 Atherosclerosis of renal artery (principal)
CPT/HCPCS: 76775; 93975

== ENCOUNTER → 2024-12-16 10:31 | Outpatient (BNV) | payer OTHER, SELFPAY | PROVIDERS: PCP Internal Medicine; Visit Provider Radiology Diagnostic Radiology | DX: I70.1 Atherosclerosis of renal artery (principal); N28.1 Cyst of kidney, acquired | CPT/HCPCS: 76775 ==

== ENCOUNTER 2024-12-30 14:08 | Outpatient (AMB) | payer OTHER, SELFPAY ==
--- NOTE | 2024-12-30 14:45 | MHC.OFFVIS ---
Vital Signs 12/30/24 14:46 Height 5 ft Weight 116 lb 6.465 oz BMI 22.7 BP 110/52 L Blood Pressure Location Lt brachial Position Sitting Pulse 54 Pulse Source Pulse Oximeter Intake Visit Reasons: Follow up after testing Pump Service Supervisor Required: Yes Pump Service Supervisor Language: Welding Machine Assembler Name: mehrdad abebe [id number] Paunch Trimmer: Paunch Trimmer Present Allergies ibuprofen Adverse Reaction (Intermediate, Verified 12/30/24 14:49) NAUSEA oxycodone (From PERCOCET) Adverse Reaction (Intermediate, Verified 12/30/24 14:49) NAUSEA Medication List - Last Reconciled 12/30/24 by SAHARA Tovar acetaminophen mg PO albuterol sulfate 2.5 mg inhalation TID PRN albuterol sulfate 90 mcg/actuation 90 mcg inhalation Q4-6H PRN amlodipine 5 mg PO DAILY atenolol 75 mg PO QAM atorvastatin 40 mg PO BEDTIME buspirone 5 mg PO BID calcium carbonate-vitamin D3 600 mg-10 mcg (400 unit) 1 tab PO DAILY celecoxib (Celebrex) 200 mg PO BID 30 days cyclobenzaprine 5 mg PO BEDTIME PRN diclofenac sodium 1% topical eluxadoline (Viberzi) 100 mg PO BID exemestane 25 mg PO DAILY famotidine 40 mg PO BEDTIME fluticasone propion-salmeterol 500-50 mcg/dose 1 ea inhalation DAILY fluticasone propionate 50 mcg/actuation 1 spray intranasal DAILY furosemide 20 mg PO QAM hydralazine 50 mg PO BID 30 days hydrocortisone 2.5% appl topical ipratropium-albuterol 0.5 mg-3 mg(2.5 mg base)/3 mL 3 mL inhalation Q4-6H PRN ketotifen fumarate 0.025%(0.035%) 1 drp ophthalmic (eye) BID okeqtf-bnrwvnzw-gkbeabb 3,000-9,500- 15,000 unit (Creon) 1 cap PO QID loratadine 10 mg PO DAILY losartan 100 mg PO DAILY metoclopramide HCl 5 mg PO TID miconazole nitrate 2% 1 appl topical BID PRN opxmtepsgezw-rdtv-oeocl acid 18-400 mg-mcg 1 tab PO QAM omeprazole 40 mg PO QAM polyvinyl alcohol 1.4% 2 drps ophthalmic (eye) DAILY sertraline 25 mg PO DAILY topiramate 25 mg PO BID trazodone 100 mg PO BEDTIME HPI HPI Follow up after testing: Details: Laurie is a 79-year-old female past medical history of hypertension, hyperlipidemia, asthma, GERD, mild nonobstructive coronary artery disease who recently had a renal artery ultrasound and now presents for follow-up. Today she reports that she feels well with no concerning symptoms. She reports compliance with her medications. She uses a pill pack made by the pharmacy. She does have some shortness of breath with activity that she relates to asthma. No PND, orthopnea. She has been experiencing some bilateral leg edema. No chest discomfort at rest or with activity. No lightheadedness, presyncope, syncope, palpitations. She avoids salt in her diet. Her son is present. Certified language interpreter used. [facility] Medical History High cholesterol HTN (hypertension), benign Mood disorder Memory impairment COPD (chronic obstructive pulmonary disease) Hx of gastritis Hiatal hernia Osteoarthritis of both hips Chronic post-concussion headache Post concussion syndrome Environmental allergies GERD (gastroesophageal reflux disease) Moderate persistent asthma Surgical History History of lumpectomy of right breast (08/30/21) History of esophagogastroduodenoscopy (EGD) H/O colonoscopy H/O lithotripsy History of tubal ligation History of section Hx of cholecystectomy Family History Mother Colon cancer Son Myocardial infarct Social History Household Members: None Housing: Apartment Are you a primary day care attendant to a significant other at home: No Do you presently have visiting nurse or other home services: No (Son takes care of her) Comment: balance Issues Patient Tobacco Use Status: Never used Tobacco service: No Current occupational status: disabled Review of Systems Const All systems reviewed & are unremarkable except as noted in HPI and below ENT Denies dizziness Card Denies chest pain, Denies chest pain at rest, Denies chest pain with activity, Denies rapid heart rate, Reports pedal edema, Denies edema, Reports leg edema, Denies lightheadedness, Denies palpitations, Denies dyspnea, Denies dyspnea on exertion and Denies orthopnea Resp Denies cough, Denies dyspnea and Denies dyspnea on exertion GI Denies hematochezia and Denies change in stool character Musc Denies abnormal gait, Denies limited range of motion, Denies muscle cramps, Denies muscle weakness, Denies numbness, Denies radiating pain into limb, Denies stiffness and Denies tingling Neuro Denies abnormal gait, Denies dizziness, Denies numbness and Denies tingling Endo Denies palpitations Physical Exam Vital Signs: Last Vital Signs Pulse 54 12/30/24 14:46 BP 110/52 L 12/30/24 14:46 BMI result Body Mass Index 22.7 Const General: cooperative, healthy appearing, comfortable and no acute distress Orientation/consciousness: patient oriented x3 Neck Neck: Yes normal visual inspection Resp Effort & Inspection: normal respiratory effort Auscultation: clear to auscultation bilaterally, no rales, no rhonchi and no wheezes Cardio Rate: regular rate Rhythm: regular rhythm Heart sounds: S1 normal heart sound present, S2 normal heart sound present, no gallops, no murmurs and no rubs Skin General skin exam: no rashes or lesions noted Neuro General: patient oriented x3 Extrem General: Yes normal to inspection, No no pedal edema and No calf tenderness Psych Appearance: grossly normal Mental Status: mental status grossly normal Speech and movement: Normal speech and movement present Assessment & Plan Assessment & Plan (1) Uncontrolled hypertension: Code(s): I10 - Essential (primary) hypertension Category: Medical Plan: Blood pressure goal less than 130/80. Blood pressure elevated to 190/80 on prior visit hydralazine was added. Renal artery ultrasound done 12/16/2024 suspect less than 60% stenosis of right renal artery. Blood pressure now better controlled however she does have leg edema that is causing her concern. Current blood pressure 110/52. Will reduce her amlodipine down to 2.5 mg daily. My hope would be to get her off amlodipine and possibly increase hydralazine due to her leg edema. Will arrange for office blood pressure in 2 weeks. No other med changes made. Continue atenolol, Lasix and losartan. Reviewed low-salt diet. Cardiology office visit 3 months, sooner if needed. (2) HTN (hypertension), benign: Code(s): I10 - Essential (primary) hypertension Category: Medical Plan: As above (3) Dyspnea on exertion: Code(s): R06.00 - Dyspnea, unspecified Category: Medical Plan: Report of shortness of breath with activity with prior cardiac evaluation showing grade 2 diastolic dysfunction and nonobstructive coronary disease. An echocardiogram was done on 07/24/2023 showing EF 65%, grade 2 diastolic dysfunction, mild calcification of the aortic valve, mild mitral annular calcification, mild MR, large plaque in the sinotubular ridge. A nuclear stress test was done on 09/01/2023 showing [id number] septal and apical, distal anterior ischemia in the mid to distal LAD territory. A CTA of the coronary arteries was completed on 01/17/2024 showing left main focal calcification less than 25% stenosis, lad proximal to mid less than 25% stenosis. Her shortness of breath is likely related to her asthma. Continue Lasix 20 mg daily. Continue management for asthma as directed by pulmonology. Signs and symptoms of heart failure reviewed. (4) CAD (coronary artery disease): Code(s): I25.10 - Atherosclerotic heart disease of [place] coronary artery without angina pectoris Category: Medical Plan: Cardiac testing as above. Finding of mild nonobstructive coronary artery disease. Will continue to treat with risk factor modification with good cholesterol and blood pressure control. Trail LDL goal less than 70. Labs done 10/01/2024 showed LDL 52. Continue atorvastatin. Recommend daily aspirin if there is no contraindication. She does mention allergy to ibuprofen. Continue atenolol. Continue physical activity as tolerated. (5) Diastolic dysfunction: Code(s): I51.89 - Other ill-defined heart diseases Category: Medical Plan: As above. No clinical signs of heart failure on exam. (6) Sinus bradycardia: Code(s): R00.1 - Bradycardia, unspecified Category: Medical Plan: Asymptomatic sinus bradycardia, on beta-anai. She continues on atenolol 75 mg daily. Holter monitor done on 09/10/2024 for 3 days shows sinus rhythm with average heart rate 56, 73% of the time heart rate less than 60, SVE burden 2.6%, rare ventricular ectopy. Plan Time spent on chart review, documentation, interview and assessment. Medications: Changed From amlodipine add to med box 5 mg PO DAILY 30 tabs 5RF To amlodipine add to med box 2.5 mg (1/2 x 5 mg) PO DAILY 30 tabs 5RF Coding Level of Care Code Est Pt Level 4 (22350) Complex EM visit Add On G2211 Diagnoses Uncontrolled hypertension I10 HTN (hypertension), benign I10 Dyspnea on exertion R06.00 CAD (coronary artery disease) I25.10 Diastolic dysfunction I51.89 Sinus bradycardia R00.1 Time Spent (min) 30
[2024-12-30 14:46] VITALS: BP 110/52; PULSE 54; BMI 22.7
--- OUTSIDE RECORDS SUMMARY | 2024-12-30 16:41 | XMS_ITS | Encounter Summary ---
Author Organization [employer] Address [address] [facility] [address] [place] [address] Care Team Providers Care Motion Designer Name Role Phone Sana Clements MD Primary Care Provide r Encounter Details Date Type Department Care Team ([facility] st Contact Info) Description 04/12/[address] [facility] [address] [place] [address] Jessie Herrera MD [address] [place], [place] [id number] Acute pain of right shoulder (Primary Dx) [...] Primary documented in this encounter Care Teams Motion Designer Relationship Specialty Start Date End Date Sana Clements MD [address] [place] [address] PCP - General Family Medicine 12/01/17 documented as of this encounter
--- OUTSIDE RECORDS SUMMARY | 2024-12-30 16:41 | XMS_ITS | Encounter Summary ---
Author Organization [employer] Address [address] [facility] [address] [place] [address] Care Team Providers Care Childbirth And Infant Care Teacher Name Role Phone Sana Clements MD Primary Care Provide r Encounter Details Date Type Department Care Team (Late st Contact Info) Description 03/15/2022 Refill [facility]INE [address] [place] [address] Sana Clements MD [address] [place] [address] Primary osteoarthritis of both hips; Chronic obstructive [...] obstructive pulmonary disease, unspecified COPD type (CMS/HCC) ([facility]) documented in this encounter Care Teams Childbirth And Infant Care Teacher Relationship Specialty Start Date End Date Sana Clements MD [address] [place] [address] PCP - General Family Medicine 12/01/17 documented as of this encounter
--- OUTSIDE RECORDS SUMMARY | 2024-12-30 16:41 | XMS_ITS | Encounter Summary ---
Author Organization [employer] Address [address] [facility] [address] [place] [address] Care Team Providers Care Shroudman Name Role Phone Sana Clements MD Primary Care Provide r Reason for Visit * Reason Comments Med Refill Encounter Details Date Type Department Care Team ([facility] st Contact Info) Description 12/11/2023 Refill [facility] [address] [place] [address] Brittany Gates MD [address] [place] [address] Primary osteoarthritis of both hips Social History [...] documented as of this encounter Care Teams Shroudman Relationship Specialty Start Date End Date Sana Clements MD [address] [place] [id number] PCP - General Family Medicine 12/01/17 documented as of this encounter
--- OUTSIDE RECORDS SUMMARY | 2024-12-30 16:41 | XMS_ITS | Encounter Summary ---
Author Organization [employer] Address [address] [facility] [address] [place] [address] Care Team Providers Care Physical Chemistry Professor Name Role Phone Sana Clements MD Primary Care Provide r Reason for Visit * Reason Onset Date Comments F/U ext 06/20/23 05/29/2023 Encounter Details Date Type Department Care Team ([facility] st Contact Info) Description 05/29/2023 Telephone [facility] [address] [place] [address] Sana Clements MD [address] [place] [address] F/U ext 06/20/23 Social History Tobacco Use [...] orMonday after 2:30. Please contact son at [phone]. documented in this encounter Plan of Treatment Not on file documented as of this encounter Visit Diagnoses Not on filedocumented in this encounter Additional Health Concerns Assessment Noted Time PHQ-9 Depression Total Score: 0 04/04/19 24 3:37 PM EST documented as of this encounter Care Teams Physical Chemistry Professor Relationship Specialty Start Date End Date Sana Clements MD [address] [place] [id number] PCP - General Family Medicine 12/01/17 documented as of this encounter
--- OUTSIDE RECORDS SUMMARY | 2024-12-30 16:41 | XMS_ITS | Encounter Summary ---
Author Organization [employer] Address [address] [facility] [address] [place] [address] Care Team Providers Care Rawhide Bone Roller Name Role Phone Sana Clements MD Primary Care Provide r Reason for Visit * Reason Comments Med Refill Encounter Details Date Type Department Care Team ([facility] st Contact Info) Description 04/15/2023 Refill [facility]INE [address] [place] [address] Sana Clements MD [address] [place] [address] Uncomplicated asthma, unspecified asthma severity, unspecified whether [...] documented as of this encounter Care Teams Rawhide Bone Roller Relationship Specialty Start Date End Date Sana Clements MD [address] [place] [address] PCP - General Family Medicine 12/01/17 documented as of this encounter
--- OUTSIDE RECORDS SUMMARY | 2024-12-30 16:41 | XMS_ITS | Encounter Summary ---
Author Organization [employer] Address [address] [facility] [address] [place] [address] Care Team Providers Care Bridge/Structure Inspection Team Leader Name Role Phone Sana Clements MD Primary Care Provide r Reason for Visit * Reason Comments Med Refill Encounter Details Date Type Department Care Team ([facility] st Contact Info) Description 01/04/2024 Refill [facility] [address] [place] [address] Sana Clements MD [address] [place] [address] Uncomplicated asthma, unspecified asthma severity, unspecified whether [...] documented as of this encounter Care Teams Bridge/Structure Inspection Team Leader Relationship Specialty Start Date End Date Sana Clements MD [address] [place] [address] PCP - General Family Medicine 12/01/17 documented as of this encounter
--- OUTSIDE RECORDS SUMMARY | 2024-12-30 16:42 | XMS_ITS | Clinical Summary ---
Author Organization [employer] Address [address] [facility] 7[address] [place] [address] Care Team Providers Care Braid Pattern Setter Name Role Phone Snaa Clements MD Primary Care Provide r Allergies Active Allergy Reactions Criticality Noted Date Comments Acetaminophen 07/07/2014 Ibuprofen 10/10/2011 Other reaction(s): DIZZY Oxycodone 07/07/2014 Medications hydroCHLOROthiazi de (HYDRODiuril) 50 MG tablet Take 1 tablet by mouth at bed time. Active hydrocortisone 1 % cream Apply topically [...] EVERY MORNING 90 tablet 1 024 Active albuterol (2.5 MG/3ML) 0.083% nebulizer [...] OF BREATH 18 g 2 024 Active Fluticasone-Salme terol 500-50 MCG/ACT aerosol powderIndications :Chronic obstructive pulmonary disease, unspecified COPD type (CMS/HCC) ([facility]) INHALE 1 PUFF BY MOUTH TWICE DAILY RINSE MOUTH AFTER USING. 60 each 2 Active Diclofenac Sodium 1 % gelIndications:Ar thritis Apply 1 Application topically if needed in the morning and at bedtime (Applyto affected area as needed). 150 g 1 025 Active atorvastatin (Lipitor) 40 MG tablet Active Dupixent 300 MG/2ML solution prefilled syringe injection 024 Active Viberzi 100 MG tablet Take 1 tablet by mouth with breakfast and with evening meal. 025 Active exemestane (Aromasin) 25 MG chemo tablet TAKE 1 TABLET BY MOUTH EVERY DAY AFTER A MEAL Active famotidine (Pepcid) 40 MG tablet 025 Active furosemide (Lasix) 20 MG tablet Take 1 tablet by mouth at bed time. Active ipratropium-albut jesse (Duo-Neb) 0.5-2.5 mg/3 mL nebulizer solution Active Creon 0450-7293 units capsule 025 Active atenolol (Tenormin) 50 MG tablet TAKE 1 AND 1/2 TABLETS BY MOUTH IN THE MORNING 135 tablet 1 025 Active Multiple Vitamins-Minerals (CertaVite/Antiox idants) tabletIndications :Healthcare maintenance TAKE 1 TABLET BY MOUTH EVERY MORNING 90 tablet 1 025 Active traZODone (Desyrel) 100 MG tabletIndications :Insomnia, unspecified type TAKE 1 TABLET BY MOUTH AT BEDTIME 90 tablet 1 025 Active Calcium Carb-Cholecalcife rol 600-10 MG-MCG tablet TAKE 1 TABLET BY MOUTH THREE TIMES DAILY IN THE MORNING, EVENING, AND BEDTIME 270 tablet 1 025 Active losartan (Cozaar) 100 MG tablet TAKE 1 TABLET BY MOUTH EVERY MORNING 90 tablet 1 025 Active sertraline (Zoloft) 25 MG tabletIndications :Mood disorder (CMS/HCC) TAKE 1 TABLET BY MOUTH EVERY MORNING 90 tablet 1 025 Active busPIRone (Buspar) 5 MG tablet TAKE 1 TABLET BY MOUTH TWICE DAILY IN THE MORNING AND IN THE EVENING 180 tablet 3 025 Active busPIRone (Buspar) 5 MG tablet TAKE 1 TABLET BY MOUTH TWICE DAILY IN THE MORNING AND IN THE EVENING 180 tablet 3 024 2024 Discontinued Active Problems Problem Noted [...] obstructive pulmonar y disease, unspecified COPD type (CMS/HCC) 04/08/2024 Dyspnea on exertion 06/26/2023 Assessment & [...] with neurology Patient's son who is her OPERATER brought FMLA documents, I instructed to leave the at medical records, son also wants to increase her mother OPERATER hours, I advise to navigate options at [...] Encounters Date Type Department Care Team Description 12/23/2024 Refill [facility] [address] [place] [address] Sana Clements MD 12/16/2024 Orders Only [facility] External Provider, [facility] 10/16/2024 Telephone [facility] [address] [place] [address] Sana Clements MD Call Back Request 10/11/2024 Telephone [facility] [address] [place] [address] Sana Clements MD Chart Prep 10/03/2024 Refill [facility] [address] [place] [address] Sana Clements MD Mood disorder (CMS/HCC) 10/02/2024 Travel 10/01/2024 1:20 PM EDT Office Visit [facility] [address] [place] [address] Manuela Yeh MD Left leg swelling (Primary Dx); Dyspnea on exertion; Hypertension, essential 10/01/2024 Results Follow-Up [facility] [address] [place] [address] Manuela Yeh MD US VENOUS DUPLEX LE LT 10/01/2024 Orders Only [facility] [address] [place] [address] Manuela Yeh MD 10/01/2024 Travel 09/30/2024 Telephone [facility] [address] [place] [address] Sana Clements MD Nurse Triage from Last [...] is your housing situation today? I have monicajeaneth austin 07/24/[address] you [...] Procedure Name Priority Date/Time Associated Diagnosis Comments US RENAL COMPLETE Routine 12/16/2024 4:1 7 PM EDT BI MAMMOGRAM DIAGNOSTIC TOMOSYNTHESIS BILATERAL Routine 10/14/2024 [...] swelling from Last 3 Months Results * US Renal Complete (12/16/2024 4:17 PM EDT) Anatomical Region Laterality Modality Kidney Ultrasound 12/16/2024 4:17 PM EDT Narrative 12/16/2024 4:19 PM EDT [address] [address] Ultrasound Report Signed Patient: Laurie Mtz MR#: [id number] : 1945 Acct:[id number] Age/Sex: 79 / F ADM Date: 12/16/24 Loc: HO.US Attending Dr: Omaira M Norma FINE [employer]INING [employer]ER-C Ordering Physician: Omaira Green Date of Service: 12/16/24 Procedure(s): US renal BI Accession Number(s): [id number] cc: Sana Clements MD; Omaira Green Reason for Exam: I70.1 - Atherosclerosis of renal artery CLINICAL HISTORY: I70.1 - Atherosclerosis of renal artery Renal duplex ultrasound Comparison: None provided Technique: Real time duplex ultrasound imaging was performed by the feather maker. Multiple screening representative static images were saved for review. Findings: Aorta: Normal waveform, 122 cm/s. Right kidney: Normal size and echotexture, 9.4 cm length. Minimally complex Bosniak 2 cyst contains thin septation in the midpole 2.6 x 2.4 x 2.9 cm, no calculus or hydronephrosis. Main renal artery peak systolic velocities: Proximal: 136 cm/s Mid: 201 cm/s, elevated. Distal: 152 cm/s Segmental resistive index: 0.75-0.79, top-normal. Renal vein: Patent. Left kidney: Mildly small, normal in echogenicity, 8.4 cm length. No calculus, focal lesion or hydronephrosis. Main renal artery peak systolic velocities: Proximal: 123 cm/s Mid: 134 cm/s Distal: 95.2 cm/s Segmental resistive index: 0.71-0.78, within normal range. Renal vein: Patent. Impression: 1. Suspect less than 60% stenosis of the right renal artery. 2. Right renal benign cyst. This document has been electronically signed by: Jessika Lan MD on 12/16/2024 16:17:54 Dictated By: Jessika Lan MD Signed By: <Electronically signed by Jessika Lan MD in OV> 12/16/24 1618 DD/ 1617 TD/TT: 12/16/24 161 Director Digital Catalogue: Procedure Note Donotuseinterpreter, Image - 12/16/2024 [place] [address] Ultrasound Report Signed Patient: Laurie MtzMR#: [id number] : 1945cct:[id number] Age/Sex: 79 / FADM Date: 12/16/24 Loc: HO.US Attending Dr: Omaira SHOEMAKER Ordering Physician: Omaira Green Date of Service: 12/16/24 Procedure(s): US renal BI Accession Number(s): [id number] cc: Sana Clements MD; Omaira Green Reason for Exam: I70.1 - Atherosclerosis of renal artery CLINICAL HISTORY: I70.1 - Atherosclerosis of renal artery Renal duplex ultrasound Comparison: None provided Technique: Real time duplex ultrasound imaging was performed by the feather maker. Multiple screening representative static images were saved for review. Findings: Aorta: Normal waveform, 122 cm/s. Right kidney: Normal size and echotexture, 9.4 cm length. Minimally complex Bosniak 2 cyst contains thin septation in the midpole 2.6 x 2.4 x 2.9 cm, no calculus or hydronephrosis. Main renal artery peak systolic velocities: Proximal: 136 cm/s Mid: 201 cm/s, elevated. Distal: 152 cm/s Segmental resistive index: 0.75-0.79, top-normal. Renal vein: Patent. Left kidney: Mildly small, normal in echogenicity, 8.4 cm length. No calculus, focal lesion or hydronephrosis. Main renal artery peak systolic velocities: Proximal: 123 cm/s Mid: 134 cm/s Distal: 95.2 cm/s Segmental resistive index: 0.71-0.78, within normal range. Renal vein: Patent. Impression: 1. Suspect less than 60% stenosis of the right renal artery. 2. Right renal benign cyst. This document has been electronically signed by: Jessika Lan MD on 12/16/2024 16:17:54 Dictated By: Jessika Lan MD Signed By: <Electronically signed by Jessika aLn MD in OV> 12/16/241617 DD/ 16 TD/TT: 12/16/241616 Director Digital Catalogue: us [facility] External Provider IMG US PROCEDURES Final Result * BI Mammogram Diagnostic Tomosynthesis Bilateral (10/14/2024 2:10 PM EDT) Anatomical Region Laterality Modality Breast Bilateral Mammography 10/14/2024 2:10 PM EDT Narrative 10/14/2024 8:00 PM EDT [facility] [address] [place], [place] [address] Mammography Report Signed Patient: Laurie Mtz MR#: [id number] : 1945 Acct:[id number] Age/Sex: 79 / F ADM Date: 10/14/24 Loc: HO.MAMMO Attending Dr: Александр Burciaga MD Ordering Physician: Александр Burciaga MD Results: 2Beni gn Findings Date of Service: 10/14/24 Follow Up: 1 Year From Orig ina Mammogram Procedure(s): MM tomosynthesis diagnostic BI Accession Number(s): [id number] cc: Sana Clements MD; Александр Burciaga MD [...] OV> 10/14/241955 DD/ 1410 TD/TT: 10/14/24 1440 Director Digital Catalogue: Procedure Note Donotuseinterpreter, Image - 10/14/2024 [facility] [address] [place] [address] Mammography Report Signed Patient: Laurie MtzMR#: [id number] : 4Acct:[id number] Age/Sex: 79 / FADM Date: 10/14/24 Loc: HO.MAMMO Attending Dr: Александр Burciaga MD Ordering Physician: Александр Burciaga MDResults: 2Beni gn Findings Date of Service: 10/14/24Follow Up: 1 Year From [facility] ina Mammogram Procedure(s): MM tomosynthesis diagnostic BI Accession Number(s): [id number] cc: Sana Clements MD; Александр Burciaga MD [...] OV> 10/14/241955 DD/ 1410 TD/TT: 10/14/24 1440 Director Digital Catalogue: us [facility] External Provider IMG BI PROCEDURES Final Result * US VENOUS DUPLEX LE LT (10/01/2024 3:03 PM EDT) Anatomical Region Laterality Modality Abdomen Ultrasound 10/01/2024 3:03 PM EDT Narrative 10/01/2024 3:23 PM EDT [address] [address] Ultrasound Report Signed Patient: Laurie Mtz MR#: [id number] : 1945 Acct:[id number] Age/Sex: 79 / F ADM Date: 10/01/24 Loc: .US Attending Dr: Manuela Yeh MD Ordering Physician: Manuela Yeh MD Date of Service: 10/01/24 Procedure(s): US venous duplex LE LT Accession Number(s): [id number] cc: Sana Clements MD; Manuela Yeh MD [...] in OV> 10/01/24 1520 DD/ 1503 TD/TT: 10/01/241512 Director Digital Catalogue: Procedure Note Donotpipeter, Image - 10/01/[address] [address] Ultrasound Report Signed Patient: Laurie MtzMR#: [id number] : 4Acct:[id number] Age/Sex: 79 / FADM Date: 10/01/24 Loc: HO.US Attending Dr: Manuela Yeh MD Ordering Physician: Manuela Yeh MD Date of Service: 10/01/24 Procedure(s): US venous duplex LE LT Accession Number(s): [id number] cc: Sana Clements MD; Manuela Yeh MD [...] in OV> 10/01/24 1520 DD/ 1503 TD/TT: 10/01/241512 Director Digital Catalogue: us Manuela Yeh MD IM US PROCEDURES Final Resul t * Metanephrines, Fractionated, Free, LC/MS/MS, Plasma (10/01/2024 2:53 PM EDT) Metanephrine, Free 51 <=57 pg/mL [facility] Comment:This test was develo ped and its analytical performancecharacteristics have been determined by [facility] [place], [place]. It hasnot been cleared or approved by the U.S. Food and DrugAdministration. This assay has been validated pursuantto the CLIA regulations and is used for clinicalpurposes. Normetanephrine, Free 100 <=148 pg/mL [facility] Comment:This test was develo ped and its analytical performancecharacteristics have been determined by [employer] [place], [place]. It hasnot been cleared or approved by the U.S. Food and DrugAdministration. This assay has been validated pursuantto the CLIA regulations and is used for clinicalpurposes. Total, Free (MN+NMN) 151 <=205 pg/mL [facility] Comment: For additional information, please refer tohttp://education.[employer]/faq/MetFractFree(This link is being provided for informational/educatioinformational/educational purposes [...] its analytical performancecharacteristics have been determined by [employer] [place], [place]. It hasnot been cleared or approved by the U.S. Food and DrugAdministration. This assay has been validated pursuantto the CLIA regulations and is used for clinicalpurposes.THIS TEST WAS PERFORMED AT:[employer] [id number] [place] [address]DYCLETHDOREEN RAMÍREZ MD,PHD 10/01/2024 2:53 PM EDT 10/01/2024 2:53 PM EDT us Generic External Data Provider LAB BLOOD ORDERAB LES Final Result Performing Organization Address [facility] Co de Phone Number [facility] [address] [place] [phone] * Aldosterone, LC/MS/MS (10/01/2024 2:53 PM EDT) Aldosterone, LC/MS/MS 2 see note ng/dL [facility] Comment:Unable to flag abnor mal result(s), please refer to reference range(s) below:Adult Reference Ranges for Aldosterone, LC/MS/MS: Upright 8:00 - 10:00 am < or = 28 ng/dL Upright 4:00 - 6:00 pm < or = 21 ng/dL Supine 8:00 - 10:00 am 3 - 16 ng/dLThis test was developed and its analytical performancecharacteristics have been determined by [employer] [place], [place]. It hasnot been cleared or approved by the U.S. Food and DrugAdministration. This assay has been validated pursuantto the CLIA regulations and is used for clinicalpurposes.THIS TEST WAS PERFORMED AT:[employer] [id number] [place] [address]KXTGMFVDOREEN RAMÍREZ MD,PHD 10/01/2024 2:53 PM EDT 10/01/2024 2:53 PM EDT us Generic External Data Provider LAB BLOOD ORDERAB LES Final Result Performing Organization Address [facility]/ZIP Co de Phone Number [facility] [address] [place] [phone] * Lipid Panel, Standard (10/01/2024 2:53 PM EDT) Triglycerides 68 <150 mg/dL [facility] Comment:Desirable Triglyceri de: less than 150 mg/dLBorderline High Triglyceride 150-199 mg/dLHigh Triglyceride: 200-499 mg/dLVery High Triglyceride: greater than or equal to 5OO mg/dL Cholesterol 112 <200 mg/dL [facility] Comment:Desirable Cholestero l: less than 200 mg/dLBorderline High Cholesterol: 200-239 mg/dLHigh Cholesterol: greater than 239 mg/dL LDL Cholesterol Calculated 52 <100 mg/dL [facility] Comment:Desirable LDL: less than 100 mg/dLNear Optimal/Above Optimal LDL: 110- 129 mg/dLBorderline High LDL: 130-159 mg/dLHigh LDL: 160-189 mg/dLVery High LDL: greater than or equal to 190 mg/dL HDL Cholesterol 47 >40 mg/dL [facility] Comment:Desirable HDL: great er than 40 mg/dL Note: This HDL assay may give artificially low results in patients with liver disease. 10/01/2024 2:53 PM EDT 10/01/2024 2:53 PM EDT us Generic External Data Provider LAB BLOOD ORDERAB LES Final Result [facility] [address] [place] [phone] * (ABNORMAL) Comprehensive Metabolic Panel (10/01/2024 2:53 PM EDT) Sodium 143 135 - 145 mmol/L [facility] Potassium 3.9 3.3 - 5.1 mmol/L [facility] Chloride 105 96 - 108 mmol/L [facility] Carbon Dioxide 28 22 - 29 mmol/L [facility] Anion Gap 14 12 - 20 [facility] Urea Nitrogen (BUN) 16 9 - 16 mg/dL [facility] Creatinine, Serum 0.91 0.5 - 1.4 mg/dL [facility] Estimated Glomerular Filt Rate 59 [facility] Comment:Chronic Kidney Disea se: Estimated GFR < 60 mL/min/1.49s9Pdpwdx Kidney Disease: Estimated GFR < 15 mL/min/1.73m2 Glucose 95 60 - 115 mg/dL [facility] Calcium 9.2 8.4 - 10.2 mg/dL [facility] Bilirubin, Total 1.2(H) 0.0 - 1.0 mg/dL [facility] Aspartate Amino Transferase 30 5 - 31 U/L [facility] Alanine Aminotransferase 30 0 - 31 U/L [facility] Total Protein 6.7 6.5 - 8.0 g/dL [facility] Albumin Level 4.3 3.5 - 5.0 g/dL [facility] Alkaline Phosphatase 63 39 - 117 U/L [facility] 10/01/2024 2:53 PM EDT 10/01/2024 2:53 PM EDT us Generic External Data Provider LAB BLOOD ORDERAB LES Final Result [facility] [address] [place] [phone] * (ABNORMAL) Urinalysis Complete (10/01/2024 12:00 AM EDT) Color Urine Yellow [facility] Appearance Urine Clear [facility] PH 7.5 5.0 - 9.0 [facility] Glucose Urine UA Negative Negative mg/dL [facility] Urine Blood Negative Negative [facility] Specific [place] - Urine 1.010 1.005 - 1.025 [facility] Urine Protein Negative Neg-Trace mg/dL [facility] Urine Ketones Negative Negative mg/dL [facility] Nitrite Urine Negative Negative [facility] Leukocyte Esterase Urine Trace(A) Negative [facility] RBC Urine 0-2 0 - 2 /HPF [facility] Urine WBC 0-5 0 - 5 /HPF [facility] Urine Squamous Epithelial Cell 0-2 0 - 2 /HPF [facility] Urine Bacteria None Seen None Seen [facility] Hyaline Casts, Urine 0-2 0 - 2 /LPF [facility] Urine (Urine, Random) 10/01/2024 10/01/2024 us Manuela Yeh MD LAB URINE ORDERABLES Final Re sult [facility] [address] [place] [phone] from Last 3 Months Insurance [facility]O D-SNP[facility] JIMI STANLEY [id number] Care Teams Braid Pattern Setter Relationship Specialty Start Date End Date Sana Clements MD [address] [place] [phone] PCP - General Family Medicine 12/01/17
--- OUTSIDE RECORDS SUMMARY | 2024-12-30 16:42 | XMS_ITS | Encounter Summary ---
Author Organization [employer] Address [address] [facility] [address] [place] [address] Care Team Providers Care Saw Straightener Name Role Phone Sana Clements MD Primary Care Provide r Reason for Visit * Reason Onset Date Comments Appointment Request 09/20/2022 Encounter Details Date Type Department Care Team ([facility] st Contact Info) Description 09/20/2022 Telephone [facility] [address] [place] [address] Sana Clements MD [address] [place] [address] Appointment Request Social History Tobacco Use Types [...] appt with provider. Please contact pt at [phone] Lithuanian Speaker documented in this encounter Plan of Treatment Not on file documented as of this encounter Visit Diagnoses Not on filedocumented in this encounter Care Teams Saw Straightener Relationship Specialty Start Date End Date Sana Clements MD [address] [place] [address] PCP - General Family Medicine 12/01/17 documented as of this encounter
== END 2024-12-30 15:24 | disposition home or self-care (01) ==
PROVIDERS: PCP Internal Medicine; Visit Provider Nurse Practitioner Family
DX: I10 Essential (primary) hypertension (principal); R06.00 Dyspnea, unspecified; I25.10 Atherosclerotic heart disease of native coronary artery without angina pectoris; I51.89 Other ill-defined heart diseases; R00.1 Bradycardia, unspecified
CPT/HCPCS: 99214; G2211

== ENCOUNTER → 2024-12-30 14:08 | Outpatient (BNVA) | payer OTHER, SELFPAY | PROVIDERS: PCP Internal Medicine; Visit Provider Nurse Practitioner Family | DX: I10 Essential (primary) hypertension (principal); I25.10 Atherosclerotic heart disease of native coronary artery without angina pectoris; I51.89 Other ill-defined heart diseases; R06.00 Dyspnea, unspecified; R00.1 Bradycardia, unspecified | CPT/HCPCS: 99212 ==

== ENCOUNTER 2025-02-04 15:26 | Outpatient (AMB) | payer OTHER, SELFPAY ==
--- NOTE | 2025-02-04 15:32 | MHC.OFFVIS ---
Vital Signs 02/04/25 15:39 Height 5 ft Weight 113 lb BMI 22.1 BP 160/70 H Blood Pressure Location Rt brachial Position Sitting Pulse 60 Pulse Source Pulse Oximeter Pulse Oximetry (%) 99 Oxygen Delivery Method Room Air Intake Visit Reasons: 6 month follow up Intake Note: Est pt for mgmt of Curtis's + IBS-D. CC: Pt denies any new GI sx or concerns at this time. Pt son does report that the pt has been experiencing more frequent urination lately. Pt does take lasix for lower ext edema and does normally urinate more frequently. However, this episode has been significantly more frequent than normal. No additional sx per pt + son. They did want to ask the PCP about this, but are not able to see them and have not since October 2024. 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 She continues to be stable on her GI medication with only occasional diarrhea. Her weight fluctuates. She is on Reglan 5 mg 3 times a day, Creon, omeprazole and Viberzi. For some strange reason her primary care provider put her on Colace. I find this completely inappropriate for a patient we are treating for chronic diarrhea. Perhaps it was a misunderstanding. I am discontinuing that medication and advised the patient as such. Return office visit in 6 months Medications: Refilled eluxadoline (Viberzi) must administer with a meal/food 100 mg PO BID 60 tabs 5RF K58.0 - Irritable bowel syndrome with diarrhea metoclopramide HCl (Reglan) 5 mg PO TID 180 tabs 1RF K30 - Functional dyspepsia bldfrn-dsfxxbrj-qymados 3,000-9,500- 15,000 unit (Creon) 1 cap PO QID 360 caps 1RF K58.0 - Irritable bowel syndrome with diarrhea omeprazole 40 mg PO QAM 90 caps 1RF K22.70 - Curtis's esophagus without dysplasia famotidine 40 mg PO BEDTIME 90 tabs 6RF K22.70 - Curtis's esophagus without dysplasia Discontinued docusate sodium (Stool Softener) Discontinued Reason: Doctor's Order 100 mg PO BID 60 caps 4RF Today's visit [place] [facility] History High cholesterol HTN (hypertension), benign Mood disorder Memory impairment COPD (chronic obstructive pulmonary disease) Hx of gastritis Hiatal hernia Osteoarthritis of both hips Chronic post-concussion headache Post concussion syndrome Environmental allergies GERD (gastroesophageal reflux disease) Moderate persistent asthma Surgical History History of lumpectomy of right breast (08/30/21) History of esophagogastroduodenoscopy (EGD) H/O colonoscopy H/O lithotripsy History of tubal ligation History of section Hx of cholecystectomy Family History Mother Colon cancer Son Myocardial infarct Social History Household Members: None Housing: Apartment Are you a primary youth care specialist to a significant other at home: No Do you presently have visiting nurse or other home services: No (Son takes care of her) Comment: balance Issues Patient Tobacco Use Status: Never used Tobacco service: No Current occupational status: disabled Review of Systems Const Denies fatigue, Denies fever(s), Denies night sweats, Denies poor appetite and Denies weight loss ENT Reports Normal hearing present, Denies dental pain, Denies dysphagia, Denies hearing loss, Denies mouth pain, Denies odynophagia, Denies throat swelling, Denies tongue swelling and Reports other (Dentition adequate) Card Reports no additional complaints Resp Reports no additional complaints GI Details: Denies abdominal pain, Denies melena, Denies bloating, Denies hematochezia, Denies constipation, Denies GI cramping, Denies dysphagia, Denies excessive flatus, Denies early satiety, Reports heartburn, Denies diarrhea, Reports loose stools, Denies nausea, Denies odynophagia, Denies vomiting and Denies hematemesis Musc Reports myalgias, Reports arthralgias and Reports stiffness Skin/Breast Denies pruritus, Denies lesions, Denies rash and Denies jaundice Neuro Reports Normal hearing present, Denies Abnormal speech present and Reports memory loss Psych Reports memory loss Endo Denies fatigue Aller/Immun Denies throat swelling and Denies tongue swelling Physical Exam Vital Signs: Last Vital Signs Pulse 60 02/04/25 15:39 BP 160/70 H 02/04/25 15:39 Pulse Ox 99 02/04/25 15:39 Oxygen Delivery Method Room Air 02/04/25 15:39 BMI result Body Mass Index 22.1 Const General: cooperative, no acute distress, well developed and well groomed Nutritional Appearance: average body habitus and well nourished Orientation/consciousness: oriented to person, oriented to place and oriented to time Limitations: language barrier and other limitations HEENT Head: Yes normocephalic and Yes atraumatic Eyes General: appearance normal, both eyes and all related structures Pupils: Equal, round and reactive pupils present Neck Neck: Yes normal visual inspection and Yes no lymphadenopathy Thyroid: Thyroid normal Resp Effort & Inspection: normal respiratory effort and able to speak in complete sentences Auscultation: clear to auscultation bilaterally Cardio Rate: regular rate Rhythm: regular rhythm Heart sounds: Normal, physiologic split S2 sound present Peripheral pulses: radial pulses present and posterior tibial pulses present GI Inspection: No distended and No Abdominal panniculus present Palpation (GI): Soft to palpation, nontender, no guarding, not rigid and No hepatosplenomegaly present Percussion: Yes normal to percussion Auscultation: normal bowel sounds Rectal Exam - Female: deferred Skin General skin exam: no rashes or lesions noted, turgor normal, skin not dry, no jaundice, No spider nevi and no striae Rashes: no rashes Nails: normal Neuro General: oriented to person, oriented to place and oriented to time Cranial nerves: Yes Equal, round and reactive pupils present and Yes Normal hearing present Speech: No Abnormal speech present Extrem General: Yes normal to inspection, No clubbing, No cyanosis and No edema Psych Appearance: grossly normal and well kempt Mental Status: mental status grossly normal Speech and movement: Normal speech and movement present Affect: normal affect Attitude: cooperative Thought process: Normal thought process present and not confabulating Thought content: Normal thought content present Insight: Poor insight present (Psych) Judgement: Poor judgement present (Psych) Assessment & Plan Assessment & Plan (1) GERD (gastroesophageal reflux disease): Code(s): K21.9 - Gastro-esophageal reflux disease without esophagitis Category: Medical (2) Delayed gastric emptying: Code(s): K30 - Functional dyspepsia Category: Medical (3) Irritable bowel syndrome with diarrhea: Code(s): K58.0 - Irritable bowel syndrome with diarrhea Category: Medical (4) Dementia: Code(s): F03.90 - Unspecified dementia, unspecified severity, without behavioral disturbance, psychotic disturbance, mood disturbance, and anxiety Category: Medical Plan [place]ian #son translates per request She is on Reglan 5 mg 3 times a day, Creon, omeprazole and Viberzi. She is here today with her son who is her primary communication equipment repairer and he reports that she is doing generally well. She occasionally has diarrhea but he attributes this to when she sneaks into the refrigerator and eat/drinks thing she is not supposed to have like milk. Overall she is eating fairly well and while her weight fluctuates up and down, it is not currently of any concern to the patient. Return office visit in 6 months Coding Level of Care Code Est Pt Level 3 (84549) Diagnoses GERD (gastroesophageal reflux disease) K21.9 Delayed gastric emptying K30 Irritable bowel syndrome with diarrhea K58.0 Dementia F03.90
[2025-02-04 15:39] VITALS: BP 160/70; PULSE 60; O2SAT 99; BMI 22.1
--- OUTSIDE RECORDS SUMMARY | 2025-02-04 17:06 | XMS_ITS | Encounter Summary ---
Author Organization [employer] Address [address] [facility] 7t [place] [address] Care Team Providers Care Lime Supervisor Name Role Phone Sana Clements MD Primary Care Provide r Reason for Visit * Reason Comments Med Refill Encounter Details Date Type Department Care Team ([facility] st Contact Info) Description 01/04/2024 Refill [facility] [address] [place] [address] Sana Clements MD [address] [place] [address] Uncomplicated asthma, unspecified asthma severity, unspecified whether [...] documented as of this encounter Care Teams Lime Supervisor Relationship Specialty Start Date End Date Sana Clements MD [address] [place] [address] PCP - General Family Medicine 12/01/17 documented as of this encounter
--- OUTSIDE RECORDS SUMMARY | 2025-02-04 17:06 | XMS_ITS | Encounter Summary ---
Author Organization [employer] Address [address] [facility] 7t [place] [address] Care Team Providers Care Butadiene Converter Utility Operator Name Role Phone Sana Clements MD Primary Care Provide r Reason for Visit * Reason Onset Date Comments Appointment Request 09/20/2022 Encounter Details Date Type Department Care Team ([facility] st Contact Info) Description 09/20/2022 Telephone [facility] [address] [place] [address] Sana Clements MD [address] [place] [address] Appointment Request Social History Tobacco Use Types [...] appt with provider. Please contact pt at [phone] Latvian Speaker documented in this encounter Plan of Treatment Not on file documented as of this encounter Visit Diagnoses Not on filedocumented in this encounter Care Teams Butadiene Converter Utility Operator Relationship Specialty Start Date End Date Sana Clements MD [address] [place] [address] PCP - General Family Medicine 12/01/17 documented as of this encounter
--- OUTSIDE RECORDS SUMMARY | 2025-02-04 17:06 | XMS_ITS | Encounter Summary ---
Author Organization [employer] Address [address] [facility] 7t [place] [address] Care Team Providers Care Asbestos Cloth Inspector Name Role Phone Sana Clements MD Primary Care Provide r Reason for Visit * Reason Onset Date Comments F/U ext 06/20/23 05/29/2023 Encounter Details Date Type Department Care Team ([facility] st Contact Info) Description 05/29/2023 Telephone [facility] [address] [place] [address] Sana Clements MD [address] [place] [address] F/U ext 06/20/23 Social History Tobacco Use [...] orMonday after 2:30. Please contact son at [phone]. documented in this encounter Plan of Treatment Not on file documented as of this encounter Visit Diagnoses Not on filedocumented in this encounter Additional Health Concerns Assessment Noted Time PHQ-9 Depression Total Score: 0 04/04/19 24 3:37 PM EST documented as of this encounter Care Teams Asbestos Cloth Inspector Relationship Specialty Start Date End Date Sana Clements MD [address] [place] [address] PCP - General Family Medicine 12/01/17 documented as of this encounter
--- OUTSIDE RECORDS SUMMARY | 2025-02-04 17:06 | XMS_ITS | Encounter Summary ---
Author Organization [employer] Address [address] [facility] 7t [place] [address] Care Team Providers Care Training Development Director Name Role Phone Sana Clements MD Primary Care Provide r Encounter Details Date Type Department Care Team (Late st Contact Info) Description 03/15/2022 Refill [facility] [address] [place] [address] Sana Clements MD [address] [place] [address] Primary osteoarthritis of both hips; Chronic obstructive [...] obstructive pulmonary disease, unspecified COPD type (CMS/HCC) ([facility]) documented in this encounter Care Teams Training Development Director Relationship Specialty Start Date End Date Sana Clements MD [address] [place] [address] PCP - General Family Medicine 12/01/17 documented as of this encounter
--- OUTSIDE RECORDS SUMMARY | 2025-02-04 17:06 | XMS_ITS | Encounter Summary ---
Author Organization [employer] Address [address] [facility] 7t [place] [address] Care Team Providers Care Ultrasound Technol Name Role Phone Sana Clements MD Primary Care Provide r Encounter Details Date Type Department Care Team ([facility] st Contact Info) Description 04/12/2022 Orders Only [facility] MED[facility]INE [address] [place] [address] Jessie Herrera MD [address] [place], [place] [id number] Acute pain of right shoulder (Primary Dx) [...] Primary documented in this encounter Care Teams Ultrasound Technol Relationship Specialty Start Date End Date Sana Clements MD [address] [place] [address] PCP - General Family Medicine 12/01/17 documented as of this encounter
--- OUTSIDE RECORDS SUMMARY | 2025-02-04 17:06 | XMS_ITS | Encounter Summary ---
Author Organization [employer] Address [address] [facility] 7t [place] [address] Care Team Providers Care House Calls Nurse Practitioner Name Role Phone Sana Clements MD Primary Care Provide r Reason for Visit * Reason Comments Med Refill Encounter Details Date Type Department Care Team ([facility] st Contact Info) Description 04/15/2023 Refill [facility] [address] [place] [address] Sana Clements MD [address] [place] [address] Uncomplicated asthma, unspecified asthma severity, unspecified whether [...] documented as of this encounter Care Teams House Calls Nurse Practitioner Relationship Specialty Start Date End Date Sana Clements MD [address] [place] [address] PCP - General Family Medicine 12/01/17 documented as of this encounter
--- OUTSIDE RECORDS SUMMARY | 2025-02-04 17:06 | XMS_ITS | Clinical Summary ---
Author Organization [employer] Address [address] [facility] 7t [place] [address] Care Team Providers Care B2B Outside Sales Representative Name Role Phone Sana Clements MD Primary [...] obstructive pulmonary disease, unspecified COPD type (CMS/HCC) ([facility]) INHALE 1 PUFF BY MOUTH TWICE DAILY RINSE MOUTH AFTER USING. 60 each 2 Active Diclofenac Sodium 1 % gelIndications:Ar thritis Apply 1 Application topically if needed in the morning and at bedtime (Applyto affected area as needed). 150 g 1 025 Active atorvastatin (Lipitor) 40 MG tablet Active Dupixent 300 MG/2ML solution prefilled syringe injection Active Viberzi 100 MG tablet Take 1 tablet by mouth with breakfast and with evening meal. Active exemestane (Aromasin) 25 MG chemo tablet TAKE 1 TABLET BY MOUTH EVERY DAY AFTER A MEAL Active famotidine (Pepcid) 40 MG tablet Active furosemide (Lasix) 20 MG tablet Take 1 tablet by mouth at bed time. Active ipratropium-albut jesse (Duo-Neb) 0.5-2.5 mg/3 mL nebulizer solution Active Creon 1023-3854 units capsule Active Calcium Carb-Cholecalcife rol 600-10 MG-MCG tablet [...] THE EVENING 180 tablet 3 025 Active atenolol (Tenormin) 50 MG tablet TAKE 1 AND 1/2 TABLETS BY MOUTH IN THE MORNING 135 tablet 1 025 Active Multiple Vitamins-Minerals (CertaVite/Antiox idants) tabletIndications :Healthcare maintenance TAKE 1 TABLET BY MOUTH EVERY MORNING 90 tablet 1 025 Active traZODone (Desyrel) 100 MG tabletIndications :Insomnia, unspecified type TAKE 1 TABLET BY MOUTH AT BEDTIME 90 tablet 1 Active atenolol (Tenormin) 50 MG tablet TAKE 1 AND 1/2 TABLETS BY MOUTH IN THE MORNING 135 tablet 1 025 2024 Discontinued Multiple Vitamins-Minerals (CertaVite/Antiox idants) tabletIndications :Healthcare maintenance TAKE 1 TABLET BY MOUTH EVERY MORNING 90 tablet 1 025 2024 Discontinued traZODone (Desyrel) 100 MG tabletIndications :Insomnia, unspecified type TAKE 1 TABLET BY MOUTH AT BEDTIME 90 tablet 1 025 2024 Discontinued Active Problems Problem Noted Date [...] with neurology Patient's son who is her WEATHERIZATION FIELD TECHNICIAN brought FMLA documents, I instructed to leave the at medical records, son also wants to increase her mother WEATHERIZATION FIELD TECHNICIAN hours, I advise to navigate options at [...] Encounters Date Type Department Care Team Description 01/19/2025 Refill [facility] [address] [place] [address] Sana Clements MD Healthcare maintenance; Insomnia, unspecified type 12/23/2024 Refill [facility] [address] [place] [address] Sana Clements MD 12/16/2024 Orders Only [facility] External Provider, [facility] from Last 3 Months Immunizations Immunization Administration [...] Priority Date/Time Associated Diagnosis Comments US RENAL DOPPLER Routine 12/16/2024 4:17 PM EDT US RENAL COMPLETE Routine 12/16/2024 4:1 7 PM EDT BI MAMMOGRAM DIAGNOSTIC TOMOSYNTHESIS BILATERAL Routine 10/14/2024 2:10 PM EDT LIPID PANEL, STANDARD Routine 10/01/2024 2:53 PM EDT from Last 3 Months or Most Recently Relevant to Health Maintenance Results * US RENAL DOPPLER (12/16/2024 4:17 PM EDT) Anatomical Region Laterality Modality Abdomen Ultrasound 12/16/2024 4:17 PM EDT Narrative 01/16/2025 9:43 AM EDT [place] [address] Ultrasound Report Signed Patient: Laurie Mtz MR#: [id number] : 1945 Acct:[id number] Age/Sex: 79 / F ADM Date: 12/16/24 Loc: HO.US Attending Dr: Omaira SHOEMAKER Ordering Physician: Omaira Green Date of Service: 12/16/24 Procedure(s): US renal doppler Accession Number(s): [id number] cc: Sana Clements MD; Omaira Green Reason for Exam: I70.1 - Atherosclerosis of renal artery CLINICAL HISTORY: I70.1 - Atherosclerosis of renal artery Renal duplex ultrasound Comparison: None provided Technique: Real time duplex ultrasound imaging was performed by the remote advisor. Multiple fulfillment representative static images were saved for review. [...] MD on 12/16/2024 16:17:54 Dictated By: Jessika Lna MD Signed By: <Electronically signed by Jessika Lan MD in OV> 01/16/25 0943 DD/ 16 TD/TT: 12/16/241616 Eligibility Worker: Procedure Note Donotuseinterpreter, Image - 01/16/2025 [place] [address] Ultrasound Report Signed Patient: Laurie MtzMR#: [id number] : 4Acct:[id number] Age/Sex: 79 / FADM Date: 12/16/24 Loc: HO.US Attending Dr: Omaira SHOEMAKER Ordering Physician: Omaira Green Date of Service: 12/16/24 Procedure(s): US renal doppler Accession Number(s): [id number] cc: Sana Clements MD; Omaira Green Reason for Exam: I70.1 - Atherosclerosis of renal artery CLINICAL HISTORY: I70.1 - Atherosclerosis of renal artery Renal duplex ultrasound Comparison: None provided Technique: Real time duplex ultrasound imaging was performed by the remote advisor. Multiple fulfillment representative static images were saved for review. [...] signed by Jessika Lan MD in OV> 01/16/25 0943 DD/ 16 TD/TT: 12/16/241616 Eligibility Worker: us [facility] External Provider IMG US PROCEDURES Edited Result - Final * US Renal Complete (12/16/2024 4:17 PM EDT) Anatomical Region Laterality Modality Kidney Ultrasound 12/16/2024 4:17 PM EDT Narrative 12/16/2024 4:19 PM EDT [place] [address] Ultrasound Report Signed Patient: Laurie Mtz MR#: [id number] : 1945 Acct:[id number] Age/Sex: 79 / F ADM Date: 12/16/24 Loc: HO.US Attending Dr: Omaira SHOEMAKER Ordering Physician: Omaira Green Date of Service: 12/16/24 Procedure(s): US renal BI Accession Number(s): [id number] cc: Sana Clements MD; Omaira Green Reason for Exam: I70.1 - Atherosclerosis of renal artery CLINICAL HISTORY: I70.1 - Atherosclerosis of renal artery Renal duplex ultrasound Comparison: None provided Technique: Real time duplex ultrasound imaging was performed by the remote advisor. Multiple fulfillment representative static images were saved for review. [...] signed by Jessika Lan MD in OV> 12/16/241617 DD/ 16 TD/TT: 12/16/241616 Eligibility Worker: Procedure Note Donotuseinterpreter, Image - 12/16/2024 [place] [address] Ultrasound Report Signed Patient: Laurie Mtz#: [id number] : 4Acct:[id number] Age/Sex: 79 / FADM Date: 12/16/24 Loc: HO.US Attending Dr: Omaira SHOEMAKER Ordering Physician: Omaira Green Date of Service: 12/16/24 Procedure(s): US renal BI Accession Number(s): [id number] cc: Sana Clements MD; Omaira Grene Reason for Exam: I70.1 - Atherosclerosis of renal artery CLINICAL HISTORY: I70.1 - Atherosclerosis of renal artery Renal duplex ultrasound Comparison: None provided Technique: Real time duplex ultrasound imaging was performed by the remote advisor. Multiple fulfillment representative static images were saved for review. [...] Lan MD in OV> 12/16/24 1618 DD/ 16 TD/TT: 12/16/241616 Eligibility Worker: us [facility] External Provider IMG US PROCEDURES Final Result * BI Mammogram Diagnostic Tomosynthesis Bilateral (10/14/2024 2:10 PM EDT) Anatomical Region Laterality Modality Breast Bilateral Mammography 10/14/2024 2:10 PM EDT Narrative 10/14/2024 8:00 PM EDT [facility] [address] [place] [address] Mammography Report Signed Patient: Laurie Mtz MR#: [id number] : 1945 Acct:[id number] Age/Sex: 79 / F ADM Date: 10/14/24 Loc: HO.MAMMO Attending Dr: Александр Burciaga MD Ordering Physician: Александр Burciaga MD Results: 2Beni gn Findings Date of Service: 10/14/24 Follow Up: 1 Year From Orig inal Mammogram Procedure(s): MM tomosynthesis diagnostic BI Accession Number(s): [id number] cc: Sana Clements MD; Александр Burciaga MD [...] OV> 10/14/241955 DD/ 1410 TD/TT: 10/14/24 1440 Eligibility Worker: Procedure Note Donotuseinterpreter, Image - 10/14/2024 [facility] [address] [place] [address] Dr. [place], [place] [address] Mammography Report Signed Patient: Laurie Mtz#: [id number] : 4Acct:[id number] Age/Sex: 79 / FADM Date: 10/14/24 Loc: HO.MAMMO Attending Dr: Александр Burciaga MD Ordering Physician: Александр Burciaga MDResults: 2Beni gn Findings Date of Service: 10/14/24Follow Up: 1 Year From Orig inal Mammogram Procedure(s): MM tomosynthesis diagnostic BI Accession Number(s): [id number] cc: Sana Clements MD; Александр Burciaga MD [...] OV> 10/14/241955 DD/ 1410 TD/TT: 10/14/24 1440 Eligibility Worker: us [facility] External Provider IMG BI PROCEDURES Final Result * Lipid Panel, Standard (10/01/2024 2:53 PM EDT) Triglycerides 68 <150 mg/dL [facility] Comment:Desirable Triglyceri de: less than 150 mg/dLBorderline High Triglyceride 150-199 mg/dLHigh Triglyceride: 200-499 mg/dLVery High Triglyceride: greater than or equal to 5OO mg/dL Cholesterol 112 <200 mg/dL [facility] Comment:Desirable Cholestero l: less than 200 mg/dLBorderline High Cholesterol: 200-239 mg/dLHigh Cholesterol: greater than 239 mg/dL LDL Cholesterol Calculated 52 <100 mg/dL [facility] Comment:Desirable LDL: less than 100 mg/dLNear Optimal/Above Optimal LDL: 110- 129 mg/dLBorderline High LDL: 130-159 mg/dLHigh LDL: 160-189 mg/dLVery High LDL: greater than or equal to 190 mg/dL HDL Cholesterol 47 >40 mg/dL [facility] Comment:Desirable HDL: great er than 40 mg/dL Note: This HDL assay may give artificially low results in patients with liver disease. 10/01/2024 2:53 PM EDT 10/01/2024 2:53 PM EDT us Generic External Data Provider LAB BLOOD ORDERAB LES Final Result [facility] [address] [place] [address] [phone] from Last 3 Months or Most Recently Relevant to Health Maintenance Insurance [facility] LONG TERM OPTIONS (O D-SNP) JIMI STANLEY [id number] Care Teams B2B Outside Sales Representative Relationship Specialty Start Date End Date Sana Clements MD [address] [place] [phone] PCP - General Family Medicine 12/01/17
--- OUTSIDE RECORDS SUMMARY | 2025-02-04 17:06 | XMS_ITS | Encounter Summary ---
Author Organization [employer] Address [address] [facility] [address] [place] [address] Care Team Providers Care Leather Grader Name Role Phone Sana Clements MD Primary Care Provide r Reason for Visit * Reason Comments Med Refill Encounter Details Date Type Department Care Team ([facility] st Contact Info) Description 12/11/2023 Refill [facility] [address] [place] [address] Brittany Gates MD [address] [place] [address] Primary osteoarthritis of both hips Social History [...] documented as of this encounter Care Teams Leather Grader Relationship Specialty Start Date End Date Sana Clements MD [address] [place] [id number] PCP - General Family Medicine 12/01/17 documented as of this encounter
== END 2025-02-04 15:59 | disposition home or self-care (01) ==
LOC: HO.HGI 15:27
PROVIDERS: PCP Internal Medicine; Visit Provider Nurse Practitioner
DX: K21.9 Gastro-esophageal reflux disease without esophagitis (principal); K30 Functional dyspepsia; K58.0 Irritable bowel syndrome with diarrhea; F03.90 Unspecified dementia, unspecified severity, without behavioral disturbance, psychotic disturbance, mood disturbance, and anxiety
CPT/HCPCS: 99213

== ENCOUNTER → 2025-02-04 15:26 | Outpatient (BNVA) | payer OTHER, SELFPAY | PROVIDERS: PCP Internal Medicine; Visit Provider Nurse Practitioner | DX: K21.9 Gastro-esophageal reflux disease without esophagitis (principal); K30 Functional dyspepsia; K58.0 Irritable bowel syndrome with diarrhea; F03.90 Unspecified dementia, unspecified severity, without behavioral disturbance, psychotic disturbance, mood disturbance, and anxiety | CPT/HCPCS: 99212 ==